=== PATIENT | female | born 1950 | race Caucasian/White ===

== ENCOUNTER 2017-10-24 08:53 | Day surgery (SDC) | payer MEDICARE, BC, SELFPAY ==
[2017-10-22 10:39] VITALS: BP 145/64; PULSE 100; RESP 16; TEMP 36.8; O2SAT 95; BMI 38.5
--- NOTE | 2017-10-22 10:47 | SDCEKG_ITS ---
Test Reason : Blood Pressure : / mmHG Vent. Rate : 091 BPM Atrial Rate : 091 BPM P-R Int : 144 ms QRS Dur : 070 ms QT Int : 376 ms P-R-T Axes : 055 -18 031 degrees QTc Int : 462 ms Normal sinus rhythm Low voltage QRS Borderline ECG Confirmed by DIANE LOUISE, JAYLYN ([id number]), videotape editor ROSSANA STODDARD ([id number]) on 10/28/2017 8:46:15 AM Referred By: Salvatore Chawla Confirmed By:JAYLYN CONTRERAS MD
[2017-10-22 11:18] LABS: Prothrombin Time (Protime)PT. 12.6 SECONDS (11.7-14.9)
[2017-10-22 11:34] LABS: AST(SGOT) 14 U/L (15-37); Alanine Aminotransfer ALT/SGPT 28 U/L (13-56); Alkaline Phosphatase 139 U/L (45-117); Anion Gap 8 (5-15); BUN 23 mg/dL (7-18); BUN/Creat Ratio 27.4 RATIO (10-20); Bilirubin, Direct 0.11 mg/dL (0.00-0.30); Calcium,Total 8.9 mg/dL (8.5-10.1); Chloride 103 mmol/L (98-107); Creatinine, Serum 0.84 mg/dL (0.55-1.02); EST Glomerular Filtration Rate 72 mL/min (>60); Est Glom Filt Rate - Afr Amer 87 mL/min (>60); Estimated Creatinine Clearance 46.68 ml/min; Globulin 3.9 g/dL (2.2-4.2); Glucose 88 mg/dL (70-110); Potassium 3.4 mmol/L (3.5-5.1); Protein, Total 7.9 g/dL (6.4-8.2); Sodium Level 140 mmol/L (136-145)
--- NOTE | 2017-10-24 | TUR_PTH ---
PATIENT: RONI LEWIS LOC: [facility] – [place] U#:[id number] AGE/SX: 67/F ROOM: RE10/24/[address]: Dr. Salvatore Chawla MD : 1950 BED: DIS: 10/24/2017 SPEC #: [id number] RECD: 10/24/17 13:09 STATUS: ALISON ANKIT #: [id number] ABBY: 10/24/17 00:[address]: Salvatore Chawla DEPT: SURGICAL PATHOLOGY RECD BY: Wander Garcia ENTERED: 10/24/17 14:37 SP TYPE: TURBINATES OTHR DR: Dr. Phong Quiroga MD Tissues: A - Nasal septum, NOS B - Nasal turbinate, NOS Procedures: Decalcification bone/plaque Surgery Specimen Level III Surgery Specimen Level IV HEADER OPERATION: Septoplasty, submucous resect/inferior turbinates PRE-OP DIAGNOSIS: Hypertrophy of nasal turbinates, deviated nasal septum TISSUE SUBMITTED: A ? Bilateral inferior turbinates ? submucous resection, B ? Nasal septal contents MICROSCOPIC DIAGNOSIS A. Bilateral inferior turbinates, submucosal resection: Fragments of respiratory mucosa with mild chronic inflammation. B. Nasal septal contents, septoplasty: Fragments of cartilage and bone, clinically deviated nasal septum. JERRELL:marilia 10/29/17 MICROSCOPIC DESCRIPTION Slides are reviewed. GROSS DESCRIPTION A - Received in fixative is one container labeled with the patient's name and designated bilateral turbinates and inferior submucosal resection. The specimen consists of multiple fragments of reynoso soft tissue that in aggregate measure 2.5 x 1 x 0.1 cm. The entire specimen is submitted in one cassette. B - Received in fixative is one container labeled with the patient's name and designated nasal septal contents. The specimen consists of multiple fragments of cartilage and bone that in aggregate measure 3 x 2.5 x 0.3 cm. The entire specimen is submitted in one cassette after decalcification. / JERRELL:marilia 10/24/17 TC:3 CPT: 18015, 49947, 49627
[2017-10-24 10:22] VITALS: BP 142/67; PULSE 92; RESP 12; TEMP 36.8; O2SAT 99; BMI 38.5
[2017-10-24] MEDS: Lidocaine 4% 50 ML Bottle (11:00)
[2017-10-24] MEDS: Bacitracin 500 UNITS/GM PACKET (11:30)
--- NOTE | 2017-10-24 11:44 | PCM.DC ---
You will use the following diet at home:: Regular Discharge Activity: Return to Normal Activity Call your doctor if your incision/area has: Sudden Increased Bleeding, Increased Pain/ Swelling Call your doctor if you observe: Fever of 101 or Higher, Uncontrolled pain Allergies/Adverse Reactions: Allergies chocolate flavor Allergy (Verified 10/22/17 10:17) Unknown corn Allergy (Verified 10/22/17 10:17) Unknown peanut Allergy (Verified 10/22/17 10:17) Unknown Penicillins Allergy (Verified 10/22/17 10:17) Unknown Tetracyclines Allergy (Verified 10/22/17 10:17) Unknown venom-honey bee [bee venom (honey bee)] Allergy (Verified 10/22/17 10:17) Unknown Medications to take at Discharge Montelukast [Singulair] 10 mg PO QHS 11/04/14 ascorbic acid (vitamin C) 500 mg tablet 500 mg PO QHS 10/10/17 furosemide 40 mg tablet 40 mg PO QDAY 10/10/17 levothyroxine 100 mcg tablet 100 mcg PO QDAY tab 10/10/17 meloxicam 15 mg tablet 15 mg PO QHS 10/10/17 devlcfcjbali-As-dcdg-minerals tablet 1 tab PO QDAY PRN ea 10/10/17 albuterol sulfate HFA 90 mcg/actuation aerosol inhaler 1 - 2 puff INHALATION Q4H PRN #18 g 10/20/17 amlodipine 5 mg tablet 5 mg PO QHS 10/20/17 cholecalciferol (vitamin D3) 50,000 unit capsule 50,000 unit PO QMONTH cap 10/20/17 ferrous sulfate 325 mg (65 mg iron) tablet 325 mg PO QHS tab 10/20/17 omeprazole 20 mg capsule,delayed release 20 mg PO QDAY 10/20/17 Potassium Chloride [Klor-Con M10] 10 meq PO BID 10/22/17 Wheat Dextrin [Benefiber] 1 each PO BID 10/22/17 Primary Care Physician: Phong Quiroga MD [Primary Care Provider] - Please Follow Up With: Salvatore Chawla MD When: 5 days
--- NOTE | 2017-10-24 11:48 | DCINST_ITS ---
You will use the following diet at home:: Regular Discharge Activity: Return to Normal Activity Call your doctor if your incision/area has: Sudden Increased Bleeding, Increased Pain/ Swelling Call your doctor if you observe: Fever of 101 or Higher, Uncontrolled pain Allergies/Adverse Reactions: Allergies chocolate flavor Allergy (Verified 10/22/17 10:17) Unknown corn Allergy (Verified 10/22/17 10:17) Unknown peanut Allergy (Verified 10/22/17 10:17) Unknown Penicillins Allergy (Verified 10/22/17 10:17) Unknown Tetracyclines Allergy (Verified 10/22/17 10:17) Unknown venom-honey bee [bee venom (honey bee)] Allergy (Verified 10/22/17 10:17) Unknown Medications to take at Discharge Montelukast [Singulair] 10 mg PO QHS 11/04/14 ascorbic acid (vitamin C) 500 mg tablet 500 mg PO QHS 10/10/17 furosemide 40 mg tablet 40 mg PO QDAY 10/10/17 levothyroxine 100 mcg tablet 100 mcg PO QDAY tab 10/10/17 meloxicam 15 mg tablet 15 mg PO QHS 10/10/17 cixxmcgdaigz-Km-qalm-minerals tablet 1 tab PO QDAY PRN ea 10/10/17 albuterol sulfate HFA 90 mcg/actuation aerosol inhaler 1 - 2 puff INHALATION Q4H PRN #18 g 10/20/17 amlodipine 5 mg tablet 5 mg PO QHS 10/20/17 cholecalciferol (vitamin D3) 50,000 unit capsule 50,000 unit PO QMONTH cap ferrous sulfate 325 mg (65 mg iron) tablet 325 mg PO QHS tab 10/20/17 omeprazole 20 mg capsule,delayed release 20 mg PO QDAY 10/20/17 Potassium Chloride [Klor-Con M10] 10 meq PO BID 10/22/17 Wheat Dextrin [Benefiber] 1 each PO BID 10/22/17 Primary Care Physician: Phong Quiroga MD [Primary Care Provider] - Please Follow Up With: Salvatore Chawla MD When: 5 days
--- NOTE | 2017-10-24 11:50 | PCM.OPRPT ---
Problem List (1) Deviated nasal septum Status: Chronic (2) Hypertrophy of both inferior nasal turbinates Status: Chronic Report of Operation Date of Procedure: 10/24/17 Pre-Operative Diagnosis: deviated nasal septum, hypertrophy of bilateral inferior turbinates Post-Operative Diagnosis: same Surgery/Procedure Performed:: septoplasty, submucous resection of bilateral inferior nasal turbinates Description of Surgical Findings:: Mary is a 67-year-old female who presents for evaluation of chronic nasal obstruction predominantly on the left side interfering with her successful use of CPAP. Examination showed significant nasal septal deviation to the left and bilateral hypertrophy of the inferior turbinates. The above procedure was offered in hopes of alleviation of her high CPAP pressure requirements and she was eager to proceed. The risks, alternatives, potential complications, and benefits were discussed at length and witnessed informed consent obtained the office. Procedure went as follows: The patient was identified in the preoperative holding and brought to the operating room where she is placed under general anesthesia and intubated. When appropriate anesthesia obtained pledgets soaked in a 50-50 mixture of oxymetazoline 4% topical lidocaine was then placed decongest the nasal mucosa. Upon removal nasal cavity is examined. There is noted to be significant posterior leftward deviation of nasal septum and a large inferior bony spur obstructing the left side. The septum was then injected with 1% lidocaine with 100,000 epinephrine for a total of 6 cc with an additional 1 cc and injected into the anterior aspect of the inferior turbinates bilaterally. Using a 15 blade scalpel a hemitransfixion incision was then made in the left side and using the caudal elevator a perichondrial subperiosteal flap elevated. Will septum was then transected at the bony cartilaginous junction and a similar flap raised on the contralateral side. Using a Jeff forceps the superior aspect of the deviated portion of the septum was then transected in the lower portion removed piecemeal with a Mary Kate forceps. The mucosa was then elevated off the bony spur inferiorly and this was sharply removed with a chisel allowing for midline placement of the nasal septum. The hemitransfixion incision was then closed with interrupted 4-0 chromic suture followed by 4 oh plain quilting stitch to reapproximate the mucosal flaps completing the septoplasty portion of the procedure. Attention was then turned to submucous resection. Beginning on the left side a stab incision was made with a 15 blade scalpel in the anterior aspect of the inferior turbinate. Using a caudal elevator a submucosal flap was then elevated and using the Luke microdebrider the intervening mucosa and anterior bony portions of the turbinate resected. This resulted in excellent reduction. Similar procedures and completed on the contralateral side. Hernandez splints coated in bacitracin ointment were then applied to each nostril and secured to the columella with a single 3-0 Prolene suture. An NG tube was placed to decompress the stomach and the patient returned to anesthesia where she was revived and extubated without complication having tolerated the procedure well. Type of Anesthesia:: General Anesthesiologist: Angelo Palacios Specimen's removed: septal and turbinate contents Estimated Blood Loss (mL): 50 mL Fluids Replaced: 1000 mL Grafts/Implants Used: Hernandez splints - Complications none - Admit VTE Documentation VTE Present on Admission: No VTE Mechan Device Prophylaxis: SCD's VTE Pharm Prophylaxis ordered?: No
[2017-10-24 11:52] VITALS: BP 142/67; BP 155/82; PULSE 96; RESP 12; TEMP 36.7; O2SAT 96
[2017-10-24 12:00] VITALS: BP 142/67; BP 166/80; PULSE 99; RESP 16; O2SAT 100
[2017-10-24 12:15] VITALS: BP 142/67; BP 170/72; PULSE 96; RESP 16; O2SAT 100
[2017-10-24 12:25] VITALS: BP 142/67; BP 164/78; PULSE 96; RESP 16; TEMP 36.9; O2SAT 100
[2017-10-24 13:54] VITALS: BP 142/67; BP 148/88; PULSE 92; RESP 18; TEMP 36.8; O2SAT 97
== END 2017-10-24 13:57 | disposition home or self-care (01) ==
LOC: SDC 08:53 → AC 08:54
PROVIDERS: Anesthesiology; Family Provider Family Medicine; PCP Family Medicine; Visit Provider Otolaryngology
PROC: (CPT 30520; principal; 2017-10-24 10:15)
DX: J34.2 Deviated nasal septum (principal); J34.3 Hypertrophy of nasal turbinates; I10 Essential (primary) hypertension; D64.9 Anemia, unspecified; G47.30 Sleep apnea, unspecified; K21.9 Gastro-esophageal reflux disease without esophagitis; I50.32 Chronic diastolic (congestive) heart failure; J45.909 Unspecified asthma, uncomplicated
CPT/HCPCS: 30140; 30520; 80048; 80076; 85610; 85730; 88304; 88305; 88311; 93005; J7120; J2405

== ENCOUNTER → 2017-12-24 10:57 | Outpatient (CLI) | payer MEDICARE, BC, SELFPAY ==
[2017-12-24 11:26] VITALS: PULSE 113; PULSE 117; PULSE 118; PULSE 123; PULSE 126; PULSE 96; PULSE 97; O2SAT 95; O2SAT 96; O2SAT 97
--- NOTE | 2017-12-24 13:45 | WT_ITS ---
PSN 6 Minute Walk Test - 6 Minute Walk Test 6 Minute Walk Test: 6 Minute Walk Test PSN:6-Minute Walk Test Start: 12/24/17 11: 26 Freq: Status: Active Protocol: RESP.6MINW Document 12/24/17 11:26 YINKA (Rec: 12/24/17 11:28 YINKA [id number]) 6 Minute Walk Test Date Performed 12/24/17 Time Performed 11:00 Height 5 ft Weight: 86.183 kg Weight in Pounds 190.[address]: Neo Mensah Assistive device used: None Pre-test Oxygen Delivery Method Room Air Pulse Ox (%) 96 Pulse Rate (60-100 beats/min) 97 Dyspnea Nancy Scale (0-10) 0.5 Exertion Nancy Scale (6-20) 6 1st minute Oxygen Delivery Method Room Air Pulse Ox (%) 95 Pulse Rate (60-100 beats/min) 113 H 2nd minute Oxygen Delivery Method Room Air Pulse Ox (%) 96 Pulse Rate (60-100 beats/min) 118 H 3rd minute Oxygen Delivery Method Room Air Pulse Ox (%) 95 Pulse Rate (60-100 beats/min) 117 H 4th minute Oxygen Delivery Method Room Air Pulse Ox (%) 95 Pulse Rate (60-100 beats/min) 123 H 5th minute Oxygen Delivery Method Room Air Pulse Ox (%) 97 Pulse Rate (60-100 beats/min) 123 H 6th minute Oxygen Delivery Method Room Air Pulse Ox (%) 96 Pulse Rate (60-100 beats/min) 126 H Dyspnea Nancy Scale (0-10) 1 Exertion Nancy Scale (6-20) 13 Post-test Oxygen Delivery Method Room Air Pulse Ox (%) 97 Pulse Rate (60-100 beats/min) 96 Full Laps Walked 20 Partial Lap, Number of Tiles Walked 20 Total Distance Walked (ft) 1200 - Interpretation Interpretation: The patient ambulated 1200 feet over the course of 6 minutes on room air with no assistive devices or breaks. No significant desaturation was noted, but patient did have a heart rate as high as 126 bpm. These findings are consistent with a radial vascular limitation to exercise tolerance. - Recommendations Recommendations: No supplemental oxygen is indicated at this time.
== END ==
PROVIDERS: Family Provider Family Medicine; PCP Family Medicine; Visit Provider Nurse Practitioner Acute Care
DX: R06.09 Other forms of dyspnea (principal)
CPT/HCPCS: 94618

== ENCOUNTER → 2017-12-25 13:25 | Outpatient (CLI) | payer MEDICARE, BC, SELFPAY ==
--- NOTE | 2017-12-26 05:58 | PFTCOMP ---
COMPLETE PULMONARY FUNCTION TEST INTERPRETATION Brief HPI: Patient is a 67 year old female, currently under the care of Katja Cruz, who presents to [facility] for complete pulmonary function tests secondary to diagnosis of dyspnea on exertion. Respiratory therapist reports good effort and reproducible results. Interpretation: Forced expiration spirometry shows no large airways obstructive ventilatory defect with an FEV1 of 100 % predicted. There is no significant bronchodilator response by ATS criteria. Spirograms are of good quality and plateau normally. The respiratory flow volume loop shows a normal pattern. Lung volumes by body plethysmography show a normal total lung capacity at 4.66 L, 115 % predicted. All other lung volumes are within normal limits. Diffusion capacity by carbon monoxide is at the lower limit of normal at 66 % predicted. The airway resistance is normal. Compared to previous pulmonary function tests from 01/02/2016, there has been a significant reduction in DLCO by 17%. Impression: Pulmonary function tests are grossly within normal limits, but DLCO is disproportionately reduced and may indicate an early pulmonary vascular disorder.
== END ==
PROVIDERS: Family Provider Family Medicine; PCP Family Medicine; Visit Provider Nurse Practitioner Acute Care
DX: R06.09 Other forms of dyspnea (principal)
CPT/HCPCS: 94060; 94726; 94729

== ENCOUNTER → 2018-01-07 09:57 | Outpatient (CLI) | payer MEDICARE, BC, SELFPAY ==
--- NOTE | 2018-01-07 10:37 | RAD_ITS ---
STUDY: X-RAY - CERVICAL SPINE REASON FOR EXAM: Female, 67 years old. Right arm numbness and tingling with weakness, persistently for one year TECHNIQUE: 5 view(s) of the cervical spine were obtained. COMPARISON: None FINDINGS: Normal anterior atlantoaxial articulation. Normal odontoid process. Normal cervical lordosis. Mild sclerosed endplates and decreased disc height C5-C6. Mild neural foramina narrowing right C5-C6. Facet arthropathy with sclerosis and joint space narrowing C4-5. The soft tissue structures are age-appropriate. RAD/Cerv Spine 4 or 5 Views IMPRESSION: Degenerative changes C5-C6 with mild right neural foraminal narrowing. Electronically Signed: Karen Enriquez MD at 7:28 EDT , Service support ,
--- NOTE | 2018-01-07 10:49 | RAD_ITS ---
STUDY: X-RAY - RIGHT SHOULDER REASON FOR EXAM: Female, 67 years old. Right arm numbness and tingling with weakness, persistently for one year TECHNIQUE: 4 view(s) of the shoulder. COMPARISON: None. FINDINGS: Normal glenohumeral articulation. There is degenerative arthrosis of the acromioclavicular joint without inferior osseous spur formation. Normal acromion. Normal humeral head and visualized proximal humerus. The soft tissue structures are unremarkable. Normal visualized pulmonary apex. RAD/Shoulder min 2 Views IMPRESSION: Mild degenerative changes of the acromioclavicular joint. Electronically Signed: Karen Enriquez MD at 7:27 EDT , Service support ,
[2018-01-07 12:12] LABS: Absolute Lymphocyte Count 1.39 X10^3/ul (0.83-4.51); Absolute Neutrophil Count 4.9 X10^3/uL (2.0-7.7); Basophil# 0.02 X10^3/uL; Basophil% 0.3 % (0-1); Eosinophil# 0.24 X10^3/uL; Eosinophils% 3.4 % (0-5); Hematocrit 43.1 % (37-47); Hemoglobin 13.9 g/dl (12.0-15.0); Lymphocyte # 1.39 X10^3/ul (4.0); Lymphocyte % 19.5 % (19-41); Mean Corp Hgb Conc 32.3 g/gl (32-36); Mean Corpuscular Hgb 28.7 pg (27.0-32.0); Mean Corpuscular Volume 88.9 fL (81-99); Mean Platelet Vol. 10.9 fl (6.2-12.0); Monocyte# 0.56 X10^3/uL; Monocyte% 7.9 % (0-10); Neutrophil # 4.91 X10^3/uL (2.7-7.7); Neutrophil % 68.8 % (47-70); Platelet Count 307 K/mm3 (150-450); RBC Distribution Width CV 13.3 % (11.6-14.6); RBC Distribution Width SD 42.9 fl (35.1-43.9); Red Blood Count 4.85 M/mm3 (4.2-5.4); White Blood Count 7.1 K/mm3 (4.4-11.0)
[2018-01-07 12:16] LABS: POSITIVE COUNT NO; POSITIVE DIFFERENTIAL NO; POSITIVE MORPHOLOGY NO
[2018-01-07 12:42] LABS: Vitamin D,25 Hydroxy 28.5 ng/mL (29.95-100.01)
[2018-01-07 12:52] LABS: Anion Gap 9 (5-15); BUN 21 mg/dL (7-18); BUN/Creat Ratio 24.7 RATIO (10-20); Calcium,Total 8.9 mg/dL (8.5-10.1); Chloride 105 mmol/L (98-107); Creatinine, Serum 0.85 mg/dL (0.55-1.02); EST Glomerular Filtration Rate 71 mL/min (>60); Est Glom Filt Rate - Afr Amer 86 mL/min (>60); Glucose 99 mg/dL (74-106); Potassium 4.1 mmol/L (3.5-5.1); Sodium Level 139 mmol/L (136-145); T4 Free Direct 1.15 ng/dL (0.76-1.46); Thyroid Stim Hormone (TSH) 0.72 uIU/mL (0.358-3.74); Uric Acid 7.4 mg/dL (2.6-6.0)
== END ==
LOC: BFHLAB 10:00 → RAD 10:33
PROVIDERS: Family Provider Family Medicine; PCP Family Medicine; Visit Provider Family Medicine
DX: I10 Essential (primary) hypertension (principal); M10.9 Gout, unspecified; E55.9 Vitamin D deficiency, unspecified; E03.9 Hypothyroidism, unspecified; R20.0 Anesthesia of skin; R20.2 Paresthesia of skin
CPT/HCPCS: 36415; 72040; 72050; 73030; 80048; 82306; 84439; 84443; 84550; 85025

== ENCOUNTER → 2018-02-17 10:34 | Outpatient (CLI) | payer MEDICARE, BC, SELFPAY | PROVIDERS: Family Provider Family Medicine; PCP Family Medicine; Referring Provider Family Medicine; Visit Provider Family Medicine | DX: N30.00 Acute cystitis without hematuria (principal) | CPT/HCPCS: 87077; 87086; 87088; 87186 ==

== ENCOUNTER → 2018-04-14 07:25 | Outpatient (CLI) | payer MEDICARE, BC, SELFPAY ==
--- NOTE | 2018-04-14 13:42 | NEURO_ITS ---
NCS and/or EMG Patient Report Ordering Doctor: Phong Quiroga DATE OF SERVICE: 04/14/18 This is a right upper extremity EMG and nerve conduction study performed on this 68-year-old female with a history of right lateral back pain intermittently worse at night, as well as right shoulder pain. She denies numbness or tingling in her hands. Symptoms of been present for 3 months. She is healthy otherwise. Right upper extremity sensory and motor nerve conduction studies performed. There is mild to moderate prolongation of the median motor and sensory distal latency with preservation of amplitudes and conduction velocities. The ulnar motor and sensory and radial sensory response is normal. The median and ulnar F -wave latencies are preserved. Right upper extremity needle electromyography is performed. Muscles evaluated included the first dorsal interosseous, abductor pollicis brevis, brachioradialis, biceps, triceps and deltoid muscles. All muscles demonstrated normal insertional activity with absence of pathologic spontaneous activity. Motor unit potential recruitment pattern and amplitude is normal in all muscles tested. Impression: Abnormal electrophysiologic study of the right upper extremity consistent with mild to moderate carpal tunnel syndrome. This does not appear to be clinically significant however, there is no other evidence of neuropathy or radiculopathy.
== END ==
PROVIDERS: Family Provider Family Medicine; PCP Family Medicine; Visit Provider Family Medicine
DX: M79.2 Neuralgia and neuritis, unspecified (principal); G56.21 Lesion of ulnar nerve, right upper limb
CPT/HCPCS: 95886; 95909

== ENCOUNTER → 2018-10-20 10:22 | Outpatient (CLI) | payer MEDICARE, BC, SELFPAY ==
[2018-10-12 14:19] VITALS: BMI 39.8
--- NOTE | 2018-10-20 10:25 | STEWCON_ITS ---
Reason For Study: CHEST PAIN Stress Results Protocol: Neo Protocol Maximum Predicted HR: 152 bpm Target HR: 129 bpm % Maximum Predicted HR: 101 % DurationHeart Rate Stage (mm:ss) (bpm) BP Comment BASELINE 91 142/781.5 CC DEFINITY STAGE 1 3:00 131 178/82 STAGE 2 1:00 153 / 1CC DEFINITY RECOVERY 108 150/82 Stress Duration: 4:00 mm:ss Maximum Stress HR: 153 bpm Baseline Echocardiogram Findings The estimated ejection fraction is 65 %. Stress Echo Wall motion Data Resting WM Intermediate WM Stress WM Resting Wall Motion Wall Motion Stress No regional wall motion Mid-anteroseptal : Mildly abnormalities noted. hypokinetic. EKG Data Normal intervals are noted. The patient exercised according to the regular Neo protocol for a total duration of 4:01. The maximum heart rate attained was 153 beats per minute. This was 100% of maximum predicted heart rate. The patient exercised into stage 2 of the Neo protocol. At peak exercise, upsloping ST changes only were noted, which did not meet the criteria for ischemia. No arrhythmias noted. Interpretation Summary The estimated ejection fraction is 65 %. Abnormal, adequate, treadmill echocardiogram. Positive for ischemia by EKG, echocardiogram as well as chest pressure during exercise. Patient appeared to developed mild mid anteroseptal hypokinesis and seen in 2 views at peak exercise. Patient had subtle inferolateral ST segment depression at peak exercise which quickly resolved into recovery. Patient had poor echo windows requiring Definity agent. Final LVEF of 55%. Chest pain resolved during recovery. Test terminated due to dyspnea and chest pressure. Patient referred for catheterization as an outpatient. No complications. Ordering Physician: Kristie Parker/Marcin Olmedo Referring Physician: Kristie Parker Performed By: Jasbir Mcqueen RCS
--- NOTE | 2018-10-20 11:55 | RAD_ITS ---
STUDY: X-RAY CHEST REASON FOR EXAM: Female, 68 years old. TECHNIQUE: COMPARISON: None. FINDINGS: The lungs are clear and expanded. There is no demonstrated pleural abnormality. Normal size heart. Normal mediastinum and manohar. Normal visualized pulmonary arteries. There is atherosclerotic calcification of the aortic arch with tortuosity. There are diffuse degenerative changes of the visualized thoracic spine. Normal visualized ribs, clavicles, and shoulders. There is no demonstrated abnormality of the visualized soft tissue structures of the upper abdomen. RAD/Chest PA and Lateral IMPRESSION: No acute pulmonary process Electronically Signed: Wes Reynoso MD at 20:44 EST , Service support ,
[2018-10-20 13:04] LABS: Hematocrit 44.2 % (37-47); Hemoglobin 14.4 g/dl (12.0-15.0); Mean Corp Hgb Conc 32.6 g/gl (32-36); Mean Corpuscular Hgb 29.8 pg (27.0-32.0); Mean Corpuscular Volume 91.3 fL (81-99); Mean Platelet Vol. 10.2 fl (6.2-12.0); Platelet Count 310 K/mm3 (150-450); RBC Distribution Width CV 12.9 % (11.6-14.6); RBC Distribution Width SD 42.9 fl (35.1-43.9); Red Blood Count 4.84 M/mm3 (4.2-5.4); White Blood Count 8.1 K/mm3 (4.4-11.0)
[2018-10-20 13:06] LABS: Scan Indicated on CBC? Y/N NO
[2018-10-20 13:13] LABS: Prothrombin Time (Protime)PT. 13.3 SECONDS (11.7-14.9)
[2018-10-20 13:14] LABS: Partial Thromboplast Time 25.2 Seconds (24.1-36.2)
[2018-10-20 13:27] LABS: Anion Gap 12 (5-15); BUN 15 mg/dL (7-18); BUN/Creat Ratio 17.9 RATIO (10-20); Calcium,Total 9.3 mg/dL (8.5-10.1); Chloride 107 mmol/L (98-107); Creatinine, Serum 0.84 mg/dL (0.55-1.02); EST Glomerular Filtration Rate 72 mL/min (>60); Est Glom Filt Rate - Afr Amer 87 mL/min (>60); Glucose 100 mg/dL (74-106); Potassium 4.1 mmol/L (3.5-5.1); Sodium Level 143 mmol/L (136-145)
== END ==
PROVIDERS: Family Provider Family Medicine; PCP Family Medicine; Referring Provider Physician Assistant Medical; Visit Provider Physician Assistant Medical
DX: I11.9 Hypertensive heart disease without heart failure (principal); R07.9 Chest pain, unspecified; R94.39 Abnormal result of other cardiovascular function study
CPT/HCPCS: 36415; 71046; 80048; 85027; 85610; 85730; 93017; 93350; Q9957; A4216; C8928

== ENCOUNTER 2018-10-28 06:54 | Day surgery (SDC) | payer MEDICARE, BC, SELFPAY ==
[2018-10-12 14:19] VITALS: BMI 39.8
[2018-10-20 16:20] VITALS: BMI 39.8
[2018-10-27 08:00] VITALS: BMI 39.8
--- NOTE | 2018-10-28 08:25 | CL.D_ITS ---
Patient Name: RONI LEWIS Study Date: 10/28/2018 Performing: Marcin Olmedo MD Ht: 59.84 inches 152 cm : 1950 Wt: 205.03 lbs 93 kg Age: 68 Gender: female BSA: 1.88 Amended PROCEDURE(S) PERFORMED TZ02-VNM/COR/LV CLINICAL PROFILE AND INDICATIONS Indications: Worsening Angina, Suspected CAD Heart Failure: None Stress/Imaging Stress Echocardiogram: Yes Result: Positive Low RiskStress Echocardiogram: Positiv e Low Risk Angina Classification Anginal Classification w/in 2 Weeks: CCS IV CAD Presentations: Unstable angina. Comorbidities/Risk Factors: Hypertension Dyslipidemia CONCLUSIONS Normal LV size, wall motion,and systolic function Non obstructive coronary arteries RECOMMENDATIONS Management as per referring Cloth Tester D/c plavix, increase omeprazole to 20mg po bid, start zocor 20mg po qhs and repeat FLP in [address] Tena Manual sheath removal. DESCRIPTION OF PROCEDURE The patient arrived to the procedure lab. The risks and benefits of the procedure as well as a full d escription of our services here and current unavailability of surgical backup were fully explained to the patient and/or their significant other prior to the catheterization. The Timeout was completed, verifying the correct patient and procedure. The patient's procedural site was prepped and draped in the usual fashion. Local anesthetic was given subcutaneously to right groin region with Lidocaine 2%. Using a modified Seldinger technique, arterial access was obtained via the right femoral artery, a 4 Fr sheath was inserted Left Coronary Artery selective angiography was performed in multiple views us ing a 4 Fr. JL5 catheter. Right Coronary Artery selective angiography was then performed in multiple views using a 4 Fr. 3DRC catheter. Left Ventriculography was performed in BARRAZA projection using a 4 Fr . Pigtail catheter. LV to AO pullback pressures were then recorded.The arterial sheath was pulled and manual compression applied until hemostasis is achieved. CORONARY ANGIOGRAPHY DOMINANCE: Right Dominant LEFT HEART ASSESSMENT Left Ventricular Ejection Fraction: by LV Gram 65 % Normal LV wall motion Normal Left Ventricular systolic function LVEDP: 8 mmHg Normal Left Ventricular End Diastolic Pressure LEFT MAIN: Angiographically normal LEFT ANTERIOR DECENDING ARTERY: Angiographically normal CIRCUMFLEX ARTERY: Angiographically normal OM 1: Proximal - Moderate luminal irregularities up to 50% RIGHT CORONARY ARTERY: Angiographically normal COMPLICATIONS No Complications PROCEDURE MEDICATIONS Oxygen: 2 L/min via nasal cannula Nitro 200 mcg IC 10/28/2018 08:07:20 SUMMARY OF HEMODYNAMIC DATA Time AIR REST ECG 07:06:59 AO 133/58 (92) SA 08:03:31 LV 0/-21, 0 08:12:32 LV 145/-19, 13 08:12:38 LVp 142/-21, 8 08:12:43 AOp 135/54 (85) 08:12:48 Signed By Marcin Olmedo MD On 10/28/2018 8:24:16 AM Marcin Olmedo MD
[2018-10-28 08:41] LABS: Bedside Glucose 121 mg/dL (70-110)
== END 2018-10-28 12:56 | disposition home or self-care (01) ==
LOC: CLSP 06:56
PROVIDERS: Family Provider Family Medicine; PCP Family Medicine; Referring Provider Internal Medicine Cardiovascular Disease; Visit Provider Internal Medicine Cardiovascular Disease
DX: R07.89 Other chest pain (principal); I10 Essential (primary) hypertension; I51.9 Heart disease, unspecified; R00.0 Tachycardia, unspecified; E78.5 Hyperlipidemia, unspecified
CPT/HCPCS: 82962; 93458; J7040; C1769; C1894; Q9967

== ENCOUNTER → 2019-04-05 10:35 | Outpatient (CLI) | payer MEDICARE, BC, SELFPAY ==
[2019-01-11 09:36] VITALS: BMI 35.9
[2019-04-05 12:47] LABS: Absolute Lymphocyte Count 1.27 X10^3/ul (0.83-4.51); Basophil# 0.04 X10^3/uL; Basophil% 0.5 % (0-1); Eosinophil# 0.15 X10^3/uL; Eosinophils% 1.9 % (0-5); Hematocrit 45.5 % (37-47); Hemoglobin 15.2 g/dl (12.0-15.0); Lymphocyte # 1.27 X10^3/ul (4.0); Lymphocyte % 15.8 % (19-41); Mean Corp Hgb Conc 33.4 g/gl (32-36); Mean Corpuscular Hgb 29.2 pg (27.0-32.0); Mean Corpuscular Volume 87.3 fL (81-99); Monocyte% 7.5 % (0-10); Neutrophil # 5.96 X10^3/uL (2.7-7.7); Neutrophil % 74.1 % (47-70); Platelet Count 335 K/mm3 (150-450); RBC Distribution Width CV 13.5 % (11.6-14.6); RBC Distribution Width SD 42.4 fl (35.1-43.9); Red Blood Count 5.21 M/mm3 (4.2-5.4)
[2019-04-05 12:49] LABS: POSITIVE COUNT NO; POSITIVE DIFFERENTIAL NO; POSITIVE MORPHOLOGY NO
[2019-04-05 12:55] LABS: Vitamin D,25 Hydroxy 62.6 ng/mL (29.95-100.01)
[2019-04-05 13:03] LABS: ALB/GLOB Ratio 1.2 RATIO (0.9-2.4); AST(SGOT) 21 U/L (15-37); Alanine Aminotransfer ALT/SGPT 38 U/L (13-56); Albumin, Serum 4.2 g/dL (3.2-5.0); Alkaline Phosphatase 108 U/L (45-117); Anion Gap 9 (5-15); BUN 16 mg/dL (7-18); BUN/Creat Ratio 16.4 RATIO (10-20); Calcium,Total 9.1 mg/dL (8.5-10.1); Chloride 106 mmol/L (98-107); Creatinine, Serum 0.98 mg/dL (0.55-1.02); EST Glomerular Filtration Rate 60 mL/min (>60); Est Glom Filt Rate - Afr Amer 73 mL/min (>60); Globulin 3.4 g/dL (2.2-4.2); Glucose 114 mg/dL (74-106); Potassium 3.7 mmol/L (3.5-5.1); Protein, Total 7.6 g/dL (6.4-8.2); Sodium Level 140 mmol/L (136-145); T4 Free Direct 1.48 ng/dL (0.76-1.46); Thyroid Stim Hormone (TSH) 1.21 uIU/mL (0.358-3.74); Uric Acid 6.4 mg/dL (2.6-6.0)
== END ==
PROVIDERS: PCP Family Medicine; Visit Provider Family Medicine
DX: I10 Essential (primary) hypertension (principal); E03.9 Hypothyroidism, unspecified; M10.9 Gout, unspecified; E55.9 Vitamin D deficiency, unspecified; R73.01 Impaired fasting glucose
CPT/HCPCS: 36415; 80053; 82306; 83036; 84439; 84443; 84550; 85025

== ENCOUNTER 2019-04-21 10:49 | Day surgery (SDC) | payer MEDICARE, BC, SELFPAY ==
--- NOTE | 2019-04-15 07:00 | RAD_ITS ---
STUDY: X-RAY CHEST REASON FOR EXAM: Female, 69 years old. Acute chest pain TECHNIQUE: PA and lateral views of the chest. COMPARISON: 10/20/2018 FINDINGS: The lungs are clear and expanded. There is no demonstrated pleural abnormality. Normal size heart. Normal mediastinum and manohar. Normal visualized pulmonary arteries. There is atherosclerotic calcification of the aortic arch with tortuosity. There are diffuse degenerative changes of the visualized thoracic spine. Normal visualized ribs, clavicles, and shoulders. There is no demonstrated abnormality of the visualized soft tissue structures of the upper abdomen. RAD/Chest PA and Lateral IMPRESSION: No acute pulmonary process Electronically Signed: Wes Reynoso MD at 11:06 EDT , Service support ,
[2019-04-15 09:11] VITALS: BMI 33.7
[2019-04-15 11:56] LABS: Hematocrit 43.3 % (37-47); Hemoglobin 14.3 g/dL (12.0-15.0); Mean Corpuscular Hgb 29.1 pg (27.0-32.0); Mean Corpuscular Volume 88.2 fL (81-99); Platelet Count 284 K/mm3 (150-450); RBC Distribution Width CV 13.2 % (11.6-14.6); RBC Distribution Width SD 42.8 fl (35.1-43.9); Red Blood Count 4.91 M/mm3 (4.2-5.4); White Blood Count 8.9 K/mm3 (4.4-11.0)
[2019-04-15 12:19] LABS: International Normalized Ratio 1.1; Prothrombin Time (Protime)PT. 13.6 SECONDS (11.7-14.9)
[2019-04-15 12:20] LABS: Partial Thromboplast Time 27.2 Seconds (24.1-36.2)
[2019-04-15 12:40] LABS: Anion Gap 6 (5-15); BUN 15 mg/dL (7-18); BUN/Creat Ratio 18.1 RATIO (10-20); Calcium,Total 9.2 mg/dL (8.5-10.1); Chloride 107 mmol/L (98-107); Creatinine, Serum 0.83 mg/dL (0.55-1.02); EST Glomerular Filtration Rate 72 mL/min (>60); Est Glom Filt Rate - Afr Amer 88 mL/min (>60); Glucose 90 mg/dL (74-106); Potassium 3.7 mmol/L (3.5-5.1); Sodium Level 137 mmol/L (136-145)
[2019-04-20 13:41] VITALS: BMI 34.7
[2019-04-21] VITALS (20 sets, daily range): BP systolic 113–158; BP diastolic 35–91; PULSE 74–89; RESP 13–29; TEMP 36.2–36.5; O2SAT 95–100; BMI 34.0; BMI 34.7
[2019-04-21 12:06] LABS: ACT Activated Clotting Time 213 sec (74-137)
--- NOTE | 2019-04-21 12:13 | EKG12_ITS ---
Test Reason : POST PCI Blood Pressure : / mmHG Vent. Rate : 075 BPM Atrial Rate : 075 BPM P-R Int : 164 ms QRS Dur : 070 ms QT Int : 414 ms P-R-T Axes : 057 -08 028 degrees QTc Int : 462 ms Normal sinus rhythm Normal ECG When compared with ECG of 22-OCT-2017 10:52, No significant change was found Confirmed by ANAM OLMEDO ([id number]), manuscript editor NOVA STEWART ([id number]) on 05/03/2019 2:07:06 PM Referred By: Anam Olmedo Confirmed By:ANAM OLMEDO
--- NOTE | 2019-04-21 12:14 | CL.I_ITS ---
Patient Name: RONI LEWIS Study Date: 04/21/2019 Performing: Marcin Olmedo MD Ht: 59.84 inches 152 cm : 1950 Wt: 171.96 lbs 78 kg Age: 69 Gender: female BSA: 1.75 PROCEDURE(S) PERFORMED [id number] W OR WO PTCA, SINGLE CORONARY ARTERY CLINICAL PROFILE AND CO-MORBIDITIES Indications: Worsening Angina, Stable Known CAD Heart Failure: None Stress/Imaging Date: 10/20/2018 Stress Echocardiogram: Positive Low Risk Angina Classification Anginal Classification w/in 2 Weeks: CCS III CAD Presentations: Unstable angina. 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 Pt had identical CP during stent deployment as she has been having at home. RECOMMENDATIONS Referred for immediate PCI Highly recommend quitting all tobacco products Follow up with primary digital press operator Risk factor modification ASA Indefinitley Plavix for at least 12 months Routine post interventional care Refer for Outpatient Cardiac Rehab Manual sheath removal per protocol Follow up with Dr. Olmedo Successful Mynx Control closure of RFA. DESCRIPTION OF PROCEDURE The patient arrived to the procedure lab. The risks and benefits of the procedure as well as a full d escription of our services here and lack of surgical backup were fully explained to the patient and/o r their significant other prior to the catheterization. The Timeout was completed, verifying the kodi ect patient and procedure. The patient's procedural site was prepped and draped in the usual fashion. Local anesthetic was given subcutaneously to right groin region with Lidocaine 2%. Using a modified Seldinger technique, arterial access was obtained via the right femoral artery, a 6Fr sheath was inse rted.. Right Coronary Artery selective angiography was then performed in multiple views using a 4 Fr . 3DRC catheterThe images were reviewed and options discussed. A decision was then made to proceed wi th an Intervention, IVUS or other adjunct procedure. Angiogram performed pre balloon dilatation. EBU 3.5 Guide catheter was inserted and engaged into the LCA. BMW Guide wire was advanced to the Ramus. 2.25x12 Synergy Drug Eluting stent was advanced ac ross the lesion in the ramus branch, proximal. Angiogram performed post stent deployment. The arter ial sheath was pulled and a Mynx closure device was deployed for hemostasis CORONARY ANGIOGRAPHY DOMINANCE: Right Dominant LEFT HEART ASSESSMENT Left Ventricular Ejection Fraction: Not assessed LEFT MAIN: Angiographically normal CIRCUMFLEX ARTERY: Angiographically normal RAMUS: 75 % Stenosis RIGHT CORONARY ARTERY: Angiographically normal INTERVENTION INFORMATION LESION SITE: Ramus (Proximal) Lesion Complexity: Non-High/Non-C, lesion at bifurcation: No, thrombus present: No, lesion length: 12 mm, culprit lesion: Yes Pre Stenosis: 75 % Pre intervention LESLIE flow: 3 PROCEDURE: Drug Eluting Stent Post Stenosis: 0 % Post intervention LESLIE flow: 3 Lesion Devices: Land .014 BMW [place] Straight 190cm Briteseedtronic 6 Fr EBU3.5 100cm Guide Catheter Anomo MR MATTY 2.25x12 COMPLICATIONS No Complications PROCEDURE MEDICATIONS Versed 1 mg IV Oxygen: 2 L/min via nasal cannula Heparin 6000 unit(s) IV 04/21/2019 11:39:24 Nitro 200 mcg IC 04/21/2019 11:43:31 Nitro 200 mcg IC 04/21/2019 11:43:31 IV Bolus: .9 NaCl 200 ml total 04/21/2019 12:00:25 SUMMARY OF HEMODYNAMIC DATA Time AIR REST ECG 11:28:56 AO 127/53 (83) SA 11:38:25 Signed By Marcin Olmedo MD On 04/21/2019 12:13:23 Marcin Olmedo MD
[2019-04-21] MEDS: 0.9% Normal Saline 1,000 ML 150 ML IV (13:51)
--- NOTE | 2019-04-21 14:56 | CRPHASE1 ---
Patient Communication PHII Cardiac Rehab Discussed with Patient:: Yes Guide to Cardiac Rehab Given to Patient:: Yes Cardiac Rehab Facility Choice List Given to Patient:: Yes - [facility] Choice Program [facility] CR PHII:: Communication Given to CR Sessions:: 36 sessions - 3 days/wk, 12 weeks Risk Factors/Lifestyle Smoking Status: Never smoker Second-Hand Smoke:: Yes Hx Hypertension: Yes Hx Diabetes Mellitus Type 2: No Hx Obesity: Yes Height: 1.5 m Weight:: 78.01 kg BMI: 34.7 Post-Menopausal: Yes Stress: Home/Family ETOH: No Caffeine: Yes Substance Abuse: No Family History: Family History (Last Reviewed 04/15/19 @ 09:20 by Katelyn Taylor) Brother CAD (coronary artery disease) Mother Heart disease Thyroid disorder Parkinson disease Hypertension Arthritis Father Heart disease Cancer Arthritis Hypertension High cholesterol Pulmonary fibrosis Family History: High Cholesterol, Heart Disease, Hypertension, Pulmonary Disease Phase I Education Given On:: [place], Nutrition, Antiplatelet medication, CHF Issues Affecting Care:: None Knowledge of Condition:: Yes Hospital Course Pain Description: Tightness, Pressure Pain Intensity: 8 Cardiac Cath Date:: 04/21/19 Medical/Surgical History NH:: No Angina:: Yes Cardiomyopathy:: Yes Pulmonary:: Yes COPD:: Yes Asthma:: Yes Hypertension:: Yes Dyslipidemia:: Yes Depression:: Yes - HAS DEMENTIA Anxiety:: Yes Discharge/Home/Social Eval Discharge Disposition: Home Marital Status: Patient Lives With:: Cardiac Rehabilitation Info Cardiac Rehabilitation Program Information: Cardiac Rehabilitation is important for patients like you who are recovering from a heart problem. Cardiac rehabilitation programs are recognized as integral to the continued care of the patient with coronary heart disease. The cardiac rehabilitation program is designed to optimize a patient's physical, psychological, and social functioning. Health career development coordinator work in cardiac rehabilitation programs and assist you with getting the treatments you need to get stronger and healthier - like exercise, healthy eating habits, and medications. Cardiac rehabilitation has been show to help people with heart problems live longer and have better life enjoyment than people who do not go to cardiac rehabilitation. Please contact the Cardiac Rehabilitation Program at [facility] at in two weeks if you have not heard from them.
--- NOTE | 2019-04-21 15:00 | CRPH1.INSTRU ---
General Education CAD and cardiac anatomy and function:: Patient communicates acknowledgment Explanation of diagnoses and procedures:: Patient communicates acknowledgment Sign/Symptoms of NE:: Patient communicates acknowledgment Antiplatelet therapy: Not instructed Proper use of NTG-SL: Not instructed Emergency procedures and activation of EMS: Patient communicates acknowledgment Compliance of all prescribed medications: Patient communicates acknowledgment Smoking Patient Nicotine/Smoking Risk Factors Are:: Second-hand smoke Dyslipidemia Recommendations Include:: Lipid profile not available Dyslipidemia Response Code:: Patient communicates acknowledgment Overweight/Obesity Patient Overweight/Obesity Risk Factors Are:: Overweight = 26-29 Recommendations Include:: Weight loss of 5-10% Overweight/Obesity:: Patient communicates acknowledgment Hypertension Recommendations Include:: Maintain BP <130/85, DASH dietary guidelines, Decrease/maintain normal body weight Hypertension:: Patient communicates acknowledgment Heart Disease Patient Heart Disease Risk Factors Are:: Family history of heart disease < 65 years old, Previous cardiac event Heart Disease Response Code:: Patient communicates acknowledgment Diabetes Patient Diabetes Risk Factors Are:: No documented hx of diabetes Recommendations Include:: Maintain fasting blood sugars 70-110 md/dL, Decrease/maintain body weight Diabetes:: Patient communicates acknowledgment Metabolic Syndrome Patient Metabolic Syndrome Risk Factors Are [3 of 5]:: High triglyceride >150, Hypertension, Low HDL <40 [male] or < 50 [female] Metabolic Syndrome Response Code:: Patient communicates acknowledgment Sedentary Recommendations Include:: Benefits of regular exercise, Discussed home walking program Sedentary Response Code:: Patient communicates acknowledgment Stress Recommendations Include:: Identification of stressors, and assessment of coping skills, Stress management techniques - HAS DEMENTIA Stress Response Code:: Patient communicates acknowledgment
--- NOTE | 2019-04-21 16:39 | DCINST_ITS ---
Discharge Diet: Low fat/ Low Cholesterol May shower in (days): 1 - No tub baths for 5 days Lifting Restrictions: Do not lift anything greater than 10 pounds for 3 days Call your doctor if your incision/area has: Continuous Slow Oozing, Sudden Increased Bleeding, Increased Pain/ Swelling, Increased Redness, Foul Smelling Discharge, Swelling at the incision site Call your doctor if you observe: Fever of 101 or Higher, Shortness of breath, Chest pain Remove Dressing in (days):: 1 Cleanse incision/area with: Soap & Water Additional Instructions: You will continue with Aspirin therapy. You will remain on Plavix therapy for at least one year. If anyone asks you to stop your Plavix please call the [facility] Office first at [phone]. You are scheduled for an office appointment with Dr. Olmedo on 05/07/2019 at 1 PM. If you have any questions or concerns at any point, please call the [facility] office at [phone]. Allergies/Adverse Reactions: Allergies chocolate flavor Allergy (Verified 04/15/19 09:20) Unknown corn Allergy (Verified 04/15/19 09:20) Unknown peanut Allergy (Verified 04/15/19 09:20) Unknown Penicillins Allergy (Verified 04/15/19 09:20) Unknown Tetracyclines Allergy (Verified 04/15/19 09:20) Unknown venom-honey bee [bee venom (honey bee)] Allergy (Verified 04/15/19 09:20) Unknown Medications to take at Discharge Montelukast [Singulair] 10 mg PO QHS 11/04/14 levothyroxine 100 mcg tablet 100 mcg PO QDAY tab 10/10/17 wheat dextrin 5 gram/7.4 gram oral powder 1 cap PO DAILY g 10/12/18 aspirin 81 mg tablet,delayed release 81 mg PO DAILY #90 tab 04/15/19 gzyrxwj-nhbsujoiz-utgz 333 mg-133 mg-5 mg tablet 2 tab PO DAILY tab 04/15/19 clopidogrel 75 mg tablet 75 mg PO DAILY #90 tab 04/15/19 diltiazem ER 360 mg capsule,24 hr,extended release 360 mg PO DAILY #90 cap 04/15/19 furosemide 40 mg tablet 40 mg PO QDAY #90 tab 04/15/19 nitroglycerin 0.4 mg sublingual tablet 0.4 mg SUBLINGUAL Q5-15M PRN #25 tab 04/15/19 omeprazole 20 mg capsule,delayed release 40 mg PO BID cap 04/15/19 potassium chloride ER 20 mEq tablet,extended release 20 meq PO BID #180 tab 04/15/19 sertraline 25 mg tablet 25 mg PO DAILY 04/15/19 simvastatin 20 mg tablet 20 mg PO QHS #90 tab 04/15/19 Orders to be completed after discharge: Phase II, Outpatient Cardiac Rehab Location: None Selected Primary Care Physician: Phong Quiroga MD [Primary Care Provider] - Test Results: Test results from this visit will be discussed in further detail at your follow- up appointment, if applicable. Please Follow Up With: Dr. Olmedo When: 05/07/2019 at 1:00 PM Proposed Discharge Date: 04/22/19 Cardiac Rehabilitation Info Cardiac Rehabilitation Program Information: Cardiac Rehabilitation is important for patients like you who are recovering from a heart problem. Cardiac rehabilitation programs are recognized as integral to the continued care of the patient with coronary heart disease. The cardiac rehabilitation program is designed to optimize a patient's physical, psychological, and social functioning. Health clinical care manager work in cardiac rehabilitation programs and assist you with getting the treatments you need to get stronger and healthier - like exercise, healthy eating habits, and medications. Cardiac rehabilitation has been show to help people with heart problems live longer and have better life enjoyment than people who do not go to cardiac rehabilitation. Please contact the Cardiac Rehabilitation Program at [facility] at in two weeks if you have not heard from them.
[2019-04-21] MEDS: Acetaminophen 325 MG Tablet 650 MG PO (19:28)
[2019-04-21] MEDS: Atorvastatin Calcium 10 MG Tablet PO (21:36)
[2019-04-21] MEDS: Montelukast 10 MG Tablet PO (21:36)
[2019-04-21] MEDS: Pantoprazole Sodium 40 MG Tablet PO (21:36)
[2019-04-22] VITALS (12 sets, daily range): BP systolic 117–147; BP diastolic 37–60; PULSE 26–90; RESP 18–77; TEMP 36.5–36.6; O2SAT 94–99
[2019-04-22 04:14] LABS: Hematocrit 37.7 % (37-47); Hemoglobin 12.5 g/dL (12.0-15.0); Mean Corp Hgb Conc 33.2 g/dL (32-36); Mean Corpuscular Hgb 29.7 pg (27.0-32.0); Mean Corpuscular Volume 89.5 fL (81-99); Mean Platelet Vol. 10.1 fl (6.2-12.0); Platelet Count 243 K/mm3 (150-450); RBC Distribution Width CV 13.3 % (11.6-14.6); RBC Distribution Width SD 43.8 fl (35.1-43.9); Red Blood Count 4.21 M/mm3 (4.2-5.4); White Blood Count 8.5 K/mm3 (4.4-11.0)
[2019-04-22 04:44] LABS: Anion Gap 8 (5-15); BUN 14 mg/dL (7-18); BUN/Creat Ratio 17.8 RATIO (10-20); Chloride 110 mmol/L (98-107); Cholesterol 99 mg/dL (200); Creatinine, Serum 0.79 mg/dL (0.55-1.02); EST Glomerular Filtration Rate 77 mL/min (>60); Est Glom Filt Rate - Afr Amer 93 mL/min (>60); Estimated Creatinine Clearance 65.39 ml/min; Glucose 107 mg/dL (74-106); High Density Lipoprotein 33 mg/dL; Potassium 3.8 mmol/L (3.5-5.1); Sodium Level 143 mmol/L (136-145); Triglycerides 166 mg/dL; Very Low Density Lipoprotein 33 mg/dL (5-40)
[2019-04-22] MEDS: Levothyroxine 100 MCG Tablet PO (05:29)
[2019-04-22] MEDS: 0.9% NaCl Peripheral Flush Adult/Peds IV (05:30)
--- NOTE | 2019-04-22 07:31 | PCM.PN.BLA ---
Progress Note Patient is not on a beta corby d/t pulmonary disease and current calcium channel corby with controlled heart rate.
--- NOTE | 2019-04-22 07:53 | PCM.PN.CARD ---
Subjectve: Patient feels much better after angioplasty and stenting. No 24-hour events. Telemetry negative. EKG shows normal sinus rhythm, normal axis, normal intervals. No acute changes. Hemoglobin and creatinine are within nominal limits. Right groin is clean/dry/intact without evidence of thrills, bruits or hematoma. Objective: Vital Signs Temp Pulse Resp BP Pulse Ox 97.7 F L 90 24 H 126/60 H 95 04/22/19 04:00 04/22/19 07:00 04/22/19 07:00 04/22/19 07:00 04/22/19 07:00 Oxygen Delivery Method Room Air Weight: 176 lb 2.389 oz Body Mass Index (BMI) 34.0 Intake and Output for Last 24 Hours 04/20/19 04/21/19 04/22/19 23:59 23:59 23:59 Intake Total 915 / 1348.4 783.4 / 783.4 Balance 915 / 1348.4 783.4 / 783.4 General: Awake, Alert, Oriented x 3 HEENT: PERRL, EOMI, Sclera Non Icteric Neck: Supple, Good ROM, No Lymph Node Enlargement Lungs: Clear to auscultation Cardiovascular: Regular Rhythm, Normal S1, Normal S2, No Murmurs, No Rubs, No Gallops Vascular: No Carotid Bruits, Normal Femoral Pulses, Normal Radial Pulses, Normal Dorsalis Pedal Pulse, Normal Posterior Tibial Pulses Abdomen: Bowel Sounds Present, Soft, Non Tender, No HSM, No Organomegaly Extremities: No Cyanosis, No Clubbing, No edema Neurological: No Focal Motor or Sensory Deficit 04/22/19 04:00: WBC 8.5, RBC 4.21, Hgb 12.5, Hct 37.7, MCV 89.5, MCH 29.7, MCHC 33.2, Plt Count 243, MPV 10.1 04/22/19 04:00: Sodium 143, Potassium 3.8, Chloride 110 H, Carbon Dioxide 25.0, Anion Gap 8, BUN 14, Creatinine 0.79, Est GFR (MDRD) Af Amer 93, Est GFR (MDRD) Non-Af 77, BUN/Creatinine Ratio 17.8, Glucose 107 H, Calcium 8.0 L, Triglycerides 166, Cholesterol 99, LDL Cholesterol 33, VLDL Cholesterol 33, HDL Cholesterol 33 L Rhythm: EKG: ECHO: Stress Test: Cardiac Cath: PCI: CT Surgery: Holter monitor: EPS: PPM: CXR: Chest CT Scan: Medical Necessity - Tobacco Use Smoking Status: Never smoker Assessment/Plan 1. Coronary artery disease: Patient is complained of exertional chest pain, and had an abnormal stress test in the past. Patient underwent successful angioplasty and drug-eluting stent of her proximal ramus intermedius with an excellent result. Patient had identical chest pain symptoms upon deployment of her stent, which have resolved. The patient actually claims that she feels much better. I recommended she continue baby aspirin, and Plavix. 2. Hypertension: Due to the patient's pulmonary issues, she is unable to tolerate beta-blockers or LIANA inhibitor/arms due to her chronic pulmonary issues. She has responded well to Cardizem however, and recommend continuing Cardizem therapy. 3. Hyperlipidemia: Her LDL and HDL cholesterol are each 33. Continue Lipitor. 4. Patient may be discharged home and follow-up with Dr. Olmedo going forward in 4 to 6 weeks time. This note was generated using a voice recognition system and there may be incorrect words, spelling or punctuation that were not noted when reviewing the office note prior to saving. Code Visit Inpatient E&M: 96988 Subs Hosp L2
[2019-04-22] MEDS: Sertraline 50 MG Tablet 25 MG PO (08:16)
[2019-04-22] MEDS: dilTIAZem CD 180 MG Capsule 360 MG PO (08:17)
[2019-04-22] MEDS: Pantoprazole Sodium 40 MG Tablet PO (08:17)
[2019-04-22] MEDS: Aspirin E.C. 81 MG Tablet PO (08:17)
[2019-04-22] MEDS: Furosemide 40 MG Tablet PO (08:17)
[2019-04-22] MEDS: Clopidogrel Bisulfate 75 MG Tablet PO (08:17)
== END 2019-04-22 09:35 | disposition home or self-care (01) ==
LOC: CLSP 10:50 → ICU 04-22 08:23
PROVIDERS: Family Provider Family Medicine; PCP Family Medicine; Referring Provider Internal Medicine Cardiovascular Disease; Visit Provider Internal Medicine Cardiovascular Disease
DX: I25.110 Atherosclerotic heart disease of native coronary artery with unstable angina pectoris (principal); I10 Essential (primary) hypertension; E78.5 Hyperlipidemia, unspecified; R94.39 Abnormal result of other cardiovascular function study; R07.9 Chest pain, unspecified; E66.01 Morbid (severe) obesity due to excess calories; Z68.33 Body mass index [BMI] 33.0-33.9, adult; K21.9 Gastro-esophageal reflux disease without esophagitis; K31.84 Gastroparesis; J45.40 Moderate persistent asthma, uncomplicated; I50.32 Chronic diastolic (congestive) heart failure; E03.9 Hypothyroidism, unspecified; M10.9 Gout, unspecified; G47.33 Obstructive sleep apnea (adult) (pediatric)
CPT/HCPCS: 36415; 71046; 80048; 80061; 85027; 85347; 85610; 85730; 92928; 93005; 99152; 99153; C1760; J7030; J7040; Q9967; A4216; C1769; C1874; C1887; C9600

== ENCOUNTER → 2019-04-30 09:23 | Outpatient (CLI) | payer MEDICARE, BC, SELFPAY ==
[2019-04-21 12:40] VITALS: BMI 34.0
[2019-04-21 14:59] VITALS: BMI 34.7
--- NOTE | 2019-04-30 09:33 | PCM.CR.ITP ---
General Information - General Information Admitting Diagnosis: PCI with stent - Education/Goals Barriers to Learning: None Cardiac Rehabilitation Goals: 1. Maintain the individual as the primary focus of care. 2. To improve the patient's quality of life. 3. Identification of cardiac risk factors and provide cardiac risk factor management. 4. Enhance the psychosocial status of the patient. 5. Reconditioning enough to allow the patient to resume customary activities. 6. Control symptoms of cardiac disease Scale for measuring improvement of personal goals: Enter appropriate number in Comments. 2 = Unchanged. 3 = Slightly Better. 4 = Moderate Improvement. 5 = Met my Goal Personal Goals: Initial Assessment: Improve management of stress and emotions, Improve energy level, Participate in home exercise program, Get back to work, or to resume activities faster, Improve knowledge of cardiac disease, Improve muscle strength and endurance, Improve diet and eating habits (eat healthier), Control risk factors (learn risk factor modification) Exercise - Initial Assessment - Visit Date of Eval: 04/30/19 - initial eval - Stages of Change Stages of Change:: Contemplate - Physician Prescribed Exercise Modalities: Treadmill, Biodyne, Rower, Airdyne, NuStep, SciFit Frequency (days/week): 3x/week for 12 weeks [36 sessions] Duration (Minutes):: 30-45 Intensity: 60-80% age predicted maximum heart rate reserve METs - Progression: 0.5-1.0 MET, RPE 11-14 WEEK: 2.5 Target Heart Rate:: 105-113 - Hypertension Do any of the following apply?: Yes Resting Blood Pressure:: 124/54 - Intervention Home Exercise/Activity Goal:: Sitting Time <3 hrs/day - Education Goals:: Warm-up, RPE PHILLIP Scale, S/S, Safe Exercise, Self-Monitoring - Exercise Program Goals Exercise Program Goals: Aerobic Activity >30 min Nutrition - Initial Assessment - Program Goals Nutrition Program Goals: LDL <70. Total Cholesterol <200. HDL >45. Triglycerides <150. HgbA1C <7%. BMI <25 - Visit Date of Assessment:: 04/30/19 - Stages of Change Stages of Change:: Contemplate - Diabetes Diabetes:: No - Weight Management Height: 1.52 m Weight:: 78.471 kg Total Score:: 3 - Intervention Referral to dietitian:: No Referral to Diabetic Clinic:: No Will attend diet classes:: Yes - Education Gave educational materials for:: Signs & symptoms of hypoglycemia, Signs & symptoms of hyperglycemia, Relate diabetes to coronary artery disease, Healthy eating Tobacco - Initial Assessment - Program Goals Tobacco Program Goals: Complete smoking cessation. Attend education classes. Improve Knowledge Test score - Stage of Change Stages of Change:: Contemplate - Learning Barriers Total Score:: 20 - Family Support Do you have family support?: Yes - Tobacco Use Tobacco Use: Non-smoker Do you use smokeless tobacco?: No - Intervention Smoking Cessation Referral:: No Individual Education/Counseling:: No Education Schedule Given:: Yes - Education Attended class for:: Treating Heart Disease, How The Heart Works, What it means to have Heart Disease, How Coronary Artery Disease is Diagnosed, Heart Procedures, What Heart Medications Do, Risk Factors & Modifications, Living an Active Life, Nutrition, Emotions & Heart Disease, Stress Management & Relaxation, Sleep Disorders & Heart Disease Psychosocial - Initial Assess - Target Goals Target Goals: Assess presence or absence of depression. Using a valid screening tool, maximizes coping skills. Positive support system - Stages of Change Stages of Change:: Contemplate - Psychosocial Test Tool Used:: HANDS Depression Questionnaire Total Mood Screening Score:: 3 Self-Efficacy Score:: 9 - Intervention PS - Interventions: Yes Attend Stress Management Classes, Yes Uses Stress Management Skills, No Referral to Mental Health, No Referral to [facility] Case Management, No Referral to Physician - Education Gave educational materials for:: Coping techniques, Signs & symptoms of depression, Stress management, Relaxation techniques - Assistive Devices Assistive Devices:: None Fall Risk Assessed:: Yes Patient Health Questionnaire Initial Assessment 1. Little interest or pleasure in doing things: Not at all 2. Feeling down, depressed, or hopeless: Not at all 3. Trouble falling or staying asleep, or sleeping too much: Several days 4. Feeling tired or having little energy: Several days 5. Poor appetite or overeating: Several days 6. Feeling bad about yourself -- or that you are a failure or have let yourself or your family down: Not at all 7. Trouble concentrating on things, such as reading the newspaper or watching television: Not at all 8. Moving or speaking so slowly that other people could have noticed. Or the opposite - being so fidgety or restless that you have been moving around a lot more than usual: Not at all 9. Thoughts that you would be better off , or of hurting yourself in some way: Not at all How difficult have these problems made it for you to do your work, take care of things at home, or get along with other people?: Not difficult at all Total Score: 3 SASHA-Q SV Test - Statements CAD is a disease of the arteries in the heart: False Examples of risk factors for heart disease: True Angina is chest pain or discomfort: True The benefits of resistance training include: True Eating more meat and dairy products: False Anti-platelet medications such as aspirin are important: True The only effective way to manage stress: False An exercise warm-up slowly increases heart rate: True Prepared, processed foods usually have high sodium: True Depression is common after a heart attack: True The statin medications lower cholesterol: True To control blood pressure, lower the amount of sodium: True If someone gets chest discomfort during walking: False Transfats are partially hydrogenated vegetable oils: True Sleep apnea that is not treated increases the risk: False To control cholesterol, one should become a vegetarian: False Someone knows if he/she is exercising at the right level: True Diabetes cannot be prevented with exercise & health eating: False Stress is a large risk for heart attack: True A diet that can help lower blood pressure is rich in: True - Total Score Total Correct Responses: 20 Self-Efficacy Initial Assessment We would like to know how confident you are in doing certain activities. Please select your confidence level for:: Select your confidence level for the following using the scale 1-10 where 1 is not at all confident and 10 is totally confident. Your score is the average of all 6 responses. Fatigue: How confident are you that you can keep the fatigue caused by your disease from interfering with the things you want to do? Select Number: 9 Physical Discomfort or Pain: How confident are you that you can keep the physical discomfort or pain of your disease from interfering with the things you want to do? Select Number: 9 Emotional Distress: How confident are you that you can keep the emotional distress caused by your disease from interfering with the things you want to do? Select Number: 9 Other Symptoms or Health Problems: How confident are you that you can keep other symptoms or health problems from interfering with the things you want to do? Select Number: 9 Different Tasks and Activities: How confident are you that you can do the different tasks and activities needed to manage your health condition so as to reduce your need to see a doctor? Select Number: 10 Medication: How confident are you that you can do things other than just taking medication to reduce how much your illness affects your everyday life? Select Number: 10 Total Score:: 9 Nutrition Survey - Nutrition Survey Instructions Scoring Instructions: Scoring is as follows: Yes = 1 points. No = 0 point. Patient score that is >/=12 is considered to be at potential nutritional risk and could benefit from a referral to a registered dietitian. - Nutrition Survey Initial Have you lost >10 lbs over the past 2 months without trying?: Yes Are you following a special diet at home for diabetes, low fat, or low salt?: No Are you interested in meeting with a dietitian for help understanding your diet?: Yes Do you eat less than 3 meals a day?: No Do you eat fatty meats (ren, sausage, ribs, etc), fried foods, desserts, large amounts of salad dressings, margarine, butter, or cheese most days?: No Do you have food allergies? [Enter types in comment field]: Yes Do you eat in restaurants more than 3 times a week?: No Do you season food with salt, seasoning salt, or garlic salt?: No Do you used canned, boxed, frozen meals, or soups, seasoning packets?: No Total Score:: 3
--- NOTE | 2019-04-30 09:34 | CR.HP_ITS ---
CR - History & Physical - General Arrival date:: 04/30/19 Arrival time:: 09:34 Date of Referral:: 04/21/19 Date of CR Evaluation:: 04/30/19 Referring Physician: Dr. Marcin lOmedo Primary Diagnosis: Z95.5 PCI W/ Stent - History of Present Cardiac Event Onset Date: Enter Onset Date of cardiac illnesses in Comment field below Current stable Angina Pectoris:: Yes Acute Myocardial Infarction within 12 months:: No Coronary Artery Bypass Graft:: No Heart valve replacement or repair:: No PTCA or coronary stenting:: Yes Type of Symptoms:: CP Interventions with present event:: PCI with stent 04/21/2019 - Medications Home Medications: Ambulatory Orders Medication Instructions Recorded Montelukast [Singulair] 10 mg PO QHS 11/04/14 levothyroxine 100 mcg tablet 100 mcg PO QDAY tab 10/10/17 wheat dextrin 5 gram/7.4 gram oral 1 cap PO DAILY g 10/12/18 powder aspirin 81 mg tablet,delayed 81 mg PO DAILY #90 tab 04/15/19 release vhurfmn-zfuvctiaq-goej 333 mg-133 2 tab PO DAILY tab 04/15/19 mg-5 mg tablet clopidogrel 75 mg tablet 75 mg PO DAILY #90 tab 04/15/19 diltiazem ER 360 mg capsule,24 360 mg PO DAILY #90 cap 04/15/19 hr,extended release furosemide 40 mg tablet 40 mg PO QDAY #90 tab 04/15/19 nitroglycerin 0.4 mg sublingual 0.4 mg SUBLINGUAL Q5-15M PRN #25 04/15/19 tablet tab omeprazole 20 mg capsule,delayed 40 mg PO BID cap 04/15/19 release potassium chloride ER 20 mEq 20 meq PO BID #180 tab 04/15/19 tablet,extended release sertraline 25 mg tablet 25 mg PO DAILY 04/15/19 simvastatin 20 mg tablet 20 mg PO QHS #90 tab 04/15/19 - Allergies Allergies/Adverse Reactions: Allergies chocolate flavor Allergy (Verified 04/15/19 09:20) Unknown corn Allergy (Verified 04/15/19 09:20) Unknown peanut Allergy (Verified 04/15/19 09:20) Unknown Penicillins Allergy (Verified 04/15/19 09:20) Unknown Tetracyclines Allergy (Verified 04/15/19 09:20) Unknown venom-honey bee [bee venom (honey bee)] Allergy (Verified 04/15/19 09:20) Unknown - Sleep Disorder Evaluation Hx of Sleep Apnea: Yes Do you snore loudly (louder than talking or can be heard through closed doors)?: No Do you often feel tired/ fatigued/ sleepy during daytime?: No Has anyone observed you stop breathing during sleep?: No History of Hypertension (for STOP score): Yes STOP Results: Negative Advanced Directives - Advanced Directives Power of Disability Liaison Officer: Yes Living Will: Yes Advance Directives Information Provided: Yes Advance Directives on File: No DNR Order?:: No Past Medical History - Past Medical Illness Medical History: Past Medical History (Last Updated 04/21/19 @ 12:25 by Katelyn Taylor) Chest pain (Acute) R07.9 Tachycardia (Chronic) R00.0 Atherosclerotic heart disease of [place] coronary artery without angina pectoris (Chronic) I25.10 Up to 50% luminal irregularities in proximal OM 1, all other arteries normal per [facility] 10/28/18. 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 Pt had identical CP during stent deployment as she has been having at home. 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 Diverticulosis K57.90 GERD (gastroesophageal reflux disease) K21.9 Gastroparesis K31.84 Gout M10.9 Hyperlipidemia E78.5 Hypothyroidism E03.9 IBS (irritable bowel syndrome) K58.9 Lung nodule R91.1 KATHARINA (obstructive sleep apnea) G47.33 Sciatica M54.30 Abnormal pulmonary function test R94.2 Abnormal stress test (Resolved) R94.39 Asthma exacerbation J45.901 Asthmatic bronchitis J45.909 Bronchospasm J98.01 Dyspnea R06.00 Dyspnea on exertion (Resolved) R06.09 Fatigue R53.83 Hypersomnia G47.10 peroneal nerve pinched - Past Surgical History Surgical History: Past Surgical History (Last Updated 04/21/19 @ 12:26 by Katelyn Taylor) Stented coronary artery (Chronic) Onset Date: 04/21/19 Z95.5 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 Pt had identical CP during stent deployment as she has been having at home. History of left heart catheterization (Chronic) Onset Date: 10/28/18 Z98.890 Up to 50% luminal irregularities in proximal OM 1, all other arteries normal per [facility] done @ [facility], Dr. Olmedo H/O colonoscopy Z98.890 H/O endoscopy Z98.890 H/O nasal septoplasty Z98.890 10/24/2017 History of appendectomy Z90.49 History of cholecystectomy Z90.49 History of tonsillectomy Z90.89 History of tubal ligation Z98.51 turbinate reduction 10/24/2017 - Family History Summary Family History: Family History (Last Reviewed 04/15/19 @ 09:20 by Katelyn Taylor) Brother CAD (coronary artery disease) Mother Heart disease Thyroid disorder Parkinson disease Hypertension Arthritis Father Heart disease Cancer Arthritis Hypertension High cholesterol Pulmonary fibrosis Social History - Smoking History Smoking Status: Never smoker Hx Tobacco Use: No Hx Smoking Exposure: No - Alcohol Use Alcohol Usage: Yes - socially - Substance Abuse Hx Substance Use: No - Occupation Occupation (List type of work in comments):: Retired - Hobbies, Recreation, Social Activities Hobbies: Sewing, Other - crafts, gardening Recreational Activities: I am able to engage in all my recreational activities Social Environment - Status Marital Status: - Current Living Arrangements Living Environment:: Spouse - Children How many children do you have?: 2 Do any of your children live nearby?: Yes - Safety Do you feel safe in your surroundings?: Yes - Assistance Do you need any assistance at home?: none Review of Systems - Review of Systems Hints: Right click = Denies ([place]). Left click = Reports ([place]) Review of Present Symptoms: Reports: Angina, Appetite - Normal, Appetite - Special Diet, Sleep - Normal. Denies: Shortness of Breath at Rest, Shortness of Breath with Exertion, PVD, Operative Discomfort, Wound Healing, Dizziness/Lightheadedness, Fatigue, Heart Arrhythmia/Irregularities, Sexual Changes - Pain Is Patient Pain Free?: Yes Risk Factor Assessment - Chief Complaint Chief Complaint: CP - Vital Signs Pulse Ox: 97 Blood Pressure: 124/54 - Pulse Pulse Rate: 77 Pulse Rhythm: Regular - Hypertension How long have you been treated?: 2014 - Stress Stress: Recent - Diabetes Nutrition Referral for Diabetes: No - Obesity Height: 1.52 m Weight:: 78.471 kg Weight in Pounds: 173.0 lbs Body Mass Index (BMI): 33.7 Nutritional Referral for Obesity: No - Physical Inactivity Physical Inactivity: Recreational activity - Risk Stratification Risk Guidelines: Lowest Risk: Risk Factor for Smoking, Moderate Risk: Risk Factor for Dyslipidemia, Risk Factor for Diabetes, Risk Factor for Sedentary Lifestyle, Risk Factor for Depression, Highest Risk: Risk Factor for Obesity, Risk Factor for Hypertension - For Smoking Smoking Risk Guidelines: Smoking Low Risk: None or quit greater than 6 months ago. Smoking Moderate Risk: Smoker or quit 6 months or less ago. Smoking High Risk: Smoker - For Dyslipidemia Dyslipidemia Risk Guidelines: Low Risk: Moderate Risk: High Risk: 15-25% fat 25.1-29% fat >/= 30% fat. <7% sat fat 7-9% sat fat >9% sat fat. <150 mg chol 150-299 mg chol >/= 300 mg chol. LDL <100 LDL 100-129 LDL >/= 130. Chol/HDL ratio <5.0 Chol/HDL ratio 5.0-6.0 Chol/HDL ratio >6.0. Triglycerides <100 Triglycerides 100-149 Triglycerides >/= 150 - For Diabetes Mellitus Diabetes Risk Guidelines: Diabetes Low Risk: HgA1c <6.5% and/or FBG <120. Diabetes Moderate Risk: HgA1c 6.6-7.9% and/or FBG 120-180. Diabetes High Risk: HgA1c >/= 8% and/or FBG >180 - For Obesity/Overweight Obesity/Overweight Risk Guidelines: Obesity Low Risk: BMI <25.0. Obesity Moderate Risk: BMI 25-29.9. Obesity High Risk: BMI >/= 30.0 - For Hypertension Hypertension Risk Guidelines: Hypertension Low Risk: Systolic <120 and Diastolic <80. Hypertension Moderate Risk: Systolic 120-139 and Diastolic 80-89. Hypertension High Risk: Systolic >/= 140 and Diastolic >/= 90 - For Sedentary Lifestyle Sedentary Lifestyle Risk Guidelines: Sedentary Lifestyle Low Risk: >/= 1,500 kcal/week. Sedentary Lifestyle Moderate Risk: 700-1,499 kcal/week. Sedentary Lifestyle High Risk: < 700 kcal/week - For Depression Depression Risk Guidelines: Depression Low Risk: Not clinically depressed. Depression Moderate Risk: Mildly depressed. Depression High Risk: Clinically depressed - Family History Family History: Family History (Last Reviewed 04/15/19 @ 09:20 by Katelyn Taylor) Brother CAD (coronary artery disease) Mother Heart disease Thyroid disorder Parkinson disease Hypertension Arthritis Father Heart disease Cancer Arthritis Hypertension High cholesterol Pulmonary fibrosis Motivation - Motivation to Participate On a scale of 1 to 10, how prepared are you to commit to attending program?: 10 What do you see as barriers to successfully being able to complete the program?: selling home What do you see as the benefits of succesfully completing the program? In other words, what do you hope to get out of participating in the program?: improved health Are there issues you are dealing with that will interfere with completing the program?: none Do you have a spouse or signficant other, family or friends who will help support you to complete the program?: yes
[2019-04-30 10:50] VITALS: BP 124/54; PULSE 77; O2SAT 97; BMI 33.7
== END ==
PROVIDERS: Family Provider Family Medicine; PCP Family Medicine; Visit Provider Internal Medicine Cardiovascular Disease
DX: Z95.5 Presence of coronary angioplasty implant and graft (principal)

== ENCOUNTER 2019-05-21 14:15 | Outpatient (RCR) | payer MEDICARE, BC, SELFPAY ==
[2019-04-21 14:59] VITALS: BMI 34.7
[2019-04-30 10:41] VITALS: BMI 33.7
[2019-05-07 13:14] VITALS: BMI 33.7
== END 2019-05-22 23:59 ==
LOC: CR 14:15
PROVIDERS: Family Provider Family Medicine; PCP Family Medicine; Visit Provider Internal Medicine Cardiovascular Disease
DX: I25.10 Atherosclerotic heart disease of native coronary artery without angina pectoris (principal); I50.32 Chronic diastolic (congestive) heart failure; Z95.5 Presence of coronary angioplasty implant and graft
CPT/HCPCS: 93798

== ENCOUNTER 2019-06-21 14:15 | Outpatient (RCR) | payer MEDICARE, BC, SELFPAY ==
[2019-04-21 14:59] VITALS: BMI 34.7
[2019-05-07 13:14] VITALS: BMI 33.7
== END 2019-06-21 23:59 ==
LOC: CR 14:15
PROVIDERS: Family Provider Family Medicine; PCP Family Medicine; Referring Provider Internal Medicine Cardiovascular Disease; Visit Provider Internal Medicine Cardiovascular Disease
DX: I25.10 Atherosclerotic heart disease of native coronary artery without angina pectoris (principal); I50.32 Chronic diastolic (congestive) heart failure; Z95.5 Presence of coronary angioplasty implant and graft
CPT/HCPCS: 93798

== ENCOUNTER → 2019-06-22 09:52 | Outpatient (CLI) | payer MEDICARE, BC, SELFPAY ==
[2019-01-11 09:36] VITALS: BMI 35.9
[2019-04-21 14:59] VITALS: BMI 34.7
[2019-05-07 13:14] VITALS: BMI 33.7
--- NOTE | 2019-06-22 14:40 | PFTCOMP_ITS ---
COMPLETE PULMONARY FUNCTION TEST INTERPRETATION Brief HPI: Patient is a 69 year old female, currently under the care of myself, who presents to [facility] for complete pulmonary function tests secondary to diagnosis of asthma. Respiratory therapist reports good effort and reproducible results. Interpretation: Forced expiration spirometry shows no large airways obstructive ventilatory defect with an FEV1 of 114% predicted. There is no significant bronchodilator response by strict ATS criteria. Spirograms are of good quality and plateau normally. The respiratory flow volume loop shows a normal pattern. Lung volumes by body plethysmography show a normal total lung capacity at 4.32 L, 108% predicted. All other lung volumes are within normal limits. Diffusion capacity by carbon monoxide is normal at 80% predicted. The airway resistance is normal. Compared to previous pulmonary function tests from 12/25/2017, a significant improvement in DLCO by 13%. Impression: These pulmonary function tests are within normal limits. There has been i mprovement in diffusion compared to previous study.
== END ==
PROVIDERS: Family Provider Family Medicine; PCP Family Medicine; Referring Provider Nurse Practitioner Acute Care; Visit Provider Nurse Practitioner Acute Care
DX: J45.40 Moderate persistent asthma, uncomplicated (principal)
CPT/HCPCS: 94060; 94726; 94729

== ENCOUNTER 2019-07-19 14:15 | Outpatient (RCR) | payer MEDICARE, BC, SELFPAY ==
[2019-04-21 14:59] VITALS: BMI 34.7
[2019-05-07 13:14] VITALS: BMI 33.7
--- NOTE | 2019-06-30 11:46 | CR.ITP_ITS ---
Exercise - 60-Day Assessment - Visit Date of Eval: 06/30/19 Session #:: 22 - Finesse is 100% comliant with attendance thus far. - Stages of Change Stages of Change:: Action - Physician Prescribed Exercise Modalities: Treadmill, Airdyne, NuStep Frequency (days/week): 3 Duration (Minutes):: 30-45 Intensity: 60-80% age predicted maximum heart rate reserve METs - Progression: 0.5-1.0 MET, RPE 11-14 WEEK: 3.5 unable to increase due to HR. Target Heart Rate:: 105-113 w/max hr of 114 - Hypertension Resting Blood Pressure:: 124/68 Peak Exercise Blood Pressure:: 146/72 Medication Changes:: No - Intervention Home Exercise/Activity Goal:: Moderate Exercise 30 min/day x 5 days/wk - Education Goals:: Warm-up, RPE PHILLIP Scale, S/S, Safe Exercise, Self-Monitoring - Exercise Program Goals Exercise Program Goals: Aerobic Activity >30 min Nutrition - 60-Day Assessment - Program Goals Nutrition Program Goals: LDL <70. Total Cholesterol <200. HDL >45. Triglycerides <150. HgbA1C <7%. BMI <25 - Visit Date of Eval: 06/30/19 - Stages of Change Stages of Change:: Action - Lipids Has the patient seen the dietitian?: No - Diabetes Diabetes:: No Insulin: No Non-Insulin Dependent?: No - Weight Management Weight:: 177 lb 8 oz - weight stable/unchanged - Intervention Referral to dietitian:: No Referral to Diabetic Clinic:: No Will attend diet classes:: Yes - Education Attended class for:: Healthy eating Tobacco - 60-Day Assessment - Program Goals Tobacco Program Goals: Complete smoking cessation. Attend education classes. Improve Knowledge Test score - Stage of Change Stages of Change:: Action - Learning Barriers Learning Barriers: Participates in education - Family Support Do you have family support?: Yes - Tobacco Use Tobacco Use: Non-smoker Do you use smokeless tobacco?: No - Intervention Smoking Cessation Referral:: No Education Schedule Given:: Yes - Education Attended class for:: Treating Heart Disease, How The Heart Works, What it means to have Heart Disease, How Coronary Artery Disease is Diagnosed, Heart Procedures, What Heart Medications Do, Risk Factors & Modifications, Living an Active Life Psychosocial - Initial Assess - Target Goals Target Goals: Assess presence or absence of depression. Using a valid screening tool, maximizes coping skills. Positive support system - Psychosocial Test Tool Used:: HANDS Depression Questionnaire - Assistive Devices Fall Risk Assessed:: Yes Psychosocial - 60-Day Assess - Target Goals Target Goals: Assess presence or absence of depression. Using a valid screening tool, maximizes coping skills. Positive support system - Stages of Change Stages of Change:: Action - Psychosocial Test Tool Used:: HANDS Depression Questionnaire - Intervention PS - Interventions: Yes Attend Stress Management Classes, No Referral to Mental Health, No Referral to [facility] Case Management, No Referral to Physician, No Uses Stress Management Skills - Education Attended classes for:: Coping techniques, Signs & symptoms of depression, Stress management, Relaxation techniques - Patient/Program Goal Preventative Medication(s):: Aspirin, LIANA inhibitor, Clopidogrel, Beta corby, Statin/lipid - Assistive Devices Assistive Devices:: None Fall Risk Assessed:: Yes Patient Health Questionnaire 60-Day Re-eval Assessment 1. Little interest or pleasure in doing things: Not at all 2. Feeling down, depressed, or hopeless: Not at all 3. Trouble falling or staying asleep, or sleeping too much: Not at all 4. Feeling tired or having little energy: Not at all 5. Poor appetite or overeating: Not at all 6. Feeling bad about yourself -- or that you are a failure or have let yourself or your family down: Not at all 7. Trouble concentrating on things, such as reading the newspaper or watching television: Not at all 8. Moving or speaking so slowly that other people could have noticed. Or the opposite - being so fidgety or restless that you have been moving around a lot more than usual: Not at all 9. Thoughts that you would be better off , or of hurting yourself in some way: Not at all How difficult have these problems made it for you to do your work, take care of things at home, or get along with other people?: Not difficult at all Total Score: 0 Self-Efficacy 60-Day Re-eval Assessment We would like to know how confident you are in doing certain activities. Please select your confidence level for:: Select your confidence level for the following using the scale 1-10 where 1 is not at all confident and 10 is totally confident. Your score is the average of all 6 responses. Fatigue: How confident are you that you can keep the fatigue caused by your disease from interfering with the things you want to do? Select Number: 9 Physical Discomfort or Pain: How confident are you that you can keep the physical discomfort or pain of your disease from interfering with the things you want to do? Select Number: 10 Emotional Distress: How confident are you that you can keep the emotional distress caused by your disease from interfering with the things you want to do? Select Number: 10 Other Symptoms or Health Problems: How confident are you that you can keep other symptoms or health problems from interfering with the things you want to do? Select Number: 10 Different Tasks and Activities: How confident are you that you can do the different tasks and activities needed to manage your health condition so as to reduce your need to see a doctor? Select Number: 10 Medication: How confident are you that you can do things other than just taking medication to reduce how much your illness affects your everyday life? Select Number: 10 Total Score:: 9
[2019-06-30 11:50] VITALS: BP 124/68; BP 146/72
== END 2019-07-22 23:59 ==
LOC: CR 14:15
PROVIDERS: Family Provider Family Medicine; PCP Family Medicine; Referring Provider Internal Medicine Cardiovascular Disease; Visit Provider Internal Medicine Cardiovascular Disease
DX: I25.10 Atherosclerotic heart disease of native coronary artery without angina pectoris (principal); I50.32 Chronic diastolic (congestive) heart failure; Z95.5 Presence of coronary angioplasty implant and graft
CPT/HCPCS: 93798

== ENCOUNTER 2019-07-21 10:08 | Emergency (ER) | payer MEDICARE, BC, SELFPAY ==
[2019-04-21 14:59] VITALS: BMI 34.7
[2019-05-07 13:14] VITALS: BMI 33.7
[2019-07-21] VITALS (7 sets, daily range): BP systolic 108–138; BP diastolic 49–98; PULSE 72–95; RESP 12–19; TEMP 36.9; O2SAT 96–97; BMI 34.2
--- NOTE | 2019-07-21 10:24 | EKG12_ITS ---
Test Reason : CP Blood Pressure : / mmHG Vent. Rate : 100 BPM Atrial Rate : 100 BPM P-R Int : 102 ms QRS Dur : 076 ms QT Int : 360 ms P-R-T Axes : 030 -13 047 degrees QTc Int : 464 ms Sinus rhythm Normal ECG Confirmed by ANAM OLMEDO ([id number]), web editor NOVA STEWART ([id number]) on 07/26/2019 8:41:03 AM Referred By: Anam Olmedo Confirmed By:ANAM OLMEDO
--- NOTE | 2019-07-21 10:24 | RAD_ITS ---
STUDY: X-RAY CHEST REASON FOR EXAM: Female, 69 years old. Chest pain. Palpitations. TECHNIQUE: Single AP portable view of the chest. COMPARISON: Comparison is made with prior study dated April 15, 2019. FINDINGS: EKG electrodes are seen. The lungs are clear and expanded. Scattered calcified granulomas. There is no demonstrated pleural abnormality. Normal size heart. Normal mediastinum and manohar. Normal visualized pulmonary arteries. There is atherosclerotic calcification of the aortic arch with tortuosity. There are diffuse degenerative changes of the visualized thoracic spine. Normal visualized ribs, clavicles, and shoulders. There is no demonstrated abnormality of the visualized soft tissue structures of the upper abdomen. RAD/Chest 1 View (Portable) IMPRESSION: No acute abnormality is seen. Electronically Signed: Juan Diamond, at 10:47 EDT , Service support ,
--- NOTE | 2019-07-21 10:31 | ED.DCSUM_ITS ---
- ER Visit Summary Date of Service: 07/21/19 Chief Complaint: Chest pain History of Present Illness: The patient is a 69 F who presents with chest pain that has been present for the past week but became worse last night. Patient states that she has a pressure in the substernal area and radiates into her ba ck. Patient states nothing seems to make it better or worse. Patient denies any diaphoresis. Patient admits to some nausea but denies any vomiting. Patient states she has some shortness of breath but states she is always short of breath to some degree. Ms. to some reflux symptoms. Patient admits to some palpitations. Cardiac risk factors include prior coronary artery disease, hypertension, hypercholesterolemia, and a family history of a sibling who had an IN at age 51. Physical Examination: Vital signs are stable. Patient is afebrile. Patient is in no acute distress. Oral mucosa is pink and moist. Neck is supple. Trachea is midline. There is no JVD noted. Heart was regular rate and rhythm. Lungs are clear and equal bilaterally. Abdomen is soft. Bowel sounds are normal. There is some mild epigastric tenderness. There is no rebound or guarding noted. Cranial nerves II through XII are intact. There are no focal motor or sensory deficits noted. Test Results: EKG showed a normal sinus rhythm with a rate of 100. There are no acute ST or T wave changes. CBC and basic metabolic profile were within normal limits. Troponin was normal. Portable chest x-ray was obtained. There is no acute cardiopulmonary process. Emergency Department Course and Treatment: Patient was given aspirin and nitroglycerin here. Review of prior records showed that patient had a normal stress echocardiogram in September. Patient's cardiac cath on 04/21/2019 was otherwise normal except for the area that was stented. Since the patient called Dr. Olmedo's office today prior to coming to the emergency department, the case was discussed with Dr. Olmedo. He recommended obtaining a delta troponin and if that is normal the patient may be discharged. The delta troponin was normal. Patient is feeling better on reevaluation. Patient was instructed to follow-up with her primary care physician in 3 to 5 days. Patient was also instructed to follow-up with Dr. Olmedo as scheduled. Patient understood and was agreeable with the plan. All questions were answered. Disposition: Discharge home Impression: 1. Chest pain This note was generated with Dragon dictation software. It may contain incorrect words, spelling, and punctuation that were not noted in review of the chart prior to signing ED Disposition - Plan for ED Patient: Disposition: Home or Assisted Living Diagnosis: Chest pain Instructions: CHEST PAIN, Uncertain Cause Referrals: Phong Quiroga MD [Primary Care Provider] - 3-5 Days
[2019-07-21] MEDS: Nitroglycerin SL (ED/IMG/CATH) 0.4 MG TABLET SUBLINGUAL (10:32)
[2019-07-21] MEDS: Aspirin 81 MG TAB.CHEW 324 MG PO (10:33)
[2019-07-21 10:40] LABS: Absolute Lymphocyte Count 1.26 X10^3/uL (0.83-4.51); Absolute Neutrophil Count 6.1 X10^3/uL (2.0-7.7); Basophil# 0.06 X10^3/uL; Basophil% 0.8 % (0-1); Eosinophil# 0.04 X10^3/uL; Eosinophils% 0.5 % (0-5); Hematocrit 46.6 % (37-47); Hemoglobin 15.4 g/dL (12.0-15.0); Lymphocyte # 1.26 X10^3/ul (4.0); Lymphocyte % 15.8 % (19-41); Mean Corpuscular Hgb 29.3 pg (27.0-32.0); Mean Corpuscular Volume 88.8 fL (81-99); Mean Platelet Vol. 10.4 fl (6.2-12.0); Monocyte# 0.51 X10^3/uL; Monocyte% 6.4 % (0-10); NRBC Flagged by Analyzer 0 % (0-5); Neutrophil # 6.09 X10^3/uL (2.7-7.7); Neutrophil % 76.1 % (47-70); Platelet Count 382 K/mm3 (150-450); RBC Distribution Width CV 12.6 % (11.6-14.6); RBC Distribution Width SD 41.1 fl (35.1-43.9); Red Blood Count 5.25 M/mm3 (4.2-5.4)
[2019-07-21 11:00] LABS: Anion Gap 8 (5-15); BUN 15 mg/dL (7-18); BUN/Creat Ratio 13.5 RATIO (10-20); Calcium,Total 9.3 mg/dL (8.5-10.1); Chloride 104 mmol/L (98-107); Creatinine, Serum 1.11 mg/dL (0.55-1.02); EST Glomerular Filtration Rate 52 mL/min (>60); Est Glom Filt Rate - Afr Amer 63 mL/min (>60); Estimated Creatinine Clearance 34.36 ml/min; Glucose 121 mg/dL (74-106); Potassium 4.2 mmol/L (3.5-5.1); Sodium Level 138 mmol/L (136-145)
== END 2019-07-21 14:21 | disposition home or self-care (01) ==
PROVIDERS: Emergency Provider Emergency Medicine; Family Provider Family Medicine; PCP Family Medicine
DX: R07.9 Chest pain, unspecified (principal); R06.02 Shortness of breath; R11.0 Nausea; I10 Essential (primary) hypertension; E78.00 Pure hypercholesterolemia, unspecified; K21.9 Gastro-esophageal reflux disease without esophagitis; Z82.49 Family history of ischemic heart disease and other diseases of the circulatory system
CPT/HCPCS: 36415; 71045; 80048; 84484; 85025; 93005; 99285; A4216

== ENCOUNTER 2019-08-06 14:15 | Outpatient (RCR) | payer MEDICARE, BC, SELFPAY ==
[2019-04-21 14:59] VITALS: BMI 34.7
[2019-07-21 10:10] VITALS: BMI 34.2
[2019-07-23 01:00] VITALS: BP 124/68; BP 146/72
--- NOTE | 2019-07-30 11:54 | CR.ITP_ITS ---
Exercise - 90-Day Assessment - Visit Date of Eval: 07/30/19 Session #:: 32 - Stages of Change Stages of Change:: Action - Physician Prescribed Exercise Modalities: Treadmill, Airdyne, NuStep Frequency (days/week): 3 Duration (Minutes):: 30-45 Intensity: 60-80% age predicted maximum heart rate reserve METs - Progression: 0.5-1.0 MET, RPE 11-14 WEEK: 4 Target Heart Rate:: 105-113 w/max hr 116 - Hypertension Resting Blood Pressure:: 126/46 Peak Exercise Blood Pressure:: 126/46 Medication Changes:: No - Intervention Home Exercise/Activity Goal:: Moderate Exercise 30 min/day x 5 days/wk - Education Goals:: Warm-up, RPE PHILLIP Scale, S/S, Safe Exercise, Self-Monitoring - Exercise Program Goals Exercise Program Goals: Aerobic Activity >30 min Nutrition - 90-Day Assessment - Program Goals Nutrition Program Goals: LDL <70. Total Cholesterol <200. HDL >45. Triglycerides <150. HgbA1C <7%. BMI <25 - Visit Date of Eval: 07/30/19 - Stages of Change Stages of Change:: Action - Lipids Has the patient seen the dietitian?: No - Diabetes Diabetes:: No Insulin: No Non-Insulin Dependent?: No - Weight Management Weight:: 174 lb 8 oz - down 3 pounds this 30-day - Intervention Referral to dietitian:: No Referral to Diabetic Clinic:: No Will attend diet classes:: Yes - Education Attended class for:: Healthy eating Tobacco - 90-Day Assessment - Program Goals Tobacco Program Goals: Complete smoking cessation. Attend education classes. Improve Knowledge Test score - Stage of Change Stages of Change:: Action - Learning Barriers Learning Barriers: Participates in education - Family Support Do you have family support?: Yes - Tobacco Use Tobacco Use: Non-smoker Do you use smokeless tobacco?: No - Intervention Smoking Cessation Referral:: No Individual Education/Counseling:: No Education Schedule Given:: Yes - Education Attended class for:: Treating Heart Disease, How The Heart Works, Heart Procedures, What Heart Medications Do, Risk Factors & Modifications, Living an Active Life, Nutrition, Emotions & Heart Disease, Stress Management & Relaxation, Sleep Disorders & Heart Disease Psychosocial - Initial Assess - Target Goals Target Goals: Assess presence or absence of depression. Using a valid screening tool, maximizes coping skills. Positive support system - Psychosocial Test Tool Used:: HANDS Depression Questionnaire - Assistive Devices Fall Risk Assessed:: Yes Psychosocial - 90-Day Assess - Target Goals Target Goals: Assess presence or absence of depression. Using a valid screening tool, maximizes coping skills. Positive support system - Stages of Change Stages of Change:: Action - Psychosocial Test Tool Used:: HANDS Depression Questionnaire - Intervention PS - Interventions: Yes Attend Stress Management Classes, Yes Uses Stress Management Skills, No Referral to Mental Health, No Referral to [facility] Case Management, No Referral to Physician - Education Attended classes for:: Coping techniques, Signs & symptoms of depression, Stress management, Relaxation techniques - Patient/Program Goal Preventative Medication(s):: Aspirin, LIANA inhibitor - patient is compliant with daily medications, Clopidogrel, Beta corby, Statin/lipid - Assistive Devices Assistive Devices:: None Fall Risk Assessed:: Yes Patient Health Questionnaire 90-Day Re-eval Assessment 1. Little interest or pleasure in doing things: Not at all 2. Feeling down, depressed, or hopeless: Not at all 3. Trouble falling or staying asleep, or sleeping too much: Not at all 4. Feeling tired or having little energy: Not at all 5. Poor appetite or overeating: Not at all 6. Feeling bad about yourself -- or that you are a failure or have let yourself or your family down: Not at all 7. Trouble concentrating on things, such as reading the newspaper or watching television: Not at all 8. Moving or speaking so slowly that other people could have noticed. Or the opposite - being so fidgety or restless that you have been moving around a lot more than usual: Not at all 9. Thoughts that you would be better off , or of hurting yourself in some way: Not at all Total Score: 0 Self-Efficacy 90-Day Re-eval Assessment We would like to know how confident you are in doing certain activities. Please select your confidence level for:: Select your confidence level for the followin g using the scale 1-10 where 1 is not at all confident and 10 is totally confident. Your score is the average of all 6 responses. Fatigue: How confident are you that you can keep the fatigue caused by your disease from interfering with the things you want to do? Select Number: 10 Physical Discomfort or Pain: How confident are you that you can keep the physical discomfort or pain of your disease from interfering with the things you want to do? Select Number: 10 Emotional Distress: How confident are you that you can keep the emotional distress caused by your disease from interfering with the things you want to do? Select Number: 10 Other Symptoms or Health Problems: How confident are you that you can keep other symptoms or health problems from interfering with the things you want to do? Select Number: 10 Different Tasks and Activities: How confident are you that you can do the different tasks and activities needed to manage your health condition so as to reduce your need to see a doctor? Select Number: 10 Medication: How confident are you that you can do things other than just taking medication to reduce how much your illness affects your everyday life? Select Number: 10 Total Score:: 10
[2019-07-30 11:57] VITALS: BP 126/46
== END 2019-08-21 23:59 ==
LOC: CR 14:15
PROVIDERS: Family Provider Family Medicine; PCP Family Medicine; Referring Provider Internal Medicine Cardiovascular Disease; Visit Provider Internal Medicine Cardiovascular Disease
DX: I25.10 Atherosclerotic heart disease of native coronary artery without angina pectoris (principal); I50.32 Chronic diastolic (congestive) heart failure; Z95.5 Presence of coronary angioplasty implant and graft
CPT/HCPCS: 93798

== ENCOUNTER → 2019-08-16 16:06 | Outpatient (CLI) | payer MEDICARE, BC, SELFPAY ==
[2019-04-21 14:59] VITALS: BMI 34.7
[2019-07-21 10:10] VITALS: BMI 34.2
== END ==
PROVIDERS: Family Provider Family Medicine; PCP Family Medicine; Visit Provider Family Medicine
DX: N39.0 Urinary tract infection, site not specified (principal)
CPT/HCPCS: 87086; 87088

== ENCOUNTER → 2019-08-24 15:08 | Outpatient (CLI) | payer MEDICARE, BC, SELFPAY ==
[2019-04-21 14:59] VITALS: BMI 34.7
[2019-07-21 10:10] VITALS: BMI 34.2
[2019-08-24 16:06] LABS: Color, Urine Yellow (Yellow); Glucose, Dipstick Normal (Normal); Ketone-Dipstick Negative (Negative); Leukocyte Esterase-Dipstick Negative /ul (Negative); Nitrite-Dipstick Negative (Negative); Occult Blood-Urine Negative /ul (Negative); Protein-Dipstick Negative (Negative); Urine Bilirubin Dipstick Negative (Negative); Urine Clarity Clear (Clear); Urine Urobilinogen Normal (Normal); Urine pH 6.5 (5.0 - 8.0)
== END ==
PROVIDERS: Visit Provider Advanced Practice Midwife
DX: N39.0 Urinary tract infection, site not specified (principal)
CPT/HCPCS: 81002; 87086; 87088

== ENCOUNTER → 2019-11-03 14:53 | Outpatient (CLI) | payer MEDICARE, BC, SELFPAY ==
[2019-04-21 14:59] VITALS: BMI 34.7
[2019-11-01 13:58] VITALS: BMI 35.2
--- NOTE | 2019-11-03 14:55 | ECHOCS_ITS ---
Reason For Study: PRE-OP Procedure This was a 2D Doppler, Color Flow transthoracic echocardiogram. The study was technically difficult. Contrast injection was performed. Exam performed in department. Left Ventricle Normal size and thickness. The estimated ejection fraction is 65 %. Stage 1 diastolic dysfunction. No regional wall motion abnormalities noted. Right Ventricle Normal size and thickness. Normal systolic function. Atria Normal left atrium. Normal right atrium. Normal atrial septum. Mitral Valve The mitral valve is structurally normal. No prolapse or stenosis seen. Trivial mitral valve insufficiency. Tricuspid Valve Normal tricuspid valve. Mild (1+) tricuspid valve insufficiency. Right ventricular systolic pressure estimated to be 27 mmHg. Aortic Valve Normal aortic valve. Trisinus/trileaflet aortic valve. Pulmonic Valve Normal pulmonic valve. Great Vessels Normal aortic root. Normal arch. Normal inferior vena cava. Inferior vena cava collapse with sniff. Pericardium/Pleural No pericardial effusion. Medication 22 gauge I.V. with prn adaptor inserted into left arm. Diluted definity 2.0ml given slow IV push to enhance endocardial definition. MMode/2D Measurements & Calculations LVIDd: 3.9 cm IVSd: 0.71 cm Ao root diam: 2.8 cm LVIDs: 2.7 cm LVPWd: 0.67 cm RVDd: 2.8 cm FS: 31.0 % LAV(MOD-bp): 41.1 ml EDV(MOD-sp4): 70.2 ml EDV(MOD-sp2): 62.4 ml LAV(MOD-bp) Indexed: 23.2 ml/m2 ESV(MOD-sp4): 22.5 ml EF(MOD-sp2): 63.1 % LAV(MOD-sp2): 42.3 ml EF(MOD-sp4): 68.0 % LAV(MOD-sp4): 38.9 ml SV(MOD-sp4): 47.7 ml SV(MOD-sp2): 39.4 ml LA A4 area: 15.8 cm2 LA dimension(2D): 3.9 cm RA A4 area: 11.5 cm2 Time Measurements MV dec time: 0.22 sec Doppler Measurements & Calculations MV E max kyle: 92.9 cm/sec Lat Peak E' Kyle: 8.2 cm/sec Med Peak E' Kyle: 6.3 cm/sec MV A max kyle: 86.1 cm/sec E/E' lat: 11.3 E/E' med: 14.8 MV E/A: 1.1 Ao V2 max: 117.3 cm/sec LV V1 max: 100.9 cm/sec TR max kyle: 232.4 cm/sec Ao max P.5 mmHg LV V1 max P.1 mmHg TR max P.6 mmHg Interpretation Summary The estimated ejection fraction is 65 %. Stage 1 diastolic dysfunction. Trivial mitral valve insufficiency. Mild (1+) tricuspid valve insufficiency. Right ventricular systolic pressure estimated to be 27 mmHg. Compared to echo report dated 08/12/2014, no appreciable changes noted. The study was technically difficult. Contrast injection was performed. Ordering Physician: Marcin Olmedo Referring Physician: JOSE CHARLES Performed By: Janessa Pimentel, LUCIANA, RVT
== END ==
PROVIDERS: PCP Family Medicine; Referring Provider Internal Medicine Cardiovascular Disease; Visit Provider Internal Medicine Cardiovascular Disease
DX: Z01.810 Encounter for preprocedural cardiovascular examination (principal); I25.10 Atherosclerotic heart disease of native coronary artery without angina pectoris; I50.32 Chronic diastolic (congestive) heart failure
CPT/HCPCS: 93306; Q9957; A4216; C8929

== ENCOUNTER → 2019-11-09 11:56 | Outpatient (CLI) | payer MEDICARE, BC, SELFPAY ==
[2019-04-21 14:59] VITALS: BMI 34.7
[2019-11-01 13:58] VITALS: BMI 35.2
--- NOTE | 2019-11-09 11:57 | STEWCON_ITS ---
Reason For Study: CAD,PRE OP Stress Results Protocol: Neo Protocol WITH DEFINITY Maximum Predicted HR: 151 bpm Target HR: 128 bpm % Maximum Predicted HR: 89 % DurationHeart Rate Stage (mm:ss) (bpm) BP Comment BASELINE 73 120/62 STAGE 1 3:00 107 160/50 STAGE 2 3:00 120 164/50 STAGE 3 1:00 134 / RECOVERY 88 120/626 CC DEFINITY USED FOR ENTIRE TEST Stress Duration: 7:00 mm:ss Maximum Stress HR: 134 bpm Baseline Echocardiogram Findings The estimated ejection fraction is 65 %. Stress Echo Wall motion Data Resting WM Intermediate WM Stress WM Resting Wall Motion Wall Motion Stress No regional wall motion No regional wall motion abnormalities noted. abnormalities noted. EKG Data The baseline ECG displays normal sinus rhythm. The patient exercised according to the regular Neo protocol for a total duration of 7:00. The maximum heart rate attained was 134 beats per minute. This was 88% of maximum predicted heart rate. The patient exercised into stage 3 of the Neo protocol. No arrhythmias noted. At peak exercise, upsloping ST changes only were noted, which did not meet the criteria for ischemia. Interpretation Summary The estimated ejection fraction is 65 %. Normal, adequate, treadmill echocardiogram. Negative for ischemia by EKG and echocardiographic criteria. No anginal symptoms noted. No arrhythmias noted. Patient tolerated procedure well. Test terminated due to dyspnea and attainment of target heart rate. Final LVEF is 75%. Decreased sensitivity due to poor echo windows requiring Definity agent. The study was technically difficult. Contrast injection was performed. Ordering Physician: Marcin Olmedo Referring Physician: Marcin Olmedo Performed By: Janessa Pimentel, RDCS, RVT
[2019-11-09 13:08] LABS: AST(SGOT) 13 U/L (15-37); Alanine Aminotransfer ALT/SGPT 23 U/L (13-56); Albumin, Serum 3.9 g/dL (3.2-5.0); Alkaline Phosphatase 85 U/L (45-117); Bilirubin, Direct 0.14 mg/dL (0.00-0.30); Cholesterol 153 mg/dL (200); Globulin 3.6 g/dL (2.2-4.2); High Density Lipoprotein 49 mg/dL; Protein, Total 7.5 g/dL (6.4-8.2); Triglycerides 125 mg/dL; Very Low Density Lipoprotein 25 mg/dL (5-40)
== END ==
PROVIDERS: PCP Family Medicine; Referring Provider Internal Medicine Cardiovascular Disease; Visit Provider Internal Medicine Cardiovascular Disease
DX: Z01.810 Encounter for preprocedural cardiovascular examination (principal); E78.5 Hyperlipidemia, unspecified; I25.10 Atherosclerotic heart disease of native coronary artery without angina pectoris; I50.32 Chronic diastolic (congestive) heart failure; Z95.5 Presence of coronary angioplasty implant and graft
CPT/HCPCS: 36415; 80061; 80076; 93017; 93350; Q9957; A4216; C8928

== ENCOUNTER 2019-11-15 05:42 | Day surgery (SDC) | payer MEDICARE, BC, SELFPAY ==
[2019-04-21 14:59] VITALS: BMI 34.7
[2019-07-21 10:10] VITALS: BMI 34.2
[2019-11-01 13:58] VITALS: BMI 35.2
[2019-11-11 13:32] VITALS: BP 132/73; PULSE 74; RESP 16; TEMP 36.5; O2SAT 97; BMI 35.5
--- NOTE | 2019-11-11 13:45 | RAD_ITS ---
STUDY: X-RAY CHEST REASON FOR EXAM: Female, 69 years old. PREOP. SURG X FRIDAY. TECHNIQUE: PA and lateral views of the chest. COMPARISON: 07/21/2019 FINDINGS: The lungs are clear and expanded. There is no demonstrated pleural abnormality. Normal size heart. Normal mediastinum and manohar. Normal visualized pulmonary arteries. Normal visualized aortic arch and descending thoracic aorta. Normal visualized thoracic spine. Normal visualized ribs, clavicles, and shoulders. There is no demonstrated abnormality of the visualized soft tissue structures of the upper abdomen. RAD/Chest PA and Lateral IMPRESSION: Normal x-ray examination of the chest. Electronically Signed: Dilan Heath MD at 10:26 EST Tel , Service support ,
[2019-11-11 14:43] LABS: Hematocrit 41.5 % (37-47); Hemoglobin 13.4 g/dL (12.0-15.0); Mean Corp Hgb Conc 32.3 g/dL (32-36); Mean Corpuscular Hgb 28.8 pg (27.0-32.0); Mean Corpuscular Volume 89.2 fL (81-99); Mean Platelet Vol. 10.3 fl (6.2-12.0); Platelet Count 300 K/mm3 (150-450); RBC Distribution Width CV 13.2 % (11.6-14.6); RBC Distribution Width SD 42.7 fl (35.1-43.9); Red Blood Count 4.65 M/mm3 (4.2-5.4)
[2019-11-11 14:50] LABS: International Normalized Ratio 1.1; Prothrombin Time (Protime)PT. 13.6 SECONDS (11.7-14.9)
[2019-11-11 15:13] LABS: ALB/GLOB Ratio 0.9 RATIO (0.9-2.4); AST(SGOT) 10 U/L (15-37); Alanine Aminotransfer ALT/SGPT 23 U/L (13-56); Albumin, Serum 3.6 g/dL (3.2-5.0); Alkaline Phosphatase 82 U/L (45-117); Anion Gap 7 (5-15); BUN 21 mg/dL (7-18); BUN/Creat Ratio 24.9 RATIO (10-20); Chloride 107 mmol/L (98-107); Creatinine, Serum 0.84 mg/dL (0.55-1.02); EST Glomerular Filtration Rate 71 mL/min (>60); Est Glom Filt Rate - Afr Amer 86 mL/min (>60); Globulin 3.8 g/dL (2.2-4.2); Glucose 80 mg/dL (74-106); Potassium 3.8 mmol/L (3.5-5.1); Protein, Total 7.4 g/dL (6.4-8.2); Sodium Level 140 mmol/L (136-145); Thyroid Stim Hormone (TSH) 2.21 uIU/mL (0.358-3.74)
--- NOTE | 2019-11-14 22:08 | PCM.HP.BLA ---
History and Physical Date of Admission: 11/15/19 Surgical History and Physical Mary Bañuelos, a 69 year old female 2 0 1 0 2, presents for Vaginal Hysterectomy and AP Repair on November 15, 2019 at 7:30. -- Cystocele, Incomplete UV Prolapse --Pt complains of vaginal pressure and lower back pain. She also states something is at opening of vagina. Pt states she began feeling back pain and discomfott riding exercise bike during her cardiac rehap post stent placement. Mary characterizes the quality pressure. Associated signs and symptoms are back pain and vaginal pressure. MEDICATIONS HISTORY: Patient is also takin. Cardizem CD 360 mg capsule,extended release, 1 daily 2. Lasix 40 mg tablet, 1 daily 3. levothyroxine 100 mcg tablet 4. albuterol sulfate 2.5 mg/3 mL (0.083 %) solution for nebulization, as needed 5. clopidogrel 75 mg tablet, daily 6. montelukast 10 mg tablet, daily 7. omeprazole 40 mg capsule,delayed release, BID 8. sertraline 25 mg tablet, daily 9. simvastatin 20 mg tablet, at hs 10. sucralfate 1 gram tablet, One pill by mouth four times a day prn 11. Klor-Con 8 mEq tablet,extended release, One pill by mouth twice a day ALLERGIES: Penicillin, Sneezing, rash, watery eyes, tetracycline, Nausea, peanuts, Short of breath, Chocolate, [place], Wheezing, Dust and mold- enviromental, Bee, Breathing difficulty, Penicillins, Rash, Tetracycline, Nausea, Peanut, Shortness of breath, House Dust, Intolerance-unknown, [place], Wheezing, Chocolate Flavor, Intolerance-unknown, insect venom and Anaphylaxis Infections - none Illnesses - asthma, fibromyalgia, gastro reflux, psoriasis, IBS, PARADOXICAL VOCAL CHORD DYSFUNCTION, Diastolic CH and CHF Accidents - None Hospitalizations - Childbirth and see surgery gastroparesis, GERD; Review of Systems: GENERAL - Denies fever, or chills SKIN - Denies skin changes EYES - Denies visual changes EARS - Denies difficulty hearing NOSE - Denies nasal congestion or bleeding MOUTH - Denies sore throat or difficulty swallowing NECK - Denies pain or swelling RESPIRATORY - Denies shortness of breath or wheezing CARDIOVASCULAR - Denies palpitations or chest pain GASTROINTESTINAL - Denies nausea, vomiting, diarrhea, constipation GENITOURINARY - Denies dysuria, frequency of urination, incontinence of urine MUSCULOSKELETAL - Denies joint or muscle pain NEUROLOGICAL - Denies localized numbness or weakness PSYCHIATRIC - Denies depression or anxiety ENDOCRINE - Denies heat or cold intolerance, weight loss or gain HEMATO-IMMUNOLOGIC - Denies excesive bleeding with cuts SOCIAL HISTORY: Alcohol Use - RARELY Smoking - denies smoking Diet - balanced Diet Lifestyle - Exercise - minimal Seat Belt Use - always Employer - Retired Illicit Drug Use - denies use of street drugs Sexual Activity - single sexual partner and Spouse-Sig Other Name - SAKINA Spouse-Sig Other Occupation - Retired Children Name(s) - 2 children Control - Prior Tubal and postmenopausal FAMILY HISTORY: Mother: Stroke, Dementia, vascular dementia, Cataracts, Hypertension and Parkinson's disease. Father: Prostrate CA- Den Mac dz, PULMONARY FIBROSIS, Heart Disease and Hypertension. MENSTRUAL HISTORY: LMP Known?- POSTMENOPAUSAL, LMP - 11/07/03, Age Onset Menarche - 14 PAST PREGNANCIES: Total Pregnancies - 3; Full Term Pregnancies - 2; Premature - 0; Abortions, Induced - 0; Abortions, Spontaneous - 0; Ectopics - 1; Multiple Births - 0; Living Children - 2 SURGICAL HISTORY: 1. polyps removed 2. cholecystectomy, appendectomy, tubal ligation 1983 3. ectopic 1979 4. tonsillectomy 1957 5. polyps removed in or 6. cryo surgery 7. 2 moles removed from face- Dr Lance 8. 04/21/2019 Heart stent Ramus Artery ; Dr. Olmedo PHYSICAL EXAM BP- 152/68 Sitting, Right arm, large cuff Weight- 181.52979 lbs Height- 60.75 inch BMI:34.55 CONSTITUTIONAL - NAD, well nourished, and well developed HEENT - Normocephalic, PERRLA, EOMI NECK - no nuchal rigidity NEUROLOGICAL - Cranial nerves II-XII grossly intact PSYCHIATRIC - A and O to time, place, person, mood and affect DETAILED PELVIC EXAM External Genitial Vagina - non-tender without lesions Urethra/Urethral Meatus - non-tender Bladder - cystocele Vagina - large cystocele prolapses to introitus. minimal rectocele. Loss of rugae noted. Cervix - without cervical motion tenderness and has normal size and features without evident lesions Uterus - 5-6 cm in size, mobile and nontender and Gr 1 prolapse noted Adnexa - clear without massess or tenderness Rectal - small rectocele noted ASSESSMENT/PLAN: 1. Cystocele, Midline, Rectocele, Uterovaginal Prolapse and Unspecified Discussed options for treatment including expectant management, pessary use or proceeding with Vaginal Hyst and AP Repair. Pt desires the surgery. Has cardio clearance. Discussed RBAs and all questions answered. Stopped Plavix 5 days before the surgery.
[2019-11-15] VITALS (13 sets, daily range): BP systolic 124–146; BP diastolic 52–76; PULSE 75–93; RESP 15–18; TEMP 36.2–36.8; O2SAT 94–100; BMI 35.5
[2019-11-15] MEDS: Lactated Ringers 1,000 ML 100 ML IV (06:11)
--- NOTE | 2019-11-15 07:30 | HYST_PTH ---
PATIENT: RONI LEWIS LOC: [facility] [place] U#:[id number] AGE/SX: 69/F ROOM: RE11/15/[address]: Dr. Jose M Palacios MD : 1950 BED: DIS: 11/16/2019 SPEC #: [id number] RECD: 11/15/19 10:30 STATUS: ALISON PHAM #: [id number] ABBY: 11/15/19 07:[address]: Jose M Palacios DEPT: SURGICAL PATHOLOGY RECD BY: Hamzah Salguero ENTERED: 11/15/19 10:50 SP TYPE: HYSTERECT OTHR DR: Dr. Phong Quiroga MD Tissues: Uterus, NOS Procedures: Surgery Specimen Level II Surgery Specimen Level V HEADER OPERATION: Vaginal hysterectomy, A & P repair PRE-OP DIAGNOSIS: Cystocele midline, rectocele uterovaginal TISSUE SUBMITTED: Uterus and cervix, vaginal mucosa MICROSCOPIC DIAGNOSIS Uterus, hysterectomy: Cervix - nabothian cysts, squamous metaplasia and mild chronic inflammation. Endometrium - weakly proliferative endometrium with focal cystic change. Focal superficial adenomyosis. Myometrium - benign vessel wall microcalcifications. Vaginal mucosa, anterior and posterior repair: Minimal chronic inflammation. No evidence of dysplasia. AM:marilia 11/16/19 MICROSCOPIC DESCRIPTION Slides are reviewed. GROSS DESCRIPTION Received in fixative is one container labeled with the patient's name and designated uterus and cervix and vaginal mucosa. The specimen consists of a hysterectomy specimen consisting of uterus with cervix and detached pieces of mucosal tissue. The uterus with cervix weighs 50 gm and measures 8.5 x 4 x 3 cm. The serosal surface is reynoso, glistening. The ectocervical mucosa is unremarkable. The external os is pinpoint in contour. The endocervical canal measures 3 cm in length and the endocervical mucosa is reynoso, glistening and unremarkable. The triangular endometrial cavity measures 4 cm in length and 2.5 cm in width. The endometrium is reynoso, glistening without any mass lesion and measures <0.1 cm in thickness. Sections of the uterine wall do not reveal any mass lesion and measures up to 1.5 cm in thickness. Also present in the container are five detached pieces of mucosal tissue measuring in aggregate 7 x 4.5 x 0.3 cm. No mucosal lesion is identified. A few instrumentation chakraborty are noted. Motor Equipment Sergeant sections are submitted in seven cassettes as follows: 1 - anterior cervix, 2 - posterior cervix, 3 & 4 - anterior uterine wall, 5 & 6 - posterior uterine wall, 7 - detached mucosal tissue. / SJ:marilia 11/15/19 TC:5 CPT: 41931, 13435
--- NOTE | 2019-11-15 07:44 | PCM.OPRPT ---
Report of Operation Date of Procedure: 11/15/19 Pre-Operative Diagnosis: Incomplete Uterovaginal Prolapse, Cystocele, Rectocele Post-Operative Diagnosis: Incomplete Uterovaginal Prolapse, Cystocele, Rectocele Surgery/Procedure Performed:: Vaginal Hysterectomy and Anterior Posterior Repair Description of Surgical Findings:: 6 cm uterus with cystocele that protrudes 2 cm outside the introitus and rectocele that protrudes to the introitus fiscal officer: Debbie Vera fiscal officer: Conchis Montano Type of Anesthesia:: General - Endotracheal Anesthesiologist: Nilda Dowling Specimen's removed: Uterus and vaginal mucosa Drains: Brannon to straight drain Estimated Blood Loss (mL): 100 cc Fluids Replaced: Crystalloid Description of Procedure: Surgeon: Jose M Palacios MD, FACOG Indications: This is a 69-year-old patient who is been having problems with pelvic pressure and uterovaginal prolapse. Conservative measures have not been helpful. Given this the patient desires that we proceed the above procedure. She has been counseled regarding the risk and indications of this procedure including the possibility of bleeding, infection, and injury to surrounding structures such as bowel bladder. All questions were answered. Procedure: Patient was taken to the operating room where after induction of general anesthesia she was placed in the dorsal lithotomy position and prepped and draped in the usual sterile fashion. Anterior cervix was grasped with a tenaculum and anterior cervix circumscribed with cautery on a setting of 35 W coagulation. Anterior vaginal mucosa was undermined and anterior peritoneum was easily entered. The posterior aspect of the cervix was circumscribed with a knife and posterior peritoneum easily entered. Progressive bites were taken on either side of the uterine cervix and each pedicle ligated with 0 Vicryl suture. Superior pedicles were ligated ?2 with 0 Vicryl suture and sidewall pedicles were examined and oversewn where necessary with [id number] 0 Vicryl suture to achieve hemostasis. Posterior vaginal cuff was oversewn with running locked 0 Vicryl suture. Hemostasis was noted and peritoneum was closed in a pursestring fashion incorporating superior pedicles into the stitch. Hemostasis was noted. Attention was turned toward the anterior repair portion of the procedure. Anterior vaginal mucosa was undermined and divided and then imbricated toward the midline with interrupted 0 Vicryl sutures. Vaginal mucosa was trimmed and then closed with interrupted 2-0 chromic suture. Vaginal cuff was then closed front to back with interrupted [id number] 0 Vicryl suture. Hemostasis was noted. Attention was turned toward the posterior repair portion of the procedure. Remnants of the hymenal ring were grasped with Allises and a V-shaped incision was made in the perineum. Rectovaginal mucosa was then undermined divided and then imbricated toward the midline with interrupted 0 Vicryl suture. Vaginal mucosa was trimmed and then closed with running locked 2-0 chromic suture. Remnants of the bulbocavernosus muscles were identified and brought toward the midline with a single [id number] 0 Vicryl suture and perineum was closed in the usual fashion with running and subcuticular, and [id number] 2-0 chromic suture. Hemostasis was noted. Brannon catheter was again opened and clear yellow urine was noted. Vagina was packed with iodoform tape. Patient tolerated the procedure well was taken to recovery room in satisfactory condition; sponge instrument and needle counts were all reportedly correct. Estimated blood loss for the case was 100 cc. Cefotan 2 g IV was given prior to beginning the operative procedure. There were no apparent complications of the surgery. Specimen to pathology was uterus and vaginal mucosa. Grafts/Implants Used: None - Complications None - Admit VTE Documentation VTE Present on Admission: Yes VTE Mechan Device Prophylaxis: SCD's VTE Pharm Prophylaxis ordered?: Yes
--- NOTE | 2019-11-15 07:47 | PCM.DC.VHY ---
Discharge Diet: No Restrictions Discharge Activity: Return to Normal Activity, May Not Drive - while taking narcotic pain medications., May Shower May resume sexual activity in: 6-8 weeks Call your doctor if your incision/area has: Continuous Slow Oozing, Sudden Increased Bleeding, Increased Pain/ Swelling, Increased Redness, Foul Smelling Discharge Call your doctor if you observe: Fever of 101 or Higher, Inability to urinate, Inability to have a bowel movement, Using more than one pad per hour Allergies/Adverse Reactions: Allergies chocolate flavor Allergy (Verified 11/15/19 05:54) Unknown corn Allergy (Verified 11/15/19 05:54) Unknown peanut Allergy (Verified 11/15/19 05:54) Unknown Penicillins Allergy (Verified 11/15/19 05:54) Unknown Tetracyclines Allergy (Verified 11/15/19 05:54) Unknown venom-honey bee [bee venom (honey bee)] Allergy (Verified 11/15/19 05:54) Unknown Medications to take at Discharge Montelukast [Singulair] 10 mg PO QHS 11/04/14 levothyroxine 100 mcg tablet 100 mcg PO DAILY tab 10/10/17 clopidogrel 75 mg tablet 75 mg PO DAILY #90 tab 04/15/19 nitroglycerin 0.4 mg sublingual tablet 0.4 mg SUBLINGUAL Q5-15M PRN #25 tab 04/15/19 potassium chloride 20 mEq tablet,extended release 20 meq PO BID #180 tab 04/15/19 sertraline 25 mg tablet 25 mg PO DAILY 04/15/19 simvastatin 20 mg tablet 20 mg PO QHS #90 tab 04/15/19 Furosemide 40 mg PO DAILY 07/21/19 Omeprazole 40 mg PO BID 07/21/19 Wheat Dextrin [Benefiber] 1 pkt PO DAILY 07/21/19 estradiol 1 g VAGINAL 2XW 11/01/19 Ascorbic Acid [Vitamin C] 500 mg PO DAILY 11/11/19 Aspirin [Low Dose Aspirin EC] 81 mg PO QHS 11/11/19 Diltiazem HCl [Diltiazem 24Hr ER] 360 mg PO QHS 11/11/19 Docusate Sodium [Colace] 100 mg PO BID PRN PRN #60 cap 11/15/19 Oxycodone [Oxyir] 5 mg PO Q6H PRN PRN 7 Days #14 tablet 11/15/19 The following prescriptions were given: Docusate Sodium [Colace] 100 mg PO BID PRN PRN #60 cap PRN Reason: Constipation Transmission Status: Pending to [facility]/pharmacy #[id number] Oxycodone [Oxyir] 5 mg PO Q6H PRN PRN 7 Days #14 tablet PRN Reason: Pain Score 6-10/10 Transmission Status: Received by [facility]acy #[id number] Primary Care Physician: Phong Quiroga MD [Primary Care Provider] - Test Results: Test results from this visit will be discussed in further detail at your follow-up appointment, if applicable. Please Follow Up With: Jose M Palacios MD When: 2 to 3 weeks
[2019-11-15] MEDS: Lubricating Jelly 60 GM Tube 30 GM TOPICAL (07:56)
[2019-11-15] MEDS: Dextrose 5%-Lactated Ringers 1,000 ML 125 ML IV ×2 (11:38→20:11)
[2019-11-15] MEDS: HYDROmorphone 1 MG/ML Syringe 0.5 MG IV (11:39)
--- NOTE | 2019-11-15 12:26 | PN_ITS ---
Reason for Visit: Status post vagina hysterectomy ?Consult for medical management of medical comorbidities Subjective: Patient is a 69-year-old lady who underwent vaginal hysterectomy with anterior posterior repair on account of Incomplete Uterovaginal Prolapse, Cystocele, Rectocele on 11/15/[address] Palacios. Hospitalist service was consulted to assist with management of patient medical comorbidities Objective: GENERAL: Lethargic but easily arousable HEENT: Atraumatic; EYES; Anicteric, Normal Conjunctiva NECK; supple, normal thyroid, RESPIRATORY: Diminished to auscultation CARDIOVASCULAR: Regular S1 S2, GI: soft, normoactive bowel sounds, : No Renal angle tenderness; EXTREMITIES: No edema, no clubbing, MUSCULOSKELETAL: no muscle waisting NEURO: Awake; no lateralizing signs. SKIN: No Rash PSYCH; Flat affect Vitals/I&O's: Vital Signs Temp Pulse Resp BP Pulse Ox 97.4 F L 88 18 142/54 H 100 11/15/19 11:24 11/15/19 11:24 11/15/19 11:24 11/15/19 11:24 11/15/19 11:24 Oxygen Flow Rate (L/min) 2 Oxygen Delivery Method Nasal Cannula Weight: 82.5 kg Body Mass Index (BMI) 35.5 Intake and Output for Last 24 Hours 11/13/19 11/14/19 11/15/19 23:59 23:59 23:59 Intake Total 651.67 / 651.67 Output Total 280 / 280 Balance 371.67 / 371.67 Current Medications Acetaminophen (Tylenol) 1,000 mg PO Q8H PRN PRN PRN Reason: Pain Score 1-3/10 or Fever Aspirin (Ecotrin) 81 mg PO QHS [facility] Atorvastatin Calcium (Lipitor) 10 mg PO QHS [facility] Clopidogrel Bisulfate (Plavix) 75 mg PO DAILY [facility] Diltiazem HCl (Cardizem Cd) 360 mg PO QHS [facility] Docusate Sodium (Colace) 100 mg PO BID PRN PRN PRN Reason: Constipation Furosemide (Lasix) 40 mg PO DAILY [facility] Heparin Sodium (Porcine) (Heparin Na) 5,000 unit SC Q12 [facility] Hydromorphone HCl (Dilaudid Inj) 0.5 mg IV Q3H PRN PRN PRN Reason: Pain Score 4-10/10 Last Admin: 11/15/19 11:39 Dose: 0.5 mg Documented by: Dextrose/Lactated Ringer's () 1,000 mls @ 125 mls/hr IV .Q8H [facility] Last Admin: 11/15/19 11:38 Dose: 125 mls/hr Documented by: Cefotetan Disodium 1 gm/ (Sodium Chloride) 50 mls @ 100 mls/hr IV Q12H [facility] Stop: 11/15/19 19:29 Sodium Chloride () 250 mls @ 15 mls/hr IV .[id number] PRN PRN Reason: Saline Flush Sodium Chloride () 250 mls @ 15 mls/hr IV .[id number] PRN PRN Reason: Additional IVPB Infusion Levothyroxine Sodium (Synthroid) 100 mcg PO DAILY@0600 [facility] Montelukast Sodium (Singulair) 10 mg PO QHS [facility] Nitroglycerin (Nitrostat) 0.4 mg SUBLINGUAL Q5M PRN PRN Reason: CARDIAC/CHEST PAIN Ondansetron HCl (Zofran) 4 mg IV Q4H PRN PRN PRN Reason: NAUSEA Oxycodone HCl (Oxyir) 5 mg PO Q4H PRN PRN PRN Reason: Pain Score 4-10/10 Pantoprazole Sodium (Protonix) 40 mg PO BID [facility] Potassium Chloride (K-Dur) 20 meq PO BID [facility] Sertraline HCl (Zoloft) 25 mg PO DAILY [facility] Simethicone (Mylicon) 80 mg PO PCHS [facility] Last Admin: 11/15/19 11:38 Dose: Not Given Documented by: Sodium Chloride () 10 - 40 ml IV UD PRN PRN Reason: SALINE FLUSH STROKE Vital Signs/Narrative: Vital Signs Temp Pulse Resp BP Pulse Ox 11/15/19 11:24 97.4 F L 88 18 142/54 H 100 11/15/19 10:58 97.5 F L 84 18 138/55 H 95 11/15/19 10:45 77 18 134/60 H 97 11/15/19 10:30 79 18 146/60 H 94 11/15/19 10:15 88 18 143/76 H 96 11/15/19 10:00 91 18 141/64 H 100 11/15/19 09:45 81 16 124/52 H 97 11/15/19 09:35 97.4 F L 90 16 130/55 H 97 Medical Necessity - Tobacco Use Smoking Status: Never smoker Tobacco Use: Non-smoker Assessment/Plan All Active Problems (Last Updated 11/01/19 @ 14:08 by Katelyn Taylor) Pre-operative cardiovascular examination (Acute) Chest pain (Acute) Abnormal stress test (Resolved) Dyspnea on exertion (Resolved) Patient is a 69-year-old lady who underwent vaginal hysterectomy with anterior posterior repair on account of Incomplete Uterovaginal Prolapse, Cystocele, Rectocele on 11/15/[address] Palacios. Hospitalist service was consulted to assist with management of patient medical comorbidities 1. Status post vaginal hysterectomy with anterior posterior repair - on account of Incomplete Uterovaginal Prolapse, Cystocele, Rectocele on 11/15/[address] Palacios 2. Dyslipidemia ~patient is on statin therapy, continued at home dose 3. Hypothyroidism ~patient is on levothyroxine home dose continued 4. GERD ?Patient is on PPI 5. Hypertension ~ blood pressure controlled, home medications continued with dose adjustment as needed 6. Coronary artery disease - with previous PCI/MATTY of a proximal ramus intermedius lesion patient is Plavix continued 7. DVT prophylaxis ?We will recommend low molecular weight heparin when okay with [facility] Code Visit Inpatient E&M: 33616 Subs Hosp L2
[2019-11-15] MEDS: Clopidogrel Bisulfate 75 MG Tablet PO (13:37)
[2019-11-15] MEDS: Furosemide 40 MG Tablet PO (13:37)
[2019-11-15] MEDS: Heparin Injection (Vial) 5,000 UNIT/ML VIAL 5000 UNIT SC ×2 (13:37→22:08)
[2019-11-15] MEDS: Acetaminophen 500 MG Tablet 1000 MG PO ×2 (13:42→22:17)
[2019-11-15] MEDS: 0.9% Saline Lock 10 ML Syringe IV (13:47)
[2019-11-15] MEDS: dilTIAZem CD 180 MG Capsule 360 MG PO (22:08)
[2019-11-15] MEDS: Atorvastatin Calcium 10 MG Tablet PO (22:08)
[2019-11-15] MEDS: Montelukast 10 MG Tablet PO (22:08)
[2019-11-15] MEDS: Pantoprazole Sodium 40 MG Tablet PO (22:08)
[2019-11-15] MEDS: Aspirin E.C. 81 MG Tablet PO (22:08)
[2019-11-16 03:00] VITALS: BP 120/58; PULSE 71; RESP 18; TEMP 36.8; O2SAT 94
[2019-11-16] MEDS: Acetaminophen 500 MG Tablet 1000 MG PO (06:15)
[2019-11-16] MEDS: Levothyroxine 100 MCG Tablet PO (06:16)
[2019-11-16 06:38] LABS: Hematocrit 36.7 % (37-47); Hemoglobin 12.1 g/dL (12.0-15.0); Mean Corpuscular Hgb 29.4 pg (27.0-32.0); Mean Corpuscular Volume 89.1 fL (81-99); Mean Platelet Vol. 10.5 fl (6.2-12.0); Platelet Count 270 K/mm3 (150-450); RBC Distribution Width CV 12.8 % (11.6-14.6); RBC Distribution Width SD 41.9 fl (35.1-43.9); Red Blood Count 4.12 M/mm3 (4.2-5.4); White Blood Count 16.1 K/mm3 (4.4-11.0)
[2019-11-16 07:10] LABS: Creatinine, Serum 0.96 mg/dL (0.55-1.02); EST Glomerular Filtration Rate 61 mL/min (>60); Est Glom Filt Rate - Afr Amer 74 mL/min (>60); Estimated Creatinine Clearance 39.73 ml/min
[2019-11-16] MEDS: Sertraline 50 MG Tablet 25 MG PO (07:21)
[2019-11-16] MEDS: Pantoprazole Sodium 40 MG Tablet PO (07:22)
[2019-11-16] MEDS: Furosemide 40 MG Tablet PO (07:22)
--- NOTE | 2019-11-16 08:40 | PN_ITS ---
Reason for Visit: Follow-up postoperative medical management Subjective: Patient is a 69-year-old lady who underwent vaginal hysterectomy with anterior posterior repair on account of Incomplete Uterovaginal Prolapse, Cystocele, Rectocele on 11/15/[address] Palacios. Hospitalist service was consulted to assist with management of patient medical comorbidities Post operative day 1; patient had a relatively uneventful night. Objective: GENERAL: Cooperative HEENT: Atraumatic; EYES; Anicteric, Normal Conjunctiva NECK; supple, normal thyroid, RESPIRATORY: Diminished to auscultation CARDIOVASCULAR: Regular S1 S2, GI: soft, normoactive bowel sounds, : No Renal angle tenderness; EXTREMITIES: No edema, no clubbing, MUSCULOSKELETAL: no muscle waisting NEURO: Awake; no lateralizing signs. SKIN: No Rash PSYCH; Flat affect Vitals/I&O's: Vital Signs Temp Pulse Resp BP Pulse Ox 98.3 F 71 18 120/58 L 94 11/16/19 03:00 11/16/19 03:00 11/16/19 03:00 11/16/19 03:00 11/16/19 03:00 Oxygen Flow Rate (L/min) 2 Oxygen Delivery Method Room Air Weight: 82.5 kg Body Mass Index (BMI) 35.5 Intake and Output for Last 24 Hours 11/14/19 11/15/19 11/16/19 23:59 23:59 23:59 Intake Total 2901.67 / 2901.67 1870.83 / 1870.83 Output Total 1680 / 1680 1950 / 1950 Balance 1221.67 / 1221.67 -79.17 / -79.17 Laboratory Results 11/16/19 05:58: WBC 16.1 H, RBC 4.12 L, Hgb 12.1, Hct 36.7 L, MCV 89.1, MCH 29.4, MCHC 33.0, RDW Std Deviation 41.9, RDW Coeff of Chey 12.8, Plt Count 270, MPV 10.5 11/16/19 05:58: Creatinine 0.96, Estim Creat Clear Calc 39.73, Est GFR (MDRD) Af Amer 74, Est GFR (MDRD) Non-Af 61 Current Medications Acetaminophen (Tylenol) 1,000 mg PO Q8H PRN PRN PRN Reason: Pain Score 1-3/10 or Fever Last Admin: 11/16/19 06:15 Dose: 1,000 mg Documented by: Albuterol Sulfate (Ventolin Aerosols) 2.5 mg INHALATION Q2H PRN PRN PRN Reason: SOB &/OR WHEEZING Aspirin (Ecotrin) 81 mg PO QHS [facility] Last Admin: 11/15/19 22:08 Dose: 81 mg Documented by: Atorvastatin Calcium (Lipitor) 10 mg PO QHS [facility] Last Admin: 11/15/19 22:08 Dose: 10 mg Documented by: Clopidogrel Bisulfate (Plavix) 75 mg PO DAILY [facility] Last Admin: 11/15/19 13:37 Dose: 75 mg Documented by: Diltiazem HCl (Cardizem Cd) 360 mg PO QHS [facility] Last Admin: 11/15/19 22:08 Dose: 360 mg Documented by: Docusate Sodium (Colace) 100 mg PO BID PRN PRN PRN Reason: Constipation Furosemide (Lasix) 40 mg PO DAILY [facility] Last Admin: 11/16/19 07:22 Dose: 40 mg Documented by: Heparin Sodium (Porcine) (Heparin Na) 5,000 unit SC Q12 [facility] Last Admin: 11/15/19 22:08 Dose: 5,000 unit Documented by: Hydromorphone HCl (Dilaudid Inj) 0.5 mg IV Q3H PRN PRN PRN Reason: Pain Score 4-10/10 Last Admin: 11/15/19 11:39 Dose: 0.5 mg Documented by: Sodium Chloride () 250 mls @ 15 mls/hr IV .[id number] PRN PRN Reason: Saline Flush Sodium Chloride () 250 mls @ 15 mls/hr IV .[id number] PRN PRN Reason: Additional IVPB Infusion Levothyroxine Sodium (Synthroid) 100 mcg PO DAILY@0600 [facility] Last Admin: 11/16/19 06:16 Dose: 100 mcg Documented by: Montelukast Sodium (Singulair) 10 mg PO QHS [facility] Last Admin: 11/15/19 22:08 Dose: 10 mg Documented by: Nitroglycerin (Nitrostat) 0.4 mg SUBLINGUAL Q5M PRN PRN Reason: CARDIAC/CHEST PAIN Ondansetron HCl (Zofran) 4 mg IV Q4H PRN PRN PRN Reason: NAUSEA Oxycodone HCl (Oxyir) 5 mg PO Q4H PRN PRN PRN Reason: Pain Score 4-10/10 Pantoprazole Sodium (Protonix) 40 mg PO BID [facility] Last Admin: 11/16/19 07:22 Dose: 40 mg Documented by: Potassium Chloride (K-Dur) 20 meq PO BID [facility] Last Admin: 11/15/19 22:08 Dose: 20 meq Documented by: Sertraline HCl (Zoloft) 25 mg PO DAILY [facility] Last Admin: 11/16/19 07:21 Dose: 25 mg Documented by: Simethicone (Mylicon) 80 mg PO [facility] Last Admin: 11/15/19 22:08 Dose: 80 mg Documented by: Sodium Chloride () 10 - 40 ml IV UD PRN PRN Reason: SALINE FLUSH Last Admin: 11/15/19 13:47 Dose: 10 ml Documented by: Medical Necessity - Tobacco Use Smoking Status: Never smoker Tobacco Use: Non-smoker Assessment/Plan All Active Problems (Last Updated 11/01/19 @ 14:08 by Katelyn Taylor) Pre-operative cardiovascular examination (Acute) Chest pain (Acute) Abnormal stress test (Resolved) Dyspnea on exertion (Resolved) Patient is a 69-year-old lady who underwent vaginal hysterectomy with anterior posterior repair on account of Incomplete Uterovaginal Prolapse, Cystocele, Rectocele on 11/15/[address] Palacios. Hospitalist service was consulted to assist with management of patient medical comorbidities 1. Status post vaginal hysterectomy with anterior posterior repair - on account of Incomplete Uterovaginal Prolapse, Cystocele, Rectocele on 11/15/[address] Palacios -11/16/2019; had a relatively uneventful night. Patient medically stable for discharge if okay with Dr. Palacios 2. Dyslipidemia ~patient is on statin therapy, continued at home dose 3. Hypothyroidism ~patient is on levothyroxine home dose continued 4. GERD ?Patient is on PPI 5. Hypertension ~ blood pressure controlled, home medications continued with dose adjustment as needed 6. Coronary artery disease - with previous PCI/MATTY of a proximal ramus intermedius lesion patient is Plavix continued 7. DVT prophylaxis ?We will recommend low molecular weight heparin when okay with [employer] Code Visit Inpatient E&M: 64600 Subs Hosp L2
[2019-11-16 08:55] VITALS: BP 122/49; PULSE 76; RESP 18; TEMP 36.8; O2SAT 99
[2019-11-16 08:58] VITALS: PULSE 80
--- NOTE | 2019-11-16 09:04 | PN.OBGYN_ITS ---
Subjective: Patient without complaints. Tolerating diet. Pain well controlled. Brannon out and vaginal pack removed with minimal bleeding noted. Objective: Minimal vaginal bleeding. Good urine output. Hemoglobin and creatinine okay. - Physical Exam Vitals/I&O's: Vital Signs Temp Pulse Resp BP Pulse Ox 98.3 F 76 18 122/49 H 99 11/16/19 08:55 11/16/19 08:55 11/16/19 08:55 11/16/19 08:55 11/16/19 08:55 Oxygen Flow Rate (L/min) 2 Oxygen Delivery Method Room Air Weight: 181 lb 14.102 oz Body Mass Index (BMI) 35.5 Intake and Output for Last 24 Hours 11/14/19 11/15/19 11/16/19 23:59 23:59 23:59 Intake Total 2901.67 / 2901.67 1870.83 / 1870.83 Output Total 1680 / 1680 1950 / 1950 Balance 1221.67 / 1221.67 -79.17 / -79.17 Laboratory Results 11/16/19 05:58: WBC 16.1 H, RBC 4.12 L, Hgb 12.1, Hct 36.7 L, MCV 89.1, MCH 29.4, MCHC 33.0, RDW Std Deviation 41.9, RDW Coeff of Chey 12.8, Plt Count 270, MPV 10.5 11/16/19 05:58: Creatinine 0.96, Estim Creat Clear Calc 39.73, Est GFR (MDRD) Af Amer 74, Est GFR (MDRD) Non-Af 61 Current Medications Acetaminophen (Tylenol) 1,000 mg PO Q8H PRN PRN PRN Reason: Pain Score 1-3/10 or Fever Last Admin: 11/16/19 06:15 Dose: 1,000 mg Documented by: Albuterol Sulfate (Ventolin Aerosols) 2.5 mg INHALATION Q2H PRN PRN PRN Reason: SOB &/OR WHEEZING Aspirin (Ecotrin) 81 mg PO QHS [facility] Last Admin: 11/15/19 22:08 Dose: 81 mg Documented by: Atorvastatin Calcium (Lipitor) 10 mg PO QHS [facility] Last Admin: 11/15/19 22:08 Dose: 10 mg Documented by: Clopidogrel Bisulfate (Plavix) 75 mg PO DAILY [facility] Last Admin: 11/15/19 13:37 Dose: 75 mg Documented by: Diltiazem HCl (Cardizem Cd) 360 mg PO QHS [facility] Last Admin: 11/15/19 22:08 Dose: 360 mg Documented by: Docusate Sodium (Colace) 100 mg PO BID PRN PRN PRN Reason: Constipation Furosemide (Lasix) 40 mg PO DAILY [facility] Last Admin: 11/16/19 07:22 Dose: 40 mg Documented by: Heparin Sodium (Porcine) (Heparin Na) 5,000 unit SC Q12 [facility] Last Admin: 11/15/19 22:08 Dose: 5,000 unit Documented by: Hydromorphone HCl (Dilaudid Inj) 0.5 mg IV Q3H PRN PRN PRN Reason: Pain Score 4-10/10 Last Admin: 11/15/19 11:39 Dose: 0.5 mg Documented by: Sodium Chloride () 250 mls @ 15 mls/hr IV .[id number] PRN PRN Reason: Saline Flush Sodium Chloride () 250 mls @ 15 mls/hr IV .[id number] PRN PRN Reason: Additional IVPB Infusion Levothyroxine Sodium (Synthroid) 100 mcg PO DAILY@0600 [facility] Last Admin: 11/16/19 06:16 Dose: 100 mcg Documented by: Montelukast Sodium (Singulair) 10 mg PO QHS [facility] Last Admin: 11/15/19 22:08 Dose: 10 mg Documented by: Nitroglycerin (Nitrostat) 0.4 mg SUBLINGUAL Q5M PRN PRN Reason: CARDIAC/CHEST PAIN Ondansetron HCl (Zofran) 4 mg IV Q4H PRN PRN PRN Reason: NAUSEA Oxycodone HCl (Oxyir) 5 mg PO Q4H PRN PRN PRN Reason: Pain Score 4-10/10 Pantoprazole Sodium (Protonix) 40 mg PO BID [facility] Last Admin: 11/16/19 07:22 Dose: 40 mg Documented by: Potassium Chloride (K-Dur) 20 meq PO BID [facility] Last Admin: 11/15/19 22:08 Dose: 20 meq Documented by: Sertraline HCl (Zoloft) 25 mg PO DAILY [facility] Last Admin: 11/16/19 07:21 Dose: 25 mg Documented by: Simethicone (Mylicon) 80 mg PO [facility] Last Admin: 11/15/19 22:08 Dose: 80 mg Documented by: Sodium Chloride () 10 - 40 ml IV UD PRN PRN Reason: SALINE FLUSH Last Admin: 11/15/19 13:47 Dose: 10 ml Documented by: Medical Necessity - Tobacco Use Smoking Status: Never smoker Tobacco Use: Non-smoker Assessment/Plan All Active Problems (Last Updated 11/01/19 @ 14:08 by Katelyn Taylor) Pre-operative cardiovascular examination (Acute) Chest pain (Acute) Abnormal stress test (Resolved) Dyspnea on exertion (Resolved) Doing well status post vaginal hysterectomy anterior posterior repair. Appreciate hospitalist input for medical care. Anticipate release to home later today when able to void on own and tolerating diet well. Home-going instructions given.
[2019-11-16] MEDS: Heparin Injection (Vial) 5,000 UNIT/ML VIAL 5000 UNIT SC (09:10)
== END 2019-11-16 13:13 | disposition home or self-care (01) ==
LOC: SDC 05:42 → AC 11-16 10:06 → MS3 11-16 10:06
PROVIDERS: PCP Family Medicine; Referring Provider Obstetrics & Gynecology; Visit Provider Obstetrics & Gynecology
PROC: (CPT 58260; principal; 2019-11-15 07:10)
DX: N81.2 Incomplete uterovaginal prolapse (principal); N88.8 Other specified noninflammatory disorders of cervix uteri; N80.0 Endometriosis of uterus; E03.9 Hypothyroidism, unspecified; E78.5 Hyperlipidemia, unspecified; I10 Essential (primary) hypertension; I25.10 Atherosclerotic heart disease of native coronary artery without angina pectoris; K21.9 Gastro-esophageal reflux disease without esophagitis; J45.909 Unspecified asthma, uncomplicated; M79.7 Fibromyalgia; K58.9 Irritable bowel syndrome, unspecified; K31.84 Gastroparesis; Z79.02 Long term (current) use of antithrombotics/antiplatelets; Z79.82 Long term (current) use of aspirin; Z79.899 Other long term (current) drug therapy; Z82.49 Family history of ischemic heart disease and other diseases of the circulatory system; Z88.0 Allergy status to penicillin; Z88.1 Allergy status to other antibiotic agents; Z90.49 Acquired absence of other specified parts of digestive tract; Z95.5 Presence of coronary angioplasty implant and graft
CPT/HCPCS: 00942; 57250; 58260; 36415; 71046; 80053; 82565; 84443; 85027; 85610; 85730; 86850; 86900; 86901; 88302; 88307; 99251; J7120; A4216; G0463; J2405

== ENCOUNTER → 2019-12-01 | Outpatient (CLI) | payer MEDICARE, BC, SELFPAY ==
[2019-04-21 14:59] VITALS: BMI 34.7
[2019-11-15 11:24] VITALS: BMI 35.5
== END | disposition home or self-care (01) ==
LOC: LABSPEC 16:49
PROVIDERS: PCP Family Medicine; Visit Provider Obstetrics & Gynecology
DX: R30.0 Dysuria (principal)
CPT/HCPCS: 87086; 87088

== ENCOUNTER → 2020-06-05 08:08 | Outpatient (CLI) | payer MEDICARE, BC, SELFPAY ==
[2019-04-21 14:59] VITALS: BMI 34.7
[2020-05-12 13:34] VITALS: BMI 39.8
[2020-06-05 10:47] LABS: AST(SGOT) 16 U/L (15-37); Alanine Aminotransfer ALT/SGPT 31 U/L (13-56); Albumin, Serum 3.7 g/dL (3.2-5.0); Alkaline Phosphatase 87 U/L (45-117); Bilirubin, Direct 0.13 mg/dL (0.00-0.30); Cholesterol 153 mg/dL (200); Globulin 3.6 g/dL (2.2-4.2); High Density Lipoprotein 42 mg/dL; Protein, Total 7.3 g/dL (6.4-8.2); Triglycerides 214 mg/dL; Very Low Density Lipoprotein 43 mg/dL (5-40)
== END ==
PROVIDERS: PCP Family Medicine; Referring Provider Internal Medicine Cardiovascular Disease; Visit Provider Internal Medicine Cardiovascular Disease
DX: E78.5 Hyperlipidemia, unspecified (principal)
CPT/HCPCS: 36415; 80061; 80076

== ENCOUNTER → 2020-06-07 14:05 | Outpatient (CLI) | payer MEDICARE, BC, SELFPAY ==
[2019-04-21 14:59] VITALS: BMI 34.7
[2020-05-12 13:34] VITALS: BMI 39.8
--- NOTE | 2020-06-07 14:08 | MRI_ITS ---
STUDY: MRI RIGHT ANKLE WITHOUT CONTRAST REASON FOR EXAM: Female, 70 years old. rt ankle/mid foot, st mass, ganglion cyst,osteoarthritis TECHNIQUE: Standardized fat and water weighted pulse sequences were obtained in all 3 orthogonal planes. COMPARISON: None. FINDINGS: Normal subcutis adipose space. Normal posterior tibialis tendon. Normal flexor digitorum longus tendon. Normal flexor hallucis longus tendon. Normal peroneus longus and brevis tendons. Normal tibialis anterior tendon. Normal extensor hallucis longus tendon. Normal extensor digitorum longus tendons. Normal Achilles tendon and teno-osseous insertion. A small joint effusion is present. No bone marrow edema or osteochondral defect. No osteonecrosis. No visualized soft tissue mass or fluid collection. A tiny 3.6 mm ganglion cyst is present on the dorsal surface of the first cuneiform. Diffuse reactive signal is of cortical cystic changes are present in the middle cuneiform. Subcortical cystic changes are present at the base of the fifth metatarsal bone. Normal plantar fascia. Normal plantar calcaneal tubercles. Normal intrinsic muscles of the rearfoot. Normal distal tibiofibular syndesmotic ligamentous complex. Normal lateral ligamentous complex. Normal subtalar ligaments and sinus tarsi. Normal deltoid ligamentous complexes. Normal plantar calcaneonavicular (spring) ligament. Normal tibiotalar articulation. Normal talar dome. Normal subtalar articulations. Normal talonavicular articulation. Normal calcaneocuboid articulation. Normal navicular-cuneiform articulations. MRI/Lower Ext Joint Only (Routine) IMPRESSION: * 3.6 mm ganglion cyst is present on the dorsal surface of the first cuneiform. * Diffuse reactive signal is of cortical cystic changes are present in the middle cuneiform. * Small ankle joint effusion. Electronically Signed: Serjio Meredith MD at 20:50 EDT , Service support ,
== END ==
PROVIDERS: PCP Family Medicine; Referring Provider Podiatrist; Visit Provider Podiatrist
DX: M67.479 Ganglion, unspecified ankle and foot (principal); M19.021 Primary osteoarthritis, right elbow
CPT/HCPCS: 73721

== ENCOUNTER → 2020-10-11 13:48 | Outpatient (CLI) | payer MEDICARE, BC, SELFPAY ==
[2019-04-21 14:59] VITALS: BMI 34.7
[2020-10-05 07:19] VITALS: BMI 43.0
[2020-10-11 15:26] LABS: Absolute Lymphocyte Count 1.42 X10^3/uL (0.83-4.51); Absolute Neutrophil Count 5.9 X10^3/uL (2.0-7.7); Basophil# 0.06 X10^3/uL; Basophil% 0.7 % (0-1); Eosinophil# 0.41 X10^3/uL; Eosinophils% 4.7 % (0-5); Hematocrit 42.6 % (37-47); Hemoglobin 14.4 g/dL (12.0-15.0); Lymphocyte # 1.42 X10^3/ul (4.0); Lymphocyte % 16.4 % (19-41); Mean Corp Hgb Conc 33.8 g/dL (32-36); Mean Corpuscular Hgb 28.9 pg (27.0-32.0); Mean Corpuscular Volume 85.5 fL (81-99); Mean Platelet Vol. 10.1 fl (6.2-12.0); Monocyte# 0.85 X10^3/uL; Monocyte% 9.8 % (0-10); NRBC Flagged by Analyzer 0 % (0-5); Neutrophil # 5.88 X10^3/uL (2.7-7.7); Neutrophil % 67.9 % (47-70); Platelet Count 373 K/mm3 (150-450); RBC Distribution Width CV 12.8 % (11.6-14.6); RBC Distribution Width SD 39.6 fl (35.1-43.9); Red Blood Count 4.98 M/mm3 (4.2-5.4); White Blood Count 8.7 K/mm3 (4.4-11.0)
[2020-10-11 16:00] LABS: Vitamin D,25 Hydroxy 65.4 ng/mL
[2020-10-11 16:07] LABS: AST(SGOT) 19 U/L (15-37); Alanine Aminotransfer ALT/SGPT 35 U/L (13-56); Albumin, Serum 3.8 g/dL (3.2-5.0); Alkaline Phosphatase 107 U/L (45-117); Anion Gap 6 (5-15); BUN 17 mg/dL (7-18); BUN/Creat Ratio 17.6 RATIO (10-20); Calcium,Total 8.7 mg/dL (8.5-10.1); Chloride 105 mmol/L (98-107); Creatinine, Serum 0.96 mg/dL (0.55-1.02); EST Glomerular Filtration Rate 61 mL/min (>60); Est Glom Filt Rate - Afr Amer 73 mL/min (>60); Globulin 3.8 g/dL (2.2-4.2); Glucose 84 mg/dL (74-106); Potassium 3.8 mmol/L (3.5-5.1); Protein, Total 7.6 g/dL (6.4-8.2); Sodium Level 137 mmol/L (136-145); Thyroid Stim Hormone (TSH) 1.99 uIU/mL (0.358-3.74)
== END ==
PROVIDERS: PCP Family Medicine; Visit Provider Family Medicine
DX: I10 Essential (primary) hypertension (principal); E03.9 Hypothyroidism, unspecified; E55.9 Vitamin D deficiency, unspecified; N39.0 Urinary tract infection, site not specified
CPT/HCPCS: 36415; 80053; 82306; 84439; 84443; 85025; 87086; 87088; 87186

== ENCOUNTER 2020-11-08 08:26 | Outpatient (RCR) | payer MEDICARE, BC, SELFPAY ==
[2019-04-21 14:59] VITALS: BMI 34.7
[2020-11-06 15:34] VITALS: BMI 40.2
== END 2020-11-08 23:59 ==
LOC: IMMUN 08:26
PROVIDERS: PCP Family Medicine; Visit Provider Family Medicine
DX: Z23 Encounter for immunization (principal)
CPT/HCPCS: 0011A; 0012A; 91301

== ENCOUNTER → 2020-12-04 09:50 | Outpatient (CLI) | payer MEDICARE, BC, SELFPAY ==
[2019-04-21 14:59] VITALS: BMI 34.7
[2020-11-06 15:34] VITALS: BMI 40.2
[2020-12-04 11:02] LABS: AST(SGOT) 20 U/L (15-37); Alanine Aminotransfer ALT/SGPT 32 U/L (13-56); Albumin, Serum 3.9 g/dL (3.2-5.0); Alkaline Phosphatase 96 U/L (45-117); Bilirubin, Direct 0.09 mg/dL (0.00-0.30); Cholesterol 145 mg/dL (200); Globulin 3.6 g/dL (2.2-4.2); High Density Lipoprotein 42 mg/dL; Protein, Total 7.5 g/dL (6.4-8.2); Triglycerides 198 mg/dL; Very Low Density Lipoprotein 40 mg/dL (5-40)
== END ==
PROVIDERS: PCP Family Medicine; Referring Provider Nurse Practitioner Family; Visit Provider Nurse Practitioner Family
DX: E78.00 Pure hypercholesterolemia, unspecified (principal); E78.5 Hyperlipidemia, unspecified
CPT/HCPCS: 36415; 80061; 80076

== ENCOUNTER → 2021-03-20 08:07 | Outpatient (CLI) | payer MEDICARE, BC, SELFPAY ==
[2019-04-21 14:59] VITALS: BMI 34.7
[2021-02-12 14:00] VITALS: BMI 43.0
[2021-03-20 10:05] LABS: Anion Gap 9 (5-15); BUN 17 mg/dL (7-18); Calcium,Total 8.7 mg/dL (8.5-10.1); Chloride 107 mmol/L (98-107); Creatinine, Serum 0.95 mg/dL (0.55-1.02); EST Glomerular Filtration Rate 62 mL/min (>60); Est Glom Filt Rate - Afr Amer 75 mL/min (>60); Glucose 108 mg/dL (74-106); Potassium 3.9 mmol/L (3.5-5.1); Sodium Level 140 mmol/L (136-145)
== END ==
PROVIDERS: PCP Family Medicine; Referring Provider Nurse Practitioner Family; Visit Provider Nurse Practitioner Family
DX: E78.5 Hyperlipidemia, unspecified (principal); I25.10 Atherosclerotic heart disease of native coronary artery without angina pectoris; I50.32 Chronic diastolic (congestive) heart failure; I11.0 Hypertensive heart disease with heart failure; Z95.5 Presence of coronary angioplasty implant and graft
CPT/HCPCS: 36415; 80048

== ENCOUNTER → 2021-06-06 08:56 | Outpatient (CLI) | payer MEDICARE, BC, SELFPAY ==
[2019-04-21 14:59] VITALS: BMI 34.7
[2021-06-06 11:11] LABS: AST(SGOT) 16 U/L (15-37); Alanine Aminotransfer ALT/SGPT 27 U/L (13-56); Albumin, Serum 3.6 g/dL (3.2-5.0); Alkaline Phosphatase 99 U/L (45-117); Bilirubin, Direct 0.11 mg/dL (0.00-0.30); Cholesterol 161 mg/dL (200); Globulin 4.1 g/dL (2.2-4.2); High Density Lipoprotein 48 mg/dL; Protein, Total 7.7 g/dL (6.4-8.2); Triglycerides 158 mg/dL; Very Low Density Lipoprotein 32 mg/dL (5-40)
== END ==
PROVIDERS: PCP Family Medicine; Referring Provider Nurse Practitioner Family; Visit Provider Nurse Practitioner Family
DX: E78.00 Pure hypercholesterolemia, unspecified (principal); E78.5 Hyperlipidemia, unspecified
CPT/HCPCS: 36415; 80061; 80076

== ENCOUNTER 2021-10-19 12:21 | Outpatient (CLI) | payer MEDICARE, BC, SELFPAY ==
[2019-04-21 14:59] VITALS: BMI 34.7
[2021-10-19 13:57] LABS: CRP 4.57 mg/L (0.0-3.0); Free T3 2.5 pg/mL (2.18-3.98); LDH 166 U/L (84-246); Thyroid Stim Hormone (TSH) 3.04 uIU/mL (0.358-3.74)
[2021-10-19 13:59] LABS: Erythrocyte Sedimentation Rate 24 mm/hr (0-30)
[2021-10-19 14:07] LABS: Absolute Neutrophil Count 6.2 X10^3/uL (2.0-7.7); Basophil# 0.05 X10^3/uL; Basophil% 0.6 % (0-1); Eosinophil# 0.14 X10^3/uL; Eosinophils% 1.6 % (0-5); Hematocrit 43.3 % (37-47); Lymphocyte % 18.1 % (19-41); Mean Corp Hgb Conc 32.3 g/dL (32-36); Mean Corpuscular Hgb 28.3 pg (27.0-32.0); Mean Corpuscular Volume 87.7 fL (81-99); Mean Platelet Vol. 10.1 fl (6.2-12.0); Monocyte# 0.78 X10^3/uL; Monocyte% 8.8 % (0-10); NRBC Flagged by Analyzer 0 % (0-5); Neutrophil # 6.23 X10^3/uL (2.7-7.7); Neutrophil % 70.2 % (47-70); Platelet Count 385 K/mm3 (150-450); RBC Distribution Width CV 13.4 % (11.6-14.6); RBC Distribution Width SD 43.2 fl (35.1-43.9); Red Blood Count 4.94 M/mm3 (4.2-5.4); White Blood Count 8.9 K/mm3 (4.4-11.0)
[2021-10-22 18:08] LABS: Anti-Centromere B Ab <0.2 AI (0.0-0.9); Anti-Chromatin <0.2 AI (0.0-0.9); Anti-Jo <0.2 AI (0.0-0.9); Anti-Scleroderma-70 AB <0.2 AI (0.0-0.9); RNP Ab 0.2 AI (0.0-0.9); SJOGREN'S Anti-SS-A test < 0.2 AI (0.0-0.9); SJOGREN'S Anti-SS-B test < 0.2 AI (0.0-0.9); Smith Ab <0.2 AI (0.0-0.9)
[2021-10-23 09:54] LABS: Anti-dsDNA Ab <1 IU/mL (0-9)
[2021-10-26 00:06] LABS: Angiotensin Convert Enzyme 58 U/L (14-82); Cytoplasmic Ab (C-ANCA) <1:20 titer (Neg:<1:20); Endomysial Antibody IgA Negative (Negative); Immunoglobulin A 292 mg/dL (64-422); Immunoglobulin E 10 IU/mL (6-495); Immunoglobulin G 982 mg/dL (586-1602)
[2021-10-26 14:10] LABS: Anti-Parietal Cell AB, QN 2.8 Units (0.0-20.0); Immunoglobulin M 35 mg/dL (26-217); Perinuclear Ab (P-ANCA) <1:20 titer (Neg:<1:20); t-Transglutaminase IgA <2 U/mL (0-3)
== END 2021-10-19 23:59 | disposition short-term general hospital (02) ==
LOC: LAB 12:24
PROVIDERS: PCP Family Medicine; Referring Provider Internal Medicine Gastroenterology; Visit Provider Internal Medicine Gastroenterology
DX: K57.90 Diverticulosis of intestine, part unspecified, without perforation or abscess without bleeding (principal); E03.9 Hypothyroidism, unspecified
CPT/HCPCS: 82164; 82746; 82784; 82785; 83516; 83615; 84443; 84481; 85025; 85652; 86140; 86225; 86235; 86255; 86256

== ENCOUNTER 2021-10-29 06:49 | Outpatient (CLI) | payer MEDICARE, BC, SELFPAY ==
[2019-04-21 14:59] VITALS: BMI 34.7
--- NOTE | 2021-10-29 06:55 | ECHOCS_ITS ---
Reason For Study: CAD/ASHD Procedure This was a 2D Doppler, Color Flow transthoracic echocardiogram. Technically difficult study due to patients body habitus. Contrast injection performed. The study was technically difficult. Contrast injection was performed. Exam performed in department. Left Ventricle Normal LV size. Left ventricular systolic function is normal. The estimated ejection fraction is 65 %. No evidence for diastolic dysfunction. No regional wall motion abnormalities noted. Right Ventricle Normal RV size. Normal systolic function. Atria Normal left atrium. Normal right atrium. No doppler evidence for ASD. Mitral Valve There is no mitral annular calcification. Normal mitral valve. Mild (1+) mitral valve insufficiency. Tricuspid Valve Normal tricuspid valve. Trivial tricuspid valve insufficiency. Right ventricular systolic pressure estimated to be 28 mmHg. Aortic Valve The aortic valve is not well visualized. Pulmonic Valve The pulmonic valve is not well visualized. Great Vessels Normal sized aortic root. Pericardium/Pleural No pericardial effusion. Medication 22 gauge I.V. with prn adaptor inserted into right arm. Diluted definity 2ml given slow IV push to enhance endocardial definition. MMode/2D Measurements & Calculations LVIDd: 4.6 cm IVSd: 0.74 cm Ao root diam: 2.8 cm LVIDs: 2.8 cm LVPWd: 0.82 cm LA dimension: 3.8 cm RVDd: 3.0 cm FS: 38.9 % LAV(MOD-bp): 40.8 ml LA A4 area: 15.7 cm2 RA A4 area: 10.4 cm2 LAV(MOD-bp) Indexed: 21.3 ml/m2 LAV(MOD-sp2): 39.6 ml LAV(MOD-sp4): 39.0 ml Time Measurements MV dec time: 0.22 sec Doppler Measurements & Calculations MV E max kyle: 96.0 cm/sec Lat Peak E' Kyle: 8.8 cm/sec Med Peak E' Kyle: 7.6 cm/sec MV A max kyel: 100.8 cm/sec E/E' lat: 10.9 E/E' med: 12.6 MV E/A: 0.95 MV V2 max: 110.7 cm/sec MV P1/2t max kyle: 111.7 cm/sec Ao V2 max: 132.9 cm/sec MV max P.9 mmHg MV P1/2t: 90.0 msec Ao max P.1 mmHg MV V2 mean: 63.3 cm/sec MV dec slope: 363.4 cm/sec2 MV mean P.9 mmHg MV V2 VTI: 37.2 cm MVA(P1/2t): 2.4 cm2 LV V1 max: 119.0 cm/sec MR max kyle: 504.7 cm/sec PA V2 max: 107.9 cm/sec LV V1 max P.7 mmHg MR max P.9 mmHg TR max kyle: 247.8 cm/sec TR max P.6 mmHg ECHO/Echo Complete W/ Contrast Interpretation Summary The study was technically difficult. Contrast injection was performed. Left ventricular systolic function is normal. The estimated ejection fraction is 65 %. Mild (1+) mitral valve insufficiency. Trivial tricuspid valve insufficiency. Right ventricular systolic pressure estimated to be 28 mmHg. No evidence for diastolic dysfunction. Ordering Physician: Jesus Alberto Hanson Referring Physician: Phong Quiroga Performed By: Jasbir Mcqueen RCS
--- NOTE | 2021-10-29 16:36 | STRESSREP_ITS ---
Stress Test Report Date: 10-29-2021 Procedure: Pharmacologic stress nuclear imaging study Indications: Chest pain; shortness of breath/dyspnea on exertion Consent: Per the patient Procedure: The patient underwent pharmacologic (Regadenoson 0.4mg ) evaluation with a peak heart rate of 96 beats per minute (64%predicted maximal heart rate) and a peak blood pressure of 152/70 mmHg. The baseline ECG demonstrated sinus rhythm. The peak pharmacologic ECG demonstrated no obvious ECG changes. There were no cardiac dysrhythmias pretest, during pharmacologic infusion, or recovery. There was no complaint of chest discomfort during pharmacologic infusion or recovery. The examination was discontinued secondary to completion of protocol. Impression: 1. Pharmacologic (Regadenoson) evaluation 2. Peak pharmacologic ECG with no obvious ECG changes. 3. There were no cardiac dysrhythmias pretest, during pharmacologic infusion, or recovery. 4. Nuclear images pending Myocardial perfusion imaging study: Technique: The patient was injected with 14.1 millicuries of technetium 99m Cardiolite and subsequently rest SPECT Cardiolite nuclear imaging was obtained in the horizontal long, vertical long, and short axis views. The patient underwent pharmacologic (Regadenoson) evaluation with a peak heart rate of 96 beats per minute (64% percent predicted maximal heart rate) and a peak blood pressure of 152/70 mmHg. The patient was injected with millicuries of technetium 99m Cardiolite and subsequently stress SPECT Cardiolite nuclear imaging was obtained in the horizontal long, vertical long, and short axis views. A gated Cardiolite study at peak stress was obtained. Interpretation: Rest and stress SPECT Cardiolite nuclear imaging status post realignment, normalization, and attenuation correction demonstrate a small area of subtle diminished tracer uptake near the mid anterior segments which appears to be somewhat more prominent at rest as opposed to stress otherwise without significant change between rest and stress. There is end systolic thickening and brightening. The gated Cardiolite study demonstrates myocardial thickening and inward wall motion. The reported LVEF is 88%. Impression: 1. Rest and stress SPECT her nuclear imaging demonstrate a small area of subtle diminished tracer uptake near the mid anterior segments which appears to be somewhat more prominent at rest as opposed to stress otherwise without significant change between rest and stress appearing compatible with shifting soft tissue attenuation/artifact, however, an area of previous myocardial injury/infarction cannot necessarily be excluded, with no myocardial perfusion changes considered diagnostic for stress-induced myocardial ischemia. 2. The gated Cardiolite study reports an LVEF of 88%. This note was generated with [employer] software. It may contain incorrect words, spelling, and punctuation that were not noted in checking the note before signing.
== END 2021-10-29 23:59 | disposition home or self-care (01) ==
PROVIDERS: PCP Family Medicine; Referring Provider Internal Medicine Cardiovascular Disease; Visit Provider Internal Medicine Cardiovascular Disease
DX: I25.10 Atherosclerotic heart disease of native coronary artery without angina pectoris (principal)
CPT/HCPCS: 78452; 93017; 93306; A9500; Q9957; A4216; C8929; J2785

== ENCOUNTER 2021-11-02 13:43 | Outpatient (CLI) | payer MEDICARE, BC, SELFPAY ==
[2019-04-21 14:59] VITALS: BMI 34.7
--- NOTE | 2021-11-02 13:48 | CT_ITS ---
STUDY: CT ABDOMEN AND PELVIS WITH CONTRAST REASON FOR EXAM: Female, 71 years old. Abdominal pain. History of diverticulitis. RADIATION DOSAGE (If Supplied By Facility): CTDIvol = ( 18.22 ) mGy, DLP = ( 1017.08 ) mGycm TECHNIQUE: Transaxial images were obtained from the dome of the diaphragm to the symphysis pubis without oral contrast. IV 100mL Isovue-300 was administered. Sagittal and coronal images were reconstructed. Individualized dose optimization techniques were used for this CT. COMPARISON: Comparison is made with prior study 12/14/2014. FINDINGS: 3.2 mm noncalcified nodule in the peripheral lateral aspect of the left lower lobe as seen on axial image #10. This was not imaged on prior study. The visualized portions of the heart are within normal limits. There is decreased attenuation of the liver consistent with steatosis. There are surgical clips in the gallbladder fossa consistent with a prior cholecystectomy. Normal spleen. Normal pancreas. Normal bilateral adrenal glands. Normal right kidney. Normal left kidney. There is a small hiatal hernia. Normal small intestine. There are multiple colonic diverticula consistent with diverticulosis. The patient is status post appendectomy. There is scattered atherosclerotic calcification of the abdominal aorta, without a demonstrated aneurysm. Normal inferior vena cava. Normal retroperitoneum. Normal urinary bladder. Normal abdominal wall. Normal osseous structures. CT/Abdomen/Pelvis W IV Cont ONLY IMPRESSION: Fatty infiltration of the liver. Sigmoid diverticulosis. 3.2 mm noncalcified nodule in the peripheral lateral aspect of the left lower lobe as described. A follow-up examination in 12 months is recommended. Electronically Signed: Juan Diamond MD at 15:40 EST ,
[2021-11-02 14:01] LABS: CREATININE FINGERSTICK 0.9 mg/dL (0.55-1.02); EGFR FINGERSTICK > 60.0000 mL/min (>60)
== END 2021-11-02 23:59 | disposition home or self-care (01) ==
LOC: CT 13:45
PROVIDERS: PCP Family Medicine; Referring Provider Internal Medicine Gastroenterology; Visit Provider Internal Medicine Gastroenterology
DX: K57.90 Diverticulosis of intestine, part unspecified, without perforation or abscess without bleeding (principal)
CPT/HCPCS: 74177; Q9967; A4216

== ENCOUNTER → 2022-01-29 | Outpatient (CLI) | payer MEDICARE, BC, SELFPAY ==
[2019-04-21 14:59] VITALS: BMI 34.7
[2022-01-29 11:30] LABS: AST(SGOT) 9 U/L (15-37); Alanine Aminotransfer ALT/SGPT 22 U/L (13-56); Albumin, Serum 3.8 g/dL (3.2-5.0); Alkaline Phosphatase 93 U/L (45-117); Bilirubin, Direct 0.12 mg/dL (0.00-0.30); Cholesterol 128 mg/dL (200); Globulin 3.6 g/dL (2.2-4.2); High Density Lipoprotein 51 mg/dL; Protein, Total 7.4 g/dL (6.4-8.2); Triglycerides 120 mg/dL; Very Low Density Lipoprotein 24 mg/dL (5-40)
[2022-01-29 11:47] LABS: T4 Free Direct 1.29 ng/dL (0.76-1.46); Thyroid Stim Hormone (TSH) 0.62 uIU/mL (0.358-3.74)
== END | disposition home or self-care (01) ==
LOC: LAB 09:39
PROVIDERS: Nurse Practitioner Family; PCP Family Medicine; Referring Provider Family Medicine; Visit Provider Family Medicine
DX: E03.9 Hypothyroidism, unspecified (principal)
CPT/HCPCS: 36415; 80061; 80076; 84439; 84443

== ENCOUNTER → 2022-02-11 | Outpatient (CLI) | payer MEDICARE, BC, SELFPAY ==
[2019-04-21 14:59] VITALS: BMI 34.7
== END | disposition home or self-care (01) ==
LOC: LABSPEC 11:38
PROVIDERS: PCP Family Medicine; Referring Provider Nurse Practitioner Acute Care; Visit Provider Nurse Practitioner Acute Care
DX: J45.909 Unspecified asthma, uncomplicated (principal)
CPT/HCPCS: 87070; 87205

== ENCOUNTER 2022-02-21 05:59 | Day surgery (SDC) | payer MEDICARE, BC, SELFPAY ==
[2019-04-21 14:59] VITALS: BMI 34.7
[2022-02-21] VITALS (7 sets, daily range): BP systolic 105–144; BP diastolic 49–58; PULSE 64–85; RESP 16; TEMP 36.3–36.6; O2SAT 95–100; BMI 38.7
[2022-02-21] MEDS: Lactated Ringers 1,000 ML 15 ML IV (06:32)
--- NOTE | 2022-02-21 06:37 | PCM.HP.BLA ---
History and Physical Date of Admission: 02/21/22 RONI LEWIS, is a 71 F who presents to the office today for She would like to establish care with this office for care of ongoing issues. Referred by PCP for evaluation of heartburn with regurgitation and chest pain; onset 2009 with progression of severity and frequency. Denies dysphagia. Takes PPI use omeprazole 40mg BID, denies burning sensation reports ?asthma type thing and it affects my voice?. Aggravating factors include fatty foods. Additionally, having issues with abdominal pain/cramping, bloating, constipation diarrhea and nausea without emesis; onset 2009. Occurs about four times a month without exacerbating factors noted. OTC antidiarrheals. Last EGD 2018. Last colonoscopy 2014. Gastrointestinal history includes GERD, hiatal hernia, delayed gastric emptying, gastroparesis, diverticulitis, stomach pain, IBS, tubular adenoma polyp of colon. Additional medical history includes vocal cord dysfunction, hypothyroidism, CHF (stress test upcoming), HTN, asthma, hysterectomy 11.15.19. ROS Const Constitutional: No anorexia, fatigue, fever(s), weight change or sleep problems Eyes Eyes: No change in vision ENT ENT: No abnormal hearing, difficulty swallowing, mouth lesions, tongue swelling or throat swelling Resp Respiratory: No cough or shortness of breath Cardio Cardiology: No chest pain at rest, chest pain with exertion, shortness of breath or dyspnea on exertion Gastro GI: No difficulty swallowing Genitourinary-Female: No difficulty urinating or burning urination Musc Musculoskeletal: No joint pain, joint swelling, muscle weakness or decreased muscle mass Skin Skin: No hair loss in leg, yellowing of the eye, itchy eyes, rash, skin ulcer or skin swelling Neuro Neurology: No abnormal hearing, abnormal movements, confusion, unsteady gait/balance or memory loss Psych Psychiatric: No anxiety, No confusion and No memory loss Endo Endocrine: No fatigue or weight change Aller/Imm Allergy/Immunologic: No itchy eyes, throat swelling or tongue swelling Michael/Lymp Hematologic/Lymphatic: No easy bleeding, easy bruising or enlarged lymph nodes Exam Const General: cooperative and comfortable Nutritional Appearance: average body habitus and well nourished HENMT Head: normal to inspection Ears: hearing grossly normal bilaterally Nose: external nose normal Face and sinus: normal facial exam Mouth: oral mucosae normal Throat: posterior oropharynx normal Eyes General: appearance normal, both eyes and all related structures Neck Neck: normal visual inspection Chest Chest palpation & inspection: normal inspection of the chest and normal palpation of entire chest wall Resp Effort & Inspection: normal respiratory effort Auscultation: Bilateral: Clear to Auscultation Cardio Palpation: normal PMI Rate: regular rate Rhythm: regular rhythm GI Inspection: normal to inspection Auscultation: normal bowel sounds Percussion: normal to percussion Palpation: no hepatosplenomegaly Skin General: no rashes or lesions noted Neuro General: patient alert Extrem General: normal to inspection Psych Affect: normal affect Quality Reporting Tobacco Screening ([facility] 138) Smoking Status: Never smoker Assessment and Plan Assessment and Plan (1) Diverticulosis: Status: Resolved Orders: Orders: CRP Today Folates, (Folic Acid) Today Free T3 Today LDH Today Thyroid Stim Hormone (TSH) Today CBC W/Diff, Automated Today Erythrocyte Sed Rate Today Angiotensin Convert Enzyme Today ANCA Today Anti-Parietal Cell AB, QN Today Celiac Disease Profile Today Immunoglobulin E Today Immunoglobulin G Today Immunoglobulin M Today Abdomen/Pelvis W IV Cont ONLY Today Plan - Dr. Moore Friend, DO: We will perform a biochemical work-up to see if there is any autoimmune disease or symptoms she was okay with that plan. (2) GERD (gastroesophageal reflux disease): Status: Chronic Plan - Dr. Moore Friend, DO: I will try to get her reports from an outside physician who performed upper and lower endoscopy on her. We will continue PPI therapy for now. (3) Abdominal pain: Status: Acute Plan - Dr. Moore Friend, DO: I suspect that she either has elements of small bacterial overgrowth, IBS or another functional disease that are leading to her symptoms being that all the studies have been positive at this time. I have re-examined the patient. There are no clinical changes since date of exam.
--- NOTE | 2022-02-21 07:15 | IMM_PTH ---
PATIENT: RONI LEWIS LOC: [facility] U#:[id number] AGE/SX: 71/F ROOM: RE02/21/[address]: Dr. Oscar Kimble DO : 1950 BED: DIS: 02/21/2022 SPEC #: [id number] RECD: 02/21/22 14:21 STATUS: ALISON ANKIT #: [id number] ABBY: 02/21/22 07:[address]: Oscar Kimble DEPT: IMMUNOHISTOCHEMISTRY RECD BY: Tram Solis ENTERED: 02/21/22 14:21 SP TYPE: IMMUNO OTHR DR: MD Phong Hathaway Tissues: A - Stomach, NOS Procedures: H Pylori (initial) KI-67 (add) P53 (add) PHYSICIAN & INSTITUTION [place] [id number] SPECIMEN INFORMATION: Tissue Source: A ? Gastric antrum biopsy Clinical Info: Diverticulosis, GERD, abdominal pain Specimen Number: [id number] CPT code: 55607, 30026 x2 METHODOLOGY: Deparaffinized sections of prefer/formalin-fixed tissue or PAP/DQ stained slides are incubated with monoclonal/polyclonal antibodies/oligonucleotide probes. Localization is made via biotin free immunoperoxidase method. Appropriate controls are performed and reacted as expected. Results on target cell population are indicated in the following table: RESULTS: ANTIBODY / CLONE RESULT Block A H Pylori (polyclonal) negative P53 (DO-7) negative Ki-67 (30-9) negative These tests were developed and their performance characteristics determined by [facility]. They may not have been cleared or approved by the U.S. Food and Drug Administration. The FDA has determined that such clearance or approval is not necessary. The above immunohistochemical/dualISH markers are ordered and reviewed by the Pathologist. INTERPRETATION: A. Gastric antrum, biopsy: Negative for Helicobacter pylori organisms. No evidence of dysplasia. AM:marilia 02/25/2022
--- NOTE | 2022-02-21 07:15 | IMM_PTH ---
PATIENT: RONI LEWIS LOC: [facility] U#:[id number] AGE/SX: 71/F ROOM: RE02/21/[address]: Dr. Oscar Kimble DO : 1950 BED: DIS: 02/21/2022 SPEC #: [id number] RECD: 02/21/22 14:21 STATUS: ALISON ANKIT #: [id number] ABBY: 02/21/22 07:[address]: Oscar Kimble DEPT: IMMUNOHISTOCHEMISTRY RECD BY: Tram Solis ENTERED: 02/21/22 14:21 SP TYPE: IMMUNO OTHR DR: MD Phong Hathaway Tissues: A - Stomach, NOS Procedures: H Pylori (initial) PHYSICIAN & INSTITUTION [place] [id number] SPECIMEN INFORMATION: Tissue Source: A ? Gastric antrum biopsy Clinical Info: Diverticulosis, GERD, abdominal pain Specimen Number: [id number] CPT code: 26321 METHODOLOGY: Deparaffinized sections of prefer/formalin-fixed tissue or PAP/DQ stained slides are incubated with monoclonal/polyclonal antibodies/oligonucleotide probes. Localization is made via biotin free immunoperoxidase method. Appropriate controls are performed and reacted as expected. Results on target cell population are indicated in the following table: RESULTS: ANTIBODY / CLONE RESULT Block A H Pylori (polyclonal) negative These tests were developed and their performance characteristics determined by [facility]. They may not have been cleared or approved by the U.S. Food and Drug Administration. The FDA has determined that such clearance or approval is not necessary. The above immunohistochemical/dualISH markers are ordered and reviewed by the Pathologist. INTERPRETATION: A. Gastric antrum, biopsy: Negative for Helicobacter pylori organisms. AM:marilia 02/22/2022
--- NOTE | 2022-02-21 07:15 | EGD_PTH ---
PATIENT: RONI LEWIS LOC: [facility] U#:[id number] AGE/SX: 71/F ROOM: RE02/21/[address]: Dr. Oscar Kimble DO : 1950 BED: DIS: 02/21/2022 SPEC #: [id number] RECD: 02/21/22 11:26 STATUS: ALISON ANKIT #: [id number] ABBY: 02/21/22 07:[address]: Oscar Kimble DEPT: SURGICAL PATHOLOGY RECD BY: Laurita Fine ENTERED: 02/21/22 13:02 SP TYPE: EGD BIOPSY OT DR: MD Phong Hathaway Tissues: A - Gastric mucous membrane B - Esophagus, NOS C - COLON BIOPSY D - Ileum, NOS E - COLON BIOPSY F - Sigmoid colon biopsy Procedures: Special Stain Group II Surgery Specimen Level IV Alcian Blue/PAS (control) HEADER OPERATION: Colonoscopy, [place] [place] with biopsies PRE-OP DIAGNOSIS: Diverticulosis, GERD, abdominal pain TISSUE SUBMITTED: A - Gastric antrum for H. pylori and path, B - Distal esophagus biopsy, C - Hepatic flexure polyp biopsy, D - Terminal ileum biopsy, E - Random colon biopsies, F - Sigmoid polyp MICROSCOPIC DIAGNOSIS A. Gastric antrum, biopsy: Chronic gastritis. Focal intestinal metaplasia. No evidence of dysplasia. See comment. B. Distal esophagus, biopsy: Fragments of gastric mucosa with mild chronic inflammation. No evidence of goblet cell metaplasia. See comment. C. Colonic polyp at hepatic flexure, biopsy: Fragments of tubular adenoma. D. Terminal ileum, biopsy: No pathologic change. E. Colon, random biopsy: Mild melanosis coli. F. Sigmoid colon polyp, polypectomy: Tubular adenoma, inflamed. AM:marilia 02/22/2022 COMMENT A. The results of immunohistochemistry for Helicobacter pylori will be reported separately ([id number]). Alcian blue/PAS stain with matched control supports the above diagnosis. Immunohistochemistry ([id number]) for P53 and Ki-67 will be performed and results will be reported separately. B. Alcian blue/PAS stain with matched control supports the above diagnosis. MICROSCOPIC DESCRIPTION Slides are reviewed. GROSS DESCRIPTION A - Received in fixative is one container labeled with the patient's name and designated gastric antrum biopsy. The specimen consists of multiple irregular fragments of light reynoso soft tissue that in aggregate measure 1 x 0.5 x 0.1 cm. The specimen is totally submitted in one cassette. B - Received in fixative is one container labeled with the patient's name and designated distal esophagus biopsy. The specimen consists of two irregular fragments of light reynoso soft tissue that in aggregate measure 0.5 x 0.3 x 0.1 cm. The specimen is totally submitted in one cassette. C - Received in fixative is one container labeled with the patient's name and designated hepatic flexure polyp biopsy. The specimen consists of one irregular fragment of light reynoso soft tissue that measures 0.7 x 0.3 x 0.1 cm. The specimen is totally submitted in one cassette. D - Received in fixative is one container labeled with the patient's name and designated terminal ileum biopsy. The specimen consists of multiple irregular fragments of light reynoso soft tissue that in aggregate measure 0.8 x 0.5 x 0.1 cm. The specimen is totally submitted in one cassette. E - Received in fixative is one container labeled with the patient's name and designated random colon biopsy. The specimen consists of multiple irregular fragments of light reynoso soft tissue that in aggregate measure 2 x 1 x 0.1 cm. The specimen is totally submitted in one cassette. F - Received in fixative is one container labeled with the patient's name and designated sigmoid polyp. The specimen consists of a polypoid fragment of reynoso tissue measuring 1 x 1 x 0.7 cm. The specimen is trisected and totally submitted in one cassette. / AM:marilia 02/21/2022 TC:5 CPT: 06951 x6, 70566 x2
--- NOTE | 2022-02-21 08:14 | OP.EGD_ITS ---
Patient Name: Mary Bañuelos Procedure Date: 02/21/2022 7:17 AM Date of : 1950 Age: 71 Procedure: Upper GI endoscopy Indications: Epigastric abdominal pain, Heartburn, Suspected esophageal reflux Providers: Oscar Kimble DO Referring MD: Phong Quiroga Medicines: Monitored Anesthesia Care Patient Profile: This is a 71 year old female. Refer to note in patient chart for documentation of history and physical. Patient has symptoms of acute heartburn, chronic nausea and acute throat burning. Complications: No immediate complications. Procedure: Pre-Anesthesia Assessment: - Prior to the procedure, a History and Physical was performed, and patient medications and allergies were reviewed. The patient is competent. The risks and benefits of the procedure and the sedation options and risks were discussed with the patient. All questions were answered and informed consent was obtained. Patient identification and proposed procedure were verified by the physician in the pre-procedure area. Mental Status Examination: alert and oriented. Airway Examination: normal oropharyngeal airway and neck mobility. Respiratory Examination: clear to auscultation. CV Examination: normal. Prophylactic Antibiotics: The patient does not require prophylactic antibiotics. Prior Anticoagulants: The patient has taken no previous anticoagulant or antiplatelet agents. After reviewing the risks and benefits, the patient was deemed in satisfactory condition to undergo the procedure. The anesthesia plan was to use moderate sedation / analgesia (conscious sedation). Immediately prior to administration of medications, the patient was re-assessed for adequacy to receive sedatives. The heart rate, respiratory rate, oxygen saturations, blood pressure, adequacy of pulmonary ventilation, and response to care were monitored throughout the procedure. The physical status of the patient was re-assessed after the procedure. After obtaining informed consent, the endoscope was passed under direct vision. Throughout the procedure, the patient's blood pressure, pulse, and oxygen saturations were monitored continuously. The Colonoscope was introduced through the mouth, and advanced to the second part of duodenum. The upper GI endoscopy was accomplished without difficulty. The patient tolerated the procedure well. Scope In: 7:26:13 AM Scope Out: 7:34:10 AM Total Procedure Duration Time 0 hours 7 minutes 57 seconds Findings: LA Grade A (one or more mucosal breaks less than 5 mm, not extending between tops of 2 mucosal folds) esophagitis with no bleeding was found 36 to 38 cm from the incisors. Mucosa was biopsied with a cold forceps for histology in a targeted manner at intervals of 1 cm in the lower third of the esophagus. One specimen bottle was sent to pathology. Verification of patient identification for the specimen was done. Estimated blood loss was minimal. Diffuse severe inflammation characterized by congestion (edema), erosions and erythema was found in the gastric fundus, in the gastric body, on the anterior wall of the stomach, on the greater curvature of the stomach, on the posterior wall of the stomach and in the entire examined stomach. Biopsies were taken with a cold forceps for histology. Verification of patient identification for the specimen was done. There was also the presence of a small hiatal hernia that was seen. The first portion of the duodenum was normal. Biopsies were taken with a cold forceps for histology. Verification of patient identification for the specimen was done. Estimated blood loss was minimal. Impression: - LA Grade A reflux esophagitis. Biopsied. - Chronic gastritis. Biopsied. - Normal first portion of the duodenum. Biopsied. Recommendation: - Discharge patient to home. - Resume previous diet. - Use metoclopramide 5 mg PO QID; 30 min AC and HS. - Continue present medications. Procedure Code(s): --- Professional --- 52007, Esophagogastroduodenoscopy, flexible, transoral; with biopsy, single or multiple CPT copyright 2017 [employer]. All rights reserved. The codes documented in this report are preliminary and upon web press roll tender review may be revised to meet current compliance requirements. Oscar Kimble DO 02/21/2022 8:13:26 AM This report has been signed electronically. Number of Addenda: 1 Note Initiated On: 02/21/2022 7:17 AM Addendum Number: 1 Addendum Date: 06/25/2022 6:31:33 AM MAC was used as sedation for this procedure. Oscar Kimble DO 06/25/2022 6:31:39 AM This report has been signed electronically.
--- NOTE | 2022-02-21 08:14 | OP.CCLET_ITS ---
06/25/2022 Phong Quiroga Re : Upper GI endoscopy procedure for Mary Bañuelos Dear Kimber This procedure was performed on February. My impressions and recommendations are as follows: Impressions : - LA Grade A reflux esophagitis. Biopsied. - Chronic gastritis. Biopsied. - Normal first portion of the duodenum. Biopsied. Recommendations : - Discharge patient to home. - Resume previous diet. - Use metoclopramide 5 mg PO QID; 30 min AC and HS. - Continue present medications. My findings are described in the full procedure note, which is enclosed. If I can be of further assistance, please feel free to contact me at . Sincerely, Oscar Kimble, 02/21/2022 8:13:26 AM This report has been signed electronically.
--- NOTE | 2022-02-21 08:17 | OP.COLON_ITS ---
Patient Name: Mary Bañuelos Procedure Date: 02/21/2022 7:34 AM Date of : 1950 Age: 71 Procedure: Colonoscopy Indications: Screening for colorectal malignant neoplasm, Screening in patient at increased risk: Family history of 1st-degree relative with colorectal cancer Providers: Oscar Kimble DO Referring MD: Phong Quiroga Medicines: Monitored Anesthesia Care Patient Profile: This is a 71 year old female. Refer to note in patient chart for documentation of history and physical. Patient has symptoms of acute heartburn, chronic nausea and acute throat burning. Last Colonoscopy: date unknown. Unable to locate last colonoscopy report. Complications: No immediate complications. Procedure: Pre-Anesthesia Assessment: - Prior to the procedure, a History and Physical was performed, and patient medications and allergies were reviewed. The patient is competent. The risks and benefits of the procedure and the sedation options and risks were discussed with the patient. All questions were answered and informed consent was obtained. Patient identification and proposed procedure were verified by the physician in the pre-procedure area. Mental Status Examination: alert and oriented. Airway Examination: normal oropharyngeal airway and neck mobility. Respiratory Examination: clear to auscultation. CV Examination: normal. Prophylactic Antibiotics: The patient does not require prophylactic antibiotics. Prior Anticoagulants: The patient has taken no previous anticoagulant or antiplatelet agents. After reviewing the risks and benefits, the patient was deemed in satisfactory condition to undergo the procedure. The anesthesia plan was to use moderate sedation / analgesia (conscious sedation). Immediately prior to administration of medications, the patient was re-assessed for adequacy to receive sedatives. The heart rate, respiratory rate, oxygen saturations, blood pressure, adequacy of pulmonary ventilation, and response to care were monitored throughout the procedure. The physical status of the patient was re-assessed after the procedure. After I obtained informed consent, the scope was passed under direct vision. Throughout the procedure, the patient's blood pressure, pulse, and oxygen saturations were monitored continuously. The Colonoscope was introduced through the anus and advanced to the terminal ileum. The colonoscopy was performed without difficulty. The patient tolerated the procedure well. The quality of the bowel preparation was good. Moderate Sedation: Moderate (conscious) sedation was personally administered by an anesthesia professional. The following parameters were monitored: oxygen saturation, heart rate, blood pressure, respiratory rate, EKG, adequacy of pulmonary ventilation, and response to care. Total physician intraservice time was 15 minutes. Scope In: 7:36:34 AM Scope Withdrawal Time 0 hours 16 minutes 3 seconds Scope Out: 7:59:53 AM Total Procedure Duration Time 0 hours 23 minutes 19 seconds Findings: The perianal and digital rectal examinations were normal. A 5 mm polyp was found in the sigmoid colon hepatic flexure. The polyp was sessile. The polyp was removed with a hot snare. Resection and retrieval were complete. Verification of patient identification for the specimen was done. Estimated blood loss was minimal. A few small-mouthed diverticula were found in the recto-sigmoid colon and sigmoid colon. A patchy area of the terminal ileum was congested. Biopsies were taken with a cold forceps for histology. Verification of patient identification for the specimen was done. Estimated blood loss was minimal. An area of mildly congested mucosa was found in the recto-sigmoid colon, in the sigmoid colon, at the splenic flexure and in the ascending colon. Biopsies were taken with a cold forceps for histology. Verification of patient identification for the specimen was done. Estimated blood loss was minimal. Impression: - One 5 mm polyp in the sigmoid colon at the hepatic flexure, removed with a hot snare. Resected and retrieved. - Diverticulosis in the recto-sigmoid colon and in the sigmoid colon. - Congested mucosa in the terminal ileum. Biopsied. - Congested mucosa in the recto-sigmoid colon, in the sigmoid colon, at the splenic flexure and in the ascending colon. Biopsied. Recommendation: - Discharge patient to home. - Resume previous diet. - Continue present medications. - Await pathology results. - Repeat colonoscopy in 3 years for surveillance. - Return to GI office. Procedure Code(s): --- Professional --- 85737, Colonoscopy, flexible; with removal of tumor(s), polyp(s), or other lesion(s) by snare technique 66277, 59, Colonoscopy, flexible; with biopsy, single or multiple CPT copyright 2017 [employer]. All rights reserved. The codes documented in this report are preliminary and upon [employer] review may be revised to meet current compliance requirements. Oscar Kimble DO 02/21/2022 8:17:12 AM This report has been signed electronically. Number of Addenda: 1 Note Initiated On: 02/21/2022 7:34 AM Addendum Number: 1 Addendum Date: 06/25/2022 6:31:49 AM MAC was used as sedation for this procedure. Oscar Kimble DO 06/25/2022 6:31:53 AM This report has been signed electronically.
--- NOTE | 2022-02-21 08:17 | OP.CCLET_ITS ---
06/25/2022 Phong Quiroga Re : Colonoscopy procedure for Mary Bañuelos Dear Kimber This procedure was performed on February. My impressions and recommendations are as follows: Impressions : - One 5 mm polyp in the sigmoid colon at the hepatic flexure, removed with a hot snare. Resected and retrieved. - Diverticulosis in the recto-sigmoid colon and in the sigmoid colon. - Congested mucosa in the terminal ileum. Biopsied. - Congested mucosa in the recto-sigmoid colon, in the sigmoid colon, at the splenic flexure and in the ascending colon. Biopsied. Recommendations : - Discharge patient to home. - Resume previous diet. - Continue present medications. - Await pathology results. - Repeat colonoscopy in 3 years for surveillance. - Return to GI office. My findings are described in the full procedure note, which is enclosed. If I can be of further assistance, please feel free to contact me at . Sincerely, Oscar Kimble DO 02/21/2022 8:17:12 AM This report has been signed electronically.
== END 2022-02-21 09:17 | disposition home or self-care (01) ==
LOC: EN 05:59 → AC 06:00
PROVIDERS: PCP Family Medicine; Referring Provider Family Medicine; Visit Provider Internal Medicine Gastroenterology
PROC: 0DJD8ZZ Inspection of Lower Intestinal Tract, Via Natural or Artificial Opening Endoscopic (ICD-10-PCS; CPT 45378; principal; 2022-02-21 07:10)
DX: Z12.11 Encounter for screening for malignant neoplasm of colon (principal); I50.32 Chronic diastolic (congestive) heart failure; I11.0 Hypertensive heart disease with heart failure; D12.3 Benign neoplasm of transverse colon; D12.5 Benign neoplasm of sigmoid colon; K31.A11 Gastric intestinal metaplasia without dysplasia, involving the antrum; K57.30 Diverticulosis of large intestine without perforation or abscess without bleeding; K29.50 Unspecified chronic gastritis without bleeding; K21.00 Gastro-esophageal reflux disease with esophagitis, without bleeding; K63.89 Other specified diseases of intestine; K44.9 Diaphragmatic hernia without obstruction or gangrene; I25.10 Atherosclerotic heart disease of native coronary artery without angina pectoris; J45.40 Moderate persistent asthma, uncomplicated; M19.90 Unspecified osteoarthritis, unspecified site; G47.33 Obstructive sleep apnea (adult) (pediatric); Z79.02 Long term (current) use of antithrombotics/antiplatelets; Z79.82 Long term (current) use of aspirin; Z79.899 Other long term (current) drug therapy; Z80.0 Family history of malignant neoplasm of digestive organs; E78.5 Hyperlipidemia, unspecified; E03.9 Hypothyroidism, unspecified; Z95.5 Presence of coronary angioplasty implant and graft
CPT/HCPCS: 45385; 45380; 43239; 88305; 88313; 88341; 88342; J7120; J2405

== ENCOUNTER → 2022-07-04 | Outpatient (CLI) | payer MEDICARE, BC, SELFPAY ==
[2019-04-21 14:59] VITALS: BMI 34.7
[2022-07-04 10:46] LABS: Prothrombin Time (Protime)PT. 13.3 SECONDS (11.7-14.9)
[2022-07-04 10:57] LABS: Erythrocyte Sedimentation Rate 30 mm/hr (0-30)
[2022-07-04 10:59] LABS: Absolute Lymphocyte Count 1.55 X10^3/uL (0.83-4.51); Absolute Neutrophil Count 6.5 X10^3/uL (2.0-7.7); Basophil# 0.06 X10^3/uL; Basophil% 0.7 % (0-1); Eosinophil# 0.08 X10^3/uL; Eosinophils% 0.9 % (0-5); Hematocrit 41.6 % (37-47); Hemoglobin 13.8 g/dL (12.0-15.0); Lymphocyte # 1.55 X10^3/ul (0.83-4.51); Lymphocyte % 17.5 % (19-41); Mean Corp Hgb Conc 33.2 g/dL (32-36); Mean Corpuscular Hgb 29.1 pg (27.0-32.0); Mean Corpuscular Volume 87.6 fL (81-99); Mean Platelet Vol. 9.5 fl (6.2-12.0); Monocyte# 0.68 X10^3/uL; Monocyte% 7.7 % (0-10); NRBC Flagged by Analyzer 0 % (0-5); Neutrophil # 6.47 X10^3/uL (2.7-7.7); Neutrophil % 72.9 % (47-70); Platelet Count 410 K/mm3 (150-450); RBC Distribution Width CV 13.2 % (11.6-14.6); RBC Distribution Width SD 42.7 fl (35.1-43.9); Red Blood Count 4.75 M/mm3 (4.2-5.4); White Blood Count 8.9 K/mm3 (4.4-11.0)
[2022-07-04 11:09] LABS: Vitamin D,25 Hydroxy 81.8 ng/mL
[2022-07-04 11:46] LABS: ALB/GLOB Ratio 0.9 RATIO (0.9-2.4); AST(SGOT) 11 U/L (15-37); Alanine Aminotransfer ALT/SGPT 22 U/L (13-56); Albumin, Serum 3.8 g/dL (3.2-5.0); Alkaline Phosphatase 98 U/L (45-117); Anion Gap 9 (5-15); BUN 12 mg/dL (7-18); BUN/Creat Ratio 12.4 RATIO (10-20); CRP 4.45 mg/L (0.0-3.0); Chloride 102 mmol/L (98-107); Creatinine, Serum 0.96 mg/dL (0.55-1.02); EST Glomerular Filtration Rate 60 mL/min (>60); Est Glom Filt Rate - Afr Amer 73 mL/min (>60); Globulin 4.1 g/dL (2.2-4.2); Glucose 100 mg/dL (74-106); LDH 132 U/L (84-246); Potassium 3.8 mmol/L (3.5-5.1); Protein, Total 7.9 g/dL (6.4-8.2); Sodium Level 138 mmol/L (136-145); Thyroid Stim Hormone (TSH) 1.32 uIU/mL (0.358-3.74)
[2022-07-05 16:09] LABS: Endomysial Antibody IgA Negative (Negative)
[2022-07-06 11:31] LABS: Immunoglobulin A 347 mg/dL (64-422); t-Transglutaminase IgA <2 U/mL (0-3)
[2022-07-07 08:33] LABS: Vitamin D 1,25-Dihydroxy 81.2 pg/mL (24.8-81.5)
[2022-07-12 20:07] LABS: Cytoplasmic Ab (C-ANCA) <1:20 titer (Neg:<1:20); Immunoglobulin A 340 mg/dL (64-422); Immunoglobulin E 8 IU/mL (6-495); Immunoglobulin G 963 mg/dL (586-1602)
[2022-07-14 09:29] LABS: Immunoglobulin M 43 mg/dL (26-217); Perinuclear Ab (P-ANCA) <1:20 titer (Neg:<1:20)
== END | disposition home or self-care (01) ==
LOC: LAB 10:23
PROVIDERS: PCP Family Medicine; Referring Provider Internal Medicine Gastroenterology; Visit Provider Internal Medicine Gastroenterology
DX: K59.00 Constipation, unspecified (principal); K76.0 Fatty (change of) liver, not elsewhere classified; K57.90 Diverticulosis of intestine, part unspecified, without perforation or abscess without bleeding; Z68.39 Body mass index [BMI] 39.0-39.9, adult
CPT/HCPCS: 36415; 80053; 82306; 82652; 82784; 82785; 83516; 83615; 84443; 85025; 85610; 85652; 86140; 86255; 86256

== ENCOUNTER → 2022-07-09 | Outpatient (CLI) | payer MEDICARE, BC, SELFPAY ==
[2019-04-21 14:59] VITALS: BMI 34.7
== END | disposition home or self-care (01) ==
LOC: LABSPEC 15:32
PROVIDERS: PCP Family Medicine; Visit Provider Family Medicine
DX: R35.0 Frequency of micturition (principal); N39.0 Urinary tract infection, site not specified
CPT/HCPCS: 87086; 87088

== ENCOUNTER → 2022-07-12 | Outpatient (CLI) | payer MEDICARE, BC, SELFPAY ==
[2019-04-21 14:59] VITALS: BMI 34.7
--- NOTE | 2022-07-12 09:22 | US_ITS ---
STUDY: ABDOMINAL ULTRASOUND - RIGHT UPPER QUADRANT REASON FOR VISIT: Female, 72 years old . Fatty infiltration of the liver. TECHNIQUE: Ultrasound evaluation of the right upper quadrant was performed with real-time and static mcdonald-scale imaging. TECHNICAL QUALITY: Adequate. COMPARISON: None. FINDINGS: Liver: The liver is enlarged and measures 19.1 cm. There is increased echogenicity consistent with fatty infiltration. The bile ducts are within normal limits. There is hepatic color flow. The direction of portal flow is hepatopetal. There is no demonstrated mass lesion. Gallbladder: The patient is status post cholecystectomy. Common Bile Duct (C.B.D.): The common bile duct measures 3.7 mm. Pancreas: Normal size of the head, body and tail of the pancreas. There is normal echogenicity of the pancreas. There is no demonstrated pancreatic mass or cyst. Right Kidney: Normal size of the right kidney. The right kidney measures 10 cm x 5.1 cm x 3.9 cm. Normal renal cortex. The right cortex measures 1.0 cm. There is no demonstrated renal mass or cyst. There is no right hydronephrosis. US/Abdomen Limited IMPRESSION: Hepatomegaly and fatty infiltration of the liver. Status post cholecystectomy. Electronically Signed: Juan Diamond MD at 11:01 EDT ,
--- NOTE | 2022-07-12 09:22 | US_ITS ---
STUDY: ABDOMINAL ULTRASOUND - ELASTOGRAPHY REASON FOR VISIT: Female, 72 years old. Fatty infiltration of the liver. TECHNIQUE: Liver stiffness measurements were obtained on a [employer] RS 85 ultrasound machine using a CA 1-7 probe following the SRU guidelines. 3 measurements were obtained using a 2-D-SWE method. The IQR/M was 22% suggesting a quality data set. TECHNICAL QUALITY: Adequate. COMPARISON: Comparison is made with prior study done earlier in the day. FINDINGS: Liver: Hepatomegaly and fatty infiltration of the liver. Median liver stiffness measured 7.2 kPa. US/Elastography Parenchyma/Organ IMPRESSION: Liver stiffness measures 7.2 kPa compatible with F2-F3 (Mild to moderate liver fibrosis) Metavir score. Electronically Signed: Juan Diamond MD at 11:11 EDT ,
== END | disposition home or self-care (01) ==
LOC: US 09:21
PROVIDERS: PCP Family Medicine; Referring Provider Internal Medicine Gastroenterology; Visit Provider Internal Medicine Gastroenterology
DX: K76.0 Fatty (change of) liver, not elsewhere classified (principal); K59.00 Constipation, unspecified
CPT/HCPCS: 76705; 76981

== ENCOUNTER → 2022-10-09 | Outpatient (CLI) | payer MEDICARE, BC, SELFPAY ==
[2019-04-21 14:59] VITALS: BMI 34.7
[2022-10-09 09:36] LABS: AST(SGOT) 13 U/L (15-37); Alanine Aminotransfer ALT/SGPT 27 U/L (13-56); Alkaline Phosphatase 88 U/L (45-117); Bilirubin, Direct 0.15 mg/dL (0.00-0.30); Cholesterol 137 mg/dL (200); Globulin 3.8 g/dL (2.2-4.2); High Density Lipoprotein 58 mg/dL; Protein, Total 7.8 g/dL (6.4-8.2); Triglycerides 105 mg/dL; Very Low Density Lipoprotein 21 mg/dL (5-40)
== END | disposition home or self-care (01) ==
LOC: LAB 08:18
PROVIDERS: PCP Family Medicine; Visit Provider Nurse Practitioner Family
DX: E78.5 Hyperlipidemia, unspecified (principal); I25.10 Atherosclerotic heart disease of native coronary artery without angina pectoris
CPT/HCPCS: 36415; 80061; 80076

== ENCOUNTER → 2022-10-21 | Outpatient (CLI) | payer MEDICARE, BC, SELFPAY ==
[2019-04-21 14:59] VITALS: BMI 34.7
[2022-10-21 15:38] LABS: Absolute Lymphocyte Count 1.44 X10^3/uL (0.83-4.51); Basophil# 0.06 X10^3/uL; Basophil% 0.5 % (0-1); Eosinophil# 0.09 X10^3/uL; Eosinophils% 0.8 % (0-5); Hematocrit 42.2 % (37-47); Hemoglobin 13.7 g/dL (12.0-15.0); Lymphocyte # 1.44 X10^3/ul (0.83-4.51); Lymphocyte % 12.4 % (19-41); Mean Corp Hgb Conc 32.5 g/dL (32-36); Mean Corpuscular Hgb 28.7 pg (27.0-32.0); Mean Corpuscular Volume 88.3 fL (81-99); Mean Platelet Vol. 9.7 fl (6.2-12.0); Monocyte# 0.92 X10^3/uL; Monocyte% 7.9 % (0-10); NRBC Flagged by Analyzer 0 % (0-5); Neutrophil # 9.02 X10^3/uL (2.7-7.7); Neutrophil % 77.9 % (47-70); Platelet Count 386 K/mm3 (150-450); RBC Distribution Width CV 13.2 % (11.6-14.6); RBC Distribution Width SD 42.9 fl (35.1-43.9); Red Blood Count 4.78 M/mm3 (4.2-5.4); White Blood Count 11.6 K/mm3 (4.4-11.0)
[2022-10-21 15:56] LABS: BNP,B-Type NATRIURETIC PEPTIDE 23.7 pg/mL (0-100)
[2022-10-21 16:17] LABS: Vitamin B12 492 pg/mL (211-911)
[2022-10-21 16:21] LABS: Anion Gap 12 (5-15); BUN 17 mg/dL (7-18); BUN/Creat Ratio 15.9 RATIO (10-20); Calcium,Total 9.7 mg/dL (8.5-10.1); Chloride 101 mmol/L (98-107); Creatinine, Serum 1.07 mg/dL (0.55-1.02); EST Glomerular Filtration Rate 54 mL/min (>60); Est Glom Filt Rate - Afr Amer 65 mL/min (>60); Free T3 2.4 pg/mL (2.18-3.98); Glucose 102 mg/dL (74-106); Potassium 3.9 mmol/L (3.5-5.1); Sodium Level 137 mmol/L (136-145); T4 Free Direct 1.36 ng/dL (0.76-1.46); Thyroid Stim Hormone (TSH) 0.88 uIU/mL (0.358-3.74)
== END | disposition home or self-care (01) ==
LOC: LAB 14:06
PROVIDERS: PCP Family Medicine; Referring Provider Nurse Practitioner Family; Visit Provider Nurse Practitioner Family
DX: I11.0 Hypertensive heart disease with heart failure (principal); I50.32 Chronic diastolic (congestive) heart failure; R53.83 Other fatigue
CPT/HCPCS: 36415; 80048; 82607; 83880; 84439; 84443; 84481; 85025

== ENCOUNTER → 2022-10-23 | Outpatient (CLI) | payer MEDICARE, BC, SELFPAY ==
[2019-04-21 14:59] VITALS: BMI 34.7
--- NOTE | 2022-10-23 13:45 | ART_ITS ---
Reason For Study: CLAUDICATION Procedure A bilateral lower extremity continuous wave Doppler with analog waveform analysis,segmental pressures,and ankle brachial indexes without exercise. Left Segmental Pressures Left brachial= 140mmHg. Left posterior tibial artery = 148mmHg. Left dorsalis pedis artery = 140mmHg. The left posterior tibial artery waveforms are triphasic. The left dorsalis pedis waveforms are biphasic. Right Segmental Pressures Right brachial= 147mmHg. Right posterior tibial artery = 151mmHg. Right dorsalis pedis artery = 165mmHg. The right posterior tibial artery waveforms are triphasic. The right dorsalis pedis waveforms are triphasic. Indices The right resting ankle brachial index is 1.12. The right ankle brachial index by the posterior tibial artery is 1.03. The right ankle brachial index by the dorsalis pedis is 1.12. The left resting ankle brachial index is 1.01. The left ankle brachial index by the posterior tibial artery is 1.01. The left ankle brachial index by the dorsalis pedis is 0.95. VL/Lower Ext Art Exam w/o Exercis Interpretation Summary Right SOLITARIO 1.12, normal. Doppler/PVR waveforms of the right leg normal at rest. Left SOLITARIO 1.01, normal. Doppler/PVR waveforms of the left leg normal at rest. Ordering Physician: Jose M Milligan Referring Physician: Rosario Cha Performed By: Gisel Hernandez, RDCS, RVT
== END | disposition home or self-care (01) ==
PROVIDERS: PCP Internal Medicine; Referring Provider Nurse Practitioner Family; Visit Provider Nurse Practitioner Family
DX: I73.9 Peripheral vascular disease, unspecified (principal)
CPT/HCPCS: 93923

== ENCOUNTER → 2022-11-21 | Outpatient (CLI) | payer MEDICARE, BC, SELFPAY ==
[2019-04-21 14:59] VITALS: BMI 34.7
--- NOTE | 2022-11-21 11:55 | BI_ITS ---
MAMMOGRAPHY - BILATERAL SCREENING REASON FOR EXAM: Female, 72 years old. Routine annual screening examination. PERTINENT HISTORY: Non-contributory. TECHNIQUE: Digital bilateral breast chelsea (3D mammographic acquisition) in the CC and MLO projections. 2-D mediolateral oblique (MLO) and craniocaudad (CC) views of both breasts were obtained. CAD: Full Field Digital Mammography with Computer Added Detection was performed. COMPARISON: Comparison is made with prior study dated April 01, 2017 and March 27, 2016. FINDINGS: Breast Composition: There are scattered areas of fibroglandular density. There are no dominant masses or suspicious calcifications. Stable small benign appearing bilateral axillary nodes. No other significant abnormalities are identified. There has been no significant change since the prior study. BI/SCRN MAMM (CAD)W/CHELSEA BILAT IMPRESSION: Stable bilateral screening mammogram. Yearly follow-up mammogram recommended. (A) ASSESSMENT CATEGORY: BIRADS Category 2: Benign. A letter regarding these results will be sent to the patient by the facility within 30 days. Approximately 10% of breast cancers are not detected by mammography. A normal mammogram should not delay biopsy of a clinically suspicious abnormality. [id number] Electronically Signed: Juan Diamond MD at 12:51 EST ,
== END | disposition home or self-care (01) ==
PROVIDERS: PCP Internal Medicine; Visit Provider Internal Medicine
DX: Z12.31 Encounter for screening mammogram for malignant neoplasm of breast (principal)
CPT/HCPCS: 77063; 77067

== ENCOUNTER → 2023-01-21 | Outpatient (CLI) | payer MEDICARE, BC, SELFPAY ==
[2019-04-21 14:59] VITALS: BMI 34.7
--- NOTE | 2023-01-21 13:03 | STRESSREP ---
Stress Test Report Date: 01/21/2023 Procedure: Pharmacologic stress nuclear imaging study Indications: Chest pain Consent: Per the patient Procedure: The patient underwent pharmacologic (Regadenoson 0.4mg ) evaluation with a peak heart rate of 101 beats per minute (68%predicted maximal heart rate) and a peak blood pressure of 144/72 mmHg. The baseline ECG demonstrated normal sinus rhythm. The peak pharmacologic ECG demonstrated no ischemic changes. There were no cardiac dysrhythmias pretest, during pharmacologic infusion, or recovery. There was no complaint of chest discomfort during pharmacologic infusion or recovery. The patient was injected with 11.5 millicuries of technetium 99m Cardiolite and subsequently rest SPECT Cardiolite nuclear imaging was obtained in the horizontal long, vertical long, and short axis views. The patient underwent pharmacologic (Regadenoson) evaluation. The patient was injected with 31.9 millicuries of technetium 99m Cardiolite and subsequently stress SPECT Cardiolite nuclear imaging was obtained in the horizontal long, vertical long, and short axis views. A gated Cardiolite study at peak stress was obtained. The examination was stopped secondary to completion of protocol. Rest and stress SPECT Cardiolite nuclear imaging status post realignment, normalization, and attenuation correction demonstrate uniform tracer distribution. There is end systolic thickening and brightening. The gated Cardiolite study demonstrates myocardial thickening and inward wall motion. The reported LVEF is 81%. Impression: 1. Pharmacologic (Regadenoson) evaluation 2. Peak pharmacologic ECG with no ischemic changes. 3. There were no cardiac dysrhythmias pretest, during pharmacologic infusion, or recovery. 5. No fixed or reversible perfusion defects. 6. The gated Cardiolite study reports an LVEF of 81%. This note was generated with [employer] software. It may contain incorrect words, spelling, and punctuation that were not noted in checking the note before signing.
== END | disposition home or self-care (01) ==
LOC: CVS 06:58
PROVIDERS: PCP Internal Medicine; Referring Provider Nurse Practitioner Family; Visit Provider Nurse Practitioner Family
DX: R07.9 Chest pain, unspecified (principal); I25.10 Atherosclerotic heart disease of native coronary artery without angina pectoris; Z95.5 Presence of coronary angioplasty implant and graft; E78.5 Hyperlipidemia, unspecified; I10 Essential (primary) hypertension
CPT/HCPCS: 78452; 93017; A9500; A4216; J2785

== ENCOUNTER → 2023-03-31 | Outpatient (CLI) | payer MEDICARE, BC, SELFPAY ==
[2019-04-21 14:59] VITALS: BMI 34.7
--- NOTE | 2023-03-31 07:43 | US_ITS ---
STUDY: ABDOMINAL ULTRASOUND - RIGHT UPPER QUADRANT; ELASTOGRAPHY REASON FOR VISIT: Female, 73 years old. Fatty infiltration of the liver. TECHNIQUE: Ultrasound evaluation of the right upper quadrant was performed with real-time and static mcdonald-scale imaging. Point quantification shear wave elastography was performed ([employer]). TECHNICAL QUALITY: Adequate. COMPARISON: Comparison is made with prior study July 12, 2022. FINDINGS: Liver: The liver measures 16.8 cm. There is increased echogenicity consistent with fatty infiltration. The bile ducts are within normal limits. There is hepatic color flow. The direction of portal flow is hepatopetal. There is no demonstrated mass lesion. Median liver stiffness measured 9.6 kPa. Gallbladder: The patient is status post cholecystectomy. Common Bile Duct (C.B.D.): The common bile duct measures 2.8 mm. Pancreas: There is increased echogenicity of the pancreas. There is no demonstrated pancreatic mass or cyst. Right Kidney: Normal size of the right kidney. The right kidney measures 10.4 cm x 5.6 cm x 5.2 cm. Normal renal cortex. The right cortex measures 1.1 cm. There is no demonstrated renal mass or cyst. There is no right hydronephrosis. US/ABD Limited w/ Elastography IMPRESSION: 1. Liver stiffness measures 9.6 kPa compatible with F2-F3 (Mild to moderate liver fibrosis) Metavir score. Electronically Signed: Juan Diamond MD at 15:48 EDT ,
[2023-03-31 08:25] LABS: Absolute Lymphocyte Count 1.92 X10^3/uL (0.83-4.51); Absolute Neutrophil Count 7.4 X10^3/uL (2.0-7.7); Basophil# 0.08 X10^3/uL; Basophil% 0.8 % (0-1); Eosinophil# 0.17 X10^3/uL; Eosinophils% 1.7 % (0-5); Hematocrit 41.3 % (37-47); Hemoglobin 13.3 g/dL (12.0-15.0); Lymphocyte # 1.92 X10^3/ul (0.83-4.51); Lymphocyte % 18.8 % (19-41); Mean Corp Hgb Conc 32.2 g/dL (32-36); Mean Corpuscular Hgb 28.5 pg (27.0-32.0); Mean Corpuscular Volume 88.6 fL (81-99); Mean Platelet Vol. 9.8 fl (6.2-12.0); Monocyte# 0.58 X10^3/uL; Monocyte% 5.7 % (0-10); NRBC Flagged by Analyzer 0 % (0-5); Neutrophil # 7.43 X10^3/uL (2.7-7.7); Neutrophil % 72.6 % (47-70); Platelet Count 426 K/mm3 (150-450); RBC Distribution Width CV 13.5 % (11.6-14.6); RBC Distribution Width SD 43.8 fl (35.1-43.9); Red Blood Count 4.66 M/mm3 (4.2-5.4); White Blood Count 10.2 K/mm3 (4.4-11.0)
[2023-03-31 08:53] LABS: ALB/GLOB Ratio 0.9 RATIO (0.9-2.4); AST(SGOT) 14 U/L (15-37); Alanine Aminotransfer ALT/SGPT 23 U/L (13-56); Albumin, Serum 3.4 g/dL (3.2-5.0); Alkaline Phosphatase 85 U/L (45-117); Anion Gap 6 (5-15); BUN 13 mg/dL (7-18); BUN/Creat Ratio 13.1 RATIO (10-20); CRP 5.45 mg/L (0.0-3.0); Calcium,Total 8.8 mg/dL (8.5-10.1); Chloride 105 mmol/L (98-107); Creatinine, Serum 0.99 mg/dL (0.55-1.02); EST Glomerular Filtration Rate 58 mL/min (>60); Est Glom Filt Rate - Afr Amer 71 mL/min (>60); Globulin 3.9 g/dL (2.2-4.2); Glucose 117 mg/dL (74-106); Potassium 3.9 mmol/L (3.5-5.1); Protein, Total 7.3 g/dL (6.4-8.2); Sodium Level 137 mmol/L (136-145)
[2023-03-31 08:57] LABS: AST(SGOT) 14 U/L (15-37); Alanine Aminotransfer ALT/SGPT 23 U/L (13-56); Albumin, Serum 3.5 g/dL (3.2-5.0); Alkaline Phosphatase 87 U/L (45-117); Bilirubin, Direct 0.11 mg/dL (0.00-0.30); Cholesterol 120 mg/dL (200); High Density Lipoprotein 51 mg/dL; Protein, Total 7.5 g/dL (6.4-8.2); Triglycerides 94 mg/dL; Very Low Density Lipoprotein 19 mg/dL (5-40)
[2023-04-01 14:09] LABS: Anti-Mitochondrial AB <20.0 Units (0.0-20.0); Anti-Smooth Muscle ABS 6 Units (0-19)
== END | disposition home or self-care (01) ==
LOC: US 07:30
PROVIDERS: Nurse Practitioner Family; PCP Internal Medicine; Referring Provider Internal Medicine Gastroenterology; Visit Provider Internal Medicine Gastroenterology
DX: K76.0 Fatty (change of) liver, not elsewhere classified (principal); E78.00 Pure hypercholesterolemia, unspecified
CPT/HCPCS: 36415; 76705; 76981; 80053; 80061; 80076; 83516; 85025; 86140

== ENCOUNTER → 2023-08-29 | Outpatient (CLI) | payer MEDICARE, BC, SELFPAY ==
[2019-04-21 14:59] VITALS: BMI 34.7
--- NOTE | 2023-08-29 07:41 | US_ITS ---
STUDY: ABDOMINAL ULTRASOUND - RIGHT UPPER QUADRANT; ELASTOGRAPHY REASON FOR VISIT: Female, 73 years old. Fatty infiltration of the liver. TECHNIQUE: Ultrasound evaluation of the right upper quadrant was performed with real-time and static mcdonald-scale imaging. Point quantification shear wave elastography was performed ([employer]). TECHNICAL QUALITY: Adequate. COMPARISON: Comparison is made with prior study dated March 31, 2023. FINDINGS: Liver: The liver measures 16.9 cm. There is increased echogenicity consistent with fatty infiltration. The bile ducts are within normal limits. There is hepatic color flow. The direction of portal flow is hepatopetal. There is no demonstrated mass lesion. Median liver stiffness measured 7.6 kPa. Gallbladder: The patient is status post cholecystectomy. Common Bile Duct (C.B.D.): The common bile duct measures 2.8 mm. Pancreas: There is increased echogenicity of the pancreas. There is no demonstrated pancreatic mass or cyst. Right Kidney: Normal size of the right kidney. The right kidney measures 10.6 x 5.7 x 4 cm. Normal renal cortex. The right cortex measures 1.4 cm. There is no demonstrated renal mass or cyst. There is no right hydronephrosis. US/ABD Limited w/ Elastography IMPRESSION: 1. Liver stiffness measures 7.6 kPa compatible with F0-F1 (Normal to mild liver fibrosis) Metavir score. Electronically Signed: Juan Diamond MD at 15:33 EST ,
== END | disposition home or self-care (01) ==
LOC: US 07:40
PROVIDERS: PCP Internal Medicine; Referring Provider Internal Medicine Gastroenterology; Visit Provider Internal Medicine Gastroenterology
DX: K76.0 Fatty (change of) liver, not elsewhere classified (principal)
CPT/HCPCS: 76705; 76981

== ENCOUNTER → 2023-10-13 | Outpatient (CLI) | payer MEDICARE, BC, SELFPAY ==
[2019-04-21 14:59] VITALS: BMI 34.7
[2023-10-13 09:10] LABS: Prothrombin Time (Protime)PT. 13.5 SECONDS (11.7-14.9)
[2023-10-13 09:21] LABS: Erythrocyte Sedimentation Rate 30 mm/hr (0-30)
[2023-10-13 09:23] LABS: Absolute Lymphocyte Count 1.75 X10^3/uL (0.83-4.51); Absolute Neutrophil Count 6.9 X10^3/uL (2.0-7.7); Basophil# 0.07 X10^3/uL; Basophil% 0.7 % (0-1); Eosinophil# 0.18 X10^3/uL; Eosinophils% 1.9 % (0-5); Hematocrit 39.7 % (37-47); Hemoglobin 12.9 g/dL (12.0-15.0); Lymphocyte # 1.75 X10^3/ul (0.83-4.51); Lymphocyte % 18.4 % (19-41); Mean Corp Hgb Conc 32.5 g/dL (32-36); Mean Corpuscular Hgb 28.2 pg (27.0-32.0); Mean Corpuscular Volume 86.9 fL (81-99); Mean Platelet Vol. 9.8 fl (6.2-12.0); Monocyte# 0.55 X10^3/uL; Monocyte% 5.8 % (0-10); NRBC Flagged by Analyzer 0 % (0-5); Neutrophil % 72.8 % (47-70); Platelet Count 423 K/mm3 (150-450); RBC Distribution Width CV 13.8 % (11.6-14.6); RBC Distribution Width SD 43.3 fl (35.1-43.9); Red Blood Count 4.57 M/mm3 (4.2-5.4); White Blood Count 9.5 K/mm3 (4.4-11.0)
[2023-10-13 09:56] LABS: AST(SGOT) 13 U/L (15-37); Alanine Aminotransfer ALT/SGPT 22 U/L (13-56); Albumin, Serum 3.7 g/dL (3.2-5.0); Alkaline Phosphatase 85 U/L (45-117); Bilirubin, Direct 0.13 mg/dL (0.00-0.30); Cholesterol 132 mg/dL (200); Globulin 3.5 g/dL (2.2-4.2); High Density Lipoprotein 59 mg/dL; Protein, Total 7.2 g/dL (6.4-8.2); Triglycerides 108 mg/dL; Very Low Density Lipoprotein 22 mg/dL (5-40)
[2023-10-13 10:16] LABS: AST(SGOT) 14 U/L (15-37); Alanine Aminotransfer ALT/SGPT 24 U/L (13-56); Albumin, Serum 3.7 g/dL (3.2-5.0); Alkaline Phosphatase 85 U/L (45-117); Anion Gap 7 (5-15); BUN 15 mg/dL (7-18); BUN/Creat Ratio 14.4 RATIO (10-20); CRP < 2.90 mg/L (0.0-3.0); Calcium,Total 9.5 mg/dL (8.5-10.1); Chloride 107 mmol/L (98-107); Creatinine, Serum 1.04 mg/dL (0.55-1.02); EST Glomerular Filtration Rate 55 mL/min (>60); Est Glom Filt Rate - Afr Amer 67 mL/min (>60); Globulin 3.8 g/dL (2.2-4.2); Glucose 120 mg/dL (74-106); LDH 113 U/L (84-246); Potassium 3.9 mmol/L (3.5-5.1); Protein, Total 7.5 g/dL (6.4-8.2); Sodium Level 138 mmol/L (136-145)
== END | disposition home or self-care (01) ==
LOC: LAB 08:26
PROVIDERS: Nurse Practitioner Family; PCP Internal Medicine; Referring Provider Internal Medicine Gastroenterology; Visit Provider Internal Medicine Gastroenterology
DX: K76.0 Fatty (change of) liver, not elsewhere classified (principal); E78.00 Pure hypercholesterolemia, unspecified
CPT/HCPCS: 36415; 80053; 80061; 80076; 82140; 83615; 85025; 85610; 85652; 86140

== ENCOUNTER → 2023-11-17 | Outpatient (CLI) | payer MEDICARE, BC, SELFPAY ==
[2019-04-21 14:59] VITALS: BMI 34.7
[2023-11-17 17:49] LABS: Free T3 2.2 pg/mL (2.18-3.98); T4 Free Direct 1.21 ng/dL (0.76-1.46); Thyroid Stim Hormone (TSH) 1.19 uIU/mL (0.358-3.74)
[2023-11-17 17:56] LABS: Vitamin D,25 Hydroxy 100.4 ng/mL
== END | disposition home or self-care (01) ==
LOC: LAB 16:29
PROVIDERS: PCP Internal Medicine; Referring Provider Internal Medicine; Visit Provider Internal Medicine
DX: R00.0 Tachycardia, unspecified (principal); E03.9 Hypothyroidism, unspecified; E55.9 Vitamin D deficiency, unspecified
CPT/HCPCS: 36415; 82306; 84439; 84443; 84481

== ENCOUNTER → 2024-03-04 | Outpatient (CLI) | payer MEDICARE, BC, SELFPAY ==
[2019-04-21 14:59] VITALS: BMI 34.7
[2024-01-07 10:40] VITALS: BMI 34.7
--- NOTE | 2024-03-04 07:44 | US_ITS ---
STUDY: ABDOMINAL ULTRASOUND - RIGHT UPPER QUADRANT; ELASTOGRAPHY REASON FOR VISIT: Female, 73 years old. Fatty infiltration of the liver. TECHNIQUE: Ultrasound evaluation of the right upper quadrant was performed with real-time and static mcdonald-scale imaging. Point quantification shear wave elastography was performed ([employer]). TECHNICAL QUALITY: Adequate. COMPARISON: Comparison is made with prior study dated August 29, 2023. FINDINGS: Liver: The liver measures 16.6 cm. There is increased echogenicity consistent with fatty infiltration. The bile ducts are within normal limits. There is hepatic color flow. The direction of portal flow is hepatopetal. There is no demonstrated mass lesion. Median liver stiffness measured 10.2 kPa. Gallbladder: The patient is status post cholecystectomy. Common Bile Duct (C.B.D.): The common bile duct measures 3.3 mm. Pancreas: There is increased echogenicity of the pancreas. There is no demonstrated pancreatic mass or cyst. Right Kidney: Normal size of the right kidney. The right kidney measures 10 cm x 4.9 cm x 4 cm. Normal renal cortex. The right cortex measures 1.2 cm. There is no demonstrated renal mass or cyst. There is no right hydronephrosis. US/ABD Limited w/ Elastography IMPRESSION: 1. Liver stiffness measures 10.2 kPa compatible with F2-F3 (Mild to moderate liver fibrosis) Metavir score. Electronically Signed: Juan Diamond MD at 8:59 EDT ,
== END | disposition home or self-care (01) ==
LOC: US 07:39
PROVIDERS: PCP Internal Medicine; Referring Provider Internal Medicine Gastroenterology; Visit Provider Internal Medicine Gastroenterology
DX: K76.0 Fatty (change of) liver, not elsewhere classified (principal)
CPT/HCPCS: 76705; 76981

== ENCOUNTER → 2024-03-19 | Outpatient (CLI) | payer MEDICARE, BC, SELFPAY ==
[2024-01-07 10:40] VITALS: BMI 34.7
[2024-03-19] VITALS (13 sets, daily range): BP systolic 98–156; BP diastolic 31–67; PULSE 68–72; RESP 15–24; TEMP 36.4; O2SAT 93–98; BMI 36.1
[2024-03-19 07:56] LABS: Platelet Count 366 K/mm3 (150-450)
[2024-03-19 08:32] LABS: AST(SGOT) 12 U/L (15-37); Alanine Aminotransfer ALT/SGPT 24 U/L (13-56); Albumin, Serum 3.7 g/dL (3.2-5.0); Alkaline Phosphatase 89 U/L (45-117); Bilirubin, Direct 0.15 mg/dL (0.00-0.30); Cholesterol 127 mg/dL (200); Globulin 3.7 g/dL (2.2-4.2); High Density Lipoprotein 57 mg/dL; Protein, Total 7.4 g/dL (6.4-8.2); Triglycerides 76 mg/dL; Very Low Density Lipoprotein 15 mg/dL (5-40)
[2024-03-19 08:33] LABS: International Normalized Ratio 1.1
[2024-03-19] MEDS: 0.9% Normal Saline (250mL Bag) 250 ML 15 ML IV (08:33)
[2024-03-19] MEDS: 0.9% Saline Lock 10 ML Syringe IV (08:34)
[2024-03-19] MEDS: Midazolam 2 MG/2 ML Syringe IV (09:06)
[2024-03-19] MEDS: fentaNYL 100 MCG/2 ML Ampul IV (09:07)
[2024-03-19] MEDS: Lidocaine 2% (20 ml mdv) 20 ML Vial INFILT (09:20)
--- NOTE | 2024-03-19 09:20 | LIVB_PTH ---
PATIENT: RONI LEWIS LOC: CT U#:[id number] AGE/SX: 74/F ROOM: RE03/19/[address]: Dr. Oscar Kimble DO : 1950 BED: DIS: 03/19/2024 SPEC #: [id number] RECD: 03/19/24 09:38 STATUS: ALISON REJesus #: [id number] ABBY: 03/19/24 09:[address]: Oscar Kimble DEPT: SURGICAL PATHOLOGY RECD BY: Laurita Fine ENTERED: 03/19/24 11:53 SP TYPE: LIVER BX PRICILA DR: MD Perla Drake, RELIABILITY ENGINEER-C Tissues: Liver, NOS Procedures: PAS with Diastase (control) PSA (add) Trichrome (control) Special Stain Group I Surgery Specimen Level V Retic (control) Iron Stain (control) HEADER OPERATION: CT guided liver biopsy PRE-OP DIAGNOSIS: Liver biopsy TISSUE SUBMITTED: 18 gauge core x3- left lobe liver MICROSCOPIC DIAGNOSIS Liver, core biopsy: Liver parenchymal tissue with macrocvesicular steatosis and focal mild portal chronic inflammation. See microscopic description and comment. / 03/22/2024 COMMENT Correlation with clinical, radiologic, laboratory findings and appropriate follow up are necessary. MICROSCOPIC DESCRIPTION Slides are reviewed. This specimen shows liver parenchyma tissue with preserved lobular architecture. The hepatocytes show macrovesicular steatosis. Lobular inflammation is not seen. Portal area shows focal mild chronic inflammation. Interface inflammation is not seen. Iron stains shows absent iron. Reticulin stain highlights the normal lobular architecture. Trichrome stain does not show any increase portal or periportal fibrosis. PAS stains with and without diastase do not show any abnormal accumulation of protein. All the stains are performed with appropriate matched controls. GROSS DESCRIPTION Received is one container labeled with the patient's name and not further designated. The specimen consists of multiple elongated fragments of reynoso soft tissue that in aggregate measure 2.0 x 0.3 x 0.1 cm. The specimen is totally submitted in one cassette. /mr 03/19/2024 TC:5 CPT:87686,22865a9
--- NOTE | 2024-03-19 09:49 | PRO.PCM_ITS ---
Procedure Report Date of Procedure: 03/19/24 Assessment & Plan Assessment/Plan (1) Fatty liver: PLAN: PROCEDURE: CT DIRECTED CORE LIVER BIOPSY ORDERING PROVIDER: Dr. Kimble INDICATION: Female, 74 years old. Fatty liver. PROVIDER: VIRGIL Haddad CONSENT: Written informed consent was obtained having explained the risks, benefits and alternatives in detail with the patient who accepted the risks and agreed to proceed. Laboratory review and clinical assessment was performed. PRE-PROCEDURE SEDATION ASSESSMENT: Current history and physical dictated by referring provider and reviewed. No clinical changes since date of exam. Patient has an ASA Class of 2. PROCEDURAL SEDATION PROTOCOL: The Drugs used were: 2 mg Versed, IV, and 50 mcg Fentanyl, IV. The sedation time was: 20 minutes, starting at 9:05 AM and terminated at 9:25 AM. The procedural sedation protocol was independently monitored by the department nurse. RADIATION DOSAGE (If Supplied By Facility): CTDIvol = 27.25 mGy, DLP = 1136.72 mGycm Individualized dose optimization techniques were used for this CT. TECHNIQUE: The patient was placed in a supine position. Using CT image guidance with image documentation, a suitable location in the left lobe of the liver was identified. The skin surface was prepped with betadine and draped in a sterile fashion. 2% lidocaine was used for local anesthesia. Using an anterior approach, puncture of the liver was uneventful with an 18-gauge core needle system. 3, 18-gauge core samples were obtained, and submitted in formalin to the pathologist for further assessment. The needle was removed. An occlusive sterile dressing was applied. Patient tolerated the procedure well, and returned to the [facility] for nursing monitoring. IMPRESSION: 1. CT directed core needle biopsy of the liver, using CT image guidance with image documentation as described. 2. Procedural Sedation protocol utilized with independent monitoring. Procedures Radiology Radiology CT Procedures: 17425 Biopsy Liver Multi Select Codes Radiology Radiology CT Procedures: [id number] CT guidance parenchymal tissue
== END | disposition home or self-care (01) ==
PROVIDERS: Nurse Practitioner Acute Care; Nurse Practitioner Family; PCP Internal Medicine; Referring Provider Internal Medicine Gastroenterology; Visit Provider Internal Medicine Gastroenterology
DX: Z01.818 Encounter for other preprocedural examination (principal); K76.0 Fatty (change of) liver, not elsewhere classified
CPT/HCPCS: 47000; 36415; 77012; 80061; 80076; 85049; 85610; 85730; 88307; 88312; 88341; 99156; J7050; A4216

== ENCOUNTER → 2024-05-06 | Outpatient (CLI) | payer MEDICARE, BC, SELFPAY ==
[2024-01-07 10:40] VITALS: BMI 34.7
[2024-05-06 09:49] LABS: Absolute Lymphocyte Count 1.37 X10^3/uL (0.83-4.51); Absolute Neutrophil Count 5.4 X10^3/uL (2.0-7.7); Basophil# 0.05 X10^3/uL; Basophil% 0.7 % (0-1); Eosinophil# 0.13 X10^3/uL; Eosinophils% 1.7 % (0-5); Hematocrit 38.2 % (37-47); Hemoglobin 12.4 g/dL (12.0-15.0); Lymphocyte # 1.37 X10^3/ul (0.83-4.51); Lymphocyte % 18.4 % (19-41); Mean Corp Hgb Conc 32.5 g/dL (32-36); Mean Corpuscular Hgb 27.9 pg (27.0-32.0); Mean Corpuscular Volume 85.8 fL (81-99); Mean Platelet Vol. 9.9 fl (6.2-12.0); Monocyte# 0.53 X10^3/uL; Monocyte% 7.1 % (0-10); NRBC Flagged by Analyzer 0 % (0-5); Neutrophil # 5.35 X10^3/uL (2.7-7.7); Neutrophil % 71.7 % (47-70); Platelet Count 346 K/mm3 (150-450); RBC Distribution Width CV 13.8 % (11.6-14.6); RBC Distribution Width SD 42.7 fl (35.1-43.9); Red Blood Count 4.45 M/mm3 (4.2-5.4); White Blood Count 7.5 K/mm3 (4.4-11.0)
[2024-05-06 10:22] LABS: Hemoglobin A1c 5.5 % (3.8-5.6)
[2024-05-06 10:27] LABS: ALB/GLOB Ratio 1.1 RATIO (0.9-2.4); AST(SGOT) 18 U/L (15-37); Alanine Aminotransfer ALT/SGPT 22 U/L (13-56); Albumin, Serum 3.6 g/dL (3.2-5.0); Alkaline Phosphatase 85 U/L (45-117); Anion Gap 10 (5-15); BUN 15 mg/dL (7-18); BUN/Creat Ratio 16.5 RATIO (10-20); Calcium,Total 8.9 mg/dL (8.5-10.1); Chloride 104 mmol/L (98-107); Cholesterol 116 mg/dL (200); Creatinine, Serum 0.91 mg/dL (0.55-1.02); EST Glomerular Filtration Rate 64 mL/min (>60); Est Glom Filt Rate - Afr Amer 78 mL/min (>60); Free T3 2.4 pg/mL (2.18-3.98); Globulin 3.4 g/dL (2.2-4.2); Glucose 109 mg/dL (74-106); High Density Lipoprotein 55 mg/dL; Magnesium 2.2 mg/dL (1.6-2.6); Potassium 3.8 mmol/L (3.5-5.1); Sodium Level 138 mmol/L (136-145); T4 Free Direct 1.21 ng/dL (0.76-1.46); Triglycerides 71 mg/dL; Very Low Density Lipoprotein 14 mg/dL (5-40)
[2024-05-06 13:49] LABS: Vitamin B12 530 pg/mL (211-911)
== END | disposition home or self-care (01) ==
LOC: LAB 08:57
PROVIDERS: PCP Internal Medicine; Referring Provider Internal Medicine; Visit Provider Internal Medicine
DX: Z13.220 Encounter for screening for lipoid disorders (principal); B37.0 Candidal stomatitis; E66.09 Other obesity due to excess calories; Z68.34 Body mass index [BMI] 34.0-34.9, adult; I10 Essential (primary) hypertension; J45.40 Moderate persistent asthma, uncomplicated; I25.10 Atherosclerotic heart disease of native coronary artery without angina pectoris; E03.9 Hypothyroidism, unspecified; E78.5 Hyperlipidemia, unspecified; G47.33 Obstructive sleep apnea (adult) (pediatric); K76.0 Fatty (change of) liver, not elsewhere classified; Z68.39 Body mass index [BMI] 39.0-39.9, adult; R73.9 Hyperglycemia, unspecified
CPT/HCPCS: 36415; 80053; 80061; 82306; 82607; 83036; 83735; 84439; 84443; 84481; 85025

== ENCOUNTER → 2024-06-01 | Outpatient (CLI) | payer MEDICARE, BC, SELFPAY ==
[2024-01-07 10:40] VITALS: BMI 34.7
--- NOTE | 2024-06-01 09:45 | BI_ITS ---
MAMMOGRAPHY - BILATERAL SCREENING REASON FOR EXAM: Female, 74 years old. Routine annual screening examination. PERTINENT HISTORY: Non-contributory. TECHNIQUE: Digital bilateral breast chelsea (3D mammographic acquisition) in the CC and MLO projections. 2-D mediolateral oblique (MLO) and craniocaudad (CC) views of both breasts were obtained. CAD: Full Field Digital Mammography with Computer Added Detection was performed. COMPARISON: Comparison is made with prior study dated November 21, 2022 and April 01, 2017. FINDINGS: Breast Composition: There are scattered areas of fibroglandular density. There are no dominant masses or suspicious calcifications. No other significant abnormalities are identified. There has been no significant change since the prior study. BI/SCRN MAMM (CAD)W/CHELSEA BILAT IMPRESSION: Stable bilateral screening mammogram. Yearly follow-up mammogram recommended. (A) ASSESSMENT CATEGORY: BIRADS Category 1: Negative. A letter regarding these results will be sent to the patient by the facility within 30 days. Approximately 10% of breast cancers are not detected by mammography. A normal mammogram should not delay biopsy of a clinically suspicious abnormality. [id number] Electronically Signed: Juan Diamond MD at 11:19 EDT ,
== END | disposition home or self-care (01) ==
LOC: OPBI 09:44
PROVIDERS: PCP Internal Medicine; Referring Provider Internal Medicine; Visit Provider Internal Medicine
DX: Z12.31 Encounter for screening mammogram for malignant neoplasm of breast (principal)
CPT/HCPCS: 77063; 77067

== ENCOUNTER → 2024-09-06 | Outpatient (CLI) | payer MEDICARE, BC, SELFPAY ==
[2024-01-07 10:40] VITALS: BMI 34.7
[2024-09-06 17:14] LABS: AST(SGOT) 13 U/L (15-37); Alanine Aminotransfer ALT/SGPT 23 U/L (13-56); Albumin, Serum 3.8 g/dL (3.2-5.0); Alkaline Phosphatase 93 U/L (45-117); Anion Gap 4 (5-15); BUN 20 mg/dL (7-18); BUN/Creat Ratio 22.9 RATIO (10-20); Calcium,Total 9.3 mg/dL (8.5-10.1); Chloride 103 mmol/L (98-107); Creatinine, Serum 0.88 mg/dL (0.55-1.02); EST Glomerular Filtration Rate 67 mL/min (>60); Est Glom Filt Rate - Afr Amer 81 mL/min (>60); Globulin 3.9 g/dL (2.2-4.2); Glucose 109 mg/dL (74-106); Potassium 4.1 mmol/L (3.5-5.1); Protein, Total 7.7 g/dL (6.4-8.2); Sodium Level 137 mmol/L (136-145)
[2024-09-06 18:53] LABS: Hemoglobin A1c 5.6 % (3.8-5.6)
[2024-09-06 19:13] LABS: Vitamin D,25 Hydroxy 107.8 ng/mL
[2024-09-08 04:07] LABS: Insulin Level 23.6 uIU/mL (2.6-24.9)
== END | disposition home or self-care (01) ==
LOC: LAB 16:09
PROVIDERS: PCP Internal Medicine; Referring Provider Internal Medicine; Visit Provider Internal Medicine
DX: K76.0 Fatty (change of) liver, not elsewhere classified (principal); E66.09 Other obesity due to excess calories; Z68.34 Body mass index [BMI] 34.0-34.9, adult; E03.9 Hypothyroidism, unspecified; I10 Essential (primary) hypertension; J45.40 Moderate persistent asthma, uncomplicated; R73.9 Hyperglycemia, unspecified; E55.9 Vitamin D deficiency, unspecified
CPT/HCPCS: 36415; 80053; 82306; 83036; 83525

== ENCOUNTER → 2024-09-20 | Outpatient (CLI) | payer MEDICARE, BC, SELFPAY ==
[2024-01-07 10:40] VITALS: BMI 34.7
[2024-09-20 09:58] LABS: AST(SGOT) 17 U/L (15-37); Alanine Aminotransfer ALT/SGPT 26 U/L (13-56); Albumin, Serum 3.7 g/dL (3.2-5.0); Alkaline Phosphatase 91 U/L (45-117); Bilirubin, Direct 0.08 mg/dL (0.00-0.30); Cholesterol 158 mg/dL (200); High Density Lipoprotein 52 mg/dL; Protein, Total 7.7 g/dL (6.4-8.2); Triglycerides 201 mg/dL; Very Low Density Lipoprotein 40 mg/dL (5-40)
== END | disposition home or self-care (01) ==
LOC: LAB 08:21
PROVIDERS: PCP Internal Medicine; Referring Provider Nurse Practitioner Family; Visit Provider Nurse Practitioner Family
DX: E78.00 Pure hypercholesterolemia, unspecified (principal)
CPT/HCPCS: 36415; 80061; 80076

== ENCOUNTER → 2025-01-13 | Outpatient (CLI) | payer MEDICARE, BC, SELFPAY ==
[2024-01-07 10:40] VITALS: BMI 34.7
--- NOTE | 2025-01-13 07:05 | US_ITS ---
PROCEDURE: ABD LIMITED W/ ELASTOGRAPHY REASON FOR EXAM: HERNANDEZ COMPARISON: Comparison is made with prior study dated March 04, 2024. TECHNIQUE: Right upper quadrant abdominal ultrasound. Slava ElastQ Imaging shear wave elastography for non-invasive assessment of liver tissue stiffness. Slava EPIQ Elite. FINDINGS: LIVER: Size: Unremarkable Length: 16 cm cm Echotexture: Diffusely echogenic suggesting fatty infiltration Contour: Normal Lesions: None identified Elastography: EQI Med: 8.3 kPa EQI Med Kyle: 1.64 m/s IQR/Med: 27 %* GALLBLADDER: Surgically absent. COMMON BILE DUCT: Normal . PANCREAS: Normal Visualized portions of the right kidney are unremarkable. No right upper quadrant ascites. US/ABD Limited w/ Elastography IMPRESSION: MODERATE HEPATIC FIBROSIS Fatty infiltration of the liver. Status post cholecystectomy. Reference Values: SRU <1.37 m/s (5.7kPa): No to mild fibrosis 1.37 m/s - 2.2 m/s: Moderate to severe fibrosis >2.2 m/s (15kPa): Significant fibrosis / cirrhosis METAVIR Score F2 or higher: 1.34 m/s (5.7kPa) F3 or higher: 1.55 m/s (7.3kPa) F4: 1.80 m/s (10kPa) * If the IQR/Med is >30%, the variance in the measurements is a large and the a ccuracy of the measurement may be in question. Reading Location: [place] [id number]
== END | disposition home or self-care (01) ==
LOC: US 07:05
PROVIDERS: PCP Internal Medicine; Referring Provider Internal Medicine Gastroenterology; Visit Provider Internal Medicine Gastroenterology
DX: K75.81 Nonalcoholic steatohepatitis (NASH) (principal)
CPT/HCPCS: 76705; 76981

== ENCOUNTER → 2025-02-22 | Outpatient (CLI) | payer MEDICARE, BC, SELFPAY ==
[2024-01-07 10:40] VITALS: BMI 34.7
== END | disposition home or self-care (01) ==
LOC: PSN 08:00
PROVIDERS: PCP Internal Medicine; Referring Provider Nurse Practitioner Family; Visit Provider Nurse Practitioner Family
DX: J45.20 Mild intermittent asthma, uncomplicated (principal)
CPT/HCPCS: 94060; 94726; 94729

== ENCOUNTER → 2025-03-07 | Outpatient (CLI) | payer MEDICARE, BC, SELFPAY ==
[2024-01-07 10:40] VITALS: BMI 34.7
[2025-03-07 16:49] LABS: Absolute Lymphocyte Count 1.79 X10^3/uL (0.83-4.51); Absolute Neutrophil Count 5.7 X10^3/uL (2.0-7.7); Basophil# 0.06 X10^3/uL; Basophil% 0.7 % (0-1); Eosinophil# 0.14 X10^3/uL; Eosinophils% 1.7 % (0-5); Hematocrit 39.9 % (37-47); Hemoglobin 13.3 g/dL (12.0-15.0); Lymphocyte # 1.79 X10^3/ul (0.83-4.51); Lymphocyte % 21.5 % (19-41); Mean Corp Hgb Conc 33.3 g/dL (32-36); Mean Corpuscular Hgb 28.5 pg (27.0-32.0); Mean Corpuscular Volume 85.4 fL (81-99); Mean Platelet Vol. 9.8 fl (6.2-12.0); Monocyte# 0.66 X10^3/uL; Monocyte% 7.9 % (0-10); NRBC Flagged by Analyzer 0 % (0-5); Neutrophil # 5.66 X10^3/uL (2.7-7.7); Neutrophil % 67.8 % (47-70); Platelet Count 351 K/mm3 (150-450); RBC Distribution Width SD 40.4 fl (35.1-43.9); Red Blood Count 4.67 M/mm3 (4.2-5.4); White Blood Count 8.3 K/mm3 (4.4-11.0)
[2025-03-07 17:17] LABS: Hemoglobin A1c 6.1 % (<=5.6)
[2025-03-08 15:11] LABS: Cholesterol 108 mg/dL (<=200); High Density Lipoprotein 43 mg/dL; Low Density Lipoprotein Calc. 40 mg/dL; Triglycerides 126 mg/dL; Very Low Density Lipoprotein 25 mg/dL (5-40); cholesterol:hdl ratio screen 2.51
[2025-03-08 16:48] LABS: ALB/GLOB Ratio 1.3 RATIO (0.9-2.4); AST(SGOT) 57 U/L (<=31); Alanine Aminotransfer ALT/SGPT 34 U/L (<=34); Albumin, Serum 4.4 g/dL (3.4-4.8); Alkaline Phosphatase 103 U/L (35-104); Anion Gap 16 (5-15); BUN 18 mg/dL (4-19); BUN/Creat Ratio 18.4 RATIO (10-20); Calcium,Total 9.6 mg/dL (7.6-11.0); Carbon Dioxide 21.1 mmol/L (21.0-32.0); Chloride 100 mmol/L (98-108); Creatinine, Serum 0.95 mg/dL (0.70-1.20); EST Glomerular Filtration Rate 63 (>60); Free T3 3.1 pg/mL (2.18-3.98); Globulin 3.3 g/dL (2.2-4.2); Glucose 88 mg/dL (70-99); Potassium 4.4 mmol/L (3.3-5.1); Protein, Total 7.7 g/dL (5.9-8.4); Sodium Level 138 mmol/L (133-145); Thyroid Stim Hormone (TSH) 0.347 uIU/mL (0.300-4.200); Total Bilirubin 0.34 mg/dL (0.00-1.30); Vitamin D,25 Hydroxy 74.4 ng/mL (30-100)
== END | disposition home or self-care (01) ==
LOC: LAB 16:27
PROVIDERS: PCP Internal Medicine; Referring Provider Internal Medicine; Visit Provider Internal Medicine
DX: Z13.220 Encounter for screening for lipoid disorders (principal); I10 Essential (primary) hypertension; I25.10 Atherosclerotic heart disease of native coronary artery without angina pectoris; E55.9 Vitamin D deficiency, unspecified; K75.81 Nonalcoholic steatohepatitis (NASH); E66.09 Other obesity due to excess calories; Z68.34 Body mass index [BMI] 34.0-34.9, adult; E03.9 Hypothyroidism, unspecified; K21.9 Gastro-esophageal reflux disease without esophagitis; E78.5 Hyperlipidemia, unspecified; G47.33 Obstructive sleep apnea (adult) (pediatric); R73.9 Hyperglycemia, unspecified
CPT/HCPCS: 36415; 80053; 80061; 82306; 83036; 83735; 84439; 84443; 84481; 85025

== ENCOUNTER 2025-06-02 13:00 | Outpatient (RCR) | payer MEDICARE, BC, SELFPAY ==
[2024-01-07 10:40] VITALS: BMI 34.7
--- NOTE | 2025-03-14 15:51 | HP.PTEVAL_ITS ---
Patient's Visit Information Visit Information Visit Information: RONI LEWIS is a 74 year old F referred to Physical Therapy by Dr. Rosario Cha MD with a diagnosis of Left Shoulder Pain and Cervicalgia. Date of Evaluation: 03/14/25 Physical Therapist: Talia Lara DPT Visit Plan Frequency: 2x /Week Duration: 4 Weeks Plan: Postural and scapular strength/stabilization, manual STM to cervical musculature and decreasing peripheral s/s HEP Given IE: Postural Education, chin tucks, scapular retractions, upper trap stretch, levator stretch Subjective Subjective: Patient reports that her left arm has been going numb at night- she lays on her right side at night- she saw her MD and he sent her to PT. She has had a pinched nerve on the right and had an EMG on the right and had therapy and it went away. This one feels like a kink in the neck. She feels that she has some disc space narrowing. If she puts pressure in the forearm it makes the pinky goes numb. It will wake her up at night 2-3x. She wears a CPAP. She has tightness in her upper traps but only at night the whole hand goes numb. Some numbness in the pink right now. But normally she does not notice it because she is using it. Right hand dominate. No pain associated with it just numbness- at night she can move around and the numbness goes away. She has not had recent images. She has not had medications or injections. No ANDERSON, blurred vision or dizziness. Does notice decreased child development consultant strength in that left hand. She likes to play on a tablet- on a pillow in a recliner. If she notices anything its in the pinky finger. PMH/Meds: see list in chart. She does have a TENS unit at home- she is not currently using it but she may get it back out. Objective Objective: Posture: forward head, rounded shoulders- can correct with tactile cues but does not maintain Gait: no deviation noted- good arm swing and trunk rotation ROM: WNL in all planes but reports cracking and discomfort with rotation and SB to the left Strength: Scap: fair minus- moderate winging bilateral, Cervical Spine: 4-/5 isometric, Shoulder: flexion: 4-/5, Abd: 3+/5, IR/ER: 4-/5, Extn: 4/5, Elbow/Wrist: 5/5 Design Drafter Chief: equal, Sensation; WNL to gross touch bilatera Palpation: tender along cervical parapspinals, upper trap, levaor insertion, sub occipitals, bicipital groove, medial border of the scapula, infraspinatus. Special Tests C/S Radiculapathy - Left Spurlings: Positive C/S Radiculapathy - Right Spurlings: Positive C/S Radiculapathy - Left Cervical distraction: Positive C/S Radiculapathy - Right Cervical distraction: Positive Balance/Special Test Scores Oswestry Neck Score: 17 Goals Goal 1:: Patient will be I with HEP and progression. Goal Time Frame: 4-6 Weeks Goal 2:: Patient will report no dural s/s for 1 week Goal Time Frame: 4-6 Weeks Goal 3:: Patient will maintain proper posture t/o tx session to demo increased scap s/s Goal Time Frame: 4-6 Weeks Goal 4:: Patient will report 80% improvement Goal Time Frame: 4-6 Weeks Rehabilitation Potential Physical Therapy Diagnosis: Patient presents with decreased pain free ROM, scapular strength/stabilization and muscular endurance leading to poor posture and increased numbness. Rehabilitation Potential: Good Anticipated Interventions Therapeutic Exercise to Include: Strength training, Endurance training, Coordination, Agility training, Body mechanics, Postural training, Flexibilty training, Gait and locomotor training, Neuromotor development, Dynamic Lumbar Stabilization and Scapular Strength/Stabilization For the Purpose of:: To improve muscle performance and motor function TENS: Yes Cryotherapy (ice pack, ice massage): Yes Thermo therapy (hot pack): Yes Text: Thank you for the opportunity to evaluate your patient. For Medicare and Medicare HMO plans, please review the plan of care and approve it. It will need to be FAXED BACK to us at [phone] for Medicare purposes. For Medicare only, by signing this I certify the plan of care. Please let me know if there are questions or concerns regarding this plan of care. Physician Signature: Date:
--- NOTE | 2025-04-14 14:48 | HP.PTREVAL ---
Re-Evaluation Intro: Dr. Rosario Cha MD, It has been my pleasure to treat RONI LEWIS over the last 9 visits for Left Shoulder Pain and Cervicalgia. Please see the progress note below for an update on the physical therapy plan of care! Subjective Subjective: The patient reports that the neck is getting better but the deltoid is not better. She saw the pulmonoligist who reports that she has a stiff right scapula. She only feels that she is 20% better because she feels it daily. She is sleeping better. Exercise and heat makes it feel better. Being static makes it worse. She feels confident with the exercises that she knows. Objective Objective/Function: Posture: forward head, rounded shoulders- can correct with tactile cues but does not maintain Gait: no deviation noted- good arm swing and trunk rotation ROM: WNL in all planes but reports cracking Strength: Scap: fair minus- moderate winging bilateral, Cervical Spine: 4/5 isometric, Shoulder: flexion: 4/5, Abd: 4/5, IR/ER: 4/5, Extn: 4/5, Elbow/Wrist: 5/5 Model Maker Firearms: equal, Sensation; WNL to gross touch bilateral Palpation: tender along cervical parapspinals, upper trap, levaor insertion, suboccipitals, bicipital groove, medial border of the scapula, infraspinatus. Plan Plan Plan: 04/14/25: Focus on exercises and progression to a HEP IE: Postural and scapular strength/stabilization, manual STM to cervical musculature and decreasing peripheral s/s HEP Given IE: Postural Education, chin tucks, scapular retractions, upper trap stretch, levator stretch Balance/Gait/Functional tests Balance/Special Test Scores Oswestry Neck Score: 17 Goals Goals Goal 1:: Patient will be I with HEP and progression. Goal Time Frame: 4-6 Weeks Goal Progress: Progressing Goal 2:: Patient will report no dural s/s for 1 week Goal Time Frame: 4-6 Weeks Goal Progress: Progressing Goal 3:: Patient will maintain proper posture t/o tx session to demo increased scap s/s Goal Time Frame: 4-6 Weeks Goal Progress: Progressing Goal 4:: Patient will report 80% improvement Goal Time Frame: 4-6 Weeks Goal Progress: Progressing Anticipated Interventions Anticipated Interventions Therapeutic Exercise to Include: Strength training, Endurance training, Coordination, Agility training, Body mechanics, Postural training, Flexibilty training, Gait and locomotor training, Neuromotor development, Dynamic Lumbar Stabilization and Scapular Strength/Stabilization For the Purpose of:: To improve muscle performance and motor function TENS: Yes Cryotherapy (ice pack, ice massage): Yes Thermo therapy (hot pack): Yes Re-Evaluation Ending Re-evaluation ending: Please do not hesitate to contact me at [phone] by phone or if you have questions or concerns regarding this new plan of care! Sincerely, ALYCIA SniderT
--- NOTE | 2025-06-02 15:15 | HP.PTDCSUM ---
Discharge Summary D/C summary: It has been my pleasure to treat RONI LEWIS referred by Dr. Rosario Cha MD, with the diagnosis of Left Shoulder Pain and Cervicalgia for a total of 23 visit(s). Discharge Date: Please see the following information for a summary of their discharge status. Subjective Subjective: My left shoulder still pops Pain L SH: Pain Intensity (Out of 10): 1 R SH: Pain Intensity (Out of 10): 0 Overall Improvement % Improvement: 90 Objective Objective/Function: L shoulder pain 10/01 Pt still has intermittent finger tingling at this time Pt is I with HEP Pt has full AROM in B shoulders B shoulders are strong and equal when compared bilaterally Goals Goal 1:: Patient will be I with HEP and progression. Goal Progress: Goal Met Goal 2:: Patient will report no dural s/s for 1 week Goal Progress: Progressing Goal 3:: Patient will maintain proper posture t/o tx session to demo increased scap s/s Goal Progress: Goal Met Goal 4:: Patient will report 80% improvement Goal Progress: Goal Met Plan Plan: Discharge to HEP D/C Information d/c sentence: If there are questions or concerns regarding this patient's physical therapy, please feel free to call me at [phone]. Thank you for the referral of this patient. Sincerely, Gregorio Resendiz, PT, ATC Balance/Gait/Functional tests Balance/Special Test Scores Oswestry Low Back Score: 5 Oswestry Neck Score: 8 Improvement % Improvement: 90
== END 2025-06-02 19:00 | disposition home or self-care (01) ==
LOC: PT 13:00
PROVIDERS: PCP Internal Medicine; Referring Provider Internal Medicine; Visit Provider Internal Medicine
DX: M25.512 Pain in left shoulder (principal); M54.2 Cervicalgia
CPT/HCPCS: 97110; 97140; 97162; 97164; 97530

== ENCOUNTER 2025-07-22 07:44 | Day surgery (SDC) | payer MEDICARE, BC, SELFPAY ==
[2024-01-07 10:40] VITALS: BMI 34.7
--- NOTE | 2025-07-20 14:11 | PAT.ANESEVAL ---
Pre-Assessment Diagnosis/Proposed Procedure Planned Operative Procedure(s): EGD Anesthesia History Anesthesia History - automatic driller and reamer: Anesthesia History - automatic driller and reamer Hx Hospitalization No 07/20/25 11:21 Any Problems With Anesthesia No 07/20/25 11:21 Cholinesterase deficiency No 07/20/25 11:21 You/Your Family Experience No 07/20/25 11:21 fever (hyperthermia) with Relationship Recent Exposure to Contagious No 01/07/24 10:40 Disease Does patient have nerve No 07/20/25 11:21 stimulator Patient instructed to have device shut off --Does patient have Pacemaker or ICD? When Was Last Pacemaker Check QUESTION #4 FULL TEXT: You/Your Family Experience fever (hyperthermia) with Anesthesia Last Oral Intake Last Oral intake: Last Oral Intake NPO since Meds taken in AM with sips of water? Meds patient instructed to take am of surgery PONV PONV - automatic driller and reamer: PONV - automatic driller and reamer Female Yes 07/20/25 11:21 HX of Motion Sickness No 07/20/25 11:21 HX of N/V After Surgery No 07/20/25 11:21 Non-Smoker Yes 07/20/25 11:21 Duration of Surgery greater No 07/20/25 11:21 than 60 minutes Number of Risk Factors 2 07/20/25 11:21 PONV Score Moderate Risk 07/20/25 11:21 Height & Weight Height & Weight: Anesthesia: Height & Weight Height 5 ft 04/13/25 08:06 Respiratory Assessment Respiratory Assessment - automatic driller and reamer: Respiratory Tract Infection Hx - automatic driller and reamer Hx Respiratory Tract Infection No 07/20/25 11:21 STOP Sleep Apnea STOP Sleep Apnea - automatic driller and reamer: STOP Sleep Apnea - automatic driller and reamer Hx Hypertension Yes 07/20/25 11:21 Hx Sleep Apnea Yes 07/20/25 11:21 CPAP No 07/20/25 11:21 BIPAP Yes 07/20/25 11:21 Do you snore loudly (louder than talking or can be heard Do you often feel tired/ fatigued/ sleepy during daytime? Has anyone observed you stop breathing during sleep? STOP Results Positive 07/20/25 11:21 QUESTION #5 FULL TEXT : Do you snore loudly (louder than talking or can be heard through closed doors)? 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 Specify any problems Hx of Preganancy in last 3 No 07/20/25 11:21 Months Nurse Filling Out Transfusion VLEHMAN 07/20/25 11:21 & Questions: Date: 07/20/25 07/20/25 11:21 Time: 11:24 07/20/25 11:21 Patient unable to answer at this time (ie. confused, unrespo /Reproduction History /Reproductive History - automatic driller and reamer: /Reproductive Hx- automatic driller and reamer Hx Now Gestational Age (in weeks): EDC: Hx Hx Para Hx Section SAB No 07/20/25 11:21 PFSH Medical History (Updated 07/20/25 @ 11:27 by Karon Chauhan) Neck pain on left side Left shoulder pain Wears glasses Thyroid disease Restless legs Injury of head and neck History of hiatal hernia History of IBS History of diverticulitis Vocal cord dysfunction Gastric reflux CPAP (continuous positive airway pressure) dependence Shortness of breath on exertion History of echocardiogram History of stress test Hypertension History of CHF (congestive heart failure) Cardiology follow-up encounter Hx of colonic polyps Abdominal pain Pre-operative cardiovascular examination Hyperlipidemia Chest pain Chronic diastolic CHF (congestive heart failure) Atherosclerotic heart disease of [place] coronary artery without angina pectoris Abnormal stress test Dyspnea on exertion Hypertension Diastolic dysfunction Tachycardia Asthma, moderate persistent Diverticulosis IBS (irritable bowel syndrome) Gastroparesis cataracts Bronchospasm Asthmatic bronchitis Gout peroneal nerve pinched Sciatica Arthritis Anxiety Lung nodule Disorder of vocal cord Allergic rhinitis Abnormal pulmonary function test Fatigue GERD (gastroesophageal reflux disease) Asthma Hypothyroidism Asthma exacerbation Hypersomnia KATHARINA (obstructive sleep apnea) Home Medications Medication Instructions Recorded Last Taken Type docusate sodium 100 mg capsule 100 mg PO BID PRN PRN Constipation 11/15/19 Unknown Rx #60 caps nitroglycerin 0.4 mg sublingual 0.4 mg sublingual Q5-15M PRN chest 10/12/21 Unknown Rx tablet pain #25 tabs albuterol sulfate 2.5 mg/3 mL 2.5 mg (3 mL) inhalation Q4H PRN 02/11/22 Unknown Rx (0.083 %) solution for nebulization Sob &/Or Wheezing #180 mL guaifenesin 1,200 mg tablet, 1,200 mg PO PRN PRN ALLERGIES 02/15/22 Unknown History extended release 12 hr aspirin 81 mg tablet,delayed 81 mg PO QHS #90 tabs 04/09/22 07/15/25 Rx release wheat dextrin 3 gram/4 gram oral 1 packet PO DAILY supplement 04/09/22 Unknown History powder albuterol sulfate 90 mcg/actuation 2 puff inhalation Q4H PRN 08/12/24 Unknown Rx aerosol inhaler (Ventolin HFA) shortness of breath or wheezing #18 grams montelukast 10 mg tablet 10 mg PO QHS #90 tabs 08/12/24 Unknown Rx ergocalciferol (vitamin D2) 1,250 50,000 unit PO QWEEK #12 caps 12/29/24 Unknown Rx mcg (50,000 unit) capsule levothyroxine 112 mcg tablet 112 mcg PO DAILY #90 tabs 12/29/24 Unknown Rx sertraline 25 mg tablet 25 mg PO DAILY #90 tabs 12/29/24 Unknown Rx resmetirom 80 mg tablet (Rezdiffra) 80 mg PO QDAY 01/11/25 Unknown History simvastatin 20 mg tablet 20 mg PO QHS #90 tabs 02/22/25 Unknown Rx diltiazem HCl 360 mg capsule,24 360 mg PO QHS #90 caps 02/28/25 Unknown Rx hr,extended release (Tiadylt ER) furosemide 40 mg tablet 40 mg PO DAILY #90 TABLETS 02/28/25 Unknown Rx losartan 25 mg tablet 25 mg PO QHS #90 TABLETS 03/10/25 Unknown Rx ascorbic acid (vitamin C) 500 mg 500 mg PO DAILY 03/14/25 Unknown History capsule vitamin E (dl, acetate) 180 mg 180 mg PO BID 03/14/25 Unknown History (400 unit) capsule omeprazole 40 mg capsule,delayed 40 mg PO BID #180 caps 03/21/25 Unknown Rx release potassium chloride 20 mEq 20 meq PO BID #180 tabs 06/20/25 Unknown Rx tablet,extended release metoclopramide HCl 5 mg tablet 5 mg PO Q8 #90 TABLETS 07/04/25 Unknown Rx Allergy/AdvReac Type Severity Reaction Status Date / Time Environmental Allergies: Allergy Unknown unknown Verified 07/20/25 11:18 Uncoded (dust) mold Allergy Unknown unknown Verified 07/20/25 11:18 chocolate flavor Allergy Unknown Verified 07/20/25 11:18 corn Allergy Unknown Verified 07/20/25 11:18 peanut Allergy Unknown Verified 07/20/25 11:18 Penicillins Allergy Unknown Verified 07/20/25 11:18 Tetracyclines Allergy Unknown Verified 07/20/25 11:18 venom-honey bee (bee venom Allergy Unknown Verified 07/20/25 11:18 (honey bee)) Family History Brother CAD (coronary artery disease) Mother Heart disease Thyroid disorder Parkinson disease Hypertension Arthritis Father Heart disease Cancer Arthritis Hypertension High cholesterol Pulmonary fibrosis Surgical History History of cataract surgery History of hysterectomy Stented coronary artery (04/21/19) History of left heart catheterization (10/28/18) History of tubal ligation History of cholecystectomy History of appendectomy History of tonsillectomy turbinate reduction H/O nasal septoplasty H/O colonoscopy (02/21/22) H/O endoscopy Social History Smoking Status: Never smoker alcohol intake: current alcohol intake frequency: holidays/special occasions only substance use type: does not use caffeine: Yes Type: coffee Number of servings: 1 and tea Number of servings: 1 Audit: Pertinent Findings Pertinent Findings EKG Perinent findings: 10/12/2021. Sinus rhythm. 88 bpm. Consult pertinent findings: Cardiology 03/14/2025. Coronary disease without angina. 50% luminal irregularity proximal OM. All other arteries normal per catheterization 10/28/2018. Stent to coronary artery. 04/21/2019. No further workup. Hypertension chronic. Well-controlled. Recommendation Anesthesia Recommendation Anesthesia recommendation: OPTIMIZED for anesthesia
[2025-07-22] VITALS (9 sets, daily range): BP systolic 128–140; BP diastolic 51–69; PULSE 66–73; RESP 16; TEMP 36.8–37.1; O2SAT 95–98; BMI 40.4
--- OUTSIDE RECORDS SUMMARY | 2025-07-22 08:09 | XMS RPT_ITS | CCD ---
Author Organization [facility] Care Team Providers Care Personal Care Aid Name Role Phone Dr. Phong Quiroga Primary Care Provider Dr. Phong Quiroga Referring Provider Dr. Jesus Alberto Hanson Attending Provider Dr. Neo Mensah Attending Provider Dr. Neo Mensah Referring Provider Dr. Oscar Kimble Attending Provider [phone] Christine HOLDER, PAYMENT ANALYST-C Carolyne Georges Attending Provider Dr. Phong Quiroga Primary Care Provider Dr. Phong Quiroga Referring Provider Dr. Jesus Alberto Hanson Attending Provider Anthony HOLDER, MAGGIE Hightower Attending Provider [phone] Dr. Phong Quiroga Primary Care Provider Dr. Pohng Quiroga Referring Provider Dr. Oscar Kimble Attending Provider [phone] Dr. Oscar Kimble Other Provider Phong Quiroga Referring Provider Unavailable Dr. Phong Quiroga Primary Care Provider Dr. Phong Quiroga Referring Provider Chel HOLDER NP-Jigna Guerrero Attending Provider Dr. Oscar Kimble Attending Provider Dr. Phong Quiroga Primary Care Provider Dr. Phong Quiroga Referring Provider Dr. Neo Mensah Attending Provider Christine PAYMENT ANALYST, PAYMENT ANALYST-C Carolyne Georges Attending Provider Roof PAYMENT ANALYST, PAYMENT ANALYST-C Jose M Guerrero Attending Provider Dr. Rosario Cha Primary Care Provider Dr. Salvatore Dunlap Attending Provider Roof PAYMENT ANALYST, PAYMENT ANALYST-C Jose M H Referring Provider George Webber Attending Provider Unavailable Dr. Rosario Cha Attending Provider Dr. Phong Quiroga Primary Care Provider Dr. Phong Quiroga Referring Provider Roof PAYMENT ANALYST, PAYMENT ANALYST-C Jose M Guerrero Attending Provider Dr. Rosario Cha Primary Care Provider Dr. Salvatore Dunlap Attending Provider Roof PAYMENT ANALYST, PAYMENT ANALYST-C Jose M Guerrero Referring Provider George Webber Attending Provider Unavailable Dr. Rosario Cha Attending Provider Roof PAYMENT ANALYST, PAYMENT ANALYST-C Jose M Guerrero Other Provider Dr. Wilma Almodovar Attending Provider Dr. Phong Quiroga Referring Provider Roof PAYMENT ANALYST, PAYMENT ANALYST-C Jose M Guerrero Attending Provider Dr. Rosario Cha Primary Care Provider Roof PAYMENT ANALYST, PAYMENT ANALYST-C Jose M Guerrero Referring Provider Cruz PAYMENT ANALYST, PAYMENT ANALYST-C Katja Attending Provider Dr. Rosario Cha Primary Care Provider Dr. Rosario Cha Attending Provider Dr. Rosario Cha Referring Provider Dr. Neo Mensah Attending Provider Dr. Rosario Cha Primary Care Provider Dr. Rosario Cha Attending Provider [phone] Rosario Cha Primary Care Provider Dr. Oscar Kimble Attending Provider Dr. Rosario Cha Attending Provider Shyanne NATH, Dr. Moore Attending Provider Shyanne NATH, Dr. Moore Referring Provider Starla LOUISE, Dr. Ponce Primary Care Provider Starla LOUISE, Dr. Ponce Referring Provider Jacquelyn PAYMENT ANALYST-C, Caridad Georges Attending Provider Jacquelyn HOLDER-C, Caridad Georges Referring Provider Starla LOUISE, Dr. Ponce Attending Provider Ceasar NATH, Dr. Boucher Attending Provider [facility] PAYMENT ANALYST-CJose M Attending Provider [phone] Starla LOUISE, Dr. Ponce Primary Care Provider Jacquelyn PAYMENT ANALYST-C, Caridad Georges Attending Physician Starla LOUISE, Dr. Ponce Primary Care Physician [phone] Starla LOUISE, Dr. Ponce Referring Provider Starla LOUISE, Dr. Ponce Attending Physician [phone] Shyanne NATH, Dr. Moore Attending Physician Rosario Cha Referring Unavailable Caridad Valladares Attending Unavailable Oscar Kimble Attending Unavailable Oscar Kimble Attending Unavailable Rosario Cha Primary Care Unavailable Rosario Cha Attending Unavailable Rosario Cha Primary Care Unavailable Rosario Cha Referring Unavailable Katja Cruz NP Attending Unavailable Rosario Cha Primary Care Unavailable Caridad Valladares Referring Unavailable Sander Mcdonough Attending Unavailable Rosario Cha Primary Care Unavailable Rosario Cha Referring Unavailable Oscar Kimble Attending Unavailable Rosario Cha Primary Care Unavailable Caridad Valladares Referring Unavailable Caridad Valladares Attending Unavailable Starla, Rosario Primary Care Unavailable Starla, Rosario Referring Unavailable Friend, Oscar Attending Unavailable Starla, Rosario Primary Care Unavailable Starla, Rosario Referring Unavailable Starla, Rosario Attending Unavailable Starla, Rosario Primary Care Unavailable Starla, Rosario Referring Unavailable Starla, Rosario Attending Unavailable Starla, Rosario Primary Care Unavailable Roof PAYMENT ANALYST, Jose M H Referring Unavailable Roof PAYMENT ANALYST, Jose M Guerrero Attending Unavailable Starla, Rosario Primary Care Unavailable Starla, Rosario Referring Unavailable Starla, Rosario Attending Unavailable Starla, Rosario Primary Care Unavailable Friend, Oscar Attending Unavailable Friend, Oscar Referring Unavailable Starla, Rosario Referring Unavailable Caridad Valladares Attending Unavailable Starla, Rosario Primary Care Unavailable Starla, Rosario Primary Care Unavailable Starla, Rosario Referring Unavailable Roof PAYMENT ANALYST, Jose M H Attending Unavailable Starla, Rosario Primary Care Unavailable Starla, Rosario Attending Unavailable Allergies Allergy Classification Reported Allergen(s) Allergy Type Date of Onset Reaction(s) Facility (20 sources) Chocolate; Translations: [chocolate flavor] Allergy to substance 2 Unknown [facility] (20 sources) corn allergenic extract Drug Allergy 2 Unknown [facility] (20 sources) peanut allergenic extract Drug Allergy 2 Unknown [facility] (20 sources) Penicillins; Translations: [Penicillins] Allergy to substance 2 Unknown [facility] (20 sources) Tetracyclines; Translations: [Tetracyclines] Allergy to substance 2 Unknown [facility] (20 sources) venom-honey bee Allergy to substance 2 Unknown [facility] (4 sources) Environmental allergy Allergy to substance 2 Unknown [facility] (4 sources) Mold Extract Drug Allergy 5 [facility] (5 sources) Environmental Allergies: Uncoded; Translations: [Environmental Allergies: Uncoded] Allergy to substance 5 unknown [facility] (1 source) corn extract Drug Allergy 5 [facility] (1 source) Mold Extract Drug Allergy 5 [facility] (1 source) peanut allergenic extract Drug Allergy 5 [facility] (1 source) venom-honey bee Drug allergy (disorder) 5 [facility] Medications Current Medications Medication Drug Class(es) Dates Sig (Normalized) Sig (Original) ascorbic acid 500 mg oral capsule (20 sources) Vitamin C Start: 03-14-2025 take 1 capsule by mouth once daily Start: 10-21-2022 End: 03-14-2025 take 1 capsule by mouth twice daily Ascorbic Acid (Vitamin C) 500 mg capsule Discontinued 500 mg PO TWICE A DAY October 21, 2022 2:23pm March 14, 2025 1:15pm Start: 11-11-2019 End: 10-21-2022 take 1 capsule by mouth once daily Ascorbic Acid (Vitamin C) 500 MG capsule Discontinued 500 mg PO DAILY November 11, 2019 1:00am October 21, 2022 2:25pm Start: 10-10-2017 End: 03-09-2018 take 1 tablet by mouth at bedtime Ascorbic Acid (Vitamin C) (Vitamin C) 500 mg tablet Discontinued 500 mg PO AT BEDTIME October 10, 2017 1:00am March 09, 2018 1:34pm azithromycin 250 mg oral tablet (2 sources) Macrolide Antimicrobial Start: 12-19-2021 Azithromycin Active 0 PO .COMPLEX 6 December 19, 2021 2:51pm take 500 mg today (day 1), then 250 mg for 4 days (days 2-5) PO benzonatate 200 mg oral capsule (1 source) Non-narcotic Antitussive Start: 02-11-2022 take 200 mg by mouth three times daily Benzonatate Active 200 MG PO THREE TIMES A DAY February 11, 2022 11:19am docusate sodium 100 mg oral capsule (20 sources) Start: 11-15-2019 take 1 capsule by mouth twice daily as needed for constipation 12 hr guaiFENesin 1200 mg extended release oral tablet (20 sources) Start: 02-11-2022 End: 02-15-2022 take 1 tablet by mouth every twelve hours as needed metoclopramide 5 mg oral tablet (20 sources) Dopamine-2 Receptor Antagonist Start: 07-04-2025 take 1 tablet by mouth every eight hours Start: 04-07-2024 End: 07-04-2025 take 1 tablet by mouth every eight hours Metoclopramide Hcl 5 mg tablet Discontinued 5 mg PO EVERY 8 HOURS 90 2 January 07, 2025 11:24am April 11, 2025 7:42am Start: 10-24-2023 End: 2024 take 1 tablet by mouth twice daily Metoclopramide Hcl 5 mg tablet Discontinued 5 mg PO TWICE A DAY 180 90 0 December 16, 2023 12:53pm March 14, 2024 12:00am 2024 12:06am Start: 02-21-2022 End: 04-09-2022 take 1 tablet by mouth at bedtime Metoclopramide Hcl 5 mg tablet Discontinued 5 mg PO before meals and at bedtime 60 0 February 21, 2022 12:00am April 09, 2022 11:36am Start: 02-21-2022 End: 10-24-2023 take 1 tablet by mouth three times daily 30 minutes before mealtime Metoclopramide Hcl 5 mg tablet Discontinued 0 .ROUTE .COMPLEX 270 1 July 22, 2023 9:45am October 24, 2023 11:17am 5 MG ORALLY THREE TIMES A DAY FOR 3 MONTHS ADMINISTER 30 MINUTES BEFORE MEALS nitroglycerin 0.4 mg subling ual tablet (20 sources) Nitrate Vasodilator Start: 04-15-2019 End: 10-12-2021 Start: 04-15-2019 End: 10-12-2021 Nitroglycerin Active 0.4 MG SL every 5 to 15 minutes October 12, 2021 11:40am until response; do not exceed 3 doses per episode omeprazole 40 mg delayed release oral capsule (20 sources) Proton Pump Inhibitor Start: 04-01-2024 End: 03-21-2025 take 1 capsule by mouth twice daily Start: 01-02-2024 End: 04-01-2024 take 2 tablets by mouth twice daily Omeprazole 20 mg tablet,delayed release (DR/EC) Discontinued 40 mg PO TWICE A DAY 180 90 0 March 29, 2024 2:53pm June 26, 2024 12:00am April 01, 2024 3:11pm Start: 11-24-2023 End: 01-02-2024 take 1 tablet by mouth twice daily Omeprazole 20 mg tablet,delayed release (DR/EC) Discontinued 20 mg PO TWICE A DAY 180 90 0 November 24, 2023 2:11pm February 21, 2024 12:00am January 02, 2024 2:48pm Start: 10-24-2023 End: 11-23-2023 take 1 tablet by mouth twice daily Omeprazole 20 mg tablet,delayed release (DR/EC) Discontinued 20 mg PO TWICE A DAY 60 30 0 October 24, 2023 3:02pm November 22, 2023 1:00am November 23, 2023 1:04am Start: 07-21-2019 End: 10-24-2023 take 1 capsule by mouth twice daily Omeprazole 40 mg capsule,delayed release(DR/EC) Discontinued 40 mg PO TWICE A DAY 180 3 November 18, 2022 4:43pm October 24, 2023 11:16am Start: 10-28-2018 End: 04-15-2019 take 1 capsule by mouth twice daily Omeprazole 20 mg capsule,delayed release(DR/EC) Discontinued 20 mg PO TWICE A DAY 60 11 October 28, 2018 10:10am April 15, 2019 9:23am Start: 10-20-2017 End: 10-28-2018 take 1 capsule by mouth once daily Omeprazole 20 mg capsule,delayed release(DR/EC) Discontinued 20 mg PO daily October 20, 2017 1:00am October 28, 2018 10:10am potassium chloride 20 meq extended release oral tablet (20 sources) Start: 03-09-2018 End: 06-20-2025 take 1 tablet by mouth twice daily Start: 10-22-2017 End: 03-09-2018 take 1 tablet by mouth twice daily Potassium Chloride 10 MEQ tablet,ER particles/crystals Discontinued 10 meq PO TWICE A DAY October 22, 2017 1:00am March 09, 2018 1:35pm Resmetirom (1 source) Start: 01-11-2025 take 1 tablet by mouth once daily Resmetirom (Rezdiffra) 80 mg tablet (7 sources) Start: 01-11-2025 take 1 tablet by mouth once daily Resmetirom (Rezdiffra) 80 mg tablet Active 80 mg PO daily January 11, 2025 12:00am vitamin e 180 mg oral capsule (12 sources) Start: 03-14-2025 take 1 capsule by mouth twice daily Start: 04-01-2024 End: 03-14-2025 take 1 capsule by mouth once daily Vitamin E (Dl, Acetate) 180 mg (400 unit) capsule Discontinued 180 mg PO DAILY 90 1 April 01, 2024 12:00am March 14, 2025 1:15pm wheat dextrin 3000 mg powder for oral solution (20 sources) Start: 07-21-2019 End: 04-09-2022 Start: 10-22-2017 End: 03-09-2018 Wheat Dextrin 1 EACH powder in packet Discontinued 1 NMA PO TWICE A DAY October 22, 2017 1:00am March 09, 2018 1:35pm Start: 10-22-2017 End: 03-09-2018 Wheat Dextrin Discontinued 1 EACH PO TWICE A DAY October 22, 2017 12:00am March 09, 2018 12:35pm Completed/Discontinued Medications Medication Drug Class(es) Dates Sig (Normalized) Sig (Original) acetaminophen 325 mg / HYDROcodone bitartrate 5 mg oral tablet (20 sources) Opioid Agonist Start: 10-24-2017 End: 03-09-2018 Hydrocodone-Acetami nophen 1 TABLET tablet Discontinued 1 {tbl} PO EVERY 6 HOURS NEEDED as needed for Moderate-Severe Pain (4-10/10) 30 5 0 October 24, 2017 1:00am March 09, 2018 1:35pm Deviated nasal septum Hypertrophy of both inferior nasal turbinates Deviated nasal septum Hypertrophy of nasal turbinates Start: 10-24-2017 End: 03-09-2018 take 1 tablet by mouth every six hours as needed Hydrocodone-Acetaminophen Discontinued 1 TABLET PO EVERY 6 HOURS NEEDED 30 5 October 24, 2017 12:00am March 09, 2018 12:35pm Start: 11-04-2014 End: 10-10-2017 Hydrocodone-Acetaminophen 1 EACH tablet Discontinued 1 - 2 {tbl} PO EVERY 6 HOURS NEEDED as needed for Pain November 04, 2014 1:00am October 10, 2017 11:20am Start: 11-04-2014 End: 10-10-2017 take 1 tablet by mouth every six hours as needed Hydrocodone-Acetaminophen Discontinued 1 - 2 TABLET PO EVERY 6 HOURS NEEDED November 04, 2014 12:00am October 10, 2017 10:20am [id number] 200 actuat albuterol 0.09 mg/actuat metered dose inhaler (20 sources) beta2-Adrenergic Agonist Start: 03-21-2021 End: 02-11-2022 take 2.5 mg by inhalation every four hours as needed for wheezing Start: 03-21-2021 End: 08-12-2024 Albuterol Sulfate (Ventolin Hfa) 90 mcg/actuation HFA aerosol inhaler Discontinued 2 NMA INHALATION Q4H as needed for shortness of breath or wheezing 18 August 07, 2023 11:15am August 12, 2024 3:15pm Start: 03-21-2021 End: 08-07-2023 take 1 puff(s) by inhalation every four hours Albuterol Sulfate (Ventolin Hfa) 90 mcg/actuation HFA aerosol inhaler Discontinued 2 PUFF INHALATION Q4H February 04, 2023 9:23am August 07, 2023 10:22am Start: 01-13-2018 End: 03-09-2018 Albuterol Sulfate (Ventolin Hfa) 90 mcg/actuation HFA aerosol inhaler Discontinued 2 NMA INHALATION EVERY 6 HOURS as needed for shortness of breath or wheezing 18 January 13, 2018 12:00am March 09, 2018 1:34pm administer with spacer Start: 01-13-2018 End: 03-09-2018 take 1 puff(s) by inhalation every six hours Albuterol Sulfate (Ventolin Hfa) 90 mcg/actuation HFA aerosol inhaler Discontinued 2 PUFF INHALATION EVERY 6 HOURS January 12, 2018 11:00pm March 09, 2018 12:34pm administer with spacer Start: 10-20-2017 End: 01-13-2018 Albuterol Sulfate 1 PUFF inh aler Discontinued 1 - 2 NMA INHALATION Q4H as needed for Wheezing 18 October 20, 2017 2:41pm January 13, 2018 9:11am Start: 10-20-2017 End: 01-13-2018 take 1 puff(s) by inhalation every four hours Albuterol Sulfate Discontinued 1 - 2 PUFF INHALATION Q4H October 20, 2017 1:41pm January 13, 2018 8:11am Start: 10-10-2017 End: 10-20-2017 Albuterol Sulfate 1 PUFF inh aler Discontinued 1 - 2 NMA INHALATION Q4H as needed for Wheezing October 10, 2017 11:15am October 20, 2017 2:43pm Start: 10-10-2017 End: 10-20-2017 take 1 puff(s) by inhalation every four hours Albuterol Sulfate Discontinued 1 - 2 PUFF INHALATION Q4H October 10, 2017 10:15am October 20, 2017 1:43pm Start: 11-04-2014 End: 10-10-2017 Albuterol Sulfate Discontinu ed 18 GM IH NEEDED November 04, 2014 12:21pm October 10, 2017 11:12am Start: 11-04-2014 End: 10-10-2017 take 1 puff(s) by inhalation every six hours as needed Albuterol Sulfate (Proair Hfa (Sp)Vent Pts) 1 PUFF inhaler Discontinued 1 - 2 PUFF INHALATION EVERY 6 HOURS NEEDED November 04, 2014 12:21pm October 10, 2017 11:30am Start: 11-04-2014 End: 10-10-2017 take 1 puff(s) by inhalation every six hours as needed Albuterol Sulfate (Proair Hfa (Sp)Vent Pts) 1 PUFF inhaler Discontinued 1 - 2 NMA INHALATION EVERY 6 HOURS NEEDED as needed for Wheezing November 04, 2014 1:00am October 10, 2017 11:30am Start: 11-04-2014 End: 10-10-2017 Albuterol Sulfate 18 GM HFA aerosol inhaler Discontinued 18 g IH NEEDED as needed for Wheezing November 04, 2014 1:00am October 10, 2017 11:12am Start: 11-04-2014 End: 10-10-2017 take 1 puff(s) by inhalation every six hours as needed Albuterol Sulfate (Proair Hfa (Sp)Vent Pts) 1 PUFF inhaler Discontinued 1 - 2 PUFF INHALATION EVERY 6 HOURS NEEDED November 04, 2014 12:00am October 10, 2017 10:30am Start: 11-04-2014 End: 10-10-2017 Albuterol Sulfate Discontinu ed 18 GM IH NEEDED November 04, 2014 12:00am October 10, 2017 10:12am amLODIPine 5 mg oral tablet (20 sources) Dihydropyridine Calcium Channel Hiram Start: 10-20-2017 End: 03-09-2018 take 1 tablet by mouth at bedtime Amlodipine 5 mg tablet Discontinued 5 mg PO AT BEDTIME October 20, 2017 1:00am March 09, 2018 1:54pm aspirin 81 mg delayed release oral tablet (20 sources) Platelet Aggregation Inhibitor, Nonsteroidal Anti-inflammatory Drug Start: 10-20-2018 End: 04-09-2022 take 1 tablet by mouth at bedtime Aspirin 81 mg tablet,delayed release (DR/EC) Discontinued 81 mg PO AT BEDTIME 90 3 April 13, 2021 10:37am April 09, 2022 12:09pm Beclomethasone Dipropionate (20 sources) Corticosteroid Start: 11-04-2014 End: 10-10-2017 take 1 puff(s) by inhalation once daily Beclomethasone Dipropionate Discontinued 2 PUFF INHALATION DAILY November 04, 2014 12:21pm October 10, 2017 11:30am Start: 11-04-2014 End: 10-10-2017 Beclomethasone Dipropionate 1 PUFF inhaler Discontinued 2 NMA INHALATION DAILY November 04, 2014 1:00am October 10, 2017 11:30am Start: 11-04-2014 End: 10-10-2017 take 1 puff(s) by inhalation once daily Beclomethasone Dipropionate Discontinued 2 PUFF INHALATION DAILY November 04, 2014 12:00am October 10, 2017 10:30am Start: 11-04-2014 End: 10-10-2017 take 1 puff(s) by inhalation once daily Beclomethasone Dipropionate Discontinued 2 PUFF INHALATION DAILY November 04, 2014 1:00am October 10, 2017 11:30am 120 actuat budesonide 0.16 mg/actuat / formoterol fumarate 0.0045 mg/actuat metered dose inhaler (20 sources) Corticosteroid, beta2-Adrenergic Agonist Start: 03-22-2021 End: 08-07-2023 Budesonide-Formoterol (Symbicort) 160-4.5 mcg/actuation HFA aerosol inhaler Discontinued 2 NMA INHALATION TWICE A DAY 10.2 3 August 06, 2021 11:07am August 06, 2022 12:06pm administer with spacer, rinse mouth after each use Start: 03-22-2021 End: 08-07-2023 take 1 puff(s) by mouth twice daily Budesonide-Formoterol (Symbicort) 160-4.5 mcg/actuation HFA aerosol inhaler Discontinued 2 PUFF INHALATION TWICE A DAY 10.2 August 06, 2021 10:07am August 06, 2022 11:06am administer with spacer, rinse mouth after each use Start: 03-21-2021 End: 03-22-2021 take 1 puff(s) by mouth twice daily Budesonide-Formoterol (Symbicort) 160-4.5 mcg/actuation HFA aerosol inhaler Discontinued 2 PUFF INHALATION TWICE A DAY 1 March 21, 2021 8:03am March 22, 2021 6:31am administer with spacer, rinse mouth after each use Start: 03-21-2021 End: 03-22-2021 Budesonide-Formoterol (Symbi natalio) 160-4.5 mcg/actuation HFA aerosol inhaler Discontinued 2 NMA INHALATION TWICE A DAY 1 March 21, 2021 12:00am March 22, 2021 6:31am administer with spacer, rinse mouth after each use Start: 03-21-2021 End: 03-22-2021 Budesonide-Formoterol (Symbi natalio) 160-4.5 mcg/actuation HFA aerosol inhaler Discontinued 2 NMA INHALATION TWICE A DAY 1 March 21, 2021 12:00am March 22, 2021 6:31am administer with spacer, rinse mouth after each use Start: 03-21-2021 End: 03-22-2021 take 1 puff(s) by mouth twice daily Budesonide-Formoterol (Symbicort) 160-4.5 mcg/actuation HFA aerosol inhaler Discontinued 2 PUFF INHALATION TWICE A DAY 1 March 20, 2021 11:00pm March 22, 2021 5:31am administer with spacer, rinse mouth after each use Start: 03-21-2021 End: 03-22-2021 take 1 puff(s) by mouth twice daily Budesonide-Formoterol (Symbicort) 160-4.5 mcg/actuation HFA aerosol inhaler Discontinued 2 PUFF INHALATION TWICE A DAY 1 March 21, 2021 12:00am March 22, 2021 6:31am administer with spacer, rinse mouth after each use Jtijjlk-Jsjwhqyei-Eitv (20 sources) Start: 03-09-2018 End: 04-15-2019 take 2 tablets by mouth once daily Spnglze-Bnfeffymw-Rldy Discontinued 2 TABLET PO DAILY March 09, 2018 1:36pm April 15, 2019 9:23am Start: 03-09-2018 End: 04-15-2019 Varihpt-Yatzavyqp-Fdll 333-1 33-5 mg tablet Discontinued 2 {tbl} PO DAILY 0 March 09, 2018 12:00am April 15, 2019 9:23am Start: 03-09-2018 End: 04-15-2019 Flhicyr-Rihkdgrmt-Oari 333-1 33-5 mg tablet Discontinued 2 {tbl} PO DAILY March 09, 2018 12:00am April 15, 2019 9:23am Start: 03-09-2018 End: 04-15-2019 take 2 tablets by mouth once daily Oimibvg-Gxovygmki-Wnrr Discontinued 2 TABLET PO DAILY March 08, 2018 11:00pm April 15, 2019 8:23am Start: 03-09-2018 End: 04-15-2019 take 2 tablets by mouth once daily Vclqjvj-Uescjovce-Loab Discontinued 2 TABLET PO DAILY March 09, 2018 12:00am April 15, 2019 9:23am cholecalciferol 1.25 mg oral capsule (20 sources) Vitamin D Start: 10-20-2017 End: 04-15-2019 take 1 capsule by mouth every other week Cholecalciferol (Vitamin D3) 50,000 unit capsule Discontinued 69430 U PO EVERY WEEK January 13, 2018 8:48am April 15, 2019 9:21am 50,000 unit PO every other week Start: 10-10-2017 End: 10-20-2017 Cholecalciferol (Vitamin D3) 50,000 unit capsule Discontinued 43650 U PO .qmonthly October 10, 2017 1:00am October 20, 2017 2:31pm citalopram 20 mg oral tablet (20 sources) Serotonin Reuptake Inhibitor Start: 11-04-2014 End: 10-10-2017 take 1 tablet by mouth once daily Citalopram 20 MG tablet Discontinued 20 mg PO DAILY November 04, 2014 1:00am October 10, 2017 11:30am clopidogrel 75 mg oral tablet (20 sources) [id number] Platelet Inhibitor Start: 04-15-2019 End: 02-23-2024 take 1 tablet by mouth once daily Clopidogrel (Plavix) 75 mg tablet Discontinued 75 mg PO DAILY 3 May 09, 2023 8:27am February 23, 2024 1:26pm Start: 10-20-2018 End: 10-28-2018 take 1 tablet by mouth once daily Clopidogrel (Plavix) 75 mg tablet Discontinued 75 mg PO DAILY 30 3 October 20, 2018 1:00am October 28, 2018 10:09am dexlansoprazole 30 mg delayed release oral capsule (20 sources) Proton Pump Inhibitor Start: 11-04-2014 End: 10-10-2017 Dexlansoprazole 30 MG capsule,biphase delayed releas Discontinued 40 mg PO DAILY November 04, 2014 1:00am October 10, 2017 11:20am Start: 11-04-2014 End: 10-20-2017 take 1 capsule by mouth once daily Dexlansoprazole 60 MG capsule,biphase delayed releas Discontinued 60 mg PO DAILY November 04, 2014 1:00am October 20, 2017 2:30pm Start: 11-04-2014 End: 10-10-2017 take 40 mg by mouth once daily Dexlansoprazole Discont inued 40 MG PO DAILY November 04, 2014 12:00am October 10, 2017 10:20am 24 hr dilTIAZem hydrochloride 360 mg extended release oral capsule (20 sources) Calcium Channel Hiram Start: 11-11-2019 End: 02-28-2025 take 1 capsule by mouth at bedtime, then take 1 capsule by mouth every twenty-four hours Diltiazem Hcl (Tiadylt Er) 360 mg capsule,extended release 24 hr Discontinued 360 mg PO AT BEDTIME 90 3 March 08, 2024 8:06am February 28, 2025 8:24am Start: 10-12-2018 End: 03-26-2023 take 1 capsule by mouth once daily Diltiazem Hcl 360 mg capsule,extended release 24 hr Discontinued 360 mg PO DAILY 90 3 April 15, 2019 9:23am November 11, 2019 2:20pm Start: 10-12-2018 End: 10-12-2018 take 1 tablet by mouth once daily Diltiazem Hcl (Cardizem La) 360 mg tablet extended release 24 hr Discontinued 360 mg PO DAILY 90 3 October 12, 2018 1:00am October 12, 2018 5:46pm Start: 03-24-2018 End: 10-12-2018 take 1 capsule by mouth once daily Diltiazem Hcl 240 mg capsule,extended release 24hr Discontinued 240 mg PO daily 90 3 April 23, 2018 3:43pm October 12, 2018 5:43pm Start: 03-09-2018 End: 03-24-2018 take 1 capsule by mouth once daily, then take 1 capsule by mouth every twenty-four hours Diltiazem Hcl (Cardizem Cd) 120 mg capsule,extended release 24hr Discontinued 120 mg PO daily March 09, 2018 12:00am March 09, 2018 1:58pm Start: 10-10-2017 End: 10-20-2017 take 1 capsule by mouth once daily, then take 1 capsule by mouth every twenty-four hours Diltiazem Hcl (Cardizem Cd) 360 mg capsule,extended release 24hr Discontinued 360 mg PO daily October 10, 2017 1:00am October 20, 2017 2:29pm ergocalciferol 1.25 mg oral capsule (20 sources) Provitamin D2 Compound Start: 02-11-2022 End: 12-29-2024 Ergocalciferol (Vitamin D2) 1,250 mcg (50,000 unit) capsule Discontinued [id number] U PO EVERY WEEK 12 January 29, 2024 12:43pm December 29, 2024 2:05pm Start: 02-11-2022 End: 11-18-2022 take 09905 [IU] by mouth every week Ergocalciferol (Vitamin D2) Active 15949 UNIT PO EVERY WEEK November 18, 2022 3:42pm estradiol 0.1 mg/ml vaginal cream (20 sources) Estrogen Start: 11-01-2019 End: 04-09-2022 Estradiol (Estrace) 0.01 % (0.1 mg/gram) cream Discontinued 1 g VAGINAL TWICE A WEEK November 01, 2019 1:00am April 09, 2022 11:34am ferrous sulfate 325 mg oral tablet (20 sources) Start: 10-20-2017 End: 01-11-2019 take 1 tablet by mouth at bedtime Ferrous Sulfate 325 mg (65 mg iron) tablet Discontinued 325 mg PO AT BEDTIME 0 October 20, 2017 1:00am January 11, 2019 9:43am fluconazole 100 mg oral tablet (20 sources) Azole Antifungal Start: 04-14-2024 End: 08-12-2024 take 2 tablets by mouth once daily, then take 1 tablet by mouth once daily Fluconazole 100 mg tablet Discontinued 100 mg PO DAILY 7 0 April 14, 2024 7:56am August 12, 2024 2:52pm Take 2 tabs today then one daily until finished. Start: 02-12-2024 End: 02-23-2024 take 1 tablet by mouth once daily Fluconazole 100 mg tablet Discontinued 100 mg PO daily 7 February 12, 2024 12:00am February 23, 2024 1:06pm Start: 01-07-2024 End: 02-12-2024 take 2 tablets by mouth once daily, then take 1 tablet by mouth once daily Fluconazole 100 mg tablet Discontinued 100 mg PO DAILY 7 January 07, 2024 12:00am February 12, 2024 1:07pm Take 2 tabs today then one daily until finished. fluticasone propionate 0.05 mg/actuat metered dose nasal spray (20 sources) Corticosteroid Start: 01-13-2018 End: 03-09-2018 take 50 ug nasal route once daily Fluticasone Propionate (Flonase Allergy Relief) 50 mcg/actuation spray,suspension Discontinued 2 NMA INTRANASAL daily 16 January 13, 2018 12:00am March 09, 2018 1:35pm administer into each nostril Start: 01-13-2018 End: 03-09-2018 take 1 spray(s) nasal route once daily Fluticasone Propionate (Flonase Allergy Relief) 50 mcg/actuation spray,suspension Discontinued 2 SPRAY INTRANASAL daily January 12, 2018 11:00pm March 09, 2018 12:35pm administer into each nostril Start: 11-04-2014 End: 10-10-2017 Fluticasone Propionate 1 SPR AY spray,suspension Discontinued 2 NMA NASAL DAILY November 04, 2014 1:00am October 10, 2017 11:20am Start: 11-04-2014 End: 10-10-2017 Fluticasone Propionate Disco ntinued 2 SPRAY NASAL DAILY November 04, 2014 12:00am October 10, 2017 10:20am 30 actuat fluticasone furoate 0.2 mg/actuat / vilanterol 0.025 mg/actuat dry powder inhaler (20 sources) Corticosteroid, beta2-Adrenergic Agonist Start: 09-05-2023 End: 08-12-2024 Fluticasone Furoate-Vilanterol (Breo Ellipta) 200-25 mcg/dose blister with device Discontinued 1 NMA INHALATION daily 3 October 02, 2023 1:56pm August 12, 2024 2:51pm after inhalation, rinse mouth with water and spit out; do not swallow Start: 09-05-2023 End: 10-02-2023 Fluticasone Furoate-Vilanter ol (Breo Ellipta) 200-25 mcg/dose blister with device Active 1 INH INHALATION daily 3 October 02, 2023 12:56pm after inhalation, rinse mouth with water and spit out; do not swallow 120 actuat formoterol fumarate 0.005 mg/actuat / mometasone furoate 0.2 mg/actuat metered dose inhaler (20 sources) Corticosteroid, beta2-Adrenergic Agonist Start: 11-04-2014 End: 10-10-2017 Mometasone-Formoterol 8.8 GM HFA aerosol inhaler Discontinued 2 NMA IH TWICE A DAY November 04, 2014 1:00am October 10, 2017 11:20am Start: 11-04-2014 End: 10-10-2017 take 1 puff(s) by inhalation twice daily Mometasone-Formoterol Discontinued 2 PUFF IH TWICE A DAY November 04, 2014 12:00am October 10, 2017 10:20am furosemide 40 mg oral tablet (20 sources) Loop Diuretic Start: 10-10-2017 End: 02-28-2025 take 1 tablet by mouth once daily Furosemide 40 mg tablet Discontinued 40 mg PO DAILY 90 3 March 08, 2024 8:06am February 28, 2025 8:24am hydroCHLOROthiazide 25 mg oral tablet (20 sources) Thiazide Diuretic Start: 11-04-2014 End: 10-10-2017 take 1 tablet by mouth once daily Hydrochlorothiazide 25 MG tablet Discontinued 25 mg PO DAILY November 04, 2014 1:00am October 10, 2017 11:20am imiquimod 50 mg/ml topical cream (20 sources) Start: 11-04-2014 End: 10-10-2017 Imiquimod 1 EACH cream in packet Discontinued 1 NMA TP DAILY November 04, 2014 1:00am October 10, 2017 11:20am levoFLOXacin 500 mg oral tablet (20 sources) Quinolone Antimicrobial Start: 02-12-2016 End: 10-10-2017 take 1 tablet by mouth once daily Levofloxacin 500 MG tablet Discontinued 500 mg PO DAILY February 12, 2016 12:00am October 10, 2017 11:12am levothyroxine sodium 0.112 mg oral tablet (20 sources) l-Thyroxine Start: 04-09-2022 End: 12-29-2024 take 1 tablet by mouth once daily Levothyroxine 112 mcg tablet Discontinued 112 ug PO DAILY 90 3 January 29, 2024 12:43pm December 29, 2024 2:05pm Start: 10-10-2017 take 1 tablet by chuy th once daily Levothyroxine (Synthroid) 100 mcg tablet Active 100 MCG PO DAILY October 10, 2017 11:13am Start: 10-10-2017 End: 04-09-2022 Levothyroxine (Synthroid) 10 0 mcg tablet Discontinued 112 ug PO DAILY 0 October 10, 2017 1:00am April 09, 2022 11:35am lisinopril 5 mg oral tablet (20 sources) Angiotensin Converting Enzyme Inhibitor Start: 02-12-2021 End: 04-02-2021 take 1 tablet by mouth once daily Lisinopril 5 mg tablet Discontinued 5 mg PO daily 30 February 12, 2021 12:00am April 02, 2021 1:02pm losartan potassium 25 mg oral tablet (20 sources) Angiotensin 2 Receptor Hiram Start: 04-02-2021 End: 03-10-2025 take 1 tablet by mouth at bedtime Losartan 25 mg tablet Discontinued 25 mg PO AT BEDTIME 90 3 April 02, 2024 8:33am March 10, 2025 7:57am meloxicam 15 mg oral tablet (20 sources) Nonsteroidal Anti-inflammatory Drug Start: 10-10-2017 End: 04-15-2019 take 1 tablet by mouth at bedtime Meloxicam 15 mg tablet Discontinued 15 mg PO AT BEDTIME October 10, 2017 1:00am April 15, 2019 9:22am montelukast 10 mg oral tablet (20 sources) Leukotriene Receptor Antagonist Start: 11-04-2014 End: 08-12-2024 take 1 tablet by mouth at bedtime Montelukast 10 mg tablet Discontinued 10 mg PO AT BEDTIME 90 3 November 18, 2022 4:43pm February 04, 2023 10:22am Quepgqqwplqe-Th-Vi on-Minerals (Multiple Vitamin, Womens) tablet (20 sources) Start: 10-10-2017 End: 03-09-2018 take 1 tablet by mouth once daily Tamihqpjqhaq-Sr-Oo on-Minerals (Multiple Vitamin, Womens) tablet Discontinued 1 TABLET PO daily October 10, 2017 11:16am March 09, 2018 1:35pm Start: 10-10-2017 End: 03-09-2018 Mlpymhfcmqsp-Mk-Rgxp-Mineral s (Multiple Vitamin, Womens) tablet Discontinued 1 {tbl} PO daily as needed for Supplement Polisher Eyeglass Frames 0 October 10, 2017 1:00am March 09, 2018 1:35pm Start: 10-10-2017 End: 03-09-2018 Phjbmbfuhaqw-Nt-Nxoz-Mineral s (Multiple Vitamin, Womens) tablet Discontinued 1 {tbl} PO daily as needed for Supplement Polisher Eyeglass Frames October 10, 2017 1:00am March 09, 2018 1:35pm Start: 10-10-2017 End: 03-09-2018 take 1 tablet by mouth once daily Twajvzegsslp-Ew-Iqpi-Minerals (Multiple Vitamin, Womens) tablet Discontinued 1 TABLET PO daily October 10, 2017 12:00am March 09, 2018 12:35pm Start: 10-10-2017 End: 03-09-2018 take 1 tablet by mouth once daily Jbqxgxbgcxwj-Yu-Effe-Minerals (Multiple Vitamin, Womens) tablet Discontinued 1 TABLET PO daily October 10, 2017 1:00am March 09, 2018 1:35pm nystatin [id number] unt/ml oral suspension (8 sources) Polyene Antifungal Start: 04-13-2024 End: 04-14-2024 take 1 mL by mouth four times daily Nystatin 100,000 unit/mL suspension Discontinued 5 mL PO .qid 250 10 1 April 13, 2024 12:00am April 14, 2024 7:56am swish and swallow oxyCODONE hydrochloride 5 mg oral tablet (20 sources) Opioid Agonist Start: 11-15-2019 End: 11-22-2019 take 1 tablet by mouth every six hours as needed for pain Oxycodone 5 MG tablet Discontinued 5 mg PO EVERY 6 HOURS NEEDED as needed for Pain Score 6-10/10 14 7 0 November 15, 2019 November 21, 2019 1:00am November 22, 2019 1:09am Other acute postprocedural pain pantoprazole 40 mg delayed release oral tablet (8 sources) Proton Pump Inhibitor Start: 04-01-2024 End: 04-01-2024 take 1 tablet by mouth twice daily Pantoprazole 40 mg tablet,delayed release (DR/EC) Discontinued 40 mg PO TWICE A DAY 180 April 01, 2024 12:00am April 01, 2024 3:16pm potassium citrate 10 meq extended release oral tablet (20 sources) Start: 10-10-2017 End: 10-20-2017 take 2 tablets by mouth once daily Potassium Citrate 10 MEQ tablet extended release Discontinued 20 meq PO DAILY October 10, 2017 11:13am October 20, 2017 2:31pm Start: 10-10-2017 End: 10-20-2017 take 20 mEq by mouth once daily Potassium Citrate Disc ontinued 20 MEQ PO DAILY October 10, 2017 10:13am October 20, 2017 1:31pm Start: 11-04-2014 End: 10-10-2017 take 1 tablet by mouth once daily Potassium Citrate 10 MEQ tablet extended release Discontinued 10 meq PO DAILY November 04, 2014 1:00am October 10, 2017 11:30am predniSONE 20 mg oral tablet (10 sources) Start: 12-30-2023 End: 01-07-2024 take 3 tablets by mouth once daily at mealtime Prednisone 20 mg tablet Discontinued 60 mg PO daily 15 0 December 30, 2023 12:00am January 07, 2024 1:27pm administer with food or milk Start: 12-19-2021 Prednisone Act anabelle 10 MG PO daily December 19, 2021 2:51pm take 4 tabs for three days, then 3 tabs for three days, then 2 tabs for three days, then 1 tab for 3 days sertraline 25 mg oral tablet (20 sources) Serotonin Reuptake Inhibitor Start: 04-15-2019 End: 12-29-2024 take 1 tablet by mouth once daily Sertraline 25 mg tablet Discontinued 25 mg PO DAILY 90 January 29, 2024 12:43pm December 29, 2024 2:05pm simvastatin 20 mg oral tablet (20 sources) HMG-CoA Reductase Inhibitor Start: 10-28-2018 End: 02-22-2025 take 1 tablet by mouth at bedtime Simvastatin 20 mg tablet Discontinued 20 mg PO AT BEDTIME 90 3 March 22, 2024 8:07am February 22, 2025 8:07am sucralfate 1000 mg oral tablet (8 sources) Aluminum Complex Start: 01-02-2024 End: 02-23-2024 take 1 tablet by mouth before mealtime Sucralfate 1 gram tablet Discontinued 1 g PO before meals 90 0 January 02, 2024 12:00am February 23, 2024 1:06pm tiotropium 0.018 mg inhalation powder (20 sources) Anticholinergic Start: 11-04-2014 End: 10-10-2017 Tiotropium [place] 1 PUFF inhaler Discontinued 1 NMA INHALATION DAILY November 04, 2014 1:00am October 10, 2017 11:20am Start: 11-04-2014 End: 10-10-2017 take 1 puff(s) by inhalation once daily Tiotropium [place] Discontinued 1 PUFF INHALATION DAILY November 04, 2014 12:00am October 10, 2017 10:20am tretinoin 0.51837 mg/mg topical gel (20 sources) Retinoid Start: 11-04-2014 End: 10-10-2017 Tretinoin 45 GM gel Discontinued 20 g TP DAILY November 04, 2014 1:00am October 10, 2017 11:20am Start: 11-04-2014 End: 10-10-2017 Tretinoin Discontinued 20 GM TP DAILY November 04, 2014 12:00am October 10, 2017 10:20am triamcinolone acetonide 1 mg/ml topical cream (20 sources) Corticosteroid Start: 11-04-2014 End: 10-10-2017 Triamcinolone Acetonide 1 APPLIC cream Discontinued 1 NMA TOPICAL TWICE A DAY November 04, 2014 1:00am October 10, 2017 11:20am Start: 11-04-2014 End: 10-10-2017 Triamcinolone Acetonide Disc ontinued 1 APPLIC TOPICAL TWICE A DAY November 04, 2014 12:00am October 10, 2017 10:20am ursodiol 300 mg oral capsule (16 sources) Bile Acid Start: 04-01-2024 End: 03-07-2025 take 1 capsule by mouth twice daily Ursodiol 300 mg capsule Discontinued 300 mg PO TWICE A DAY 180 3 April 01, 2024 3:12pm March 07, 2025 2:52pm Problems Active Problems Problem Classification Problem Date Documented Date Episodic/Chronic Abdominal pain (20 sources) Abdominal pain; Translations: [Unspecified abdominal pain] Episodic Administrative/social admission (2 sources) Persons encountering health services in other specified circumstances; Translations: [Other reasons for seeking consultation] 11-18-2022 Episodic Asthma (20 sources) Moderate persistent asthma; Translations: [Moderate persistent asthma, uncomplicated] Onset: 03-07-20 Chronic Cardiac dysrhythmias (20 sources) Tachycardia; Translations: [Tachycardia, unspecified] 10-20-2018 Episodic Cataract (17 sources) Bilateral cataracts 04-10-2022 Chronic Congestive heart failure; nonhypertensive (20 sources) Chronic diastolic heart failure; Translations: [Chronic diastolic (congestive) heart failure] Chronic Coronary atherosclerosis and other heart disease (20 sources) Coronary atherosclerosis; Translations: [Atherosclerotic heart disease of [place] coronary artery without angina pectoris] Onset: 03-07-20 Chronic Comment on above: Up to 50% luminal ir regularities in proximal OM 1, all other arteries normal per [facility] 10/28/18.Single vessel CAD of the Ramus IntermediusSuccessful PTCA/MATTY of proximal Ramus Intermedius with a 2.25 x 12 Promus Synergy, 75%-->0%, no dissection. Pt had identical CP during stent deployment as she has been having at home. 04/21/2019 Disorders of lipid metabolism (20 sources) Hyperlipidemia; Translations: [Hyperlipidemia, unspecified] Onset: 10-15-19 Chronic Diverticulosis and diverticulitis (20 sources) Diverticula of intestine; Translations: [Diverticulosis of intestine, part unspecified, without perforation or abscess without bleeding] Chronic Esophageal disorders (20 sources) Gastroesophageal reflux disease; Translations: [Gastro-esophageal reflux disease without esophagitis] Onset: 03-07-20 Chronic Essential hypertension (20 sources) Hypertensive disorder; Translations: [Essential (primary) hypertension] Onset: 03-07-20 Chronic Hepatitis (20 sources) Nonalcoholic steatohepatitis; Translations: [Nonalcoholic steatohepatitis (HERNANDEZ)] Onset: 03-07-2001-11-2025 Chronic Malaise and fatigue (20 sources) Fatigue; Translations: [Other fatigue] 10-21-2022 Episodic Mycoses (8 sources) Candidiasis of mouth; Translations: [Candidal stomatitis] 02-12-2024 Episodic Nonspecific chest pain (20 sources) Chest pain; Translations: [Chest pain, unspecified] 07-21-2019 Episodic Nutritional deficiencies (1 source) Vitamin D deficiency, unspecified; Translations: [Vitamin D deficiency, unspecified] Onset: 03-07-20 Chronic Other and ill-defined heart disease (20 sources) Diastolic dysfunction; Translations: [Other ill-defined heart diseases] 10-12-2018 Chronic Other and unspecified benign neoplasm (20 sources) History of polyp of colon; Translations: [Personal history of colonic polyps] 12-05-2021 Episodic Other and unspecified benign neoplasm (3 sources) Personal history of colonic polyps; Translations: [Personal history of colonic polyps] Episodic Other gastrointestinal disorders (20 sources) Irritable bowel syndrome; Translations: [Irritable bowel syndrome without diarrhea] 12-05-2021 Chronic Other gastrointestinal disorders (3 sources) Irritable bowel syndrome without diarrhea; Translations: [Irritable bowel syndrome] Chronic Other gastrointestinal disorders (20 sources) Constipation; Translations: [Constipation, unspecified] 07-04-2022 Episodic Other gastrointestinal disorders (4 sources) Constipation, unspecified; Translations: [Constipation, unspecified] Episodic Other liver diseases (20 sources) Steatosis of liver; Translations: [Fatty (change of) liver, not elsewhere classified] 07-04-2022 Chronic Other liver diseases (10 sources) Fatty (change of) liver, not elsewhere classified; Translations: [Other chronic nonalcoholic liver disease] Onset: 03-07-20 Chronic Other lower respiratory disease (20 sources) Dyspnea on exertion; Translations: [Dyspnea, unspecified] 04-08-2019 Episodic Other non-traumatic joint disorders (10 sources) Pain in left shoulder; Translations: [Left shoulder pain] Onset: 06-03-20 25 03-07-2025 Episodic Other nutritional; endocrine; and metabolic disorders (20 sources) Body mass index 30+ - obesity; Translations: [Body mass index (BMI) 39.0-39.9, adult] 07-09-2018 Chronic Other nutritional; endocrine; and metabolic disorders (12 sources) Body mass index (BMI) 39.0-39.9, adult; Translations: [Body Mass Index 39.0-39.9, adult] Chronic Other nutritional; endocrine; and metabolic disorders (18 sources) Obesity; Translations: [Obesity, unspecified] 02-12-2024 Chronic Other nutritional; endocrine; and metabolic disorders (1 source) Other obesity due to excess calories; Translations: [Other obesity due to excess calories] Onset: 03-07-20 Chronic Other nutritional; endocrine; and metabolic disorders (1 source) Body mass index (BMI) 34.0-34.9, adult; Translations: [Body mass index [BMI] 34.0-34.9, adult] Onset: 03-07-20 Chronic Other upper respiratory disease (20 sources) Hypertrophy of nasal turbinates; Translations: [Hypertrophy of nasal turbinates] 11-14-2019 Episodic Other upper respiratory disease (20 sources) Vocal cord dysfunction; Translations: [Other diseases of vocal cords] 10-24-2017 Episodic Other upper respiratory disease (20 sources) Deviated nasal septum; Translations: [Deviated nasal septum] 11-14-2019 Episodic Other upper respiratory disease (2 sources) Other diseases of vocal cords; Translations: [Other diseases of vocal cords] 11-18-2022 Episodic Peripheral and visceral atherosclerosis (18 sources) Intermittent claudication; Translations: [Peripheral vascular disease, unspecified] 10-21-2022 Chronic Residual codes; unclassified (20 sources) Obstructive sleep apnea syndrome; Translations: [Obstructive sleep apnea (adult) (pediatric)] 08-06-2022 Chronic Comment on above: Well-controlled on A utoPap Residual codes; unclassified (11 sources) Obstructive sleep apnea (adult) (pediatric); Translations: [Obstructive sleep apnea (adult)(pediatric)] Onset: 03-07-20 Chronic Spondylosis; intervertebral disc disorders; other back problems (10 sources) Neck pain; Translations: [Cervicalgia] Onset: 06-03-2003-07-2025 Episodic Thyroid disorders (20 sources) Hypothyroidism; Translations: [Hypothyroidism, unspecified] Onset: 03-07-20 25 11-01-2019 Chronic Unclassified (10 sources) Left shoulder pain; Translations: [M25.512 - Pain in left shoulder,M54.2 - Cervicalgia] Unclassified (4 sources) Neck pain on left side Past or Other Problems Problem Classification Problem Date Documented Date Episodic/Chronic Coronary atherosclerosis and other heart disease (20 sources) Stented coronary artery; Translations: [Presence of coronary angioplasty implant and graft] Onset: 04-21-20 Episodic Comment on above: Single vessel CAD of the Ramus IntermediusSuccessful PTCA/MATTY of proximal Ramus Intermedius with a 2.25 x 12 Promus Synergy, 75%-->0%, no dissection. Pt had identical CP during stent deployment as she has been having at home. Diabetes mellitus without complication (1 source) Hyperglycemia, unspecified; Translations: [Hyperglycemia, unspecified] Onset: 03-07-20 Episodic Immunizations and screening for infectious disease (1 source) Encounter for immunization; Translations: [Encounter for immunization] Onset: 08-12-20 Episodic Other screening for suspected conditions (not mental disorders or infectious disease) (20 sources) Cardiovascular stress test abnormal; Translations: [Abnormal result of other cardiovascular function study] Onset: 03-10-2004-08-2019 Episodic Residual codes; unclassified (20 sources) History of cardiac catheterization; Translations: [Other specified postprocedural states] Onset: 10-28-1910-28-2018 Episodic Comment on above: Up to 50% luminal ir regularities in proximal OM 1, all other arteries normal per [facility] done @ [facility], Dr. Olmedo Unclassified (17 sources) peroneal nerve pinched 04-10-2022 Unclassified (17 sources) turbinate reduction 04-10-2022 Comment on above: 10/24/2017 Results Test Name Value Interpretation Reference Range Facility MR/PATFrancisSandy 07-20-2025 MR/PAT.YAA [facility] Medical Records Department [address] [place] [address] PAT - Anesthesia 07/20/25 1411 MR#: [id number] Acct: [id number] Name: RONI LEWIS Rep #: [id number] : 1950 75 From: Angelo Palacios MD PCP: Dr. 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 When Was Last Pacemaker Check QUESTION #4 FULL TEXT: You/Your Family Experience fever (hyperthermia) with Anesthesia Last Oral Intake Last Oral intake: Last Oral Intake NPO since Meds taken in AM with sips of water? Meds patient instructed to take am of surgery PONV PONV - plastic worker: PONV - plastic worker Female Yes 07/20/25 11:21 HX of Motion Sickness No 07/20/25 11:21 HX of N/V After Surgery No 07/20/25 11:21 Non-Smoker Yes 07/20/25 11:21 Duration of Surgery greater No 07/20/25 11:21 than 60 minutes Number of Risk Factors 2 07/20/25 11:21 PONV Score Moderate Risk 07/20/25 11:21 Height Weight Height Weight: Anesthesia: Height Weight Height 5 ft 04/13/25 08:06 Respiratory Assessment Respiratory Assessment - plastic worker: Respiratory Tract Infection Hx - plastic worker Hx Respiratory Tract Infection No 07/20/25 11:21 STOP Sleep Apnea STOP Sleep Apnea - plastic worker: STOP Sleep Apnea - plastic worker Hx Hypertension Yes 07/20/25 11:21 Hx Sleep Apnea Yes 07/20/25 11:21 CPAP No 07/20/25 11:21 BIPAP Yes 07/20/25 11:21 Do you snore loudly (louder than talking or can be heard Do you often feel tired/ fatigued/ sleepy during daytime? Has anyone observed you stop breathing during sleep? STOP Results Positive 07/20/25 11:21 QUESTION #5 FULL TEXT : Do you snore loudly (louder than talking or can be heard through closed doors)? 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 Specify any problems Hx of Preganancy in last 3 No 07/20/25 11:21 Months Nurse Filling Out Transfusion [facility] 07/20/25 11:21 Questions: Date: 07/20/25 07/20/25 11:21 Time: 11:24 07/20/25 11:21 Patient unable to answer at this time (ie. confused, unrespo /Reproduction History /Reproductive History - plastic worker: /Reproductive Hx- plastic worker Hx Now Gestational Age (in weeks): EDC: Hx Hx Para Hx Section SAB No 07/20/25 11:21 [facility] Medical History (Updated 07/20/25 @ 11:27 by Karon Chauhan) Neck pain on left side Left shoulder pain Wears glasses Thyroid disease Restless legs Injury of head and neck History of hiatal hernia History of IBS History of diverticulitis Vocal cord dysfunction Gastric reflux CPAP (continuous positive airway pressure) dependence Shortness of breath on exertion History of echocardiogram History of stress test Hypertension History of CHF (congestive heart failure) Cardiology follow-up encounter Hx of colonic polyps Abdominal pain Pre-operative cardiovascular examination Hyperlipidemia Chest pain Chronic diastolic CHF (congestive heart failure) Atherosclerotic heart disease of [place] coronary artery without angina pectoris Abnormal stress test Dyspnea on exertion Hypertension Diastolic dysfunction Tachycardia Asthma, moderate persistent Diverticulosis IBS (irritable bowel syndrome) Gastroparesis cataracts Bronchospasm Asthmatic bronchitis Gout peroneal nerve pinched Sciatica Ar (more content not included)... Normal [facility] Gastroenterology Visit Repor ton 07-01-2025 Gastroenterology Visit Report [facility] Gastroenterology [address] [place] [address] OFFICE VISIT Date of Service: 07/01/25 MR#: [id number] Acct: [id number] Name: RONI LEWIS Rep #: [id number] : 1950 Provider: Oscar Kimble DO Age/Sex: 75/F Location: [facility] Status: Signed Intake Vital Signs 09/06/24 15:02 04/13/25 08:06 Height 5 ft 5 ft Intake Visit Reasons: 4 M FU Allergies Environmental Allergies: Uncoded (dust) Allergy (Unknown, Verified 04/13/25 13:44) unknown mold Allergy (Unknown, Verified 04/13/25 13:44) unknown chocolate flavor Allergy (Verified 04/13/25 13:44) Unknown corn Allergy (Verified 04/13/25 13:44) Unknown peanut Allergy (Verified 04/13/25 13:44) Unknown Penicillins Allergy (Verified 04/13/25 13:44) Unknown Tetracyclines Allergy (Verified 04/13/25 13:44) Unknown venom-honey bee (bee venom (honey bee)) Allergy (Verified 04/13/25 13:44) Unknown Medications ???Medication ???Instructions ???Recorded ???Confirmed ???Type docusate sodium 100 mg capsule 100 mg PO BID PRN PRN Constipation 11/15/19 07/01/25 Rx #60 caps nitroglycerin 0.4 mg sublingual 0.4 mg sublingual Q5-15M PRN chest 10/12/21 07/01/25 Rx tablet pain #25 tabs albuterol sulfate 2.5 mg/3 mL 2.5 mg (3 mL) inhalation Q4H PRN 0 02/11/22 07/01/25 Rx (0.083 %) solution for nebulization Sob /Or Wheezing #180 mL guaifenesin 1,200 mg tablet, 1,200 mg PO PRN PRN ALLERGIES 05/2 04/1207/01/25 History extended release 12 hr aspirin 81 mg tablet,delayed 81 mg PO QHS #90 tabs 04/09/2207/16 Rx release wheat dextrin 3 gram/4 gram oral 1 packet PO DAILY supplement 04/0907/01/25 History powder albuterol sulfate 90 mcg/actuation 2 puff inhalation Q4H PRN 07/01/25 Rx aerosol inhaler (Ventolin HFA) shortness of breath or wheezing #18 grams montelukast 10 mg tablet 10 mg PO QHS #90 tabs 08/12/2407/16 Rx ergocalciferol (vitamin D2) 1,250 50,000 unit PO QWEEK #12 caps 06/1607/01/25 Rx mcg (50,000 unit) capsule levothyroxine 112 mcg tablet 112 mcg PO DAILY #90 tabs 12/29/24 07/01/25 Rx sertraline 25 mg tablet 25 mg PO DAILY #90 tabs 12/29/24 1 Rx resmetirom 80 mg tablet (Rezdiffra) 80 mg PO QDAY 01/11/25 07/01/25 History simvastatin 20 mg tablet 20 mg PO QHS #90 tabs 02/22/2507/16 Rx diltiazem HCl 360 mg capsule,24 360 mg PO QHS #90 caps 02/28/25 Rx hr,extended release (Tiadylt ER) furosemide 40 mg tablet 40 mg PO DAILY #90 TABLETS 5 07/01/25 Rx losartan 25 mg tablet 25 mg PO QHS #90 TABLETS 03/10/25 07/01/25 Rx ascorbic acid (vitamin C) 500 mg 500 mg PO DAILY 03/14/25 07/01/25 History capsule vitamin E (dl, acetate) 180 mg 180 mg PO BID 03/14/25 07/01/25 Hi story (400 unit) capsule omeprazole 40 mg capsule,delayed 40 mg PO BID #180 caps 03/21/25 Rx release metoclopramide HCl 5 mg tablet 5 mg PO Q8 #90 TABLETS 04/11/25 Rx potassium chloride 20 mEq 20 meq PO BID #180 tabs 06/20/25 1 Rx tablet,extended release Have you fallen in the past year?: No Nurse's Note: Pt was scheduled for EGD on 07.22.25 at the end of their appt today. Reviewed prep instructions and which medications to hold prior to procedure with pt in office. A paper copy of EGD prep instructions were given to pt. Pt denies any questions or concerns at this time. Cardiac clearance faxed to [facility] Medical History Neck pain on left side Left shoulder pain Wears glasses History of steroid therapy Thyroid disease Restless legs Injury of head and neck History of hiatal hernia History of IBS History of diverticulitis Vocal cord dysfunction Gastric reflux CPAP (continuous positive airway pressure) dependence Shortness of breath on exertion History of echocardiogram History of stress test Hypertension History of CHF (congestive heart failure) Cardiology follow-up encounter Hx of colonic polyps Abdominal pain Pre-operative cardiovascular examination Hyperlipidemia Chest pain Chronic diastolic CHF (congestive heart failure) Atherosclerotic heart disease of [place] coronary artery without angina pectoris Abnormal stress test Dyspnea on exertion Hypertension Diastolic dysfunction Tachycardia Asthma, moderate persistent Diverticulosis IBS (irritable bowel syndrome) Gastroparesis cataracts Bronchospasm Asthmatic bronchitis Gout peroneal nerve pinched Sciatica Arthritis Anxiety Lung nodule Disorder of vocal cord Allergic rhinitis Abnormal pulmonary function test Fatigue GERD (gastroesophageal reflux disease) Asthma Hypothyroidism Asthma exacerbation Hypersomnia KATHARINA (obstructive sleep apnea) Surgical History (Reviewed (more content not included)... Normal [facility] PT D/C Summary (1)on 025 PT D/C Summary (1) [facility] Physical Therapy [facility] [address] [place] [address] / REHABILITATION SERVICES DISCHARGE SUMMARY MR#: [id number] Acct: [id number] Name: RONI LEWIS Rep #: [id number] : 1950 75 From: Gregorio Resendiz PT, ATC Referring Dr.: Dr. Rosario Cha MD Status: R EG RCR Insurance: MEDICARE PART A B ANTH Discharge Summary D/C summary: It has been my pleasure to treat RONI LEWIS referred by Dr. Rosario Cha MD, with the diagnosis of Left Shoulder Pain and Cervicalgia for a total of 23 visit(s). Discharge Date: Please see the following information for a summary of their discharge status. Subjective Subjective: My left shoulder still pops Pain L SH: Pain Intensity (Out of 10): 1 R SH: Pain Intensity (Out of 10): 0 Overall Improvement % Improvement: 90 Objective Objective/Function: L shoulder pain 1/10 Pt still has intermittent finger tingling at this time Pt is I with HEP Pt has full AROM in B shoulders B shoulders are strong and equal when compared bilaterally Goals Goal 1:: Patient will be I with HEP and progression. Goal Progress: Goal Met Goal 2:: Patient will report no dural s/s for 1 week Goal Progress: Progressing Goal 3:: Patient will maintain proper posture t/o tx session to demo increased scap s/s Goal Progress: Goal Met Goal 4:: Patient will report 80% improvement Goal Progress: Goal Met Plan Plan: Discharge to HEP D/C Information d/c sentence: If there are questions or concerns regarding this patient's physical therapy, please feel free to call me at [phone]. Thank you for the referral of this patient. Sincerely, Gregorio Resendiz, PT, ATC Balance/Gait/Functiona l tests Balance/Special Test Scores Oswestry Low Back Score: 5 Oswestry Neck Score: 8 Improvement % Improvement: 90 06/02/25 1515 CC: Dr. Rosario Cha MD [facility] Signed Normal [facility] Re-Evaluation - PT (1)on Re-Evaluation - PT (1) [facility] Physical Therapy [facility] [address] [place] [address] / REEVALUATION / MEDICARE RECERTIFICATION PHYSICAL THERAPY MR#: [id number] Acct: [id number] Name: RONI LEWIS Rep #: [id number] : 1950 75 From: Talia Lara DPT Referring Dr.: Dr. Rosario Cha MD Status:REG RCR Insurance: MEDICARE PART A B ANTHEM Re-Evaluation Intro: Dr. Rosario Cha MD, It has been my pleasure to treat RONI LEWIS over the last 9 visits for Left Shoulder Pain and Cervicalgia. Please see the progress note below for an update on the physical therapy plan of care! Subjective Subjective: The patient reports that the neck is getting better but the deltoid is not better. She saw the pulmonoligist who reports that she has a stiff right scapula. She only feels that she is 20% better because she feels it daily. She is sleeping better. Exercise and heat makes it feel better. Being static makes it worse. She feels confident with the exercises that she knows. Objective Objective/Function: Posture: forward head, rounded shoulders- can correct with tactile cues but does not maintain Gait: no deviation noted- good arm swing and trunk rotation ROM: WNL in all planes but reports cracking Strength: Scap: fair minus- moderate winging bilateral, Cervical Spine: 4/5 isometric, Shoulder: flexion: 4/5, Abd: 4/5, IR/ER: 4/5, Extn: 4/5, Elbow/Wrist: 5/5 Mica Sizer: equal, Sensation; WNL to gross touch bilateral Palpation: tender along cervical parapspinals, upper trap, levaor insertion, suboccipitals, bicipital groove, medial border of the scapula, infraspinatus. Plan Plan Plan: 04/14/25: Focus on exercises and progression to a HEP IE: Postural and scapular strength/stabilization , manual STM to cervical musculature and decreasing peripheral s/s HEP Given IE: Postural Education, chin tucks, scapular retractions, upper trap stretch, levator stretch Balance/Gait/Functiona l tests Balance/Special Test Scores Oswestry Neck Score: 17 Goals Goals Goal 1:: Patient will be I with HEP and progression. Goal Time Frame: 4-6 Weeks Goal Progress: Progressing Goal 2:: Patient will report no dural s/s for 1 week Goal Time Frame: 4-6 Weeks Goal Progress: Progressing Goal 3:: Patient will maintain proper posture t/o tx session to demo increased scap s/s Goal Time Frame: 4-6 Weeks Goal Progress: Progressing Goal 4:: Patient will report 80% improvement Goal Time Frame: 4-6 Weeks Goal Progress: Progressing Anticipated Interventions Anticipated Interventions Therapeutic Exercise to Include: Strength training, Endurance training, Coordination, Agility training, Body mechanics, Postural training, Flexibilty training, Gait and locomotor training, Neuromotor development, Dynamic Lumbar Stabilization and Scapular Strength/Stabilization For the Purpose of:: To improve muscle performance and motor function TENS: Yes Cryotherapy (ice pack, ice massage): Yes Thermo therapy (hot pack): Yes Re-Evaluation Ending Re-evaluation ending: Please do not hesitate to contact me at [phone] by phone or if you have questions or concerns regarding this new plan of care! Sincerely, Talia Lara, DPT 04/14/25 1448 CC: Dr. Rosario Cha MD ELR Signed For Medicare only, by signing this I certify the plan of care. Physicians Signature Date Normal [facility] Pulmonary Visit Reporton Pulmonary Visit Report [facility] [place] [address] [place] [address] OFFICE VISIT Date of Service: 04/13/25 MR#: [id number] Acct: [id number] Name: RONI LEWIS Rep #: [id number] : 1950 Provider: Caridad Valladares NP Age/Sex: 75/F Location: [facility] Status: Signed Assessment and Plan Assessment and Plan (1) Asthma: Status: Chronic Qualifiers: Asthma complication type: uncomplicated Asthma persistence: intermittent Asthma severity: mild Qualified Code(s): J45.20 - Mild intermittent asthma, uncomplicated Plan: No signs of exacerbation of asthma today. She has been able to increase her exercise regimen. She has not required a daily maintenance inhaler. Her PFT has remained stable. In the past her DLCO was mildly reduced, this is not a new finding. Continue with use of [place] pot and as needed use of Zyrtec. I have also encouraged her to utilize albuterol on an as-needed basis to determine if there has been benefit. Contact the office with any signs of new or worsening symptoms. Follow-up in 6 months. (2) KATHARINA (obstructive sleep apnea): Status: Chronic Plan: Apnea is well-controlled on AutoPap at current settings. No indication for titration at this time. Continue to obtain supplies as needed to maintain adequate control. Repeat compliance download on follow-up. (3) Obesity: Status: Chronic Qualifiers: Body mass index: BMI 34.0-34.9 Obesity classification: adult class 1 (BMI 30 - 34.9) Obesity type: due to excess calories Serious obesity comorbidity presence: with serious comorbidity Qualified Code(s): E66.09 - Other obesity due to excess calories; Z68.34 - Body mass index [BMI] 34.0-34.9, adult Plan: She is encouraged to continue to increase her level of activity. I have asked for her to use albuterol prior to her exercise regimen. Plan Details Follow Up: 6 Months (LMR) HPI HPI Comments Details: This patient presents to the office today for follow-up of her asthma and obstructive sleep apnea. She is ambulatory and currently on room air. She has not recently been seen in the ED or urgent care for any respiratory illness. She has not recently been treated with antibiotics or steroids for breathing problems. She has continued without a daily maintenance inhaler. She denies shortness of breath and wheezing. Initially and then reports that she does have some shortness of breath on occasion. She will use albuterol 2-3 times per year. She denies chest pain. She denies fever, chills, body aches. She does report that she avoids exercise. She is also compliant with Singulair daily. She is using albuterol 1-2 times per month. She is using Lasix 40 mg daily. She tries to maintain a low-sodium diet. She did add Zyrtec on occasion in the spring and couple weeks this summer. She does watch her heart rate as she "can get tachy" with use of Zyrtec. She is using [place] pot daily. She does have "C4, 5, 6 nerve pain" she also reports right scapular musculoskeletal pain that is elicited with palpation. She is utilizing rezdiffra and has noticed weight gain. She believes that this is a side effect. 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 She wakes up feeling rested and refreshed with use of her Pap device. She denies known snoring. She awakens feeling refreshed. Nocturia does occur x 2-3. She will have occasional oral dryness. she is not having excessive nocturia. She denies mask leak. She is not requiring naps and is not nodding off to sleep unintentionally. If you recall, she is a lifelong never smoker. Documentation reviewed with patient today includes: PFT from February 22, 2025 shows isolated mild reduction in diffusion capacity. A previous PFT with trending report indicated that there was a history of a reduced DLCO from 2014, 2016, 2017 and 2018. The 2019 DLCO was within normal limits. Compliance download from April 12, 2025 shows 87% compliant with therapy, using the device 8 hours and 42 minutes nightly average. AutoPap is set at 5 to 14 cm. Average pressure is 9.9 cm, there is some air leak identified. AHI 0.5. Intake Vital Signs 02/09/25 09:22 04/13/25 08:06 Height 5 ft 5 ft Weight: 201 lb BMI 39.2 BP 134/88 H Blood Pressure Location Rt brachial Position Sitting Respiration 16 Pulse 77 Pulse Source Monitor Temp 97.3 F L Temperature Source Temporal Artery Pulse Oximetry (%) 96 Oxygen Delivery Method room air Intake Visit Reasons: 2 M FU Chief Complaint: 6 M FU Air Brush Artist Required: No DME Vendor: Faisal Accompanied by: Self Is patient in pain?: No Allergies Environmental Allergies: Uncoded (dust) Allergy (Unknown, Verified 04/13/25 13:44) unknown mold Allergy (Unknown, Verified 04/13/25 13:44) unknown chocolate flavor Allergy (Verified 04/13/25 13:44) Unknown (more content not included)... Normal [facility] Cardiology Visit Reporton Cardiology Visit Report [facility] [place] [address] OFFICE VISIT Date of Service: 03/14/25 MR#: [id number] Acct: [id number] Name: RONI LEWIS Rep #: [id number] : 1950 Provider: MAGGIE sanchez Age/Sex: 74/F Location: [facility] Status: Signed HPI HPI History of Present Illness Details: The is a 74-year-old white female with a past cardiovascular history of CAD, PCI, chronic diastolic mediated CHF, hyperlipidemia, and hypertension who presents for outpatient cardiovascular follow-up. - Cardiovascular: Denies chest pain, palpitations, orthopnea, and syncope. - Neurological: Reports left hand numbness at night; denies dizziness and balance issues. - General: Denies fatigue and weakness. - Musculoskeletal: Reports shoulder discomfort primarily affecting the left arm. She notes this when sleeping - Respiratory: Reports exertional shortness of breath. She acknowledges it when walking long distance. Intake Vital Signs 09/06/24 15:02 03/07/25 14:55 03/14/25 13:00 Height 5 ft 5 ft 5 ft Weight: 201 lb 8 oz 201 lb BMI 39.3 39.2 BP 139/77 H 124/83 H Blood Pressure Location Rt brachial Rt brachial Position Sitting Sitting Respiration 16 18 Pulse 80 73 Pulse Source Monitor NIBP Temp 98.6 F Pulse Oximetry (%) 94 Oxygen Delivery Method room air Intake Visit Reasons: 1 Y FU/PT WANTING SPORTS MEDIA AFTER THIS Air Brush Artist Required: No Is patient in pain?: No Allergies Environmental Allergies: Uncoded (dust) Allergy (Unknown, Verified 03/14/25 13:11) unknown mold Allergy (Unknown, Verified 03/14/25 13:11) unknown chocolate flavor Allergy (Verified 03/14/25 13:11) Unknown corn Allergy (Verified 03/14/25 13:11) Unknown peanut Allergy (Verified 03/14/25 13:11) Unknown Penicillins Allergy (Verified 03/14/25 13:11) Unknown Tetracyclines Allergy (Verified 03/14/25 13:11) Unknown venom-honey bee (bee venom (honey bee)) Allergy (Verified 03/14/25 13:11) Unknown Medications ???Medication ???Instructions ???Recorded ???Confirmed ???Type docusate sodium 100 mg capsule 100 mg PO BID PRN PRN Constipation 11/15/19 03/14/25 Rx #60 caps nitroglycerin 0.4 mg sublingual 0.4 mg sublingual Q5-15M PRN chest 10/12/21 03/14/25 Rx tablet pain #25 tabs albuterol sulfate 2.5 mg/3 mL 2.5 mg (3 mL) inhalation Q4H PRN 0 02/11/22 03/14/25 Rx (0.083 %) solution for nebulization Sob /Or Wheezing #180 mL guaifenesin 1,200 mg tablet, 1,200 mg PO PRN PRN ALLERGIES 05/04/1203/14/25 History extended release 12 hr aspirin 81 mg tablet,delayed 81 mg PO QHS #90 tabs 04/09/22 Rx release wheat dextrin 3 gram/4 gram oral 1 packet PO DAILY supplement 04/0903/14/25 History powder omeprazole 40 mg capsule,delayed 40 mg PO BID #180 caps 04/01/24 Rx release potassium chloride 20 mEq 20 meq PO BID #180 tabs 07/16/24 0 03/14/25 Rx tablet,extended release albuterol sulfate 90 mcg/actuation 2 puff inhalation Q4H PRN 03/14/25 Rx aerosol inhaler (Ventolin HFA) shortness of breath or wheezing #18 grams montelukast 10 mg tablet 10 mg PO QHS #90 tabs 08/12/24 Rx ergocalciferol (vitamin D2) 1,250 50,000 unit PO QWEEK #12 caps 06/1603/14/25 Rx mcg (50,000 unit) capsule levothyroxine 112 mcg tablet 112 mcg PO DAILY #90 tabs 12/29/24 03/14/25 Rx sertraline 25 mg tablet 25 mg PO DAILY #90 tabs 12/29/24 0 03/14/25 Rx metoclopramide HCl 5 mg tablet 5 mg PO Q8 #90 TABLETS 01/07/25 Rx resmetirom 80 mg tablet (Rezdiffra) 80 mg PO QDAY 01/11/25 03/14/25 History simvastatin 20 mg tablet 20 mg PO QHS #90 tabs 02/22/25 Rx diltiazem HCl 360 mg capsule,24 360 mg PO QHS #90 caps 02/28/25 Rx hr,extended release (Tiadylt ER) furosemide 40 mg tablet 40 mg PO DAILY #90 TABLETS 5 03/14/25 Rx losartan 25 mg tablet 25 mg PO QHS #90 TABLETS 03/10/25 03/14/25 Rx ascorbic acid (vitamin C) 500 mg 500 mg PO DAILY 03/14/25 03/14/25 History capsule vitamin E (dl, acetate) 180 mg 180 mg PO BID 03/14/25 History (400 unit) capsule Ejection fraction %: 81 Have you fallen in the past year?: No PFSH Medical History Neck pain on left side Left shoulder pain Wears glasses History of steroid therapy Thyroid disease Restless legs Injury of head and neck History of hiatal hernia History of IBS History of diverticulitis Vocal cord dysfunction Gastric reflux CPAP (continuous positive airway pressure) dependence Shortness of breath on exertion History of echocardiogram History of stress test Hypertension History of CHF (congestive heart failure) Cardiology follow-up encounter Hx of colonic polyps Abdominal (more content not included)... Normal [facility] Inital Evaluation (1) - PTon 03-14-2025 Inital Evaluation (1) - PT [facility] Physical Therapy [facility] [address] [place] [address] / REHABILITATION SERVICES INITIAL EVALUATION MR#: [id number] Acct: [id number] Name: RONI LEWIS Rep #: [id number] : 1950 74 From: Talia Lara DPAnnia Referring Dr.: Dr. Rosario Cha MD Status: R EG RCR Insurance: MEDICARE PART A B ANTHEM Patient's Visit Information Visit Information Visit Information: RONI LEWIS is a 74 year old F referred to Physical Therapy by Dr. Rosario Cha MD with a diagnosis of Left Shoulder Pain and Cervicalgia. Date of Evaluation: 03/14/25 Physical Therapist: Talia Lara DPT Visit Plan Frequency: 2x /Week Duration: 4 Weeks Plan: Postural and scapular strength/stabilization , manual STM to cervical musculature and decreasing peripheral s/s HEP Given IE: Postural Education, chin tucks, scapular retractions, upper trap stretch, levator stretch Subjective Subjective: Patient reports that her left arm has been going numb at night- she lays on her right side at night- she saw her MD and he sent her to PT. She has had a pinched nerve on the right and had an EMG on the right and had therapy and it went away. This one feels like a kink in the neck. She feels that she has some disc space narrowing. If she puts pressure in the forearm it makes the pinky goes numb. It will wake her up at night 2-3x. She wears a CPAP. She has tightness in her upper traps but only at night the whole hand goes numb. Some numbness in the pink right now. But normally she does not notice it because she is using it. Right hand dominate. No pain associated with it just numbness- at night she can move around and the numbness goes away. She has not had recent images. She has not had medications or injections. No ROBERSON, blurred vision or dizziness. Does notice decreased mold mechanic strength in that left hand. She likes to play on a tablet- on a pillow in a recliner. If she notices anything its in the pinky finger. PMH/Meds: see list in chart. She does have a TENS unit at home- she is not currently using it but she may get it back out. Objective Objective: Posture: forward head, rounded shoulders- can correct with tactile cues but does not maintain Gait: no deviation noted- good arm swing and trunk rotation ROM: WNL in all planes but reports cracking and discomfort with rotation and SB to the left Strength: Scap: fair minus- moderate winging bilateral, Cervical Spine: 4-/5 isometric, Shoulder: flexion: 4-/5, Abd: 3+/5, IR/ER: 4-/5, Extn: 4/5, Elbow/Wrist: 5/5 Mica Sizer: equal, Sensation; WNL to gross touch bilatera Palpation: tender along cervical parapspinals, upper trap, levaor insertion, suboccipitals, bicipital groove, medial border of the scapula, infraspinatus. Special Tests C/S Radiculapathy - Left Spurlings: Positive C/S Radiculapathy - Right Spurlings: Positive C/S Radiculapathy - Left Cervical distraction: Positive C/S Radiculapathy - Right Cervical distraction: Positive Balance/Special Test Scores Oswestry Neck Score: 17 Goals Goal 1:: Patient will be I with HEP and progression. Goal Time Frame: 4-6 Weeks Goal 2:: Patient will report no dural s/s for 1 week Goal Time Frame: 4-6 Weeks Goal 3:: Patient will maintain proper posture t/o tx session to demo increased scap s/s Goal Time Frame: 4-6 Weeks Goal 4:: Patient will report 80% improvement Goal Time Frame: 4-6 Weeks Rehabilitation Potential Physical Therapy Diagnosis: Patient presents with decreased pain free ROM, scapular strength/stabilization and muscular endurance leading to poor posture and increased numbness. Rehabilitation Potential: Good Anticipated Interventions Therapeutic Exercise to Include: Strength training, Endurance training, Coordination, Agility training, Body mechanics, Postural training, Flexibilty training, Gait and locomotor training, Neuromotor development, Dynamic Lumbar Stabilization and Scapular Strength/Stabilization For the Purpose of:: To improve muscle performance and motor function TENS: Yes Cryotherapy (ice pack, ice massage): Yes Thermo therapy (hot pack): Yes Text: Thank you for the opportunity to evaluate your patient. For Medicare and Medicare HMO plans, please review the plan of care and approve it. It will need to be FAXED BACK to us at [phone] for Medicare purposes. For Medicare only, by signing this I certify the plan of care. Please let me know if there are questions or concerns regarding this plan of care. Physician Signature: Date:__ 03/14/25 1551 CC: Dr. Rosario Cha MD ELR Signed Normal [facility] Comprehensive Metabolic Prof ilon 03-08-2025 Albumin [Mass/Vol] 4.4 g/dL Normal 3.4-4.8 [facility] Comment on above: Performed By: #### L 506.0400, L506.1001, L100.0100, L500.4100, L501.24181, L501.5200, L501.9520, L500.4050, L501.9985 ####[facility] [address] [place], [place], [id number] Albumin/Globulin [Mass ratio] 1.3 {ratio} Normal 0.9-2.4 [facility] Comment on above: Performed By: #### L 506.0400, L506.1001, L100.0100, L500.4100, L501.06895, L501.5200, L501.9520, L500.4050, L501.9985 ####[facility] [address] [place], [address] ALK PHOS 103 U/L Normal 35-104 [facility] Comment on above: Performed By: #### L 506.0400, L506.1001, L100.0100, L500.4100, L501.91012, L501.5200, L501.9520, L500.4050, L501.9985 ####[facility] [address] [place], [address] ALT [Catalytic activity/Vol] 34 U/L Normal <=34 [facility] Comment on above: Result Comment: Hemo lysis present, Results??could be affected. ?? Performed By: #### L 506.0400, L506.1001, L100.0100, L500.4100, L501.28578, L501.5200, L501.9520, L500.4050, L501.9985 ####[facility] [address] [place], [address] AST [Catalytic activity/Vol] 57 U/L High <=31 [facility] Comment on above: Result Comment: Hemo lysis present, Results??could be affected. ?? Performed By: #### L 506.0400, L506.1001, L100.0100, L500.4100, L501.98710, L501.5200, L501.9520, L500.4050, L501.9985 ####[facility] [address] [place], [place], [id number] Bilirubin [Mass/Vol] 0.34 mg/dL Normal 0.00-1.30 [facility] Comment on above: Performed By: #### L 506.0400, L506.1001, L100.0100, L500.4100, L501.87044, L501.5200, L501.9520, L500.4050, L501.9985 ####[facility] [address] [place], [address] BUN/CRE 18.4 RATIO Normal 10-20 [facility] Comment on above: Performed By: #### L 506.0400, L506.1001, L100.0100, L500.4100, L501.13391, L501.5200, L501.9520, L500.4050, L501.9985 ####[facility] [address] [place], [address] Calcium [Mass/Vol] 9.6 mg/dL Normal 7.6-11.0 [facility] Comment on above: Performed By: #### L 506.0400, L506.1001, L100.0100, L500.4100, L501.66635, L501.5200, L501.9520, L500.4050, L501.9985 ####[facility] [address] [place], [address] Chloride [Moles/Vol] 100 mmol/L Normal 98-108 [facility] Comment on above: Performed By: #### L 506.0400, L506.1001, L100.0100, L500.4100, L501.16971, L501.5200, L501.9520, L500.4050, L501.9985 ####[facility] [address] [place], [address] CO2 [Moles/Vol] 21.1 mmol/L Normal 21.0-32.0 [facility] Comment on above: Performed By: #### L 506.0400, L506.1001, L100.0100, L500.4100, L501.72999, L501.5200, L501.9520, L500.4050, L501.9985 ####[facility] [address] [place], [address] Creatinine [Mass/Vol] 0.95 mg/dL Normal 0.70-1.20 [facility] Comment on above: Performed By: #### L 506.0400, L506.1001, L100.0100, L500.4100, L501.13515, L501.5200, L501.9520, L500.4050, L501.9985 ####[facility] [address] [place], [address] GAP 16 High 5-15 [facility] Comment on above: Performed By: #### L 506.0400, L506.1001, L100.0100, L500.4100, L501.12081, L501.5200, L501.9520, L500.4050, L501.9985 ####[facility] [address] [place], [address] GFR/1.73 sq M.predicted among non-blacks MDRD (S/P/Bld) [Vol rate/Area] 63 mL/min/{1.73_m2} Normal >60 [facility] Comment on above: Result Comment: mL/m in/1.73m2 CKD-EPI Creatinine Equation (2020) Performed By: #### L 506.0400, L506.1001, L100.0100, L500.4100, L501.66798, L501.5200, L501.9520, L500.4050, L501.9985 ####[facility] [address] [place], [address] Globulin (S) [Mass/Vol] 3.3 g/dL Normal 2.2-4.2 [facility] Comment on above: Performed By: #### L 506.0400, L506.1001, L100.0100, L500.4100, L501.84340, L501.5200, L501.9520, L500.4050, L501.9985 ####[facility] [address] [place], [address] Glucose [Mass/Vol] 88 mg/dL Normal 70-99 [facility] Comment on above: Performed By: #### L 506.0400, L506.1001, L100.0100, L500.4100, L501.13595, L501.5200, L501.9520, L500.4050, L501.9985 ####[facility] [address] [place], [place], [id number] Potassium [Moles/Vol] 4.4 mmol/L Normal 3.3-5.1 [facility] Comment on above: Result Comment: Hemo lysis present, Results??could be affected. ?? Performed By: #### L 506.0400, L506.1001, L100.0100, L500.4100, L501.15082, L501.5200, L501.9520, L500.4050, L501.9985 ####[facility] [address] [place], [place], [id number] Sodium [Moles/Vol] 138 mmol/L Normal 133-145 [facility] Comment on above: Performed By: #### L 506.0400, L506.1001, L100.0100, L500.4100, L501.08656, L501.5200, L501.9520, L500.4050, L501.9985 ####[facility] [address] [place], [place], [id number] T PROT 7.7 g/dL Normal 5.9-8.4 [facility] Comment on above: Performed By: #### L 506.0400, L506.1001, L100.0100, L500.4100, L501.21794, L501.5200, L501.9520, L500.4050, L501.9985 ####[facility] [address] [place], [place], [id number] Urea nitrogen [Mass/Vol] 18 mg/dL Normal 4-19 [facility] Comment on above: Performed By: #### L 506.0400, L506.1001, L100.0100, L500.4100, L501.30764, L501.5200, L501.9520, L500.4050, L501.9985 ####[facility] [address] [place], [place], [id number] Free T3on 03-08-2025 Free T3 [Mass/Vol] 3.1 pg/mL Normal 2.18-3.98 [facility] Comment on above: Performed By: #### L 506.0400, L506.1001, L100.0100, L500.4100, L501.82905, L501.5200, L501.9520, L500.4050, L501.9985 ####[facility] [address] [place], [address] Lipid Profileon 03-08-2025 CHOL:HDL 2.51 Normal [facility] Comment on above: Performed By: #### L 500.3400, L500.4100 #### [facility] [address] [place], [address] Cholesterol [Mass/Vol] 108 mg/dL Normal <=200 [facility] Comment on above: Result Comment: Chol esterol level, Desirable <200 mg/dL Borderline high cholesterol 200-239 mg/dL High cholesterol >=240 mg/dL Recommendations of the NCEP Adult Treatment Panel for the following risk-cutoff thresholds for the [place] population. Performed By: #### L 500.3400, L500.4100 #### [facility] [address] [place], [address] Cholesterol in HDL [Mass/Vol] 43 mg/dL Normal [facility] Comment on above: Result Comment: Jennifer onal Cholesterol Education Program (NCEP) guidelines: <40 mg/dL: Low HDL-cholesterol (major risk factor for CHD) >= 60 mg/dL: High HDL-cholesterol (negative risk factor for CHD) HDL-cholesterol is affected by a number of factors, e.g. smoking, exercise, hormones, sex and age. Performed By: #### L 500.3400, L500.4100 #### [facility] [address] [place], [address] Cholesterol in LDL [Mass/Vol] 40 mg/dL Normal [facility] Comment on above: Result Comment: Bord xqiclp=951-170 mg/dL Higher Naqz=969 mg/dL or greater Performed By: #### L 500.3400, L500.4100 #### [facility] [address] [place], [place], [phone] Cholesterol in VLDL [Mass/Vol] 25 mg/dL Normal 5-40 [facility] Comment on above: Performed By: #### L 500.3400, L500.4100 #### [facility] [address] [place], [address] Triglyceride [Mass/Vol] 126 mg/dL Normal [facility] Comment on above: Result Comment: The drugs N-Acetylcysteine and Metamizole may falsely depress this assay. Normal range: <150 mg/dL Borderline High: 150-199 mg/dL High: 200-499 mg/dL Very High: >500 mg/dL Performed By: #### L 500.3400, L500.4100 #### [facility] [address] [place], [place], [phone] T4 Free Directon 03-08-2025 T4 FREE DIRECT 1.30 ng/dL Normal 0.76-1.46 [facility] Comment on above: Performed By: #### L 506.0400, L506.1001, L100.0100, L500.4100, L501.80734, L501.5200, L501.9520, L500.4050, L501.9985 ####[facility] [address] [place], [place], [id number] Thyroid Stim Hormone (TSH)on 03-08-2025 TSH 0.347 uIU/mL Normal 0.300-4.200 [facility] Comment on above: Performed By: #### L 506.0400, L506.1001, L100.0100, L500.4100, L501.17368, L501.5200, L501.9520, L500.4050, L501.9985 ####[facility] [address] [place], [place], [address] Vitamin D,25 Hydroxyon 03-08 Vitamin D 25-OH 74.4 ng/mL Normal 30-100 [facility] Comment on above: Result Comment: Kya min D Status Deficiency: <20 ng/mL (50nmol/L) Insufficiency: 20-30 ng/mL (50-75 nmol/L) Sufficiency: 30-100 ng/mL (75-250 nmol/L) Toxicity: >100 ng/mL (>250 nmol/L) Performed By: #### L 506.0400, L506.1001, L100.0100, L500.4100, L501.65026, L501.5200, L501.9520, L500.4050, L501.9985 ####[facility] [address] [place], [place], [phone] Absolute lymphocyte countOrd ered By: Rosario Cha on 03-07-2025 Lymphocytes Auto (Unsp spec) [#/Vol] 1.79 10*3/uL 0.83-4.51 [facility] Absolute neutrophil countOrd ered By: Rosario Cha on 03-07-2025 Neutrophils (Bld) [#/Vol] 5.7 10*3/uL 2.0-7.7 [facility] Anion gap in Serum or Plasma Ordered By: Rosario Cha on 03-07-2025 Anion gap [Moles/Vol] 16 mmol/L High 5-15 [facility] Automated lymphocyte count a s percentage of total leukocytesOrdered By: Rosario Cha on 03-07-2025 Lymphocytes/100 WBC Auto (Unsp spec) 21.5 % 19-41 [facility] BUN/creatinine ratioOrdered By: Rosario Cha on 03-07-2025 Urea nitrogen/Creatinine [Mass ratio] 18.4 mg/mg 10-20 [facility] Basophil percentageOrdered B y: Rosario Cha on 03-07-2025 Basophils/100 WBC (Bld) 0.7 % 0-1 [facility] Bilirubin, totalOrdered By: Rosario Cha on 06-16-2025 Bilirubin [Mass/Vol] 0.34 mg/dL 0.00-1.30 [facility] CBC W/Diff, Automatedon -09 27-2024 Absolute Lymph 1.79 X10 3/uL Normal 0.83-4.51 [facility] Comment on above: Performed By: #### L 500.3400, L500.4100 #### [facility] [address] [place], [address] Absolute Neut 5.7 X10 3/uL Normal 2.0-7.7 [facility] Comment on above: Performed By: #### L 500.3400, L500.4100 #### [facility] [address] [place], [address] Basophils/100 WBC (Bld) 0.7 % Normal 0-1 [facility] Comment on above: Performed By: #### L 500.3400, L500.4100 #### [facility] [address] [place], [address] Eosinophils/100 WBC (Bld) 1.7 % Normal 0-5 [facility] Comment on above: Performed By: #### L 500.3400, L500.4100 #### [facility] [address] [place], [address] Erythrocyte distribution width (RBC) [Ratio] 13.0 % Normal 11.6-14.6 [facility] Comment on above: Performed By: #### L 500.3400, L500.4100 #### [facility] [address] [place], [address] Hematocrit (Bld) [Volume fraction] 39.9 % Normal 37-47 [facility] Comment on above: Performed By: #### L 500.3400, L500.4100 #### [facility] [address] [place], [address] Hemoglobin (Bld) [Mass/Vol] 13.3 g/dL Normal 12.0-15.0 [facility] Comment on above: Performed By: #### L 500.3400, L500.4100 #### [facility] [address] [place], [address] IG% 0.400 Normal 0.0-0.9 [facility] Comment on above: Result Comment: IG% - Immature Granulocytes (promyelocytes, myelocytes and metamyelocytes) > 1% indicates that a LEFT SHIFT is Present. Performed By: #### L 500.3400, L500.4100 #### [facility] [address] [place], [address] Lymphocytes/100 WBC (Bld) 21.5 % Normal 19-41 [facility] Comment on above: Performed By: #### L 500.3400, L500.4100 #### [facility] [address] [place], [address] MCH (RBC) [Entitic mass] 28.5 pg Normal 27.0-32.0 [facility] Comment on above: Performed By: #### L 500.3400, L500.4100 #### [facility] [address] [place], [address] MCHC (RBC) [Mass/Vol] 33.3 g/dL Normal 32-36 [facility] Comment on above: Performed By: #### L 500.3400, L500.4100 #### [facility] [address] [place], [address] MCV (RBC) [Entitic vol] 85.4 fL Normal 81-99 [facility] Comment on above: Performed By: #### L 500.3400, L500.4100 #### [facility] [address] [place], [address] Monocytes/100 WBC (Bld) 7.9 % Normal 0-10 [facility] Comment on above: Performed By: #### L 500.3400, L500.4100 #### [facility] [address] [place], [address] Neutrophils/100 WBC (Bld) 67.8 % Normal 47-70 [facility] Comment on above: Performed By: #### L 500.3400, L500.4100 #### [facility] [address] [place], [address] Nucleated RBC (Bld) [#/Vol] 0 10*3/uL Normal 0-5 [facility] Comment on above: Performed By: #### L 500.3400, L500.4100 #### [facility] [address] [place], [address] Platelet mean volume (Bld) [Entitic vol] 9.8 fL Normal 6.2-12.0 [facility] Comment on above: Performed By: #### L 500.3400, L500.4100 #### [facility] [address] [place], [address] Platelets (Bld) [#/Vol] 351 10*3/uL Normal 150-450 [facility] Comment on above: Performed By: #### L 500.3400, L500.4100 #### [facility] [address] [place], [address] RBC (Bld) [#/Vol] 4.67 10*6/uL Normal 4.2-5.[address] [facility] Comment on above: Performed By: #### L 500.3400, L500.4100 #### [facility] [address] [place], [address] RDW SD 40.4 fl Normal 35.1-43.9 [facility] Comment on above: Performed By: #### L 500.3400, L500.4100 #### [facility] [address] [place], [address] WBC (Bld) [#/Vol] 8.3 10*3/uL Normal 4.4-11.0 [facility] Comment on above: Performed By: #### L 500.3400, L500.4100 #### [facility] [address] [place], [place], [id number] Calculated very low density lipoprotein (VLDL) cholesterol measurementOrdered By: Rosario Cha on 03-07-2025 Calculated very low density lipoprotein (VLDL) cholesterol measurement 25 mg/dL 5-40 [facility] Carbon dioxide, total [Moles /volume] in Central venous bloodOrdered By: Rosario Cha on 03-07-2025 CO2 [Moles/Vol] 21.1 mmol/L 21.0-32.0 [facility] Chloride assayOrdered By: Diamante Cha on 03-07-2025 Chloride [Moles/Vol] 100 mmol/L 98-108 [facility] Eosinophil percentageOrdered By: Rosario Cha on 03-07-2025 Eosinophils/100 WBC (Bld) 1.7 % 0-5 [facility] Erythrocyte distribution wid th ratioOrdered By: Rosario Cha on 03-07-2025 Erythrocyte distribution width (RBC) [Ratio] 13.0 % 11.6-14.6 [facility] Erythrocyte distribution wid th standard deviationOrdered By: Rosario Cha on 03-07-2025 Erythrocyte distribution width (RBC) [Ratio] 40.4 fl 35.1-43.9 [facility] Free W4Narxqvk By: Rosario hamm on 03-07-2025 Free T3 [Mass/Vol] 3.1 pg/mL 2.18-3.98 [facility] Glomerular filtration rate ( GFR) estimation/1.73 sq m using serum, plasma, or whole bOrdered By: Rosario Cha on 03-07-2025 GFR/1.73 sq M.predicted among non-blacks MDRD (S/P/Bld) [Vol rate/Area] 63 mL/min/{1.73_m2} >60 [facility] Comment on above: mL/min/1.73m2 CKD-EP I Creatinine Equation (2020) Hematocrit Auto (Bld) [Volum e fraction]Ordered By: Rosario Cha on 03-07-2025 Hematocrit (Bld) [Volume fraction] 39.9 % 37-47 [facility] Hemoglobin A1con 03-07-2025 HbA1c (Bld) [Mass fraction] 6.1 % High <=5.6 [facility] Comment on above: Result Comment: Norm al < 5.7 % Prediabetic 5.7 - 6.4 % Diabetic >or= 6.5 % Please note range changes. Performed By: #### L 500.3400, L500.4100 #### [facility] [place], [place], [id number] Hemoglobin A1c percentageOrd ered By: Rosario Cha on 03-07-2025 HbA1c (Bld) [Mass fraction] 6.1 % High <5.7 [facility] Comment on above: Normal < 5.7 % Predi abetic 5.7 - 6.4 % Diabetic >or= 6.5 % Please note range changes. Hemoglobin measurementOrdere d By: Rosario Cha on 03-07-2025 Hemoglobin (Bld) [Mass/Vol] 13.3 g/dL 12.0-15.0 [facility] Immature granulocytes/100 WB C Auto (Bld)Ordered By: Rosario Cha on 03-07-2025 Immature granulocytes/100 WBC (Bld) 0.400 % 0.0-0.9 [facility] Comment on above: IG% - Immature Granu locytes (promyelocytes, myelocytes and metamyelocytes) > 1% indicates that a LEFT SHIFT is Present. LDL calc ser/plasOrdered By: Rosario Cha on 03-07-2025 Cholesterol in LDL [Mass/Vol] 40 mg/dL [facility] Comment on above: Jifjcpehwa=182-422 m g/dL & Higher Uyin=145 mg/dL or greater Laboratory - Chemistry and C hemistry - challengeOrdered By: Rosario Cha on 03-07-2025 AST [Catalytic activity/Vol] 57 U/L High <32 [facility] Comment on above: Hemolysis present, R esults could be affected. MCV (mean corpuscular volume ) determinationOrdered By: Rosario Cha on 03-07-2025 MCV (RBC) [Entitic vol] 85.4 fL 81-99 [facility] MR/BMS.IMBon 03-07-2025 MR/BMS.IMB [facility] [address] [place] [address] OFFICE VISIT Date of Service: 03/07/25 MR#: [id number] Acct: [id number] Name: RONI [place] Rep #: [id number] : 1950 Provider: Dr. 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: No Accompanied by: Self Is patient in pain?: Yes (Left Knee Left Shoulder) Pain scale (1-10): 3 Allergies chocolate flavor Allergy (Verified 03/07/25 14:48) Unknown corn Allergy (Verified 03/07/25 14:48) Unknown peanut Allergy (Verified 03/07/25 14:48) Unknown Penicillins Allergy (Verified 03/07/25 14:48) Unknown Tetracyclines Allergy (Verified 03/07/25 14:48) Unknown venom-honey bee (bee venom (honey bee)) Allergy (Verified 03/07/25 14:48) Unknown Medications ???Medication ???Instructions ???Recorded ???Confirmed ???Type docusate sodium 100 mg capsule 100 mg PO BID PRN PRN Constipation 11/15/19 03/07/25 Rx #60 caps nitroglycerin 0.4 mg sublingual 0.4 mg sublingual Q5-15M PRN chest 10/12/21 03/07/25 Rx tablet pain #25 tabs albuterol sulfate 2.5 mg/3 mL 2.5 mg (3 mL) inhalation Q4H PRN 0 02/11/22 03/07/25 Rx (0.083 %) solution for nebulization Sob /Or Wheezing #180 mL guaifenesin 1,200 mg tablet, 1,200 mg PO PRN PRN ALLERGIES 05/04/1203/07/25 History extended release 12 hr aspirin 81 mg tablet,delayed 81 mg PO QHS #90 tabs 04/09/22 Rx release wheat dextrin 3 gram/4 gram oral 1 packet PO DAILY supplement 04/0903/07/25 History powder ascorbic acid (vitamin C) 500 mg 500 mg PO BID 10/21/22 03/07/25 Hi story capsule omeprazole 40 mg capsule,delayed 40 mg PO BID #180 caps 04/01/24 Rx release vitamin E (dl, acetate) 180 mg 180 mg PO DAILY #90 caps 04/01/24 03/07/25 Rx (400 unit) capsule losartan 25 mg tablet 25 mg PO QHS #90 tabs 04/02/24 Rx potassium chloride 20 mEq 20 meq PO BID #180 tabs 07/16/24 0 03/07/25 Rx tablet,extended release albuterol sulfate 90 mcg/actuation 2 puff inhalation Q4H PRN 03/07/25 Rx aerosol inhaler (Ventolin HFA) shortness of breath or wheezing #18 grams montelukast 10 mg tablet 10 mg PO QHS #90 tabs 08/12/24 Rx ergocalciferol (vitamin D2) 1,250 50,000 unit PO QWEEK #12 caps 06/1603/07/25 Rx mcg (50,000 unit) capsule levothyroxine 112 mcg tablet 112 mcg PO DAILY #90 tabs 12/29/24 03/07/25 Rx sertraline 25 mg tablet 25 mg PO DAILY #90 tabs 12/29/24 0 03/07/25 Rx metoclopramide HCl 5 mg tablet 5 mg PO Q8 #90 TABLETS 01/07/25 Rx resmetirom 80 mg tablet (Rezdiffra) 80 mg PO QDAY 01/11/25 03/07/25 History simvastatin 20 mg tablet 20 mg PO QHS #90 tabs 02/22/25 Rx diltiazem HCl 360 mg capsule,24 360 mg PO QHS #90 caps 02/28/25 Rx hr,extended release (Tiadylt ER) furosemide 40 mg tablet 40 mg PO DAILY #90 TABLETS 5 03/07/25 Rx Have you fallen in the past year?: No [facility] Medical History Wears glasses History of steroid therapy Thyroid disease Restless legs Injury of head and neck History of hiatal hernia History of IBS History of diverticulitis Vocal cord dysfunction Gastric reflux CPAP (continuous positive airway pressure) dependence Shortness of breath on exertion History of echocardiogram History of stress test Hypertension History of CHF (congestive heart failure) Cardiology follow-up encounter Hx of colonic polyps Abdominal pain Pre-operative cardiovascular examination Hyperlipidemia Chest pain Chronic diastolic CHF (congestive heart failure) Atherosclerotic heart disease of [place] coronary artery without angina pectoris Abnormal stress test Dyspnea on exertion Hypertension Diastolic dysfunction Tachycardia Asthma, moderate persistent Diverticulosis IBS (irritable bowel syndrome) Gastroparesis cataracts Bronchospasm Asthmatic bronchitis Gout peroneal nerve pinched Sciatica Arthritis Anxiety Lung nodule Disorder of vocal cord Allergic rhinitis Abnormal pulmonary function test Fatigue GERD (gastroesophageal reflux disease) Asthma Hypothyroidism Asthma exacerbation Hypersomnia KATHARINA (obstructive sleep apnea) Surgical History (Reviewed 03/07/25 (more content not included)... Normal [facility] Magnesiumon 03-07-2025 Magnesium [Mass/Vol] 2.0 mg/dL Normal 1.5-2.2 [facility] Comment on above: Performed By: #### L 500.3400, L500.4100 #### [facility] [place], [address] Magnesium measurement (mass/ volume)Ordered By: Rosario Cha on 03-07-2025 Magnesium (Unsp spec) [Mass/Vol] 2.0 mg/dL 1.5-2.2 [facility] Mean corpuscular hemoglobin (MCH) determinationOrdered By: Rosario Cha on 03-07-2025 MCH (RBC) [Entitic mass] 28.5 pg 27.0-32.0 [facility] Mean corpuscular hemoglobin concentration (MCHC) determinationOrdered By: Rosario Cha on 03-07-2025 MCHC (RBC) [Mass/Vol] 33.3 g/dL 32-36 [facility] Mean platelet volume determi nationOrdered By: Rosario Cha on 03-07-2025 Platelet mean volume (Bld) [Entitic vol] 9.8 fL 6.2-12.0 [facility] Monocyte percentageOrdered B y: Rosario Cha on 03-07-2025 Monocytes/100 WBC (Bld) 7.9 % 0-10 [facility] Neutrophil percentageOrdered By: Rosario Cha on 03-07-2025 Neutrophils/100 WBC (Bld) 67.8 % 47-70 [facility] Nucleated red blood cell per centageOrdered By: Rosario Cha on 03-07-2025 Nucleated RBC/100 WBC (Bld) [Ratio] 0 % 0-5 [facility] Platelet countOrdered By: Diamante Cha on 03-07-2025 Platelets (Bld) [#/Vol] 351 10*3/uL 150-450 [facility] Potassium measurement (mass/ volume)Ordered By: Rosario Cha on 03-07-2025 Potassium (Unsp spec) [Mass/Vol] 4.4 mmol/L 3.3-5.1 [facility] Comment on above: Hemolysis present, R esults could be affected. RBC Auto (Bld) [#/Vol]Ordere d By: Rosario Cha on 03-07-2025 RBC (Bld) [#/Vol] 4.67 10*6/uL 4.2-5.[address] [facility] Screening total cholesterol/ high density lipoprotein (HDL) cholesterol ratioOrdered By: Rosario Cha on 03-07-2025 Cholesterol.total/Choles terol in HDL [Mass ratio] 2.51 {ratio} [facility] Serum creatinine measurement (mass/volume)Ordered By: Rosario Cha on 03-07-2025 Creatinine [Mass/Vol] 0.95 mg/dL 0.70-1.20 [facility] Serum globulin measurementOr dered By: Rosario Cha on 03-07-2025 Globulin (S) [Mass/Vol] 3.3 g/dL 2.2-4.2 [facility] Serum glucose measurement (m ass/volume)Ordered By: Rosario Cha on 03-07-2025 Glucose [Mass/Vol] 88 mg/dL 70-99 [facility] Serum or plasma alanine bell otransferase (ALT) measurementOrdered By: Rosario Cha on 03-07-2025 ALT [Catalytic activity/Vol] 34 U/L <35 [facility] Comment on above: Hemolysis present, R esults could be affected. Serum or plasma albumin sami urement (mass/volume)Ordered By: Rosario Cha on 03-07-2025 Albumin [Mass/Vol] 4.4 g/dL 3.4-4.8 [facility] Serum or plasma albumin/glob ulin mass ratioOrdered By: Rosario Cha on 03-07-2025 Albumin/Globulin [Mass ratio] 1.3 {ratio} 0.9-2.4 [facility] Serum or plasma alkaline fabian sphatase measurementOrdered By: Rosario Cha on 03-07-2025 ALP [Catalytic activity/Vol] 103 U/L 35-104 [facility] Serum or plasma calcium sami urement (mass/volume)Ordered By: Rosario Cha on 03-07-2025 Calcium [Mass/Vol] 9.6 mg/dL 7.6-11.0 [facility] Serum or plasma cholesterol in HDL measurement (mass/volume)Ordered By: Rosario Cha on 03-07-2025 Cholesterol in HDL [Mass/Vol] 43 mg/dL >40 [facility] Comment on above: National Cholesterol Education Program (NCEP) guidelines:<40 mg/dL: Low HDL-cholesterol (major risk factor for CHD)>= 60 mg/dL: High HDL-cholesterol (negative risk factor for CHD)HDL-cholesterol is affected by a number of factors, e.g. smoking, exercise, hormones, sex and age. Serum or plasma cholesterol measurement (mass/volume)Ordered By: Rosario Cha on 03-07-2025 Cholesterol [Mass/Vol] 108 mg/dL <201 [facility] Comment on above: Cholesterol level, D esirable <200 mg/dLBorderline high cholesterol 200-239 mg/dLHigh cholesterol >=240 mg/dLRecommendations of the NCEP Adult Treatment Panel for the following risk-cutoff thresholds for the [place] population. Serum or plasma urea nitroge n measurement (mass/volume)Ordered By: Rosario Cha on 03-07-2025 Urea nitrogen [Mass/Vol] 18 mg/dL 4-19 [facility] Sodium levelOrdered By: Paige Cha on 03-07-2025 Sodium [Moles/Vol] 138 mmol/L 133-145 [facility] T4 freeOrdered By: Rosario hamm on 03-07-2025 Free T4 [Mass/Vol] 1.30 ng/dL 0.76-1.46 [facility] TSH DL <= 0.005 mIU/L QnOrde red By: Rosario Cha on 03-07-2025 TSH Qn 0.347 uIU/mL 0.300-4.200 [facility] Total proteinOrdered By: Tania hCa on 03-07-2025 Protein [Mass/Vol] 7.7 g/dL 5.9-8.4 [facility] Triglycerides measurementOrd ered By: Rosario Cha on 03-07-2025 Triglyceride [Mass/Vol] 126 mg/dL <199 [facility] Comment on above: The drugs N-Acetylcy steine and Metamizole may falsely depress this assay. Normal range: <150 mg/dLBorderline High: 150-199 mg/dLHigh: 200-499 mg/dLVery High: >500 mg/dL White blood cell (WBC) count Ordered By: Rosario Cha on 03-07-2025 WBC (Bld) [#/Vol] 8.3 10*3/uL 4.4-11.0 [facility] Pulmonary Visit Reporton Pulmonary Visit Report [facility] Pulmonary Medicine of [address] [place], [place] [address] OFFICE VISIT Date of Service: 02/09/25 MR#: [id number] Acct: [id number] Name: RONI LEWIS Rep #: [id number] : 1950 Provider: Caridad Valladares NP Age/Sex: 74/F Location: [facility] Status: Signed Assessment and Plan Assessment and Plan (1) Asthma: Status: Chronic Qualifiers: Asthma complication type: uncomplicated Asthma persistence: intermittent Asthma severity: mild Qualified Code(s): J45.20 - Mild intermittent asthma, uncomplicated Plan: No signs of exacerbation of asthma today. This may be suboptimally controlled as she is not utilizing a daily maintenance inhaler. Her exam findings do not suggest full control as there are diminished breath sounds and a prolonged expiratory phase. I have recommended a PFT at this time. Continue with use of Singulair. I have asked for her to add Zyrtec 10 mg to her regimen and a [place] pot. I have also encouraged her to utilize albuterol on an as-needed basis to determine if there has been benefit. Contact the office with any signs of new or worsening symptoms. Follow-up in 2 to 3 months to review testing. (2) KATHARINA (obstructive sleep apnea): Status: Chronic Comment: Well-controlled on AutoPap Plan: She is using and benefiting from Pap therapy. Despite some air leak the apnea is controlled, I recommend that she continue at the current settings. No indication for titration study at this time. Contact the office for any new or worsening symptoms in the meantime. Repeat compliance download on follow-up. (3) Obesity: Status: Chronic Qualifiers: Body mass index: BMI 34.0-34.9 Obesity classification: adult class 1 (BMI 30 - 34.9) Obesity type: due to excess calories Serious obesity comorbidity presence: with serious comorbidity Qualified Code(s): E66.09 - Other obesity due to excess calories; Z68.34 - Body mass index [BMI] 34.0-34.9, adult Plan: Today we have discussed diet and exercise for weight loss. The patient is encouraged to go back to her fitness gym for exercise routine. Orders: Orders PFT Complete - DLCO, Spirometry b/a bronchodilators, lung volumes 02/22/25 J45.20 - Mild intermittent asthma, uncomplicated Plan Details Follow Up: 2-3 months (LMR) HPI HPI Comments Details: This patient presents to the office today for follow-up of her asthma and obstructive sleep apnea. She is ambulatory and currently on room air. She has not recently been seen in the ED or urgent care for any respiratory illness. She has not recently been treated with antibiotics or steroids for breathing problems. She reports that she stopped taking Breo last year because it gave her thrush. She states that she had recurrent thrush and sore throat. She honestly admits that after stopping Breo she did not see any progression of her symptoms. She feels that her symptoms were stable on or off of the inhaler although today she reports that she has had sinus congestion, chest tightness, raspy chest, chest congestion, productive cough with clear sputum. She has not utilized her albuterol. She denies shortness of breath and wheezing. She denies chest pain. She denies fever, chills, body aches. She does report that she avoids exercise. She is also compliant with Singulair daily. She is using albuterol 1-2 times per month. She is using Lasix 40 mg daily. She tries to maintain a low-sodium diet. She is utilizing rezdiffra and has noticed weight gain. She believes that this is a side effect. 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 She wakes up feeling rested and refreshed with use of her Pap device. She denies known snoring. She denies gasping for air at night. She denies daytime fatigue. She awakens feeling refreshed. Nocturia does occur x 2-3. She does take sips of water between for oral dryness. She is not having excessive nocturia. She is not requiring naps and is not nodding off to sleep unintentionally. Her hands "fall asleep" at night at times. If you recall, she is a lifelong never smoker. Compliance report for the past 30 days shows 100 % compliance with an average use of 8 hours and 22 minutes per night. Current setting is AutoPap 5 to 14 cm of water pressure typically being utilized at 10.0 cm of water. Residual AHI of 0.9 events per hour. Leaks do occur at times. This was reviewed with patient today. Intake Vital Signs 08/12/24 07:22 02/09/25 09:22 Height 5 ft 5 ft Weight: 202 lb BMI 39.4 BP 138/71 H Blood Pressure Location Rt brachial Position Sitting Respiration 16 Pulse 73 Pulse Source Monitor Temp 97.3 F L Temperature Source Temporal Artery Pulse Oximetry (%) 95 Oxygen Delivery Method room air Intake Visit Reasons: 6 M FU Air Brush Artist Required: No DME Vendor: Faisal Melendez (more content not included)... Normal [facility] ABD Limited w/ Elastographyo n 01-13-2025 ABD Limited w/ Elastography [facility] Imaging Services [address] [place], [place] [address] ABD Limited w/ Elastography MR#: [id number] Acct: [id number] Name: RONI LEWIS Rep #: [id number] : 1950 F 74 From: Juan yang MD PCP: Dr. Rosario Cha MD Status: REG CLI Study: ABD Limited w/ Elastography Date of Exam: 12/22 01/14 Exam# [id number] Ordering Dr: Oscar Kimble DO PROCEDURE: ABD LIMITED W/ ELASTOGRAPHY REASON FOR EXAM: HERNANDEZ COMPARISON: Comparison is made with prior study dated March 04, 2024. TECHNIQUE: Right upper quadrant abdominal ultrasound. Slava ElastQ Imaging shear wave elastography for non- invasive assessment of liver tissue stiffness. Slava EPIQ Elite. FINDINGS: LIVER: Size: Unremarkable Length: 16 cm cm Echotexture: Diffusely echogenic suggesting fatty infiltration Contour: Normal Lesions: None identified Elastography: EQI Med: 8.3 kPa EQI Med Kyle: 1.64 m/s IQR/Med: 27 %* GALLBLADDER: Surgically absent. COMMON BILE DUCT: Normal . PANCREAS: Normal Visualized portions of the right kidney are unremarkable. No right upper quadrant ascites. US/ABD Limited w/ Elastography IMPRESSION: MODERATE HEPATIC FIBROSIS Fatty infiltration of the liver. Status post cholecystectomy. Reference Values: SRU <1.37 m/s (5.7kPa): No to mild fibrosis 1.37 m/s - 2.2 m/s: Moderate to severe fibrosis >2.2 m/s (15kPa): Significant fibrosis / cirrhosis METAVIR Score F2 or higher: 1.34 m/s (5.7kPa) F3 or higher: 1.55 m/s (7.3kPa) F4: 1.80 m/s (10kPa) * If the IQR/Med is >30%, the variance in the measurements is a large and the accuracy of the measurement may be in question. Reading Location: [place] [address] CC: Dr. Rosario Cha MD; Oscar Kimble DO Product Applications Engineer: Signed Normal [facility] Gastroenterology Visit Repor ton 01-11-2025 Gastroenterology Visit Report [facility] Gastroenterology [address] [place] [address] OFFICE VISIT Date of Service: 01/11/25 MR#: [id number] Acct: [id number] Name: RONI LEWIS Rep #: [id number] : 1950 Provider: Oscar Kimble DO Age/Sex: 74/F Location: [facility] Status: Signed Intake Vital Signs 09/06/24 15:02 Height 5 ft Weight: 192 lb 6 oz BMI 37.5 BP 133/82 H Blood Pressure Location Rt brachial Position Sitting Respiration 16 Pulse 92 Pulse Source Monitor Temp 98.4 F Temp Source Temporal Pulse Oximetry (%) 96 Oxygen Delivery Method room air Intake Visit Reasons: 4 M FU Allergies chocolate flavor Allergy (Verified 09/06/24 14:56) Unknown corn Allergy (Verified 09/06/24 14:56) Unknown peanut Allergy (Verified 09/06/24 14:56) Unknown Penicillins Allergy (Verified 09/06/24 14:56) Unknown Tetracyclines Allergy (Verified 09/06/24 14:56) Unknown venom-honey bee (bee venom (honey bee)) Allergy (Verified 09/06/24 14:56) Unknown Medications ???Medication ???Instructions ???Recorded ???Confirmed ???Type docusate sodium 100 mg capsule 100 mg PO BID PRN PRN Constipation 11/15/19 01/11/25 Rx #60 caps nitroglycerin 0.4 mg sublingual 0.4 mg sublingual Q5-15M PRN chest 10/12/21 01/11/25 Rx tablet pain #25 tabs albuterol sulfate 2.5 mg/3 mL 2.5 mg (3 mL) inhalation Q4H PRN 0 02/11/22 01/11/25 Rx (0.083 %) solution for nebulization Sob /Or Wheezing #180 mL guaifenesin 1,200 mg tablet, 1,200 mg PO PRN PRN ALLERGIES 01/2101/11/25 History extended release 12 hr aspirin 81 mg tablet,delayed 81 mg PO QHS #90 tabs 04/09/22 Rx release wheat dextrin 3 gram/4 gram oral 1 packet PO DAILY supplement 04/0901/11/25 History powder ascorbic acid (vitamin C) 500 mg 500 mg PO BID 10/21/22 01/11/25 Hi story capsule diltiazem HCl 360 mg capsule,24 360 mg PO QHS #90 caps 03/08/24 Rx hr,extended release (Tiadylt ER) furosemide 40 mg tablet 40 mg PO DAILY #90 TABLETS 4 01/11/25 Rx simvastatin 20 mg tablet 20 mg PO QHS #90 tabs 03/22/24 Rx omeprazole 40 mg capsule,delayed 40 mg PO BID #180 caps 04/01/24 Rx release ursodiol 300 mg capsule 300 mg PO BID #180 caps 04/01/24 0 01/11/25 Rx vitamin E (dl, acetate) 180 mg 180 mg PO DAILY #90 caps 04/01/24 01/11/25 Rx (400 unit) capsule losartan 25 mg tablet 25 mg PO QHS #90 tabs 04/02/24 Rx potassium chloride 20 mEq 20 meq PO BID #180 tabs 07/16/24 0 01/11/25 Rx tablet,extended release albuterol sulfate 90 mcg/actuation 2 puff inhalation Q4H PRN 01/11/25 Rx aerosol inhaler (Ventolin HFA) shortness of breath or wheezing #18 grams montelukast 10 mg tablet 10 mg PO QHS #90 tabs 08/12/24 Rx ergocalciferol (vitamin D2) 1,250 50,000 unit PO QWEEK #12 caps 06/1601/11/25 Rx mcg (50,000 unit) capsule levothyroxine 112 mcg tablet 112 mcg PO DAILY #90 tabs 12/29/24 01/11/25 Rx sertraline 25 mg tablet 25 mg PO DAILY #90 tabs 12/29/24 0 01/11/25 Rx metoclopramide HCl 5 mg tablet 5 mg PO Q8 #90 TABLETS 01/07/25 Rx resmetirom 80 mg tablet (Rezdiffra) 80 mg PO QDAY 01/11/25 01/11/25 History Have you fallen in the past year?: No PFSH Medical History (Updated 01/11/25 @ 11:[address] Moore Friend, ) Wears glasses History of steroid therapy Thyroid disease Restless legs Injury of head and neck History of hiatal hernia History of IBS History of diverticulitis Vocal cord dysfunction Gastric reflux CPAP (continuous positive airway pressure) dependence Shortness of breath on exertion History of echocardiogram History of stress test Hypertension History of CHF (congestive heart failure) Cardiology follow-up encounter Hx of colonic polyps Abdominal pain Pre-operative cardiovascular examination Hyperlipidemia Chest pain Chronic diastolic CHF (congestive heart failure) Atherosclerotic heart disease of [place] coronary artery without angina pectoris Abnormal stress test Dyspnea on exertion Hypertension Diastolic dysfunction Tachycardia Asthma, moderate persistent Diverticulosis IBS (irritable bowel syndrome) Gastroparesis cataracts Bronchospasm Asthmatic bronchitis Gout peroneal nerve pinched Sciatica Arthritis Anxiety Lung nodule Disorder of vocal cord Allergic rhinitis Abnormal pulmonary function test Fatigue GERD (gastroesophageal reflux disease) Asthma Hypothyroidism Asthma exacerbation Hypersomnia KATHARINA (obstructive sleep apnea) Surgical History (Updated 09/06/24 @ 14:59 by Elio Chavez RN) History of cataract surgery History of hysterectomy Stented coronary artery (04/21/19) History of left heart catheterization (10/28/18) Hi (more content not included)... Normal [facility] Gastroenterology Visit Repor ton 10-05-2024 Gastroenterology Visit Report [facility] Gastroenterology [address] [place] [address] OFFICE VISIT Date of Service: 10/05/24 MR#: [id number] Acct: [id number] Name: RONI LEWIS Rep #: [id number] : 1950 Provider: Oscar Kimble DO Age/Sex: 74/F Location: [facility] Status: Signed Intake Vital Signs 03/19/24 08:13 09/06/24 15:02 Height 5 ft 5 ft Intake Visit Reasons: 6 M FU Chief Complaint: 4 m fu Allergies chocolate flavor Allergy (Verified 09/06/24 14:56) Unknown corn Allergy (Verified 09/06/24 14:56) Unknown peanut Allergy (Verified 09/06/24 14:56) Unknown Penicillins Allergy (Verified 09/06/24 14:56) Unknown Tetracyclines Allergy (Verified 09/06/24 14:56) Unknown venom-honey bee (bee venom (honey bee)) Allergy (Verified 09/06/24 14:56) Unknown Medications ???Medication ???Instructions ???Recorded ???Confirmed ???Type docusate sodium 100 mg capsule 100 mg PO BID PRN PRN Constipation 11/15/19 10/05/24 Rx #60 caps nitroglycerin 0.4 mg sublingual 0.4 mg sublingual Q5-15M PRN chest 10/12/21 10/05/24 Rx tablet pain #25 tabs albuterol sulfate 2.5 mg/3 mL 2.5 mg (3 mL) inhalation Q4H PRN 02/11/22 10/05/24 Rx (0.083 %) solution for nebulization Sob /Or Wheezing #180 mL guaifenesin 1,200 mg tablet, 1,200 mg PO PRN PRN ALLERGIES 02/15/22 10/05/24 History extended release 12 hr aspirin 81 mg tablet,delayed 81 mg PO QHS #90 tabs 04/09/22 10/05/24 Rx release wheat dextrin 3 gram/4 gram oral 1 packet PO DAILY supplement 04/09/22 10/05/24 History powder ascorbic acid (vitamin C) 500 mg 500 mg PO BID 10/21/22 10/05/24 History capsule ergocalciferol (vitamin D2) 1,250 50,000 unit PO QWEEK #12 caps 01/29/24 10/05/24 Rx mcg (50,000 unit) capsule levothyroxine 112 mcg tablet 112 mcg PO DAILY #90 tabs 01/29/24 10/05/24 Rx sertraline 25 mg tablet 25 mg PO DAILY #90 tabs 01/29/24 10/05/24 Rx diltiazem HCl 360 mg capsule,24 360 mg PO QHS #90 caps 03/08/24 10/05/24 Rx hr,extended release (Tiadylt ER) furosemide 40 mg tablet 40 mg PO DAILY #90 TABLETS 03/08/24 10/05/24 Rx simvastatin 20 mg tablet 20 mg PO QHS #90 tabs 03/22/24 10/05/24 Rx omeprazole 40 mg capsule,delayed 40 mg PO BID #180 caps 04/01/24 10/05/24 Rx release ursodiol 300 mg capsule 300 mg PO BID #180 caps 04/01/24 10/05/24 Rx vitamin E (dl, acetate) 180 mg 180 mg PO DAILY #90 caps 04/01/24 10/05/24 Rx (400 unit) capsule losartan 25 mg tablet 25 mg PO QHS #90 tabs 04/02/24 10/05/24 Rx potassium chloride 20 mEq 20 meq PO BID #180 tabs 07/16/24 10/05/24 Rx tablet,extended release metoclopramide HCl 5 mg tablet 5 mg PO Q8 #90 TABLETS 07/26/24 10/05/24 Rx albuterol sulfate 90 mcg/actuation 2 puff inhalation Q4H PRN 08/12/24 10/05/24 Rx aerosol inhaler (Ventolin HFA) shortness of breath or wheezing #18 grams montelukast 10 mg tablet 10 mg PO QHS #90 tabs 08/12/24 10/05/24 Rx Have you fallen in the past year?: No PFSH Medical History Wears glasses History of steroid therapy Thyroid disease Restless legs Injury of head and neck History of hiatal hernia History of IBS History of diverticulitis Vocal cord dysfunction Gastric reflux CPAP (continuous positive airway pressure) dependence Shortness of breath on exertion History of echocardiogram History of stress test Hypertension History of CHF (congestive heart failure) Cardiology follow-up encounter Hx of colonic polyps Abdominal pain Pre-operative cardiovascular examination Hyperlipidemia Chest pain Chronic diastolic CHF (congestive heart failure) Atherosclerotic heart disease of [place] coronary artery without angina pectoris Abnormal stress test Dyspnea on exertion Hypertension Diastolic dysfunction Tachycardia Asthma, moderate persistent Diverticulosis IBS (irritable bowel syndrome) Gastroparesis cataracts Bronchospasm Asthmatic bronchitis Gout peroneal nerve pinched Sciatica Arthritis Anxiety Lung nodule Disorder of vocal cord Allergic rhinitis Abnormal pulmonary function test Fatigue GERD (gastroesophageal reflux disease) Asthma Hypothyroidism Asthma exacerbation Hypersomnia KATHARINA (obstructive sleep apnea) Surgical History (Updated 09/06/24 @ 14:59 by Elio Chavez RN) History of cataract surgery History of hysterectomy Stented coronary artery (04/21/19) History of left heart catheterization (10/28/18) History of tubal ligation History of cholecystectomy History of appendectomy History of tonsillectomy turbinate reduction H/O nasal septoplasty H/O colonoscopy (02/21/22) H/O endoscopy Family History Brother CAD (coronary artery disease) Mother Heart disease Thyroid disorder Parkinson dise (more content not included)... Normal [facility] Lipid Profileon 09-20-2024 Cholesterol [Mass/Vol] 158 mg/dL Normal 200 [facility] Comment on above: Result Comment: <200 mg/dL Desirable 200-240 mg/dL Borderline >240 mg/dL High Risk Performed By: #### L 500.3400, L500.4100 #### [facility] [address] [place], [address] Cholesterol in HDL [Mass/Vol] 52 mg/dL Normal [facility] Comment on above: Result Comment: The drugs N-Acetylcysteine and Metamizole may falsely depress this assay. Reference Range HDL <40 mg/dL Low HDL Cholesterol HDL >or= 60 mg/dL High HDL Cholesterol Performed By: #### L 500.3400, L500.4100 #### [facility] [address] [place], [address] Cholesterol in LDL [Mass/Vol] 66 mg/dL Normal 0-130 [facility] Comment on above: Performed By: #### L 500.3400, L500.4100 #### [facility] [address] [place], [address] Cholesterol in VLDL [Mass/Vol] 40 mg/dL Normal 5-40 [facility] Comment on above: Performed By: #### L 500.3400, L500.4100 #### [facility] [address] [place], [address] Triglyceride [Mass/Vol] 201 mg/dL High [facility] Comment on above: Result Comment: The drugs N-Acetylcysteine and Metamizole may falsely depress this assay. Serum Triglycerides Reference Interval Normal <150 mg/dL Borderline high 150 - 199 mg/dL High 200 - 499 mg/dL Very High > or = 500 mg/dL Performed By: #### L 500.3400, L500.4100 #### [facility] [address] [place], [address] Liver Profileon 09-20-2024 Albumin [Mass/Vol] 3.7 g/dL Normal 3.2-5.0 [facility] Comment on above: Performed By: #### L 500.3400, L500.4100 #### [facility] [address] [place], [address] ALK P 91 U/L Normal 45-117 [facility] Comment on above: Performed By: #### L 500.3400, L500.4100 #### [facility] [address] [place], [address] ALT [Catalytic activity/Vol] 26 U/L Normal 13-56 [facility] Comment on above: Performed By: #### L 500.3400, L500.4100 #### [facility] [address] [place], [address] AST [Catalytic activity/Vol] 17 U/L Normal 15-37 [facility] Comment on above: Result Comment: Slig ht Hemolysis, Result may be falsely increased. Performed By: #### L 500.3400, L500.4100 #### [facility] [address] [place], [address] Bilirubin [Mass/Vol] 0.30 mg/dL Normal 0.20-1.00 [facility] Comment on above: Result Comment: For patients on eltrombopag therapy, use of Dimension [place] TBIL is not recommended. Performed By: #### L 500.3400, L500.4100 #### [facility] [address] [place], [address] Bilirubin.direct [Mass/Vol] 0.08 mg/dL Normal 0.00-0.30 [facility] Comment on above: Performed By: #### L 500.3400, L500.4100 #### [facility] [address] [place], [address] Globulin (S) [Mass/Vol] 4.0 g/dL Normal 2.2-4.2 [facility] Comment on above: Performed By: #### L 500.3400, L500.4100 #### [facility] [address] [place], [address] T PROT 7.7 g/dL Normal 6.4-8.2 [facility] Comment on above: Performed By: #### L 500.3400, L500.4100 #### [facility] [address] [place], [address] Insulin Levelon 09-08-2024 INSULIN,FASTING 23.6 uIU/mL Normal 2.6-24.9 [facility] Comment on above: Result Comment: Perf ormed at: [facility] [id number] [employer] D[employer]: Sherif Case PhD, Phone: [phone] Performed By: #### L 501.9985, L500.4050, L506.1000, L3300.3500 ####[facility] [address] [place], [address] Comprehensive Metabolic Prof ilon 09-06-2024 Albumin [Mass/Vol] 3.8 g/dL Normal 3.2-5.0 [facility] Comment on above: Performed By: #### L 501.9985, L500.4050, L506.1000, L3300.3500 ####[facility] [address] [place], [address] Albumin/Globulin [Mass ratio] 1.0 {ratio} Normal 0.9-2.4 [facility] Comment on above: Performed By: #### L 501.9985, L500.4050, L506.1000, L3300.3500 ####[facility] [address] [place], [address] ALK P 93 U/L Normal 45-117 [facility] Comment on above: Performed By: #### L 501.9985, L500.4050, L506.1000, L3300.3500 ####[facility] [address] [place], [address] ALT [Catalytic activity/Vol] 23 U/L Normal 13-56 [facility] Comment on above: Performed By: #### L 501.9985, L500.4050, L506.1000, L3300.3500 ####[facility] [address] [place], [address] AST [Catalytic activity/Vol] 13 U/L Low 15-37 [facility] Comment on above: Performed By: #### L 501.9985, L500.4050, L506.1000, L3300.3500 ####[facility] [address] [place], [address] Bilirubin [Mass/Vol] 0.20 mg/dL Normal 0.20-1.00 [facility] Comment on above: Result Comment: For patients on eltrombopag therapy, use of Dimension [place] TBIL is not recommended. Performed By: #### L 501.9985, L500.4050, L506.1000, L3300.3500 ####[facility] [address] [place], [address] BUN/CRE 22.9 RATIO High 10-20 [facility] Comment on above: Performed By: #### L 501.9985, L500.4050, L506.1000, L3300.3500 ####[facility] [address] [place], [address] CA,Total 9.3 mg/dL Normal 8.5-10.1 [facility] Comment on above: Performed By: #### L 501.9985, L500.4050, L506.1000, L3300.3500 ####[facility] [address] [place], [address] Chloride [Moles/Vol] 103 mmol/L Normal 98-107 [facility] Comment on above: Performed By: #### L 501.9985, L500.4050, L506.1000, L3300.3500 ####[facility] [address] [place], [address] CO2 [Moles/Vol] 30.0 mmol/L Normal 21.0-32.0 [facility] Comment on above: Performed By: #### L 501.9985, L500.4050, L506.1000, L3300.3500 ####[facility] [address] [place], [address] Creatinine [Mass/Vol] 0.88 mg/dL Normal 0.55-1.02 [facility] Comment on above: Result Comment: The validity of the calculated GFR GFRAA in patients over 70 years has not been determined. Clinical correlation is essential. Performed By: #### L 501.9985, L500.4050, L506.1000, L3300.3500 ####[facility] [address] [place], [address] EST GFR - AA 81 mL/min Normal >60 [facility] Comment on above: Result Comment: Afri can [place] GFR Calc Performed By: #### L 501.9985, L500.4050, L506.1000, L3300.3500 ####[facility] [address] [place], [address] GAP 4 Low 5-15 [facility] Comment on above: Performed By: #### L 501.9985, L500.4050, L506.1000, L3300.3500 ####[facility] [address] [place], [address] GFR/1.73 sq M.predicted among non-blacks MDRD (S/P/Bld) [Vol rate/Area] 67 mL/min/{1.73_m2} Normal >60 [facility] Comment on above: Result Comment: Non- GFR Calc Performed By: #### L 501.9985, L500.4050, L506.1000, L3300.3500 ####[facility] [address] [place], [address] Globulin (S) [Mass/Vol] 3.9 g/dL Normal 2.2-4.2 [facility] Comment on above: Performed By: #### L 501.9985, L500.4050, L506.1000, L3300.3500 ####[facility] [address] [place], [address] Glucose [Mass/Vol] 109 mg/dL High 74-106 [facility] Comment on above: Result Comment: Fast ing Glucose result from 100 to 125 mg/dL suggests IMPAIRED HOMEOSTASIS per A.D.A. criteria. Performed By: #### L 501.9985, L500.4050, L506.1000, L3300.3500 ####[facility] [address] [place], [address] Potassium [Moles/Vol] 4.1 mmol/L Normal 3.5-5.1 [facility] Comment on above: Performed By: #### L 501.9985, L500.4050, L506.1000, L3300.3500 ####[facility] [address] [place], [address] Sodium [Moles/Vol] 137 mmol/L Normal 136-145 [facility] Comment on above: Performed By: #### L 501.9985, L500.4050, L506.1000, L3300.3500 ####[facility] [address] [place], [address] T PROT 7.7 g/dL Normal 6.4-8.2 [facility] Comment on above: Performed By: #### L 501.9985, L500.4050, L506.1000, L3300.3500 ####[facility] [address] [place], [address] Urea nitrogen [Mass/Vol] 20 mg/dL High 7-18 [facility] Comment on above: Performed By: #### L 501.9985, L500.4050, L506.1000, L3300.3500 ####[facility] [address] [place], [address] Hemoglobin A1con 09-06-2024 HbA1c (Bld) [Mass fraction] 5.6 % Normal 3.8-5.6 [facility] Comment on above: Result Comment: Norm al < 5.7 % Prediabetic 5.7 - 6.4 % Diabetic >or= 6.5 % Please note range changes. Performed By: #### L 501.9985, L500.4050, L506.1000, L3300.3500 ####[facility] [address] [place], [address] MR/BMS.SARABon 09-06-2024 MR/BMS.IMB [facility] [address] [place] [address] OFFICE VISIT Date of Service: 09/06/24 MR#: [id number] Acct: [id number] Name: RONI LE[place]IS Rep #: [id number] : 1950 Provider: Dr. Rosario schuster MD Age/Sex: 74/F Location: BMS.IMB Status: Signed Intake Vital Signs 05/17/24 14:54 08/12/24 07:22 09/06/24 15:02 Height 5 ft 5 ft 5 ft Weight: 190 lb 192 lb 6 oz BMI 37.0 37.5 BP 143/66 H 133/82 H Blood Pressure Location Rt brachial Rt brachial Position Sitting Sitting Respiration 20 H 16 Pulse 74 92 Pulse Source Monitor Monitor Temp 98.0 F 98.4 F Temp Source Temporal Pulse Oximetry (%) 98 96 Oxygen Delivery Method room air room air Intake Visit Reasons: 4 M FU Chief Complaint: 4 m fu Air Brush Artist Required: No Accompanied by: Self Is patient in pain?: No Allergies chocolate flavor Allergy (Verified 09/06/24 14:56) Unknown corn Allergy (Verified 09/06/24 14:56) Unknown peanut Allergy (Verified 09/06/24 14:56) Unknown Penicillins Allergy (Verified 09/06/24 14:56) Unknown Tetracyclines Allergy (Verified 09/06/24 14:56) Unknown venom-honey bee (bee venom (honey bee)) Allergy (Verified 09/06/24 14:56) Unknown Medications ???Medication ???Instructions ???Recorded ???Confirmed ???Type docusate sodium 100 mg capsule 100 mg PO BID PRN PRN Constipation 11/15/19 09/06/24 Rx #60 caps nitroglycerin 0.4 mg sublingual 0.4 mg sublingual Q5-15M PRN chest 10/12/21 09/06/24 Rx tablet pain #25 tabs albuterol sulfate 2.5 mg/3 mL 2.5 mg (3 mL) inhalation Q4H PRN 02/11/22 09/06/24 Rx (0.083 %) solution for nebulization Sob /Or Wheezing #180 mL guaifenesin 1,200 mg tablet, 1,200 mg PO PRN PRN ALLERGIES 02/15/22 09/06/24 History extended release 12 hr aspirin 81 mg tablet,delayed 81 mg PO QHS #90 tabs 04/09/22 09/06/24 Rx release wheat dextrin 3 gram/4 gram oral 1 packet PO DAILY supplement 04/09/22 09/06/24 History powder ascorbic acid (vitamin C) 500 mg 500 mg PO BID 10/21/22 09/06/24 History capsule ergocalciferol (vitamin D2) 1,250 50,000 unit PO QWEEK #12 caps 01/29/24 09/06/24 Rx mcg (50,000 unit) capsule levothyroxine 112 mcg tablet 112 mcg PO DAILY #90 tabs 01/29/24 09/06/24 Rx sertraline 25 mg tablet 25 mg PO DAILY #90 tabs 01/29/24 09/06/24 Rx diltiazem HCl 360 mg capsule,24 360 mg PO QHS #90 caps 03/08/24 09/06/24 Rx hr,extended release (Tiadylt ER) furosemide 40 mg tablet 40 mg PO DAILY #90 TABLETS 03/08/24 09/06/24 Rx simvastatin 20 mg tablet 20 mg PO QHS #90 tabs 03/22/24 09/06/24 Rx omeprazole 40 mg capsule,delayed 40 mg PO BID #180 caps 04/01/24 09/06/24 Rx release ursodiol 300 mg capsule 300 mg PO BID #180 caps 04/01/24 09/06/24 Rx vitamin E (dl, acetate) 180 mg 180 mg PO DAILY #90 caps 04/01/24 09/06/24 Rx (400 unit) capsule losartan 25 mg tablet 25 mg PO QHS #90 tabs 04/02/24 09/06/24 Rx potassium chloride 20 mEq 20 meq PO BID #180 tabs 07/16/24 09/06/24 Rx tablet,extended release metoclopramide HCl 5 mg tablet 5 mg PO Q8 #90 TABLETS 07/26/24 09/06/24 Rx albuterol sulfate 90 mcg/actuation 2 puff inhalation Q4H PRN 08/12/24 09/06/24 Rx aerosol inhaler (Ventolin HFA) shortness of breath or wheezing #18 grams montelukast 10 mg tablet 10 mg PO QHS #90 tabs 08/12/24 09/06/24 Rx Have you fallen in the past year?: [facility] Wears glasses History of steroid therapy Thyroid disease Restless legs Injury of head and neck History of hiatal hernia History of IBS History of diverticulitis Vocal cord dysfunction Gastric reflux CPAP (continuous positive airway pressure) dependence Shortness of breath on exertion History of echocardiogram History of stress test Hypertension History of CHF (congestive heart failure) Cardiology follow-up encounter Hx of colonic polyps Abdominal pain Pre-operative cardiovascular examination Hyperlipidemia Chest pain Chronic diastolic CHF (congestive heart failure) Atherosclerotic heart disease of [place] coronary artery without angina pectoris Abnormal stress test Dyspnea on exertion Hypertension Diastolic dysfunction Tachycardia Asthma, moderate persistent Diverticulosis IBS (irritable bowel syndrome) Gastroparesis cataracts Bronchospasm Asthmatic bronchitis Gout peroneal nerve pinched Sciatica Arthritis Anxiety Lung nodule Disorder of vocal cord Allergic rhinitis Abnormal pulmonary function test Fatigue GERD (gastroesophageal reflux disease) Asthma Hypothyroidism Asthma exacerbation Hypersomnia KATHARINA (obstructive sleep apnea) Surgical History (Updated 09/06/24 @ 14:59 by Elio Chavez RN) History of cataract surgery History of hysterectomy Stented coronary katelyn (more content not included)... Normal [facility] Vitamin D,25 Hydroxyon 09-06 Vitamin D 25-OH 107.8 ng/mL Normal [facility] Comment on above: Result Comment: Kya min D 25(OH) Status Range Deficiency <20 ng/mL (50nmol/L) Insufficiency 20 - 30 ng/mL (50 - 75 nmol/L) Sufficiency 30 - 100 ng/mL (75 - 250 nmol/L) Toxicity >100 ng/mL (>250 nmol/L) Evidence suggests that patients undergoing fluorescein dye angiography can retain small amounts of fluorescein in the body for up to 48 to 72 hours post-treatment. In the cases of patients with renal insufficiency, retention could be much longer. Samples containing fluorescein can produce falsely elevated values when tested with the Advia Centaur Vitamin D assay. With fluorescein interference, observed Vitamin D values can be as high as >150 ng/mL (>375 nmol/L). Samples should be resubmitted post fluorescein clearance to ensure there is no interference with Vitamin D test results. Performed By: #### L 501.9985, L500.4050, L506.1000, L3300.3500 ####[facility] [address] [place], [address] Pulmonary Visit Reporton Pulmonary Visit Report [facility] [address] [place] [address] OFFICE VISIT Date of Service: 08/12/24 MR#: [id number] Acct: [id number] Name: RONI [place] Rep #: [id number] : 1950 Provider: MAGGIE Cruz Age/Sex: 74/F Location: [facility] Status: Signed Assessment and Plan Assessment and Plan (1) Asthma: Status: Chronic Qualifiers: Asthma complication type: uncomplicated Asthma persistence: intermittent Asthma severity: mild Qualified Code(s): J45.20 - Mild intermittent asthma, uncomplicated Plan: No signs of exacerbation of asthma today. No change in maintenance medications, stable on Singulair. No additional testing at this time. Contact the office with any signs of new or worsening symptoms. Follow-up in 6 months. She has already had her annual influenza vaccine. Provided with Pneumovax today. (2) KATHARINA (obstructive sleep apnea): Status: Chronic Comment: Well-controlled on AutoPap Plan: She is using and benefiting from Pap therapy. No indication for titration study at this time. Contact the office for any new or worsening symptoms in the meantime. Follow-up in 6 months. (3) Obesity: Status: Chronic Qualifiers: Body mass index: BMI 34.0-34.9 Obesity classification: adult class 1 (BMI 30 - 34.9) Obesity type: due to excess calories Serious obesity comorbidity presence: with serious comorbidity Qualified Code(s): E66.09 - Other obesity due to excess calories; Z68.34 - Body mass index [BMI] 34.0-34.9, adult Plan: Continue to encourage weight loss. Orders: Orders Pneumonia Immunization Today J45.40 - Moderate persistent asthma, uncomplicated, Z23 - Encounter for immunization Medications: Refilled albuterol sulfate 90 mcg/actuation (Ventolin HFA) 2 puffs inhalation Q4H PRN 18 grams 6RF shortness of breath or wheezing montelukast 10 mg PO QHS 90 tabs 3RF HPI HPI Comments Details: This patient presents to the office today for follow-up of her asthma and obstructive sleep apnea. She is ambulatory and currently on room air. She has not recently been seen in the ED or urgent care for any respiratory illness. She has not recently been treated with antibiotics or steroids for breathing problems. She reports that she stopped taking her Breo few weeks ago. She states that she had recurrent thrush and sore throat. She honestly admits that after stopping Breo she did not see any progression of her symptoms. She feels that her symptoms were stable on or off of the inhaler. She is also compliant with Singulair daily. She is using albuterol 1-2 times per month. She is using Lasix 40 mg daily. She tries to maintain a low-sodium diet. She denies any shortness of breath. She denies any cough, sputum production or hemoptysis. She denies any wheezing, chest pain or palpitations. She has not had any fever, chills or body aches. She wakes up feeling rested and refreshed with use of her Pap device. She is not having difficulty with mask leaks or dry mouth. She is not having excessive nocturia. She is not requiring naps and is not nodding off to sleep unintentionally. If you recall, she is a lifelong never smoker. Compliance report for the past 30 days shows 100 % compliance with an average use of 8 hours and 29 minutes per night. Current setting is AutoPap 5 to 14 cm of water pressure typically being utilized at 8.4 to 10.0 cm of water. Residual AHI of 1.6 events per hour. Leaks do not appear to be problematic. Intake Vital Signs 02/12/24 07:40 05/17/24 14:54 08/12/24 07:22 Height 5 ft 5 ft 5 ft Weight: 186 lb 190 lb BMI 36.3 37.0 BP 127/76 H 143/66 H Blood Pressure Location Rt brachial Rt brachial Position Sitting Sitting Respiration 16 20 H Pulse 80 74 Pulse Source Monitor Monitor Temp 97.8 F 98.0 F Temperature Source Temporal Artery Pulse Oximetry (%) 95 98 Oxygen Delivery Method room air room air Intake Visit Reasons: 6 M FU Air Brush Artist Required: No DME Vendor: Movaris Faisal Accompanied by: Self Is patient in pain?: No Allergies chocolate flavor Allergy (Verified 08/12/24 13:51) Unknown corn Allergy (Verified 08/12/24 13:51) Unknown peanut Allergy (Verified 08/12/24 13:51) Unknown Penicillins Allergy (Verified 08/12/24 13:51) Unknown Tetracyclines Allergy (Verified 08/12/24 13:51) Unknown venom-honey bee (bee venom (honey bee)) Allergy (Verified 08/12/24 13:51) Unknown Medications ???Medication ???Instructions ???Recorded ???Confirmed ???Type docusate sodium 100 mg capsule 100 mg PO BID PRN PRN Constipation 11/15/19 08/12/24 Rx #60 caps nitroglycerin 0.4 mg sublingual 0.4 mg sublingual Q5-15M PRN chest 10/12/21 08/12/24 Rx tablet pain #25 tabs albuterol sulfate 2.5 mg/3 mL 2.5 mg (3 mL) inhalation Q4H PRN 02/11/22 11 (more content not included)... Normal [facility] No Panel InformationOrdered By: Rosario Cha on 11-17-2023 Free Triiodothyronine (T3) pg/dL 2.2 pg/mL 2.18-3.98 [facility] Vitamin D 25-Hydroxy 100.4 ng/mL [facility] Serum or plasma thyroid stim ulating hormone (TSH) measurement (units/volume)Ordered By: Rosario Cha on 11-17-2023 TSH Qn 1.19 uIU/mL 0.358-3.74 [facility] Thin prep Papanicolaou smear with manual screeningOrdered By: Rosario Cha on 11-17-2023 Thin prep Papanicolaou smear with manual screening 1.21 ng/dL 0.76-1.46 [facility] Absolute lymphocyte countOrd ered By: Oscar Kimble on 10-13-2023 Lymphocytes Auto (Unsp spec) [#/Vol] 1.75 10*3/uL 0.83-4.51 [facility] Automated lymphocyte count a s percentage of total leukocytesOrdered By: Oscar Kimble on 10-13-2023 Lymphocytes/100 WBC Auto (Unsp spec) 18.4 % 19-41 [facility] Basophil percentageOrdered B y: Jose M Chel on 10-13-2023 Bilirubin [Mass/Vol] 0.40 mg/dL 0.20-1.00 [facility] Comment on above: For patients on eltr ombopag therapy, use of Dimension [place] TBIL is not recommended. Cholesterol [Mass/Vol] 132 mg/dL <200 [facility] Comment on above: <200 mg/dL Desirable 200-240 mg/dL Borderline >240 mg/dL High Risk Protein [Mass/Vol] 7.2 g/dL 6.4-8.2 [facility] Triglyceride [Mass/Vol] 108 mg/dL <199 [facility] Comment on above: The drugs N-Acetylcy steine and Metamizole may falsely depress this assay.Serum Triglycerides Reference Interval Normal <150 mg/dL Borderline high 150 - 199 mg/dL High 200 - 499 mg/dL Very High > or = 500 mg/dL Basophil percentageOrdered B y: Oscar Kimble on 10-13-2023 Ammonia (P) [Moles/Vol] 25.0 umol/L 11-32 [facility] Basophils/100 WBC (Bld) 0.7 % 0-1 [facility] Chloride [Moles/Vol] 107 mmol/L 98-107 [facility] Eosinophils/100 WBC (Bld) 1.9 % 0-5 [facility] Glucose [Mass/Vol] 120 mg/dL 74-106 [facility] Comment on above: Fasting Glucose resu lt from 100 to 125 mg/dL suggests IMPAIRED HOMEOSTASIS per A.D.A. criteria. Hemoglobin (Bld) [Mass/Vol] 12.9 g/dL 12.0-15.0 [facility] LDH [Catalytic activity/Vol] 113 U/L 84-246 [facility] Monocytes/100 WBC (Bld) 5.8 % 0-10 [facility] Neutrophils (Bld) [#/Vol] 6.9 10*3/uL 2.0-7.7 [facility] Neutrophils/100 WBC (Bld) 72.8 % 47-70 [facility] Potassium [Moles/Vol] 3.9 mmol/L 3.5-5.1 [facility] Sodium [Moles/Vol] 138 mmol/L 136-145 [facility] WBC (Bld) [#/Vol] 9.5 10*3/uL 4.4-11.0 [facility] Determination of erythrocyte mean corpuscular volume (MCV)Ordered By: Oscar Kimble on 10-13-2023 MCV (RBC) [Entitic vol] 86.9 fL 81-99 [facility] Direct bilirubinOrdered By: Jose M Milligan on 10-13-2023 Bilirubin.direct [Mass/Vol] 0.13 mg/dL 0.00-0.30 [facility] Erythrocyte distribution wid th ratioOrdered By: Oscar Kimble on 10-13-2023 Erythrocyte distribution width (RBC) [Ratio] 13.8 % 11.6-14.6 [facility] Erythrocyte distribution wid th standard deviationOrdered By: Oscar Kimble on 10-13-2023 Erythrocyte distribution width (RBC) [Entitic vol] 43.3 fL 35.1-43.9 [facility] Erythrocyte sedimentation ra teOrdered By: Oscar Kimble on 10-13-2023 ESR (Bld) [Velocity] 30 mm/h 0-30 [facility] Hematocrit Auto (Bld) [Volum e fraction]Ordered By: Oscar Kimble on 10-13-2023 Hematocrit (Bld) [Volume fraction] 39.7 % 37-47 [facility] High density lipoprotein (HD L) measurementOrdered By: Jose M Milligan on 10-13-2023 Cholesterol in HDL (Body fld) [Mass/Vol] 59 mg/dL >40 [facility] Comment on above: The drugs N-Acetylcy steine and Metamizole may falsely depress this assay. Reference Range HDL <40 mg/dL Low HDL Cholesterol HDL >or= 60 mg/dL High HDL Cholesterol Immature granulocytes/100 WB C Auto (Bld)Ordered By: Oscar Kimble on 10-13-2023 Immature granulocytes/100 WBC (Bld) 0.400 % 0.0-0.9 [facility] Comment on above: IG% - Immature Granu locytes (promyelocytes, myelocytes and metamyelocytes) > 1% indicates that a LEFT SHIFT is Present. International normalized rat io (INR) calculationOrdered By: Oscar Kimble on 10-13-2023 INR Coag (PPP) [Relative time] 1.0 {INR} [facility] Laboratory - Chemistry and C hemistry - challengeOrdered By: Jose M Milligan on 10-13-2023 ALP [Catalytic activity/Vol] 85 U/L 45-117 [facility] ALT [Catalytic activity/Vol] 22 U/L 13-56 [facility] Globulin (S) [Mass/Vol] 3.5 g/dL 2.2-4.2 [facility] - Chemistry and C hemistry - challengeOrdered By: Oscar Kimble on 10-13-2023 Albumin/Globulin [Mass ratio] 1.0 {ratio} 0.9-2.4 [facility] CO2 [Moles/Vol] 24.0 mmol/L 21.0-32.0 [facility] Urea nitrogen/Creatinine [Mass ratio] 14.4 mg/mg 10-20 [facility] Laboratory - CoagulationOrde red By: Oscar Kimble on 10-13-2023 PT Coag (PPP) [Time] 13.5 s 11.7-14.9 [facility] - Hematology and Cell countsOrdered By: Oscar Kimble on 10-13-2023 MCH (RBC) [Entitic mass] 28.2 pg 27.0-32.0 [facility] MCHC (RBC) [Mass/Vol] 32.5 g/dL 32-36 [facility] Nucleated RBC/100 WBC (Bld) [Ratio] 0 % 0-5 [facility] Platelets (Bld) [#/Vol] 423 10*3/uL 150-450 [facility] Low density lipoprotein (LDL ) cholesterol measurementOrdered By: Jose M Milligan on 10-13-2023 Cholesterol in LDL (Body fld) [Moles/Vol] 51 mg/dL 0-130 [facility] No Panel InformationOrdered By: Oscar Kimble on 10-13-2023 C-Reactive Protein Extended Range < 2.90 mg/L 0.0-3.0 [facility] Comment on above: C-Reactive Protein ( CRP) provides useful information for thediagnosis, therapy and monitoring of inflammatory processesand associated diseases. For the evaluation of Relative Riskfor Cardiovascular Disease, a High Sensitivity CRP (HSCRP)should be ordered. Estimated GFR (MDRD) Amer 67 mL/min >60 [facility] Comment on above: GFR Calc Estimated GFR (MDRD) Non-Af Amer 55 mL/min >60 [facility] Comment on above: Non- GFR Calc Platelet mean volume Hernán-Ec ker (Bld) [Entitic vol]Ordered By: Oscar Kimble on 10-13-2023 Platelet mean volume (Bld) [Entitic vol] 9.8 fL 6.2-12.0 [facility] RBC Auto (Bld) [#/Vol]Ordere d By: Oscar Kimble on 10-13-2023 RBC (Bld) [#/Vol] 4.57 10*6/uL 4.2-5.4 [facility] Serum or plasma calcium sami urement (mass/volume)Ordered By: Oscar Kimble on 10-13-2023 Calcium [Mass/Vol] 9.5 mg/dL 8.5-10.1 [facility] Serum or plasma creatinine m easurement (mass/volume)Ordered By: Oscar Kimble on 10-13-2023 Creatinine [Mass/Vol] 1.04 mg/dL 0.55-1.02 [facility] Comment on above: The validity of the calculated GFR & GFRAA in patients over 70 years has not been determined. Clinical correlation is essential. Serum or plasma urea nitroge n measurement (mass/volume)Ordered By: Oscar Kimble on 10-13-2023 Urea nitrogen [Mass/Vol] 15 mg/dL 7-18 [facility] Thin prep Papanicolaou smear with manual screeningOrdered By: Jose M Milligan on 10-13-2023 Thin prep Papanicolaou smear with manual screening 3.7 g/dL 3.2-5.0 [facility] Thin prep Papanicolaou smear with manual screening 13 U/L 15-37 [facility] Thin prep Papanicolaou smear with manual screeningOrdered By: Oscar Kimble on 10-13-2023 Thin prep Papanicolaou smear with manual screening 7 5-15 [facility] Very low density lipoprotein (VLDL) cholesterol measurementOrdered By: Jose M Milligan on 10-13-2023 Cholesterol in VLDL Calc [Moles/Vol] 22 mg/dL 5-40 [facility] Absolute lymphocyte countOrd ered By: Oscar Kimble on 03-31-2023 Lymphocytes Auto (Unsp spec) [#/Vol] 1.92 10*3/uL 0.83-4.51 [facility] Basophil percentageOrdered B y: Oscar Kimble on 03-31-2023 Basophils/100 WBC (Bld) 0.8 % 0-1 [facility] Chloride [Moles/Vol] 105 mmol/L 98-107 [facility] Eosinophils/100 WBC (Bld) 1.7 % 0-5 [facility] Glucose [Mass/Vol] 117 mg/dL 74-106 [facility] Comment on above: Fasting Glucose resu lt from 100 to 125 mg/dL suggests IMPAIRED HOMEOSTASIS per A.D.A. criteria. Neutrophils (Bld) [#/Vol] 7.4 10*3/uL 2.0-7.7 [facility] Neutrophils/100 WBC (Bld) 72.6 % 47-70 [facility] Potassium [Moles/Vol] 3.9 mmol/L 3.5-5.1 [facility] Sodium [Moles/Vol] 137 mmol/L 136-145 [facility] WBC (Bld) [#/Vol] 10.2 10*3/uL 4.4-11.[address] [facility] Basophil percentageOrdered B y: Jose M Milligan on 03-31-2023 Bilirubin [Mass/Vol] 0.30 mg/dL 0.20-1.00 [facility] Comment on above: For patients on eltr ombopag therapy, use of Dimension [place] TBIL is not recommended. Cholesterol [Mass/Vol] 120 mg/dL <200 [facility] Comment on above: <200 mg/dL Desirable 200-240 mg/dL Borderline >240 mg/dL High Risk Protein [Mass/Vol] 7.5 g/dL 6.4-8.2 [facility] Triglyceride [Mass/Vol] 94 mg/dL <199 [facility] Comment on above: The drugs N-Acetylcy steine and Metamizole may falsely depress this assay.Serum Triglycerides Reference Interval Normal <150 mg/dL Borderline high 150 - 199 mg/dL High 200 - 499 mg/dL Very High > or = 500 mg/dL Blood erythrocytes count (nu mber/volume)Ordered By: Oscar Kimble on 03-31-2023 RBC (Bld) [#/Vol] 4.66 10*6/uL 4.2-5.[address] [facility] Blood hemoglobin measurement (mass/volume)Ordered By: Oscar Kimble on 03-31-2023 Hemoglobin (Bld) [Mass/Vol] 13.3 g/dL 12.0-15.0 [facility] Blood lymphocytes/100 leukoc ytesOrdered By: Oscar Kimble on 03-31-2023 Lymphocytes/100 WBC (Bld) 18.8 % 19-41 [facility] Blood monocytes/100 leukocyt esOrdered By: Oscar Kimble on 03-31-2023 Monocytes/100 WBC (Bld) 5.7 % 0-10 [facility] Blood platelet mean volumeOr dered By: Oscar Kimble on 03-31-2023 Platelet mean volume (Bld) [Entitic vol] 9.8 fL 6.2-12.0 [facility] Determination of erythrocyte mean corpuscular volume (MCV)Ordered By: Oscar Kimble on 03-31-2023 MCV (RBC) [Entitic vol] 88.6 fL 81-99 [facility] Direct bilirubinOrdered By: Jose M Milligan on 03-31-2023 Bilirubin.direct [Mass/Vol] 0.11 mg/dL 0.00-0.30 [facility] Hematocrit Auto (Bld) [Volum e fraction]Ordered By: Oscar Kimble on 03-31-2023 Hematocrit (Bld) [Volume fraction] 41.3 % 37-47 [facility] Laboratory - Chemistry and C hemistry - challengeOrdered By: Jose M Milligan on 03-31-2023 ALP [Catalytic activity/Vol] 87 U/L 45-117 [facility] ALT [Catalytic activity/Vol] 23 U/L 13-56 [facility] Globulin (S) [Mass/Vol] 4.0 g/dL 2.2-4.2 [facility] Laboratory - Chemistry and C hemistry - challengeOrdered By: Oscar Kimble on 03-31-2023 CO2 [Moles/Vol] 26.0 mmol/L 21.0-32.0 [facility] Urea nitrogen/Creatinine [Mass ratio] 13.1 mg/mg 10-20 [facility] Laboratory - Hematology and Cell countsOrdered By: Oscar iKmble on 03-31-2023 Erythrocyte distribution width (RBC) [Entitic vol] 43.8 fL 35.1-43.9 [facility] Erythrocyte distribution width (RBC) [Ratio] 13.5 % 11.6-14.6 [facility] Immature granulocytes/100 WBC (Bld) 0.400 % 0.0-0.9 [facility] Comment on above: IG% - Immature Granu locytes (promyelocytes, myelocytes and metamyelocytes) > 1% indicates that a LEFT SHIFT is Present. MCH (RBC) [Entitic mass] 28.5 pg 27.0-32.0 [facility] Nucleated RBC/100 WBC (Bld) [Ratio] 0 % 0-5 [facility] MCHC Auto (RBC) [Mass/Vol]Or dered By: Oscar Kimble on 03-31-2023 MCHC (RBC) [Mass/Vol] 32.2 g/dL 32-36 [facility] No Panel InformationOrdered By: Oscar Kimble on 03-31-2023 Estimated GFR (MDRD) Amer 71 mL/min >60 [facility] Comment on above: GFR Calc Estimated GFR (MDRD) Non-Af Amer 58 mL/min >60 [facility] Comment on above: Non- GFR Calc Platelets bldOrdered By: John Kimble on 03-31-2023 Platelets (Bld) [#/Vol] 426 10*3/uL 150-450 [facility] Serum mitochondria antibody detectionOrdered By: Oscar Kimble on 03-31-2023 Mitochondria Ab Ql (S) <20.0 Units 0.0-20.0 [facility] Comment on above: Negative 0.0 - 20.0 Equivocal 20.1 - 24.9 Positive >24.9Mitochondrial (M2) Antibodies are found in 90-96% ofpatients with primary biliary cirrhosis.Performed at: - [facility] [id number] Director: Sherif Case PhD, Phone: [phone] Serum or plasma C reactive p rotein measurement (mass/volume)Ordered By: Oscar Kimble on 03-31-2023 CRP [Mass/Vol] 5.45 mg/L 0.0-3.0 [facility] Comment on above: C-Reactive Protein ( CRP) provides useful information for thediagnosis, therapy and monitoring of inflammatory processesand associated diseases. For the evaluation of Relative Riskfor Cardiovascular Disease, a High Sensitivity CRP (HSCRP)should be ordered. Serum or plasma actin IgG an tibody assay (units/volume)Ordered By: Oscar Kimlbe on 03-31-2023 Actin IgG Qn 6 Units 0-19 [facility] Comment on above: Negative 0 - 19 Weak positive 20 - 30 Moderate to strong positive >30 Actin Antibodies are found in 52-85% of patients with autoimmune hepatitis or chronic active hepatitis and in 22% of patients with primary biliary cirrhosis.Performed at: [employer] [id number] Director: Sherif Case PhD, Phone: [phone] Serum or plasma albumin sami urement (mass/volume)Ordered By: Jose M Milligan on 03-31-2023 Albumin [Mass/Vol] 3.5 g/dL 3.2-5.0 [facility] Serum or plasma albumin/glob ulin mass ratioOrdered By: Oscar Kimble on 03-31-2023 Albumin/Globulin [Mass ratio] 0.9 {ratio} 0.9-2.4 [facility] Serum or plasma calcium sami urement (mass/volume)Ordered By: Oscar Kimble on 03-31-2023 Calcium [Mass/Vol] 8.8 mg/dL 8.5-10.1 [facility] Serum or plasma cholesterol in HDL measurement (mass/volume)Ordered By: Jose M Milligan on 03-31-2023 Cholesterol in HDL [Mass/Vol] 51 mg/dL >40 [facility] Comment on above: The drugs N-Acetylcy steine and Metamizole may falsely depress this assay. Reference Range HDL <40 mg/dL Low HDL Cholesterol HDL >or= 60 mg/dL High HDL Cholesterol Serum or plasma cholesterol in VLDL measurement (mass/volume)Ordered By: Jose M Milligan on 03-31-2023 Cholesterol in VLDL [Mass/Vol] 19 mg/dL 5-40 [facility] Serum or plasma creatinine m easurement (mass/volume)Ordered By: Oscar Kimble on 03-31-2023 Creatinine [Mass/Vol] 0.99 mg/dL 0.55-1.02 [facility] Comment on above: The validity of the calculated GFR & GFRAA in patients over 70 years has not been determined. Clinical correlation is essential. Serum or plasma low density lipoprotein (LDL) cholesterol measurement (mass/volume)Ordered By: Jose M Milligan on 03-31-2023 Cholesterol in LDL [Mass/Vol] 50 mg/dL 0-130 [facility] Serum or plasma urea nitroge n measurement (mass/volume)Ordered By: Oscar Kimble on 03-31-2023 Urea nitrogen [Mass/Vol] 13 mg/dL 7-18 [facility] Thin prep Papanicolaou smear with manual screeningOrdered By: Jose M Milligan on 03-31-2023 Thin prep Papanicolaou smear with manual screening 14 U/L 15-37 [facility] Thin prep Papanicolaou smear with manual screeningOrdered By: Oscar Kimble on 03-31-2023 Thin prep Papanicolaou smear with manual screening 6 5-15 [facility] Absolute lymphocyte countOrd ered By: Jose M Milligan on 10-21-2022 Lymphocytes Auto (Unsp spec) [#/Vol] 1.44 10*3/uL 0.83-4.51 [facility] Basophil percentageOrdered B y: Jose M Milligan on 10-21-2022 Basophils/100 WBC (Bld) 0.5 % 0-1 [facility] Chloride [Moles/Vol] 101 mmol/L 98-107 [facility] Eosinophils/100 WBC (Bld) 0.8 % 0-5 [facility] Glucose [Mass/Vol] 102 mg/dL 74-106 [facility] Comment on above: Fasting Glucose resu lt from 100 to 125 mg/dL suggests IMPAIRED HOMEOSTASIS per A.D.A. criteria. Neutrophils (Bld) [#/Vol] 9.0 10*3/uL 2.0-7.7 [facility] Neutrophils/100 WBC (Bld) 77.9 % 47-70 [facility] Potassium [Moles/Vol] 3.9 mmol/L 3.5-5.1 [facility] Sodium [Moles/Vol] 137 mmol/L 136-145 [facility] WBC (Bld) [#/Vol] 11.6 10*3/uL 4.4-11.[address] [facility] Blood erythrocytes count (nu mber/volume)Ordered By: Jose M Milligan on 10-21-2022 RBC (Bld) [#/Vol] 4.78 10*6/uL 4.2-5.[address] [facility] Blood hemoglobin measurement (mass/volume)Ordered By: Jose M Milligan on 10-21-2022 Hemoglobin (Bld) [Mass/Vol] 13.7 g/dL 12.0-15.0 [facility] Blood lymphocytes/100 leukoc ytesOrdered By: Jose M Milligan on 10-21-2022 Lymphocytes/100 WBC (Bld) 12.4 % 19-41 [facility] Blood monocytes/100 leukocyt esOrdered By: Jose M Milligan on 10-21-2022 Monocytes/100 WBC (Bld) 7.9 % 0-10 [facility] Blood platelet mean volumeOr dered By: Jose M Milligan on 10-21-2022 Platelet mean volume (Bld) [Entitic vol] 9.7 fL 6.2-12.0 [facility] Determination of erythrocyte mean corpuscular volume (MCV)Ordered By: Jose M Milligan on 10-21-2022 MCV (RBC) [Entitic vol] 88.3 fL 81-99 [facility] Hematocrit Auto (Bld) [Volum e fraction]Ordered By: Jose M Milligan on 10-21-2022 Hematocrit (Bld) [Volume fraction] 42.2 % 37-47 [facility] Laboratory - Chemistry and C hemistry - challengeOrdered By: Jose M Milligan on 10-21-2022 CO2 [Moles/Vol] 24.0 mmol/L 21.0-32.0 [facility] Cobalamin (Vitamin B12) [Mass/Vol] 492 pg/mL 211-911 [facility] Free T4 [Mass/Vol] 1.36 ng/dL 0.76-1.46 [facility] Natriuretic peptide B (Bld) [Mass/Vol] 23.7 pg/mL 0-100 [facility] Urea nitrogen/Creatinine [Mass ratio] 15.9 mg/mg 10-20 [facility] Laboratory - Hematology and Cell countsOrdered By: Jose M Milligan on 10-21-2022 Erythrocyte distribution width (RBC) [Entitic vol] 42.9 fL 35.1-43.9 [facility] Erythrocyte distribution width (RBC) [Ratio] 13.2 % 11.6-14.6 [facility] Immature granulocytes/100 WBC (Bld) 0.500 % 0.0-0.9 [facility] Comment on above: IG% - Immature Granu locytes (promyelocytes, myelocytes and metamyelocytes) > 1% indicates that a LEFT SHIFT is Present. MCH (RBC) [Entitic mass] 28.7 pg 27.0-32.0 [facility] Nucleated RBC/100 WBC (Bld) [Ratio] 0 % 0-5 [facility] MCHC Auto (RBC) [Mass/Vol]Or dered By: Jose M Milligan on 10-21-2022 MCHC (RBC) [Mass/Vol] 32.5 g/dL 32-36 [facility] No Panel InformationOrdered By: Jose M Milligan on 10-21-2022 Estimated GFR (MDRD) Amer 65 mL/min >60 [facility] Comment on above: GFR Calc Estimated GFR (MDRD) Non-Af Amer 54 mL/min >60 [facility] Comment on above: Non- GFR Calc Free Triiodothyronine (T3) pg/dL 2.4 pg/mL 2.18-3.98 [facility] Thyroid Stimulating Hormone (TSH) 0.88 uIU/mL 0.358-3.74 [facility] Platelets bldOrdered By: Robby Milligan on 10-21-2022 Platelets (Bld) [#/Vol] 386 10*3/uL 150-450 [facility] Serum or plasma calcium sami urement (mass/volume)Ordered By: Jose M Milligan on 10-21-2022 Calcium [Mass/Vol] 9.7 mg/dL 8.5-10.1 [facility] Serum or plasma creatinine m easurement (mass/volume)Ordered By: Jose M Milligan on 10-21-2022 Creatinine [Mass/Vol] 1.07 mg/dL 0.55-1.02 [facility] Comment on above: The validity of the calculated GFR & GFRAA in patients over 70 years has not been determined. Clinical correlation is essential. Serum or plasma urea nitroge n measurement (mass/volume)Ordered By: Jose M Milligan on 10-21-2022 Urea nitrogen [Mass/Vol] 17 mg/dL 7-18 [facility] Thin prep Papanicolaou smear with manual screeningOrdered By: Jose M Milligan on 10-21-2022 Thin prep Papanicolaou smear with manual screening 12 5-15 [facility] Basophil percentageOrdered B y: Jose M Milligan on 10-09-2022 Bilirubin [Mass/Vol] 0.50 mg/dL 0.20-1.00 [facility] Comment on above: For patients on eltr ombopag therapy, use of Dimension [place] TBIL is not recommended. Cholesterol [Mass/Vol] 137 mg/dL <200 [facility] Comment on above: <200 mg/dL Desirable 200-240 mg/dL Borderline >240 mg/dL High Risk Protein [Mass/Vol] 7.8 g/dL 6.4-8.2 [facility] Triglyceride [Mass/Vol] 105 mg/dL <199 [facility] Comment on above: The drugs N-Acetylcy steine and Metamizole may falsely depress this assay.Serum Triglycerides Reference Interval Normal <150 mg/dL Borderline high 150 - 199 mg/dL High 200 - 499 mg/dL Very High > or = 500 mg/dL Direct bilirubinOrdered By: Jose M Milligan on 10-09-2022 Bilirubin.direct [Mass/Vol] 0.15 mg/dL 0.00-0.30 [facility] Laboratory - Chemistry and C hemistry - challengeOrdered By: Jose M Milligan on 10-09-2022 ALP [Catalytic activity/Vol] 88 U/L 45-117 [facility] ALT [Catalytic activity/Vol] 27 U/L 13-56 [facility] Globulin (S) [Mass/Vol] 3.8 g/dL 2.2-4.2 [facility] Serum or plasma albumin sami urement (mass/volume)Ordered By: Jose M Milligan on 10-09-2022 Albumin [Mass/Vol] 4.0 g/dL 3.2-5.0 [facility] Serum or plasma cholesterol in HDL measurement (mass/volume)Ordered By: Jose M Milligan on 10-09-2022 Cholesterol in HDL [Mass/Vol] 58 mg/dL >40 [facility] Comment on above: The drugs N-Acetylcy steine and Metamizole may falsely depress this assay. Reference Range HDL <40 mg/dL Low HDL Cholesterol HDL >or= 60 mg/dL High HDL Cholesterol Serum or plasma cholesterol in VLDL measurement (mass/volume)Ordered By: Jose M Milligan on 10-09-2022 Cholesterol in VLDL [Mass/Vol] 21 mg/dL 5-40 [facility] Serum or plasma low density lipoprotein (LDL) cholesterol measurement (mass/volume)Ordered By: Jose M Milligan on 10-09-2022 Cholesterol in LDL [Mass/Vol] 58 mg/dL 0-130 [facility] Thin prep Papanicolaou smear with manual screeningOrdered By: Jose M Milligan on 10-09-2022 Thin prep Papanicolaou smear with manual screening 13 U/L 15-37 [facility] Absolute lymphocyte counton 07-04-2022 Lymphocytes Auto (Unsp spec) [#/Vol] 1.55 10*3/uL 0.83-4.51 [facility] Work Phone: Atypical perinuclear antineu trophil cytoplasmic antibodies measurementon 07-04-2022 Neutrophil cytoplasmic Ab.perinuclear.atypical IF (S) [Titer] <1:20 titer Neg:<1:20 [facility] Work Phone: Comment on above: The atypical pANCA p attern has been observed in asignificant percentage of patients with ulcerative colitis,primary sclerosing cholangitis and autoimmune hepatitis. Basophil percentageon 2021 Basophils/100 WBC (Bld) 0.7 % 0-1 [facility] Work Phone: Bilirubin [Mass/Vol] 0.40 mg/dL 0.20-1.00 [facility] Work Phone: Comment on above: For patients on eltr ombopag therapy, use of Dimension [place] TBIL is not recommended. Chloride [Moles/Vol] 102 mmol/L 98-107 [facility] Work Phone: Eosinophils/100 WBC (Bld) 0.9 % 0-5 [facility] Work Phone: Glucose [Mass/Vol] 100 mg/dL 74-106 [facility] Work Phone: Comment on above: Fasting Glucose resu lt from 100 to 125 mg/dL suggests IMPAIRED HOMEOSTASIS per A.D.A. criteria. Neutrophils (Bld) [#/Vol] 6.5 10*3/uL 2.0-7.7 [facility] Work Phone: Neutrophils/100 WBC (Bld) 72.9 % 47-70 [facility] Work Phone: Potassium [Moles/Vol] 3.8 mmol/L 3.5-5.1 [facility] Work Phone: Protein [Mass/Vol] 7.9 g/dL 6.4-8.2 [facility] Work Phone: Sodium [Moles/Vol] 138 mmol/L 136-145 [facility] Work Phone: WBC (Bld) [#/Vol] 8.9 10*3/uL 4.4-11.0 [facility] Work Phone: Blood erythrocytes count (nu mber/volume)on 07-04-2022 RBC (Bld) [#/Vol] 4.75 10*6/uL 4.2-5.[address] [facility] [facility] Work Phone: Blood hemoglobin measurement (mass/volume)on 07-04-2022 Hemoglobin (Bld) [Mass/Vol] 13.8 g/dL 12.0-15.0 [facility] Work Phone: Blood lymphocytes/100 leukoc yteson 07-04-2022 Lymphocytes/100 WBC (Bld) 17.5 % 19-41 [facility] Work Phone: Blood monocytes/100 leukocyt eson 07-04-2022 Monocytes/100 WBC (Bld) 7.7 % 0-10 [facility] Work Phone: Blood platelet mean volumeon 07-04-2022 Platelet mean volume (Bld) [Entitic vol] 9.5 fL 6.2-12.0 [facility] Work Phone: Determination of erythrocyte mean corpuscular volume (MCV)on 07-04-2022 MCV (RBC) [Entitic vol] 87.6 fL 81-99 [facility] Work Phone: Erythrocyte sedimentation ra ivania 07-04-2022 ESR (Bld) [Velocity] 30 mm/h 0-30 [facility] Work Phone: Hematocrit Auto (Bld) [Volum e fraction]on 07-04-2022 Hematocrit (Bld) [Volume fraction] 41.6 % 37-47 [facility] Work Phone: INR in Blood by Coagulation assayon 07-04-2022 INR Coag (Bld) [Relative time] 1.0 {INR} [facility] Work Phone: Laboratory - Chemistry and C hemistry - challengeon 07-04-2022 ALP [Catalytic activity/Vol] 98 U/L 45-117 [facility] Work Phone: ALT [Catalytic activity/Vol] 22 U/L 13-56 [facility] Work Phone: CO2 [Moles/Vol] 27.0 mmol/L 21.0-32.0 [facility] Work Phone: Globulin (S) [Mass/Vol] 4.1 g/dL 2.2-4.2 [facility] Work Phone: Urea nitrogen/Creatinine [Mass ratio] 12.4 mg/mg 10-20 [facility] Work Phone: Laboratory - Coagulationon 1 PT Coag (PPP) [Time] 13.3 s 11.7-14.9 [facility] Work Phone: Laboratory - Hematology and Cell countson 07-04-2022 Erythrocyte distribution width (RBC) [Entitic vol] 42.7 fL 35.1-43.9 [facility] Work Phone: Erythrocyte distribution width (RBC) [Ratio] 13.2 % 11.6-14.6 [facility] Work Phone: Immature granulocytes/100 WBC (Bld) 0.300 % 0.0-0.9 [facility] Work Phone: Comment on above: IG% - Immature Granu locytes (promyelocytes, myelocytes and metamyelocytes) > 1% indicates that a LEFT SHIFT is Present. MCH (RBC) [Entitic mass] 29.1 pg 27.0-32.0 [facility] Work Phone: Nucleated RBC/100 WBC (Bld) [Ratio] 0 % 0-5 [facility] Work Phone: MCHC Auto (RBC) [Mass/Vol]on 07-04-2022 MCHC (RBC) [Mass/Vol] 33.2 g/dL 32-36 [facility] Work Phone: No Panel Informationon 07-04 Endomysial IgA Antibody Negative Negative [facility] Work Phone: Estimated GFR (MDRD) Amer 73 mL/min >60 [facility] Work Phone: Comment on above: GFR Calc Estimated GFR (MDRD) Non-Af Amer 60 mL/min >60 [facility] Work Phone: Comment on above: Non- GFR Calc Immunoglobulin E 8 IU/mL 6-495 [facility] Work Phone: Thyroid Stimulating Hormone (TSH) 1.32 uIU/mL 0.358-3.74 [facility] Work Phone: Vitamin D 25-Hydroxy 81.8 ng/mL [facility] Work Phone: Comment on above: Vitamin D 25(OH) Sta tus Range Deficiency <20 ng/mL (50nmol/L) Insufficiency 20 - 30 ng/mL (50 - 75 nmol/L) Sufficiency 30 - 100 ng/mL (75 - 250 nmol/L) Toxicity >100 ng/mL (>250 nmol/L) Platelets bldon 07-04-2022 Platelets (Bld) [#/Vol] 410 10*3/uL 150-450 [facility] Work Phone: Serum IgA measurement (units /volume)on 07-04-2022 IgA Qn (S) 347 mg/dL 64-422 [facility] Work Phone: Comment on above: Performed at: [employer] [address] [id number] Director: Sherif Case PhD, Phone: [phone] Serum classic neutrophil cyt oplasmic antibody assay (units/volume)on 07-04-2022 Neutrophil cytoplasmic Ab.classic Qn (S) <1:20 titer Neg:<1:20 [facility] Work Phone: Serum or plasma C reactive p rotein measurement (mass/volume)on 07-04-2022 CRP [Mass/Vol] 4.45 mg/L 0.0-3.0 [facility] Work Phone: Comment on above: C-Reactive Protein ( CRP) provides useful information for thediagnosis, therapy and monitoring of inflammatory processesand associated diseases. For the evaluation of Relative Riskfor Cardiovascular Disease, a High Sensitivity CRP (HSCRP)should be ordered. Serum or plasma IgA measurem ent (mass/volume)on 07-04-2022 IgA [Mass/Vol] 340 mg/dL 64-422 [facility] Work Phone: [phone] Serum or plasma IgG measurem ent (mass/volume)on 07-04-2022 IgG [Mass/Vol] 963 mg/dL [phone] [facility] Work Phone: [phone] Serum or plasma IgM measurem ent (mass/volume)on 07-04-2022 IgM [Mass/Vol] 43 mg/dL 26-217 [facility] Work Phone: [phone] Comment on above: Performed at: [employer] [address] [place], [place] [id number] Director: Sherif Case PhD, Phone: [phone] at: [facility] [id number] Director: Lindsey Bajwa MD, Phone: [phone] Serum or plasma albumin sami urement (mass/volume)on 07-04-2022 Albumin [Mass/Vol] 3.8 g/dL 3.2-5.0 [facility] Work Phone: Serum or plasma albumin/glob ulin mass ratioon 07-04-2022 Albumin/Globulin [Mass ratio] 0.9 {ratio} 0.9-2.4 [facility] Work Phone: Serum or plasma calcitriol m easurement (mass/volume)on 07-04-2022 1,25-dihydroxyvitamin D3 [Mass/Vol] 81.2 pg/mL 24.8-81.5 [facility] Work Phone: Comment on above: Please note refere nce interval changePerformed at: [facility] - [facility] [id number] Director: Lindsey Bajwa MD, Phone: [phone] Serum or plasma calcium sami urement (mass/volume)on 07-04-2022 Calcium [Mass/Vol] 9.0 mg/dL 8.5-10.1 [facility] Work Phone: Serum or plasma creatinine m easurement (mass/volume)on 07-04-2022 Creatinine [Mass/Vol] 0.96 mg/dL 0.55-1.02 [facility] Work Phone: Comment on above: The validity of the calculated GFR & GFRAA in patients over 70 years has not been determined. Clinical correlation is essential. Serum or plasma urea nitroge n measurement (mass/volume)on 07-04-2022 Urea nitrogen [Mass/Vol] 12 mg/dL 7-18 [facility] Work Phone: Serum perinuclear neutrophil cytoplasmic antibody titer by immunofluorescenceon 07-04-2022 Neutrophil cytoplasmic Ab.perinuclear IF (S) [Titer] <1:20 titer Neg:<1:20 [facility] Work Phone: Comment on above: The presence of posi tive fluorescence exhibiting P-ANCA orC-ANCA patterns alone is not specific for the diagnosis ofWegener's Granulomatosis (WG) or microscopic polyangiitis.Decisions about treatment should not be based solely onANCA IFA results. The [employer] ANCA Group Consensusrecommends follow up testing of positive sera with both OK-3 and MPO-ANCA enzyme immunoassays. As many as 5% serumsamples are positive only by EIA. Ref. AM J Clin [id number];111:507-513. Serum tissue transglutaminas e IgA antibody assay (units/volume)on 07-04-2022 tTG IgA Qn (S) <2 U/mL 0-3 [facility] Work Phone: Comment on above: Negative 0 - 3 Weak Positive 4 - 10 Positive >10 Tissue Transglutaminase (tTG) has been identified as the endomysial antigen. Studies have demonstr- ated that endomysial IgA antibodies have over 99% specificity for gluten sensitive enteropathy. Thin prep Papanicolaou smear with manual screeningon 07-04-2022 Thin prep Papanicolaou smear with manual screening 11 U/L 15-37 [facility] Work Phone: [phone] Thin prep Papanicolaou smear with manual screening 9 5-15 [facility] Work Phone: [phone] Thin prep Papanicolaou smear with manual screening 132 U/L 84-246 [facility] Work Phone: [phone] Gram stain for investigation of transfusion reactionon 02-11-2022 Microscopic observation Gram stain Nom (Unsp spec) [facility] Work Phone: Basophil percentageon 2021 Bilirubin [Mass/Vol] 0.40 mg/dL 0.20-1.00 [facility] Work Phone: Comment on above: For patients on eltr ombopag therapy, use of Dimension [place] TBIL is not recommended. Cholesterol [Mass/Vol] 128 mg/dL <200 [facility] Work Phone: [phone] Comment on above: <200 mg/dL Desirable 200-240 mg/dL Borderline >240 mg/dL High Risk Protein [Mass/Vol] 7.4 g/dL 6.4-8.2 [facility] Work Phone: [phone] Triglyceride [Mass/Vol] 120 mg/dL [facility] Work Phone: [phone] Comment on above: The drugs N-Acetylcy steine and Metamizole may falsely depress this assay.Serum Triglycerides Reference Interval Normal <150 mg/dL Borderline high 150 - 199 mg/dL High 200 - 499 mg/dL Very High > or = 500 mg/dL Direct bilirubinon Bilirubin.direct [Mass/Vol] 0.12 mg/dL 0.00-0.30 [facility] Work Phone: Laboratory - Chemistry and C hemistry - challengeon 01-29-2022 ALP [Catalytic activity/Vol] 93 U/L 45-117 [facility] Work Phone: ALT [Catalytic activity/Vol] 22 U/L 13-56 [facility] Work Phone: Globulin (S) [Mass/Vol] 3.6 g/dL 2.2-4.2 [facility] Work Phone: Free T4 [Mass/Vol] 1.29 ng/dL 0.76-1.46 [facility] Work Phone: No Panel Informationon 01-29 Thyroid Stimulating Hormone (TSH) 0.62 uIU/mL 0.358-3.74 [facility] Work Phone: Serum or plasma albumin sami urement (mass/volume)on 01-29-2022 Albumin [Mass/Vol] 3.8 g/dL 3.2-5.0 [facility] Work Phone: Serum or plasma cholesterol in HDL measurement (mass/volume)on 01-29-2022 Cholesterol in HDL [Mass/Vol] 51 mg/dL [facility] Work Phone: Comment on above: The drugs N-Acetylcy steine and Metamizole may falsely depress this assay. Reference Range HDL <40 mg/dL Low HDL Cholesterol HDL >or= 60 mg/dL High HDL Cholesterol Serum or plasma cholesterol in VLDL measurement (mass/volume)on 01-29-2022 Cholesterol in VLDL [Mass/Vol] 24 mg/dL 5-40 [facility] Work Phone: Serum or plasma low density lipoprotein (LDL) cholesterol measurement (mass/volume)on 01-29-2022 Cholesterol in LDL [Mass/Vol] 53 mg/dL 0-130 [facility] Work Phone: Thin prep Papanicolaou smear with manual screeningon 01-29-2022 Thin prep Papanicolaou smear with manual screening 9 U/L 15-37 [facility] Work Phone: Basophil percentageon 2021 Creatinine [Mass/Vol] 0.9 mg/dL 0.55-1.02 [facility] Work Phone: No Panel Informationon 11-02 Bedside Estimated GFR (eGFR) > 60.0000 mL/min >60 [facility] Work Phone: Absolute lymphocyte counton 10-19-2021 Lymphocytes Auto (Unsp spec) [#/Vol] 1.60 10*3/uL 0.83-4.51 [facility] Work Phone: Atypical perinuclear antineu trophil cytoplasmic antibodies measurementon 10-19-2021 Neutrophil cytoplasmic Ab.perinuclear.atypical IF (S) [Titer] <1:20 titer Neg:<1:20 [facility] Work Phone: Comment on above: The atypical pANCA p attern has been observed in asignificant percentage of patients with ulcerative colitis,primary sclerosing cholangitis and autoimmune hepatitis. Basophil percentageon 2021 Basophil percentage < 0.[address] [facility] Work Phone: Basophils/100 WBC (Bld) 0.6 % 0-1 [facility] Work Phone: Eosinophils/100 WBC (Bld) 1.6 % 0-5 [facility] Work Phone: Neutrophils (Bld) [#/Vol] 6.2 10*3/uL 2.0-7.7 [facility] Work Phone: Neutrophils/100 WBC (Bld) 70.2 % 47-70 [facility] Work Phone: WBC (Bld) [#/Vol] 8.9 10*3/uL 4.4-11.0 [facility] Work Phone: Blood erythrocytes count (nu mber/volume)on 10-19-2021 RBC (Bld) [#/Vol] 4.94 10*6/uL 4.2-5.[address] [facility] Work Phone: Blood hemoglobin measurement (mass/volume)on 10-19-2021 Hemoglobin (Bld) [Mass/Vol] 14.0 g/dL 12.0-15.0 [facility] Work Phone: [phone] Blood lymphocytes/100 leukoc yteson 10-19-2021 Lymphocytes/100 WBC (Bld) 18.1 % 19-41 [facility] Work Phone: [phone] Blood monocytes/100 leukocyt eson 10-19-2021 Monocytes/100 WBC (Bld) 8.8 % 0-10 [facility] Work Phone: Blood platelet mean volumeon 10-19-2021 Platelet mean volume (Bld) [Entitic vol] 10.1 fL 6.2-12.0 [facility] Work Phone: Determination of erythrocyte mean corpuscular volume (MCV)on 10-19-2021 MCV (RBC) [Entitic vol] 87.7 fL 81-99 [facility] Work Phone: Erythrocyte sedimentation ra ivania 10-19-2021 ESR (Bld) [Velocity] 24 mm/h 0-30 [facility] Work Phone: Hematocrit Auto (Bld) [Volum e fraction]on 10-19-2021 Hematocrit (Bld) [Volume fraction] 43.3 % 37-47 [facility] Work Phone: Laboratory - Hematology and Cell countson 10-19-2021 Erythrocyte distribution width (RBC) [Entitic vol] 43.2 fL 35.1-43.9 [facility] Work Phone: [phone] Erythrocyte distribution width (RBC) [Ratio] 13.4 % 11.6-14.6 [facility] Work Phone: Immature granulocytes/100 WBC (Bld) 0.700 % 0.0-0.9 [facility] Work Phone: Comment on above: IG% - Immature Granu locytes (promyelocytes, myelocytes and metamyelocytes) > 1% indicates that a LEFT SHIFT is Present. MCH (RBC) [Entitic mass] 28.3 pg 27.0-32.0 [facility] Work Phone: [phone] Nucleated RBC/100 WBC (Bld) [Ratio] 0 % 0-5 [facility] Work Phone: [phone] MCHC Auto (RBC) [Mass/Vol]on 10-19-2021 MCHC (RBC) [Mass/Vol] 32.3 g/dL 32-36 [facility] Work Phone: [phone] No Panel Informationon 10-19 Centromere B Antibody <0.2 AI [facility] Work Phone: [phone] Endomysial IgA Antibody Negative Negative [facility] Work Phone: [phone] Free Triiodothyronine (T3) pg/dL 2.5 pg/mL 2.18-3.98 [facility] Work Phone: Immunoglobulin E 10 IU/mL [facility] Work Phone: [phone] GSE MECHANIC Antibody 0.2 AI [facility] Work Phone: [phone] Thyroid Stimulating Hormone (TSH) 3.04 uIU/mL 0.358-3.74 [facility] Work Phone: [phone] Platelets bldon 10-19-2021 Platelets (Bld) [#/Vol] 385 10*3/uL 150-450 [facility] Work Phone: [phone] Serum DNA double strand anti body assay (units/volume)on 10-19-2021 DNA double strand Ab Qn (S) [IU]/mL [facility] Work Phone: [phone] Comment on above: Negative <5 Equivoca l 5 - 9 Positive >9 Serum Abby-1 antibody assay (u nits/volume)on 10-19-2021 Abby-1 extractable nuclear Ab Qn (S) <0.2 [facility] Work Phone: [phone] Serum Scl-70 extractable nuc lear antibody assay (units/volume)on 10-19-2021 SCL-70 extractable nuclear Ab Qn (S) <0.2 AI [facility] Work Phone: [phone] Serum Sumner extractable nucl ear antibody detectionon 10-19-2021 Sumner extractable nuclear Ab Ql (S) <0.2 AI [facility] Work Phone: [phone] Serum classic neutrophil cyt oplasmic antibody assay (units/volume)on 10-19-2021 Neutrophil cytoplasmic Ab.classic Qn (S) <1:20 titer Neg:<1:20 [facility] Work Phone: [phone] Serum or plasma C reactive p rotein measurement (mass/volume)on 10-19-2021 CRP [Mass/Vol] 4.57 mg/L 0.0-3.0 [facility] Work Phone: Comment on above: C-Reactive Protein ( CRP) provides useful information for thediagnosis, therapy and monitoring of inflammatory processesand associated diseases. For the evaluation of Relative Riskfor Cardiovascular Disease, a High Sensitivity CRP (HSCRP)should be ordered. Serum or plasma IgA measurem ent (mass/volume)on 10-19-2021 IgA [Mass/Vol] 292 mg/dL [facility] Work Phone: [phone] Serum or plasma IgG measurem ent (mass/volume)on 10-19-2021 IgG [Mass/Vol] 982 mg/dL [facility] Work Phone: [phone] Serum or plasma IgM measurem ent (mass/volume)on 10-19-2021 IgM [Mass/Vol] 35 mg/dL [facility] Work Phone: Comment on above: Performed at: [address] [id number] Director: Sherif Case PhD, Phone: [phone] at: [facility] [id number] Director: Lindsey Bajwa MD, Phone: [phone] Serum or plasma angiotensin converting enzyme measurement (enzymatic activity/volume)on 10-19-2021 Angiotensin converting enzyme [Catalytic activity/Vol] 58 U/L [facility] Work Phone: Serum or plasma folate measu rement (mass/volume)on 10-19-2021 Folate [Mass/Vol] 10.20 ng/mL 3.1-55.4 [facility] Work Phone: Serum parietal cell antibody assay (units/volume)on 10-19-2021 Parietal cell Ab Qn (S) 2.8 Units [facility] Work Phone: Comment on above: Negative 0.0 - 20.0 Equivocal 20.1 - 24.9 Positive >24.9Parietal Cell Antibodies are found in 90% of patientswith pernicious anemia and 30% of first degreerelatives with pernicious anemia. Serum perinuclear neutrophil cytoplasmic antibody titer by immunofluorescenceon 10-19-2021 Neutrophil cytoplasmic Ab.perinuclear IF (S) [Titer] <1:20 titer Neg:<1:20 [facility] Work Phone: Comment on above: The presence of posi tive fluorescence exhibiting P-ANCA orC-ANCA patterns alone is not specific for the diagnosis ofWegener's Granulomatosis (WG) or microscopic polyangiitis.Decisions about treatment should not be based solely onANCA IFA results. The [employer] ANCA [employer] Consensusrecommends follow up testing of positive sera with both OK-3 and MPO-ANCA enzyme immunoassays. As many as 5% serumsamples are positive only by EIA. Ref. AM J Clin [id number];111:507-513. Serum tissue transglutaminas e IgA antibody assay (units/volume)on 10-19-2021 tTG IgA Qn (S) <2 U/mL [facility] Work Phone: Comment on above: Negative 0 - 3 Weak Positive 4 - 10 Positive >10 Tissue Transglutaminase (tTG) has been identified as the endomysial antigen. Studies have demonstr- ated that endomysial IgA antibodies have over 99% specificity for gluten sensitive enteropathy. Thin prep Papanicolaou smear with manual screeningon 10-19-2021 Thin prep Papanicolaou smear with manual screening 166 U/L 84-246 [facility] Work Phone: Culture, urine Bacteria identified Cx Nom (U) Positive [facility] Work Phone: Vital Signs Date Time Vital Sign Value Performing Clinician Irasema priest 04-13-2025 08:06-0400 Body mass index (BMI) [Ratio] 39.2 kg/m2 Dr. Oscar Kimble DO Work Phone: [facility] 04-13-2025 08:06-0400 Body temperature 97.3 [degF] Dr. Oscar Kimble DO Work Phone: [facility] 04-13-2025 08:06-0400 Body weight 91.[address] Oscar Kimble DO Work Phone: [facility] 04-13-2025 08:06-0400 Diastolic blood pressure 88 mm[Hg] Dr. Oscar Kimble DO Work Phone: [facility] 04-13-2025 08:06-0400 Heart rate 77 /min Dr. Oscar Kimble DO Work Phone: [facility] 04-13-2025 08:06-0400 Respiratory rate 16 /min Dr. Ocsar Kimble DO Work Phone: [facility] 04-13-2025 08:06-0400 SaO2% (BldA) [Mass fraction] 96 % Dr. Oscar Kimble DO Work Phone: [facility] 04-13-2025 08:06-0400 Systolic blood pressure 134 mm[Hg] Dr. Oscar Kimble DO Work Phone: [facility] 03-14-2025 13:00-0400 Body height 152.[address] Oscar Kimble DO Work Phone: [facility] 03-14-2025 13:00-0400 Body mass index (BMI) [Ratio] 39.2 kg/m2 Dr. Oscar Kimble DO Work Phone: [facility] 03-14-2025 13:00-0400 Body weight 91.[address] Oscar Kimble DO Work Phone: [facility] 03-14-2025 13:00-0400 Diastolic blood pressure 83 mm[Hg] Dr. Oscar Kimble DO Work Phone: [facility] 03-14-2025 13:00-0400 Heart rate 73 /min Dr. Oscar Kimble DO Work Phone: [facility] 03-14-2025 13:00-0400 Respiratory rate 18 /min Dr. Oscar Kimble DO Work Phone: [phone] [place] [address] 03-14-2025 13:00-0400 Systolic blood pressure 124 mm[Hg] Dr. Oscar Kimble DO Work Phone: [facility] 03-07-2025 14:55-0400 Body height 152.[address] Oscar Kimble DO Work Phone: [phone] [place] [address] 03-07-2025 14:55-0400 Body mass index (BMI) [Ratio] 39.3 kg/m2 Dr. Oscar Kimble DO Work Phone: [phone] [place] [address] 03-07-2025 14:55-0400 Body temperature 98.6 [degF] Dr. Oscar Kimble DO Work Phone: [facility] 03-07-2025 14:55-0400 Body weight 91.[address] Oscar Kimble DO Work Phone: [facility] 03-07-2025 14:55-0400 Diastolic blood pressure 77 mm[Hg] Dr. Oscar Kimble DO Work Phone: [facility] 03-07-2025 14:55-0400 Heart rate 80 /min Dr. Oscar Kimble DO Work Phone: [facility] 03-07-2025 14:55-0400 Respiratory rate 16 /min Dr. Oscar Kimble DO Work Phone: [facility] 03-07-2025 14:55-0400 SaO2% (BldA) [Mass fraction] 94 % Dr. Oscar Kimble DO Work Phone: [facility] 03-07-2025 14:55-0400 Systolic blood pressure 139 mm[Hg] Dr. Oscar Kimble DO Work Phone: [facility] 02-09-2025 09:22-0400 Body mass index (BMI) [Ratio] 39.4 kg/m2 Dr. Oscar Kimble DO Work Phone: [facility] 02-09-2025 09:22-0400 Body temperature 97.3 [degF] Dr. Oscar Kimble DO Work Phone: [facility] 02-09-2025 09:22-0400 Body weight 91.[address] Oscar Kimble DO Work Phone: [facility] 02-09-2025 09:22-0400 Diastolic blood pressure 71 mm[Hg] Dr. Oscar Kimble DO Work Phone: [facility] 02-09-2025 09:22-0400 Heart rate 73 /min Dr. Oscar Kimble DO Work Phone: [facility] 02-09-2025 09:22-0400 Respiratory rate 16 /min Dr. Oscar Kimble DO Work Phone: [facility] 02-09-2025 09:22-0400 SaO2% (BldA) [Mass fraction] 95 % Dr. Oscar Kimble DO Work Phone: [facility] 02-09-2025 09:22-0400 Systolic blood pressure 138 mm[Hg] Dr. Oscar Kimble DO Work Phone: [facility] 11-17-2023 14:48-0500 Body height 152.[address] Rosario Cha Work Phone: [facility] 11-17-2023 14:48-0500 Body mass index (BMI) [Ratio] 36.9 kg/m2 Dr. Rosario Cha Work Phone: [facility] 11-17-2023 14:48-0500 Body temperature 97.7 [degF] Dr. Rosario Cha Work Phone: [facility] 11-17-2023 14:48-0500 Body weight 85.[address] Rosario Cha Work Phone: [facility] 11-17-2023 14:48-0500 Diastolic blood pressure 68 mm[Hg] Dr. Rosario Cha Work Phone: [facility] 11-17-2023 14:48-0500 Heart rate 78 /min Dr. Rosario Cha Work Phone: [facility] 11-17-2023 14:48-0500 Respiratory rate 16 /min Dr. Rosario Cha Work Phone: [facility] 11-17-2023 14:48-0500 SaO2% (BldA) [Mass fraction] 96 % Dr. Rosario Cha Work Phone: [facility] 11-17-2023 14:48-0500 Systolic blood pressure 120 mm[Hg] Dr. Rosario Cha Work Phone: [facility] 08-07-2023 05:50-0500 Body height 152.[address] Rosario Cha Work Phone: [facility] 08-07-2023 05:50-0500 Body mass index (BMI) [Ratio] 36.7 kg/m2 Dr. Rosario Cha Work Phone: [facility] 08-07-2023 05:50-0500 Body temperature 98.1 [degF] Dr. Rosario Cha Work Phone: [facility] 08-07-2023 05:50-0500 Body weight 85.[address] Rosario Cha Work Phone: [facility] 08-07-2023 05:50-0500 Diastolic blood pressure 66 mm[Hg] Dr. Rosario Cha Work Phone: [facility] 08-07-2023 05:50-0500 Heart rate 91 /min Dr. Rosario Cha Work Phone: [facility] 08-07-2023 05:50-0500 Respiratory rate 17 /min Dr. Rosario Cha Work Phone: [facility] 08-07-2023 05:50-0500 SaO2% (BldA) [Mass fraction] 97 % Dr. Rosario Cha Work Phone: [facility] 08-07-2023 05:50-0500 Systolic blood pressure 150 mm[Hg] Dr. Rosario Cha Work Phone: [facility] 05-14-2023 14:53-0400 Body mass index (BMI) [Ratio] 36.8 kg/m2 Dr. Rosario Cha Work Phone: [facility] 05-14-2023 14:53-0400 Body temperature 98 [degF] Dr. Rosario Cha Work Phone: [facility] 05-14-2023 14:53-0400 Body weight 85.[address] Rosario Cha Work Phone: [facility] 05-14-2023 14:53-0400 Diastolic blood pressure 81 mm[Hg] Dr. Rosario Cha Work Phone: [facility] 05-14-2023 14:53-0400 Heart rate 84 /min Dr. Rosario Cha Work Phone: [facility] 05-14-2023 14:53-0400 Respiratory rate 18 /min Dr. Rosario Cha Work Phone: [facility] 05-14-2023 14:53-0400 SaO2% (BldA) [Mass fraction] 94 % Dr. Rosario Cha Work Phone: [facility] 05-14-2023 14:53-0400 Systolic blood pressure 136 mm[Hg] Dr. Rosario Cha Work Phone: [facility] 02-04-2023 07:51-0400 Body height 152.[address] Phong Quiroga Work Phone: [facility] 02-04-2023 07:51-0400 Body mass index (BMI) [Ratio] 37.5 kg/m2 Dr. Phong Quiroga Work Phone: [facility] 02-04-2023 07:51-0400 Body temperature 97.3 [degF] Dr. Phong Quiroga Work Phone: [facility] 02-04-2023 07:51-0400 Body weight 87.[address] Phong Quiroga Work Phone: [facility] 02-04-2023 07:51-0400 Diastolic blood pressure 73 mm[Hg] Dr. Phong Quiroga Work Phone: [facility] 02-04-2023 07:51-0400 Heart rate 80 /min Dr. Phong Quiroga Work Phone: [facility] 02-04-2023 07:51-0400 Respiratory rate 20 /min Dr. Phong Quiroga Work Phone: [facility] 02-04-2023 07:51-0400 SaO2% (BldA) [Mass fraction] 94 % Dr. Phong Quiroga Work Phone: [facility] 02-04-2023 07:51-0400 Systolic blood pressure 147 mm[Hg] Dr. Phong Quiroga Work Phone: [facility] 12-24-2022 12:59-0400 Body height 152.[address] Phong Quiroga Work Phone: [facility] 12-24-2022 12:59-0400 Body mass index (BMI) [Ratio] 37.3 kg/m2 Dr. Phong Quiroga Work Phone: [facility] 12-24-2022 12:59-0400 Body weight 86.[address] Phong Quiroga Work Phone: [facility] 12-24-2022 12:59-0400 Diastolic blood pressure 74 mm[Hg] Dr. Phong Quiroga Work Phone: [facility] 12-24-2022 12:59-0400 Heart rate 77 /min Dr. Phong Quiroga Work Phone: [facility] 12-24-2022 12:59-0400 Respiratory rate 20 /min Dr. Phong Quiroga Work Phone: [facility] 12-24-2022 12:59-0400 SaO2% (BldA) [Mass fraction] 94 % Dr. Phong Quiroga Work Phone: [facility] 12-24-2022 12:59-0400 Systolic blood pressure 136 mm[Hg] Dr. Phong Quiroga Work Phone: [facility] 11-18-2022 13:34-0500 Body height 152.[address] Phong Quiroga Work Phone: [phone] [place] [address] 11-18-2022 13:34-0500 Body mass index (BMI) [Ratio] 39 kg/m2 Dr. Phong Quiroga Work Phone: [facility] 11-18-2022 13:34-0500 Body temperature 97.2 [degF] Dr. Phong Quiroga Work Phone: [facility] 11-18-2022 13:34-0500 Body weight 90.[address] Phong Quiroga Work Phone: [facility] 11-18-2022 13:34-0500 Diastolic blood pressure 76 mm[Hg] Dr. Phong Quiroga Work Phone: [facility] 11-18-2022 13:34-0500 Heart rate 90 /min Dr. Phong Quiroga Work Phone: [facility] 11-18-2022 13:34-0500 Respiratory rate 18 /min Dr. Phong Quiroga Work Phone: [facility] 11-18-2022 13:34-0500 SaO2% (BldA) [Mass fraction] 94 % Dr. Phong Quiroga Work Phone: [facility] 11-18-2022 13:34-0500 Systolic blood pressure 145 mm[Hg] Dr. Phong Quiroga Work Phone: [facility] 10-21-2022 13:21-0500 Body mass index (BMI) [Ratio] 39.2 kg/m2 Dr. Phong Quiroga Work Phone: [facility] 10-21-2022 13:21-0500 Body weight 91.[address] Phong Quiroga Work Phone: [facility] 10-21-2022 13:21-0500 Diastolic blood pressure 71 mm[Hg] Dr. Phong Quiroga Work Phone: [facility] 10-21-2022 13:21-0500 Heart rate 86 /min Dr. Phong Quiroga Work Phone: [facility] 10-21-2022 13:21-0500 Respiratory rate 18 /min Dr. Phong Quiroga Work Phone: [facility] 10-21-2022 13:21-0500 SaO2% (BldA) [Mass fraction] 94 % Dr. Phong Quiroga Work Phone: [facility] 10-21-2022 13:21-0500 Systolic blood pressure 133 mm[Hg] Dr. Phong Quiroga Work Phone: [facility] 09-26-2022 13:41-0500 Body mass index (BMI) [Ratio] 39.2 kg/m2 Dr. Phong Quiroga Work Phone: [facility] 09-26-2022 13:41-0500 Body weight 91.[address] Phong Quiroga Work Phone: [facility] 09-26-2022 13:41-0500 Diastolic blood pressure 76 mm[Hg] Dr. Phong Quiroga Work Phone: [facility] 09-26-2022 13:41-0500 Heart rate 80 /min Dr. Phong Quiroga Work Phone: [facility] 09-26-2022 13:41-0500 SaO2% (BldA) [Mass fraction] 97 % Dr. Phong Quiroga Work Phone: [facility] 09-26-2022 13:41-0500 Systolic blood pressure 128 mm[Hg] Dr. Phong Quiroga Work Phone: [facility] 08-06-2022 10:16-0500 Body mass index (BMI) [Ratio] 39.1 kg/m2 Dr. Phong Quiroga Work Phone: [phone] [place] [address] 08-06-2022 10:16-0500 Body temperature 98.6 [degF] Dr. Phong Quiroga Work Phone: [facility] 08-06-2022 10:16-0500 Body weight 90.[address] Phong Quiroga Work Phone: [facility] 08-06-2022 10:16-0500 Diastolic blood pressure 83 mm[Hg] Dr. Phong Quiroga Work Phone: [facility] 08-06-2022 10:16-0500 Heart rate 87 /min Dr. Phong Quiroga Work Phone: [facility] 08-06-2022 10:16-0500 Respiratory rate 16 /min Dr. Phong Quiroga Work Phone: [facility] 08-06-2022 10:16-0500 SaO2% (BldA) [Mass fraction] 96 % Dr. Phong Quiroga Work Phone: [facility] 08-06-2022 10:16-0500 Systolic blood pressure 144 mm[Hg] Dr. Phong Quiroga Work Phone: [facility] 04-09-2022 11:28-0400 Body height 152.[address] Phong Quiroga Work Phone: [facility] Work Phone: 04-09-2022 11:28-0400 Body mass index (BMI) [Ratio] 39 kg/m2 Dr. Phong Quiroga Work Phone: [facility] Work Phone: 04-09-2022 11:28-0400 Body weight 90.[address] Phong Quiroga Work Phone: [facility] Work Phone: 04-09-2022 11:28-0400 Diastolic blood pressure 68 mm[Hg] Dr. Phong Quiroga Work Phone: [facility] Work Phone: 04-09-2022 11:28-0400 Heart rate 81 /min Dr. Phong Quiroga Work Phone: [facility] Work Phone: 04-09-2022 11:28-0400 Respiratory rate 16 /min Dr. Phong Quiroga Work Phone: [facility] Work Phone: 04-09-2022 11:28-0400 Systolic blood pressure 117 mm[Hg] Dr. Phong Quiroga Work Phone: [facility] Work Phone: 02-21-2022 08:25-0400 Body temperature 97.8 [degF] Dr. Phong Quiroga Work Phone: [facility] Work Phone: 02-21-2022 08:25-0400 Diastolic blood pressure 49 mm[Hg] Dr. Phong Quiroga Work Phone: [facility] Work Phone: 02-21-2022 08:25-0400 Heart rate 64 /min Dr. Phong Quiroga Work Phone: [facility] Work Phone: 02-21-2022 08:25-0400 Respiratory rate 16 /min Dr. Phong Quiroga Work Phone: [facility] Work Phone: 02-21-2022 08:25-0400 SaO2% (BldA) [Mass fraction] 100 % Dr. Phong Quiroga Work Phone: [facility] Work Phone: 02-21-2022 08:25-0400 Systolic blood pressure 113 mm[Hg] Dr. Phong Quiroga Work Phone: [facility] Work Phone: 02-21-2022 06:27-0400 Body height 152.[address] Phong Quiroga Work Phone: [facility] Work Phone: 02-21-2022 06:27-0400 Body mass index (BMI) [Ratio] 38.7 kg/m2 Dr. Phong Quiroga Work Phone: [facility] Work Phone: 02-21-2022 06:27-0400 Body weight [address] Phong Quiroga Work Phone: [facility] Work Phone: 02-11-2022 10:58-0400 Body height 152.[address] Phong Quiroga Work Phone: [facility] Work Phone: 02-11-2022 10:58-0400 Body mass index (BMI) [Ratio] 40 kg/m2 Dr. Phong Quiroga Work Phone: [facility] Work Phone: 02-11-2022 10:58-0400 Body temperature 97.5 [degF] Dr. Phong Quiroga Work Phone: [facility] Work Phone: 02-11-2022 10:58-0400 Body weight 92.[address] Phong Quiroga Work Phone: [facility] Work Phone: 02-11-2022 10:58-0400 Diastolic blood pressure 80 mm[Hg] Dr. Phong Quiroga Work Phone: [facility] Work Phone: 02-11-2022 10:58-0400 Heart rate 89 /min Dr. Phong Quiroga Work Phone: [facility] Work Phone: 02-11-2022 10:58-0400 Respiratory rate 17 /min Dr. Phong Quiroga Work Phone: [facility] Work Phone: 02-11-2022 10:58-0400 SaO2% (BldA) [Mass fraction] 97 % Dr. Phong Quiroga Work Phone: [facility] Work Phone: 02-11-2022 10:58-0400 Systolic blood pressure 128 mm[Hg] Dr. Phong Quiroga Work Phone: [facility] Work Phone: 10-18-2021 04:51-0500 Body height 152.[address] Phong Quiroga Work Phone: [facility] Work Phone: 10-18-2021 04:51-0500 Body mass index (BMI) [Ratio] 41.3 kg/m2 Dr. Phong Quiroga Work Phone: [facility] Work Phone: 10-18-2021 04:51-0500 Body temperature 97.2 [degF] Dr. Phong Quiroga Work Phone: [facility] Work Phone: 10-18-2021 04:51-0500 Body weight 96.[address] Phong Quiroga Work Phone: [facility] Work Phone: 10-18-2021 04:51-0500 Diastolic blood pressure 80 mm[Hg] Dr. Phong Quiroga Work Phone: [facility] Work Phone: 10-18-2021 04:51-0500 Heart rate 87 /min Dr. Phong Quiroga Work Phone: [facility] Work Phone: 10-18-2021 04:51-0500 Respiratory rate 20 /min Dr. Phong Quiroga Work Phone: [facility] Work Phone: 10-18-2021 04:51-0500 SaO2% (BldA) [Mass fraction] 97 % Dr. Phong Quiroga Work Phone: [facility] Work Phone: 10-18-2021 04:51-0500 Systolic blood pressure 126 mm[Hg] Dr. Phong Quiroga Work Phone: [facility] Work Phone: 10-12-2021 10:29-0500 Body weight 96.[address] Phong Quiroga Work Phone: [facility] Work Phone: 10-12-2021 10:29-0500 Diastolic blood pressure 68 mm[Hg] Dr. Phong Quiroga Work Phone: [facility] Work Phone: 10-12-2021 10:29-0500 Heart rate 88 /min Dr. Phong Quiroga Work Phone: [facility] Work Phone: 10-12-2021 10:29-0500 Respiratory rate 16 /min Dr. Phong Quiroga Work Phone: [facility] Work Phone: 10-12-2021 10:29-0500 Systolic blood pressure 170 mm[Hg] Dr. Phong Quiroga Work Phone: [facility] Work Phone: 11-06-2020 14:34-0500 Body mass index (BMI) [Ratio] 40.2 kg/m2 Dr. Phong Quiroga Work Phone: [facility] Work Phone: Encounters Encounter Date Encounter Type Care Provider Facility Start: 07-22-2025 ambulatory Rosario Cha Facility :[facility] Start: 07-01-2025 End: 07-01-2025 Patient encounter procedure Oscar Kimble DO -[facility] Work Phone: Start: 07-01-2025 End: 07-01-[address] Rosario Cha MD Work Phone: -[facility] Start: 06-02-2025 End: 06-02-[address] Rosario Cha MD Work Phone: -Physical Therapy Start: 06-02-2025 End: 06-02-[address] Rosario Cha MD -Physical Therapy Work Phone: Start: 04-13-2025 End: 04-13-2025 Patient encounter procedure GLORY Valladares -[facility] Work Phone: Start: 04-13-2025 End: 04-13-[address] Oscar Kimble DO Work Phone: -[facility] Start: 04-12-[address] Rosario Cha MD -Physical Therapy Work Phone: Start: 03-14-2025 End: 03-14-2025 Patient encounter procedure Jose M Milligan NP-C -[facility] Work Phone: Start: 03-14-2025 End: 03-14-[address] Oscar Kimble DO Work Phone: [facility] Work Phone: Start: 03-07-2025 End: 03-07-[address] Oscar Kimble DO Work Phone: [facility] Work Phone: Start: 03-07-2025 End: 03-07-[address] Rosario Cha MD -Laboratory Work Phone: Start: 03-07-2025 End: 03-07-[address] Rosario Cha MD -[facility] [place] Work Phone: Start: 03-07-2025 End: 03-07-[address] Oscar Kimble DO Work Phone: [facility] Work Phone: Start: 03-07-2025 End: 03-07-2025 ambulatory Rosario Cha Facility:[facility] Start: 02-22-2025 Non-patient / Non-visit Dr. Sander Mcdonough DO -[facility] Start: 02-22-2025 End: 02-22-[address] Oscar Kimble DO Work Phone: [facility] Work Phone: Start: 02-22-2025 End: 02-22-2025 Patient encounter procedure GLORY Valladares -Pulmonary Services/Neurology Work Phone: Start: 02-22-2025 End: 02-22-2025 ambulatory Rosario Cha Facility:[facility] Start: 02-09-2025 End: 02-09-2025 Patient encounter procedure GLORY Valladares -[facility] Work Phone: Start: 02-09-2025 End: 02-09-[address] Oscar Kimble DO Work Phone: [facility] Work Phone: Start: 01-13-2025 End: 01-13-2025 Patient encounter procedure Oscar Kimble DO -Ultrasound [facility] Work Phone: Start: 01-13-2025 End: 01-13-2025 ambulatory Rosario Cha Facility:[facility] Start: 01-11-2025 End: 01-11-2025 Patient encounter procedure Oscar Kimble DO -[facility] Work Phone: Start: 01-11-2025 End: 01-11-2025 ambulatory Oscarraul Kimble Facility:[facility] Start: 10-05-2024 End: 10-05-2024 ambulatory Oscarsaman Kimble Facility:[facility] Start: 09-20-2024 End: 09-20-2024 ambulatory Rosario Cha Facility:[facility] Start: 09-06-2024 End: 09-06-2024 ambulatory Rosario Cha Facility:[facility] Start: 09-06-2024 End: 09-06-2024 ambulatory Rosario Cha Facility:[facility] Start: 08-12-2024 End: 08-12-2024 ambulatory Rosario Cha Facility:[facility] Start: 11-17-2023 End: 11-17-[address] Rosario Cha Work Phone: [facility] Work Phone: Start: 11-17-2023 End: 11-17-[address] Rosario Cha Work Phone: [facility]-Laboratory Work Phone: Start: 11-17-2023 End: 11-17-[address] Rosario Cha Work Phone: [facility] [place] Work Phone: Start: 10-24-2023 End: 10-24-[address] Rosario Cha Work Phone: [facility] Work Phone: Start: 10-13-2023 End: 10-13-[address] Rosario Cha Work Phone: [facility] Work Phone: Start: 10-13-2023 End: 10-13-[address] Rosario Cha Work Phone: [facility]-Laboratory Work Phone: Start: 08-29-2023 End: 08-29-[address] Rosario Cha Work Phone: [facility] Work Phone: Start: 08-29-2023 End: 08-29-[address] Rosario Cha Work Phone: [facility] Work Phone: Start: 08-07-2023 End: 08-07-[address] [facility] Work Phone: Start: 06-25-2023 End: 06-25-[address] Rosario Cha Work Phone: [facility] [place] Work Phone: Start: 05-14-2023 End: 05-14-[address] Rosario Cha Work Phone: [facility] [place] Work Phone: Start: 03-31-2023 End: 03-31-[address] Phong Quiroga Work Phone: [facility] Work Phone: Start: 03-31-2023 End: 03-31-[address] Phong Quiroga Work Phone: [facility] Work Phone: Start: 02-04-2023 End: 02-04-[address] [facility] Quiroga [facility] Work Phone: Start: 01-23-2023 Non-patient / Non-visit Dr. Phong Quiroga Work Phone: [facility] Start: 01-21-2023 Non-patient / Non-visit Dr. Phong Quiroga Work Phone: [facility] Start: 01-21-2023 End: 01-21-[address] Phong Quiroga Work Phone: [facility] Work Phone: Start: 01-21-2023 End: 01-21-[address] [facility] Quiro[facility] Start: 12-24-2022 End: 12-24-[address] Phong Quiroga Work Phone: [facility] Start: 11-21-2022 End: 11-21-[address] Phong Quiroga Work Phone: [facility] Work Phone: Start: 11-21-2022 End: 11-21-[address] Phong Quiroga Work Phone: [facility]-Outpatient Breast Imaging Start: 11-18-2022 End: 11-18-[address] Phong Quiroga Work Phone: [facility] Start: 11-08-2022 Non-patient / Non-visit Dr. Phong Quiroga Work Phone: [facility] Medicine Start: 10-25-2022 Non-patient / Non-visit Dr. Phong Quiroga Work Phone: [facility] Start: 10-23-2022 Non-patient / Non-visit Dr. Phong Quiroga Work Phone: [facility] Start: 10-23-2022 End: 10-23-[address] Ph[facility] Quiroga [facility] Start: 10-21-2022 End: 10-21-[address] Phong Quiroga Work Phone: [facility]-Laboratory Start: 10-21-2022 End: 10-21-[address] Phong Quiroga Work Phone: [facility] Start: 10-09-2022 End: 10-09-[address] Phong Quiroga Work Phone: [facility]-Laboratory Start: 09-26-2022 End: 09-26-[address] Phong Quiroga Work Phone: [facility] Start: 08-06-2022 End: 08-06-[address] Phong Quiroga Work Phone: [facility]-Pulmonary Medicine [facility] Start: 07-12-2022 End: 07-12-[address] Phong Quiroga Work Phone: [facility] Work Phone: Start: 07-12-2022 End: 07-12-[address] Phong Quiroga Work Phone: [facility]-Ultrasound, [facility] Start: 07-09-2022 End: 07-09-[address] Phong Quiroga Work Phone: [facility] Work Phone: Start: 07-09-2022 End: 07-09-[address] Phong Quiroga Work Phone: [facility]-Laboratory, Specimen Start: 07-04-2022 End: 07-04-[address] Phong Quiroga Work Phone: [facility] Work Phone: Start: 07-04-2022 End: 07-04-[address] Phong Quiroga Work Phone: [facility]-Laboratory Start: 07-04-2022 End: 07-04-[address] Phong Quiroga Work Phone: [facility] Start: 04-09-2022 End: 04-09-[address] Phong Quiroga Work Phone: [facility] Start: 02-21-2022 Non-patient / Non-visit Dr. Phong Quiroga Work Phone: [facility] Start: 02-21-2022 End: 02-21-2022 Admission to same day surgery center Dr. Phong Quiroga Work Phone: [facility]-Endoscopy Start: 02-11-2022 End: 02-11-[address] Phong Quiroga Work Phone: [facility]-Pulmonary Medicine [facility] Start: 01-29-2022 End: 01-29-[address] Phong Quiroga Work Phone: [facility]-Laboratory Start: 12-05-2021 End: 12-05-[address] Phong Quiroga Work Phone: [facility] Start: 11-02-2021 End: 11-02-[address] Phong Quiroga Work Phone: [facility] Start: 10-29-2021 Non-patient / Non-visit Dr. Phong Qurioga Work Phone: [facility] Start: 10-29-2021 End: 10-29-[address] Phong Quiroga Work Phone: [facility]-Cardiovascular Services Start: 10-19-2021 End: 10-19-[address] Phong Quiroga Work Phone: [facility]-Laboratory Start: 10-19-2021 End: 10-19-[address] Phong Quiroga Work Phone: [facility] Start: 10-18-2021 End: 10-18-[address] Phong Quiroga Work Phone: [facility]-Pulmonary Medicine [facility] Start: 10-12-2021 End: 10-12-[address] Phong Quiroga Work Phone: [facility] Start: 11-01-[address] Phong Quiroga Work Phone: [facility] Procedures Date Procedure Procedure Detail Performing Clinician Start: 03-07-2025 Vitamin D, 25-hydrox y measurement Dr. Oscar Kimble DO Work Phone: Comment on above: Vitamin D StatusDefi ciency: <20 ng/mL (50nmol/L)Insufficiency: 20-30 ng/mL (50-75 nmol/L)Sufficiency: 30-100 ng/mL (75-250 nmol/L)Toxicity: >100 ng/mL (>250 nmol/L) Start: 01-13-2025 Ultrasound elastogra phy of liver Dr. Oscar Kimble DO Work Phone: Start: 08-29-2023 Ultrasound elastogra phy of liver Dr. Rosario Cha Work Phone: Start: 03-31-2023 Ultrasound elastogra phy of liver Dr. Phong Quiroga Work Phone: Start: 01-21-2023 Cardiovascular stres s test using pharmacologic stress agent Dr. Phong Quiroga Work Phone: Start: 11-21-2022 Screening mammography Yue Quiroga Work Phone: Start: 07-12-[address] Phong Quiroga Work Phone: Start: 07-12-[address] Phong Quiroga Work Phone: Start: 02-21-[address] Phong Quiroga Work Phone: Start: 02-11-2022 Investigation of tra nsfusion reaction Dr. Phong Quiroga Work Phone: Start: 02-11-2022 End: 02-11-[address] Phong Quiroga Work Phone: Start: 11-02-2021 Computed tomography of abdomen and pelvis with intravenous contrast Dr. Phong Quiroga Work Phone: Start: 10-29-2021 Nuclear Stress Test - Chemical Dr. Phong Quiroga Work Phone: Urine culture Dr. Phong larsen Work Phone: Plan of Treatment Date Care Activity Detail Author Start: 03-07-2025 Patient referral [facility] Work Phone: Start: 07-04-2022 IgA [Mass/volume] in Serum or Plasma [facility] Work Phone: Start: 07-04-2022 IgE [Units/volume] i n Serum or Plasma [facility] Work Phone: Start: 07-04-2022 IgG [Mass/volume] in Serum or Plasma [facility] Work Phone: Start: 07-04-2022 IgM [Mass/volume] in Serum or Plasma [facility] Work Phone: Start: 07-04-2022 [facility] Work Phone: CBC W Auto Different ial panel - Blood [facility] Comprehensive metabo lic 2000 panel - Serum or Plasma [facility] Hemoglobin A1c/Hemog lobin.total in Blood [facility] IgA [Mass/volume] in Serum or Plasma [facility] Work Phone: IgE [Units/volume] i n Serum or Plasma [facility] Work Phone: IgG [Mass/volume] in Serum or Plasma [facility] Work Phone: IgM [Mass/volume] in Serum or Plasma [facility] Work Phone: Lipid 1996 panel - S cynthia or Plasma [facility] Magnesium measurement [facility] Measurement of respi ratory function [facility] Neutrophil cytoplasm ic Ab.classic [Units/volume] in Serum [facility] Work Phone: P-ANCA measurement [facility] Work Phone: Patient referral [facility] Work Phone: T4 free measurement [facility] Thyroid stimulating hormone measurement [facility] Triiodothyronine, fr ee measurement [facility] Ultrasound elastography [facility] Work Phone: US Abdomen limited [facility] Work Phone: Vitamin D, 25-hydrox y measurement [facility] Immunizations Immunization Date Immunization Notes Care Provider Fa [facility] 08-12-2024 pneumococcal polysaccharide vaccine, [address] Moore Friend DO Work Phone: [facility] 06-14-2024 influenza, high dose seasonal, preservative-free Dr. Oscar Kimble DO Work Phone: [facility] 06-14-2024 Pfizer Covid-19 (Comirnaty) Dr. Oscar Kimble DO Work Phone: [facility] 06-14-2024 RSV Adult Recombinan t (Arexvy) Dr. Moore Friend DO Work Phone: [facility] 06-25-2023 influenza, injectabl e, quadrivalent, preservative free Dr. Rosario Cha Work Phone: [facility] 12-06-2020 Covid (Moderna) Dr. Phong Roberson nnsuzie Work Phone: [facility] 11-08-2020 Covid (Moderna) Dr. Phong roca Work Phone: [facility] 07-05-[address] Phong Quiroga Work Phone: [facility] 06-28-2019 Fluad 2019-20 65yr up(PF)45 mcg(15 mcgx3)/0.5 mL intramuscular syringe (flu vac Dr. Phong Quiroga Work Phone: [facility] Work Phone: Payers Date Payer Category Payer Self-pay [id number] 2016 Unknown [id number] 2015 Medicare [id number] Private Health Insurance [facility] [id number] Unknown [id number] 2.16.8 [id number] Unknown [id number] 2.16.8 [id number] Unknown [id number] 2.16.8 [id number] Unknown [id number] 2.16.8 [id number] Unknown [id number] 2.16.8 [id number] Unknown [id number] 2.16.8 [id number] Unknown [id number] 2.16.8 [id number] Unknown [id number] 2.16.8 [id number] Unknown [id number] 2.16.8 [id number] Unknown [id number] 2.16.8 [id number] Unknown [id number] 2.16.8 [id number] Unknown [id number] 2.16.8 [id number] Unknown [id number] 2.16.8 [id number] Unknown [id number] 2.16.8 [id number] Unknown [id number] 2.16.8 [id number] Unknown [id number] 2.16.8 [id number] Unknown [id number] 2.16.8 [id number] Social History Date Type Detail Facility Start: 12-05-2021 End: 11-17-2023 Tobacco smoking status NHIS Unknown if ever smoked [facility] Start: 11-11-2019 Non-smoker [facility] Start: 1950 Sex Assigned At Female [facility] Start: 03-19-2024 Tobacco smoking stat us NHIS Never smoked tobacco (finding) [facility] Sex Female [facility] Mental Status Date Assessment Result Facility 02-21-2022 Cognitive function Voice/Name [facility] Work Phone: Clinical Notes 01-11-2025 to 07-01-2025 Note Date & Type Note Facility 07-01-2025 Progress note [facility] 06-02-2025 Discharge summary Note Date/Time June 02, 2025 7:00pm [facility] Physical Therapy [facility] [place] [address] / REHABILITATION SERVICES DISCHARGE SUMMARY MR#: [id number] Acct: [id number] Name: RONI LEWIS Rep #: [id number] : 1950 75 From: Greogrio Resendiz PT, ATC Referring Dr.: Dr. Rosario Cha MD Status: REG RCR Insurance: MEDICARE PART A B ANTHEM Discharge Summary D/C summary: It has been my pleasure to treat RONI LEWIS referred by Dr. Rosario Cha MD, with the diagnosis of Left Shoulder Pain and Cervicalgia for a total of 23 visit(s). Discharge Date: Please see the following information for a summary of their discharge status. Subjective Subjective: My left shoulder still pops Pain L SH: Pain Intensity (Out of 10): 1 R SH: Pain Intensity (Out of 10): 0 Overall Improvement % Improvement: 90 Objective Objective/Function: L shoulder pain 10/01 Pt still has intermittent finger tingling at this time Pt is I with HEP Pt has full AROM in B shoulders B shoulders are strong and equal when compared bilaterally Goals Goal 1:: Patient will be I with HEP and progression. Goal Progress: Goal Met Goal 2:: Patient will report no dural s/s for 1 week Goal Progress: Progressing Goal 3:: Patient will maintain proper posture t/o tx session to demo increased scap s/s Goal Progress: Goal Met Goal 4:: Patient will report 80% improvement Goal Progress: Goal Met Plan Plan: Discharge to HEP D/C Information d/c sentence: If there are questions or concerns regarding this patient's physical therapy, please feel free to call me at [phone]. Thank you for the referral of thispatient. Sincerely, Gregorio Resendiz, PT, ATC Balance/Gait/Functional tests Balance/Special Test Scores Oswestry Low Back Score: 5 Oswestry Neck Score: 8 Improvement % Improvement: 90 <Electronically signed by Gregorio Resendiz PT, ATC> 06/02/25 1515 CC: Dr. Rosario Cha MD ~ [facility] Signed [facility] Work Phone: 1(889) 735-190409-11-2025 Discharge summary [facility] Physical Therapy [facility] [address] [place] [address] [address] [place] [id number] / REHABILITATION SERVICES DISCHARGE SUMMARY MR#: [id number] Acct: [id number] Name: RONI LEWIS Rep #: [id number] : 1950 75 From: Gregorio Resendiz PT, ATC Referring Dr.: Dr. Rosario Cha MD Status: REG RCR Insurance: MEDICARE PART A B ANTHEM Discharge Summary D/C summary: It has been my pleasure to treat RONI LEWIS referred by Dr. Rosario Cha MD, with the diagnosis of Left Shoulder Pain and Cervicalgia for a total of 23 visit(s). Discharge Date: Please see the following information for a summary of their discharge status. Subjective Subjective: My left shoulder still pops Pain L SH: Pain Intensity (Out of 10): 1 R SH: Pain Intensity (Out of 10): 0 Overall Improvement % Improvement: 90 Objective Objective/Function: L shoulder pain 10/01 Pt still has intermittent finger tingling at this time Pt is I with HEP Pt has full AROM in B shoulders B shoulders are strong and equal when compared bilaterally Goals Goal 1:: Patient will be I with HEP and progression. Goal Progress: Goal Met Goal 2:: Patient will report no dural s/s for 1 week Goal Progress: Progressing Goal 3:: Patient will maintain proper posture t/o tx session to demo increased scap s/s Goal Progress: Goal Met Goal 4:: Patient will report 80% improvement Goal Progress: Goal Met Plan Plan: Discharge to HEP D/C Information d/c sentence: If there are questions or concerns regarding this patient's physical therapy, please feel free to call me at [phone]. Thank you for the referral of thispatient. Sincerely, Gregorio Resendiz, PT, ATC Balance/Gait/Functional tests Balance/Special Test Scores Oswestry Low Back Score: 5 Oswestry Neck Score: 8 Improvement % Improvement: 90 06/02/25 1515 CC: Dr. Rosario Cha MD ~ [facility] Signed [facility]07-23-2025 Evaluation note* Diagnosis Onset Date Resolution Status Admit Date Asthma chronic April 13 1:35pm Obesity chronic April 13 1:35pm KATHARINA (obstructive sleep apnea) chroni c April 13, 2025 1:35pm Nonalcoholic steatohepatitis (HERNANDEZ) acute July 01 9:11am Constipation chronic June 9:11am Fatty liver chronic July 01, 2025 9:11am GERD (gastroesophageal reflu x disease) chronic July 01 9:11am [facility] Work Phone: 1(400) 513-621005-21-2025 Evaluation note* Diagnosis Onset Date Resolution Status Admit Date Asthma chronic February 09, 2025 12:52pm Obesity chronic February 09, 2025 12:52pm KATHARINA (obstructive sleep apnea) chroni c February 09, 2025 12:52pm Left shoulder pain acute February 202024 2:44pm Neck pain on left side acute 2024 2:44pm Nonalcoholic steatohepatitis (HERNANDEZ) acute March 07, 2025 2:44pm Atherosclerotic heart diseas e of [place] 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 March 07, 2025 2:44pm BMI 39.0-39.9,adult chronic March 07, 2025 2:44pm Fatty liver chronic March 07 2:44pm Hyperlipidemia chronic March 07, 2025 2:44pm Hypertension chronic March 07, 2 025 2:44pm Hypothyroidism chronic March 07, 2025 2:44pm KATHARINA (obstructive sleep apnea) chroni c March 07, 2025 2:44pm Atherosclerotic heart diseas e of [place] 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 March 14, 2025 12:51pm Diastolic dysfunction chronic Feb 12:51pm Hyperlipidemia chronic March 14, 2025 12:51pm Hypertension chronic March 14, 2 025 12:51pm Asthma chronic April 13 1:35pm Obesity chronic April 13 1:35pm KATHARINA (obstructive sleep apnea) chroni c April 13, 2025 1:35pm [facility] Work Phone: 1(871) 911-516704-22-2025 Evaluation note* Diagnosis Onset Date Resolution Status Admit Date Nonalcoholic steatohepatitis (HERNANDEZ) acute January 11, 2025 10:50am Constipation chronic January 11, 2025 10:50am Fatty liver chronic January 11, 2 025 10:50am GERD (gastroesophageal reflu x disease) chronic January 11, 2025 10:50am Asthma chronic February 09, 2025 12:52pm Obesity chronic February 09, 2025 12:52pm KATHARINA (obstructive sleep apnea) chroni c February 09, 2025 12:52pm [facility] Work Phone: 1([phone]) 679-338904-22-2025 Evaluation note* Diagnosis Onset Date Resolution Status Admit Date Nonalcoholic steatohepatitis (HERNANDEZ) acute January 11, 2025 10:50am Constipation chronic January 11, 2025 10:50am Fatty liver chronic January 11, 2 025 10:50am GERD (gastroesophageal reflu x disease) chronic January 11, 2025 10:50am Asthma chronic February 09, 2025 12:52pm Obesity chronic February 09, 2025 12:52pm KATHARINA (obstructive sleep apnea) chroni c February 09, 2025 12:52pm Nonalcoholic steatohepatitis (HERNANDEZ) acute March 07, 2025 2:44pm Atherosclerotic heart diseas e of [place] 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 March 07, 2025 2:44pm BMI 39.0-39.9,adult chronic March 07, 2025 2:44pm Fatty liver chronic March 07 2:44pm Hyperlipidemia chronic March 07, 2025 2:44pm Hypertension chronic March 07, 2 025 2:44pm Hypothyroidism chronic March 07, 2025 2:44pm KATHARINA (obstructive sleep apnea) chroni c March 07, 2025 2:44pm [facility] Work Phone: 1(580) 263-490704-22-2025 Evaluation note* Diagnosis Onset Date Resolution Status Admit Date Nonalcoholic steatohepatitis (HERNANDEZ) acute January 11, 2025 10:50am Constipation chronic January 11, 2025 10:50am Fatty liver chronic January 11, 2 025 10:50am GERD (gastroesophageal reflu x disease) chronic January 11, 2025 10:50am Asthma chronic February 09, 2025 12:52pm Obesity chronic February 09, 2025 12:52pm KATHARINA (obstructive sleep apnea) chroni c February 09, 2025 12:52pm Left shoulder pain acute February 202024 2:44pm Neck pain on left side acute Ju 2024 2:44pm Nonalcoholic steatohepatitis (HERNANDEZ) acute March 07, 2025 2:44pm Atherosclerotic heart diseas e of [place] 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 March 07, 2025 2:44pm BMI 39.0-39.9,adult chronic March 07, 2025 2:44pm Fatty liver chronic March 07 2:44pm Hyperlipidemia chronic March 07, 2025 2:44pm Hypertension chronic March 07, 2 025 2:44pm Hypothyroidism chronic March 07, 2025 2:44pm KATHARINA (obstructive sleep apnea) chroni c March 07, 2025 2:44pm [facility] Work Phone: 1([phone]) 790-250104-22-2025 Evaluation note* Diagnosis Onset Date Resolution Status Admit Date Nonalcoholic steatohepatitis (HERNANDEZ) acute January 11, 2025 10:50am Constipation chronic January 11, 2025 10:50am Fatty liver chronic January 11, 2 025 10:50am GERD (gastroesophageal reflu x disease) chronic January 11, 2025 10:50am Asthma chronic February 09, 2025 12:52pm Obesity chronic February 09, 2025 12:52pm KATHARINA (obstructive sleep apnea) chroni c February 09, 2025 12:52pm Left shoulder pain acute February 202024 2:44pm Neck pain on left side acute 2024 2:44pm Nonalcoholic steatohepatitis (HERNANDEZ) acute March 07, 2025 2:44pm Atherosclerotic heart diseas e of [place] 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 March 07, 2025 2:44pm BMI 39.0-39.9,adult chronic March 07, 2025 2:44pm Fatty liver chronic March 07 2:44pm Hyperlipidemia chronic March 07, 2025 2:44pm Hypertension chronic March 07, 2 025 2:44pm Hypothyroidism chronic March 07, 2025 2:44pm KATHARINA (obstructive sleep apnea) chroni c March 07, 2025 2:44pm Atherosclerotic heart diseas e of [place] 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 March 14, 2025 12:51pm Diastolic dysfunction chronic Feb 12:51pm Hypertension chronic March 14, 2 025 12:51pm [facility] Work Phone: 1([phone]) 652-937104-22-2025 Evaluation note* Diagnosis Onset Date Resolution Status Admit Date Nonalcoholic steatohepatitis (HERNANDEZ) acute January 11, 2025 10:50am Constipation chronic January 11, 2025 10:50am Fatty liver chronic January 11, 2 025 10:50am GERD (gastroesophageal reflu x disease) chronic January 11, 2025 10:50am Asthma chronic February 09, 2025 12:52pm Obesity chronic February 09, 2025 12:52pm KATHARINA (obstructive sleep apnea) chroni c February 09, 2025 12:52pm Left shoulder pain acute February 202024 2:44pm Neck pain on left side acute Ju ne 2024 2:44pm Nonalcoholic steatohepatitis (HERNANDEZ) acute March 07, 2025 2:44pm Atherosclerotic heart diseas e of [place] 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 March 07, 2025 2:44pm BMI 39.0-39.9,adult chronic March 07, 2025 2:44pm Fatty liver chronic March 07 2:44pm Hyperlipidemia chronic March 07, 2025 2:44pm Hypertension chronic March 07, 2 025 2:44pm Hypothyroidism chronic March 07, 2025 2:44pm KATHARINA (obstructive sleep apnea) chroni c March 07, 2025 2:44pm Atherosclerotic heart diseas e of [place] 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 March 14, 2025 12:51pm Diastolic dysfunction chronic Erick 2024 12:51pm Hyperlipidemia chronic March 14, 2025 12:51pm Hypertension chronic March 14, 2 025 12:51pm Asthma chronic April 13 1:35pm Obesity chronic April 13 1:35pm KATHARINA (obstructive sleep apnea) chroni c April 13, 2025 1:35pm [facility] Work Phone: Evaluation note* Diagnosis Onset Date Resolution Status Atherosclerotic heart diseas e of [place] 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 Chronic diastolic CHF (congestive heart failure) chronic Hyperlipidemia chronic Hypertension chronic Stented coronary artery April 21, 2019 c hronic Asthma chronic BMI 39.0-39.9,adult chronic KATHARINA (obstructive sleep apnea) chronic Abdominal pain acute GERD (gastroesophageal reflux disease) chronic Diverticulosis resolved Fatty liver acute Hx of colonic polyps acute GERD (gastroesophageal reflux disease) chronic IBS (irritable bowel syndrome) [facility] Work Phone: Evaluation note* Diagnosis Onset Date Resolution Status Asthma chronic BMI 39.0-39.9,adult chronic KATHARINA (obstructive sleep apnea) chronic Abdominal pain acute GERD (gastroesophageal reflux disease) chronic Diverticulosis resolved Fatty liver acute Hx of colonic polyps acute GERD (gastroesophageal reflux disease) chronic IBS (irritable bowel syndrome) chronic Asthma, moderate persistent chronic BMI 39.0-39.9,adult chronic KATHARINA (obstructive sleep apnea) [facility] Work Phone: Evaluation note* Diagnosis Onset Date Resolution Status Fatty liver acute Hx of colonic polyps acute GERD (gastroesophageal reflux disease) chronic IBS (irritable bowel syndrome) chronic Asthma, moderate persistent chronic BMI 39.0-39.9,adult chronic KATHARINA (obstructive sleep apnea) chronic [facility] Work Phone: Evaluation note* Diagnosis Onset Date Resolution Status Atherosclerotic heart diseas e of [place] 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 Chronic diastolic CHF (congestive heart failure) chronic Hyperlipidemia chronic Hypertension chronic Stented coronary artery April 21, 2019 c hronic Constipation chronic Fatty liver chronic GERD (gastroesophageal reflux disease) chronic [facility] Work Phone: Evaluation note* Diagnosis Onset Date Resolution Status Asthma chronic BMI 39.0-39.9,adult chronic KATHARINA (obstructive sleep apnea) chronic Constipation chronic Fatty liver chronic GERD (gastroesophageal reflux disease) chronic Claudication acute Fatigue acute Atherosclerotic heart diseas e of [place] 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 Chronic diastolic CHF (conge stive heart failure) chronic Hyperlipidemia chronic Hypertension chronic Stented coronary artery April 21, 2019 c hronic Fatigue acute Asthma chronic BMI 39.0-39.9,adult chronic Fatty liver chronic GERD (gastroesophageal reflux disease) chronic Hyperlipidemia chronic Hypertension chronic Hypothyroidism chronic Stented coronary artery April 21, 2019 c hronic Vocal cord dysfunction chron ic Encounter to establish care noneactive [facility] Work Phone: Evaluation note* Diagnosis Onset Date Resolution Status Fatigue acute Atherosclerotic heart diseas e of [place] 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 Chronic diastolic CHF (conge stive heart failure) chronic Hyperlipidemia chronic Hypertension chronic Stented coronary artery April 21, 2019 c hronic Claudication resolved Fatigue acute Asthma chronic BMI 39.0-39.9,adult chronic Fatty liver chronic GERD (gastroesophageal reflux disease) chronic Hyperlipidemia chronic Hypertension chronic Hypothyroidism chronic Stented coronary artery April 21, 2019 c hronic Vocal cord dysfunction chron ic Encounter to establish care noneactive Fatigue acute Atherosclerotic heart diseas e of [place] 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 Chronic diastolic CHF (conge stive heart failure) chronic Hyperlipidemia chronic Hypertension chronic Claudication resolved [facility] Work Phone: Evaluation note* Diagnosis Onset Date Resolution Status Fatigue acute Atherosclerotic heart diseas e of [place] 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 Chronic diastolic CHF (congestive heart failure) chronic Hyperlipidemia chronic Hypertension chronic Claudication resolved Asthma chronic BMI 39.0-39.9,adult chronic KATHARINA (obstructive sleep apnea) chronic [facility] Work Phone: Evaluation note* Diagnosis Onset Date Resolution Status Asthma chronic BMI 39.0-39.9,adult chronic KATHARINA (obstructive sleep apnea) chronic [facility] Work Phone: Evaluation note* Diagnosis Onset Date Resolution Status Asthma chronic BMI 39.0-39.9,adult chronic KATHARINA (obstructive sleep apnea) chronic Asthma chronic BMI 39.0-39.9,adult chronic KATHARINA (obstructive sleep apnea) chronic Asthma chronic Atherosclerotic heart diseas e of [place] 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 Hyperlipidemia chronic Hypertension chronic Hypothyroidism chronic [facility] Work Phone: Progress note Author Oscar Kimble [facility] Note Date/Time July 01, 2025 1 0:32am [facility] [address] [place] [address] OFFICE VISIT Date of Service: 07/01/25 MR#: [id number] Acct: [id number] Name: RONI LEWIS Rep #: [id number] : 1950 Provider: Oscar Kimble DO Age/Sex: 75/F Location: [facility] Status: Signed Intake Vital Signs 09/06/24 15:02 04/13/25 08:06 Height 5 ft 5 ft Intake Visit Reasons: 4 M FU Allergies Environmental Allergies: Uncoded (dust) Allergy (Unknown, Verified 04/13/25 13:44) unknown mold Allergy (Unknown, Verified 04/13/25 13:44) unknown chocolate flavor Allergy (Verified 04/13/25 13:44) Unknown corn Allergy (Verified 04/13/25 13:44) Unknown peanut Allergy (Verified 04/13/25 13:44) Unknown Penicillins Allergy (Verified 04/13/25 13:44) Unknown Tetracyclines Allergy (Verified 04/13/25 13:44) Unknown venom-honey bee (bee venom (honey bee)) Allergy (Verified 04/13/25 13:44) Unknown Medications ?Medication ?Instructions ?Recorded ?Confirmed ?Type docusate sodium 100 mg capsule 100 mg PO BID PRN PRN C onstipation 11/15/19 07/01/25 Rx #60 caps nitroglycerin 0.4 mg sublingual 0.4 mg sublingual Q5-1 5M PRN chest 10/12/21 07/01/25 Rx tablet pain #25 tabs albuterol sulfate 2.5 mg/3 mL 2.5 mg (3 mL) inhalation Q4H PRN 02/11/22 07/01/25 Rx (0.083 %) solution for nebulization Sob &/Or Wheezing #180 mL guaifenesin 1,200 mg tablet, 1,200 mg PO PRN PRN ALLER GIES 02/15/22 07/01/25 History extended release 12 hr aspirin 81 mg tablet,delayed 81 mg PO QHS #90 tabs 07/01/25 Rx release wheat dextrin 3 gram/4 gram oral 1 packet PO DAILY sup plement 04/09/22 07/01/25 History powder albuterol sulfate 90 mcg/actuation 2 puff inhalation Q 4H PRN 08/12/24 07/01/25 Rx aerosol inhaler (Ventolin HFA) shortness of breath or wheezing #18 grams montelukast 10 mg tablet 10 mg PO QHS #90 tabs 07/01/25 Rx ergocalciferol (vitamin D2) 1,250 50,000 unit PO QWEEK #12 caps 12/29/24 07/01/25 Rx mcg (50,000 unit) capsule levothyroxine 112 mcg tablet 112 mcg PO DAILY #90 tabs 12/29/24 07/01/25 Rx sertraline 25 mg tablet 25 mg PO DAILY #90 tabs 06/1607/01/25 Rx resmetirom 80 mg tablet (Rezdiffra) 80 mg PO QDAY 12/2207/01/25 History simvastatin 20 mg tablet 20 mg PO QHS #90 tabs 07/01/25 Rx diltiazem HCl 360 mg capsule,24 360 mg PO QHS #90 caps 02/28/25 07/01/25 Rx hr,extended release (Tiadylt ER) furosemide 40 mg tablet 40 mg PO DAILY #90 TABLETS 0 02/28/25 07/01/25 Rx losartan 25 mg tablet 25 mg PO QHS #90 TABLETS 07/01/25 Rx ascorbic acid (vitamin C) 500 mg 500 mg PO DAILY 03/1407/01/25 History capsule vitamin E (dl, acetate) 180 mg 180 mg PO BID 03/14/25 07/01/25 History (400 unit) capsule omeprazole 40 mg capsule,delayed 40 mg PO BID #180 cap s 03/21/25 07/01/25 Rx release metoclopramide HCl 5 mg tablet 5 mg PO Q8 #90 TABLETS 04/11/25 07/01/25 Rx potassium chloride 20 mEq 20 meq PO BID #180 tabs 05/2407/01/25 Rx tablet,extended release Have you fallen in the past year?: No Nurse's Note: Pt was scheduled for EGD on 07.22.25 at the end of their appt today. Reviewed prep instructions and which medications to hold prior to procedure with pt in office. A paper copy of EGD prep instructions were given to pt. Pt denies any questions or concerns at this time. Cardiac clearance faxed to [facility] Medical History Neck pain on left side Left shoulder pain Wears glasses History of steroid therapy Thyroid disease Restless legs Injury of head and neck History of hiatal hernia History of IBS History of diverticulitis Vocal cord dysfunction Gastric reflux CPAP (continuous positive airway pressure) dependence Shortness of breath on exertion History of echocardiogram History of stress test Hypertension History of CHF (congestive heart failure) Cardiology follow-up encounter Hx of colonic polyps Abdominal pain Pre-operative cardiovascular examination Hyperlipidemia Chest pain Chronic diastolic CHF (congestive heart failure) Atherosclerotic heart disease of [place] coronary artery without angina pectoris Abnormal stress test Dyspnea on exertion Hypertension Diastolic dysfunction Tachycardia Asthma, moderate persistent Diverticulosis IBS (irritable bowel syndrome) Gastroparesis cataracts Bronchospasm Asthmatic bronchitis Gout peroneal nerve pinched Sciatica Arthritis Anxiety Lung nodule Disorder of vocal cord Allergic rhinitis Abnormal pulmonary function test Fatigue GERD (gastroesophageal reflux disease) Asthma Hypothyroidism Asthma exacerbation Hypersomnia KATHARINA (obstructive sleep apnea) Surgical History History of cataract surgery History of hysterectomy Stented coronary artery (04/21/19) History of left heart catheterization (10/28/18) History of tubal ligation History of cholecystectomy History of appendectomy History of tonsillectomy turbinate reduction H/O nasal septoplasty H/O colonoscopy (02/21/22) H/O endoscopy Family History Brother CAD (coronary artery disease) Mother Heart disease Thyroid disorder Parkinson disease Hypertension Arthritis Father Heart disease Cancer Arthritis Hypertension High cholesterol Pulmonary fibrosis Social History Smoking Status: Never smoker alcohol intake: current alcohol intake frequency: holidays/special occasions only substance use type: does not use caffeine: Yes Type: coffee Number of servings: 1 and tea Number of servings: 1 HPI HPI Details: RONI LEWIS, is a 75 F who presents to the office today for follow up. *BGI established 10.19.21 with heartburn, regurgitation and chest pain; onset 2009 with progression of severity and frequency. ? Biochemical CBC, ESR, LDH, LIANA, folate, TSH, T3, GAME, ANCA, KRISTEN comp, AMA, ASM, celiac, anti-parietal cell ab without pertinent abnormality ? CRP H4.57 ? CT abd/pel .08.13 hepatic steatosis; s/p cholecystectomy; small hiatal hernia; diverticulosis OV 3 with epigastric discomfort, bloating constipation alternating with diarrhea ? EGD and colonoscopy 02.21.22 EGD LA Grade A esophagitis; gastritis. ? Colonoscopy 5mm polyp; diverticulosis; TI congestion OV 6 avoid prescription medications r/t cost. Start 1200kcal/day caloric restriction. GERD, Start reglan. OV 1.02.11 recommend caloric restriction to 1200kcal/day. GERD well managed with reglan. Constipation continue fiber, kefir and PRN Colace. ? Biochemical 7.07.14 CBC, CMP, LFT, AMA, ASM without pertinent abnormality. ? CRP H5.45 ? US/elastography 7.07.14 hepatic measurement 16.8cm with fatty infiltration, stiffness 9.6kPa Contact 04.08.23 with results. ? US/elastography 12.05.14 hepatic measurement 16.9cm with fatty infiltration, stiffness 7.6kPa; increased pancreatic echogenicity OV 2.2.24 Pt reports feeling well. Reports does not feel hungry often, but will eat 3 meals a day. Reglan taken 3 times daily before meals with success. Reportsdiet well rounded. Not able to incorporate much physical activity due to caring to with dementia. US/elastography 6 hepatic measurement 16.6cm with fatty infiltration,stiffness 10.2kPa. Liver biopsy 03.19.24 Liver parenchymal tissue with macrovesicular steatosisand focal mild portal chronic inflammation. Start Vitamin E 80mg and Ursodiol 250 BID. OV 7.24 Pt reports alternating diarrhea and constipation; denies blood in thestool. Pt reports that she does not feel heartburn, but her voice gets raspy. Would like to talk about Omeprazole and dosing. OV 1..25 Pt reports continued symptoms from previous visit. Is having daily bm, but states she is not going very much. pt reports that she switched insurance and is unsure which medications she will be able to continue. OV 4..25 pt reports that she has started Rezdiffra and is having some loose stools from it. Pt reports 3-4 loose stool per day, but notes that her stomach is no longer "hard". Pt reports a change in the color of her stool as well and wonders if this could also be from the Rezdiffra. US and elastography 01.13.25 hepatic measurement 16cm with fatty infiltration, stiffness measures 8.3kPa. OV 10.10.25 pt reports that she is feeling well and denies GI symptoms of concern at this time. Pt reports that she has gained about 15lbs and wonders if the Rezdiffra is causing this. States she has increased her exercise to 45 - 60 minutes 5 days a week. Also notes continued occasional loose stool. Has questions regarding Rezdiffra and how long will she need to be on. ?She has a history of obesity and non-alcoholic steatohepatitis (HERNANDEZ) cirrhosis. She presents for a follow-up appointment to discuss weight loss options and her desire tostop Rezdiffra due to the high cost of the medication. She reports she has gained 15 pounds since her last visit. ROS Const Constitutional: Positive for weight change (weight gain); No fatigue or fever(s) ENT ENT: No difficulty swallowing Gastro GI: No abdominal pain, belching, bloating, change in bowel habits, change in stool character, coffee ground emesis, constipation, cramping, diarrhea, heartburn, difficulty swallowing, feeling full early, excessive flatus, incontinent of stools, Vomiting blood/hematemesis, Blood in stool, loose stools,Black,tarry stools, nausea/dyspepsia, pain with swallowing, vomiting or other Musc Musculoskeletal: Positive for Arthritis; No joint pain Skin Skin: No yellowing of the eye or itchy eyes Psych Psychiatric: No anxiety and No depression Endo Endocrine: Positive for weight change (weight gain); No fatigue Aller/Imm Allergy/Immunologic: No itchy eyes Michael/Lymp Hematologic/Lymphatic: No easy bleeding or easy bruising Exam Const General: cooperative and comfortable Nutritional Appearance: obese Orientation: alert, awake and oriented x3 Eyes Sclera: sclerae normal Resp Effort & Inspection: normal respiratory effort Skin General: no rashes or lesions noted Psych Mood: euthymic mood Assessment and Plan Assessment and Plan (1) Nonalcoholic steatohepatitis (HERNANDEZ): Status: Acute (2) Fatty liver: Status: Chronic Plan: 75-year-old female with obesity and HERNANDEZ cirrhosis, showing improvement in liverfibrosis based on a lower elastography score. This improvement is likely attributable to the current treatment regimen of Rezdiffra, Ursodiol, and Vitamin E.Spence issues to address include: * Weight gain:?The patient's 15-pound weight gain is concerning, especially in the context of HERNANDEZ, and warrants further investigation, despite her reported exercise regimen. Rezdiffra is not known to cause weight gain, so other contributing factors should be considered. * Occasional loose stools:?This is a reported side effect of Rezdiffra but is considered mild. The current management appears to be sufficient. * Medication cost concerns:?The patient's desire to discontinue Rezdiffra due to cost is a significant barrier to her continued care. While Rezdiffra has shown a positive effect on her liver fibrosis, stopping treatment carries the risk of disease progression. Alternatives and financial assistance programs need to be explored.? Plan * Medication Management: * Rezdiffra:?Discuss the benefits of Rezdiffra, citing the improvement in her elastography score, and the risks of stopping treatment. Acknowledge her financial concerns and explore patient assistance programs or discount cards with her, such as the one offered by the business office representative. * Ursodiol and Vitamin E:?Continue current therapy with ursodiol and vitamin E. * Loose Stools:?Reinforce dietary management for loose stools, such as increasing fiber, and encourage her to stay hydrated. * Weight Management: * Dietary Review:?Review the patient's diet history to identify potential reasons for weight gain. Recommend a Mediterranean-style diet, which has shown benefits for fatty liver disease. Advise tracking calories, focusing on whole foods, and limiting processed foods and sugary drinks. * Exercise:?Congratulate the patient on her exercise habits. Suggest a combination of aerobic and strength training, noting that exercise can improve liver health independent of weight loss. A cardiology evaluation may be prudent before a significant increase in exercise intensity. * Weight Loss Goals:?Discuss safe and realistic weight loss goals (e.g., 3% to 5% of total body weight) for improving liver health. Consider a referral to a dietitian for structured meal planning. * Medications:?Discuss the possibility of adding other weight-management medications, such as a GLP-1 agonist, which can also benefit fatty liver disease. * Referrals: * Dietitian:?Refer to a registered dietitian for medical nutrition therapy to help with weight loss and managing HERNANDEZ. * Cardiology:?Consider a cardiology referral to evaluate and manage cardiovascular risk factors, as HERNANDEZ is associated with increased cardiovascular risk. * Follow-up: * Frequency:?Schedule a follow-up appointment in 3 months to monitor weight, GI symptoms, medication adherence, and liver function. * Monitoring:?Order follow-up labs, including liver enzymes and any other necessary tests. Re-evaluate elastography in 1 year.? We reviewed her liver elastography, mild stiffness; will have her focus on healthy diet, continue max 1200 kcal daily (she estimates 800-900 kcal/day), andwork on being more physically active. Handout on NAFLD. (3) Constipation: Status: Chronic Plan: Continue benefiber or try Fiber Choice tablets, kefir, prn colace. Can use oil if [place] Stool Scale Type 1. (4) GERD (gastroesophageal reflux disease): Status: Chronic Plan: Continue PPI. Continue metoclopramide. Coding Level of Care Code Off vis,est,level 4 Diagnoses Nonalcoholic steatohepatitis (HERNANDEZ) K75.81 Fatty liver K76.0 Constipation K59.00 GERD (gastroesophageal reflux disease) K21.9 Clinical Quality Measures Falls Risk Screening/Assistive Devices Have you fallen in the past year?: No 07/01/25 9866 <Electronically signed by Oscar price DO> Date _ Oscar Barrettignlanden Signature: Date (if applicable) CC: ~ [facility] Work Phone: Reason for referral (narrative)No reason for referral information availableLakeside Hospital Work Phone: Chief Complaint and Reason for Visit Chief Complaint 10 m fu 6 M FU STOMACH ISSUES E ORDERS CP, BARBOSA, FAITGUE, CAD, PCI DIVERTICULOSIS 6 WK FU Reason for Visit 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 pectoris Chronic diastolic CHF (congestive heart failure) Hyperlipidemia Hypertension Stented coronary artery Asthma BMI 39.0-39.9,adult KATHARINA (obstructive sleep apnea) Abdominal pain GERD (gastroesophageal reflux disease) Diverticulosis Fatty liver Hx of colonic polyps GERD (gastroesophageal reflux disease) IBS (irritable bowel syndrome) Chief Complaint 6 M FU STOMACH ISSUES E ORDERS CP, BARBOSA, FAITGUE, CAD, PCI DIVERTICULOSIS 6 WK FU 4 M FU Reason for Visit Asthma BMI 39.0-39.9,adult KATHARINA (obstructive sleep apnea) Abdominal pain GERD (gastroesophageal reflux disease) Diverticulosis Fatty liver Hx of colonic polyps GERD (gastroesophageal reflux disease) IBS (irritable bowel syndrome) Asthma, moderate persistent BMI 39.0-39.9,adult KATHARINA (obstructive sleep apnea) Chief Complaint CP, BARBOSA, [place] D, PCI DIVERTICULOSIS 6 WK FU 4 M FU Reason for Visit Fatty liver Hx of colonic polyps GERD (gastroesophageal reflux disease) IBS (irritable bowel syndrome) Asthma, moderate persistent BMI 39.0-39.9,adult KATHARINA (obstructive sleep apnea) Chief Complaint 6 M FU FU E ORDERS Reason for Visit 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 pectoris Chronic diastolic CHF (congestive heart failure) Hyperlipidemia Hypertension Stented coronary artery Constipation Fatty liver GERD (gastroesophageal reflux disease) Chief Complaint 6 M FU FU E ORDERS FATTY LIVER Reason for Visit 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 pectoris Chronic diastolic CHF (congestive heart failure) Hyperlipidemia Hypertension Stented coronary artery Constipation Fatty liver GERD (gastroesophageal reflux disease) Chief Complaint 6 M FU 3 MO FU E ORDER 6 M FU E ORDERS PVD, CLAUDICATION Amb Documentation Amb Documentation Establish Care SCREENING Reason for Visit Asthma BMI 39.0-39.9,adult KATHARINA (obstructive sleep apnea) Constipation Fatty liver GERD (gastroesophageal reflux disease) Claudication Fatigue Atherosclerotic heart disease of [place] coronary artery without angina pectoris Chronic diastolic CHF (congestive heart failure) Hyperlipidemia Hypertension Stented coronary artery Fatigue Asthma BMI 39.0-39.9,adult Fatty liver GERD (gastroesophageal reflux disease) Hyperlipidemia Hypertension Hypothyroidism Stented coronary artery Vocal cord dysfunction Encounter to establish care Chief Complaint E ORDER 6 M FU E ORDERS PVD, CLAUDICATION Amb Documentation Amb Documentation Establish Care SCREENING 2-3 m fu CHEST PAIN, CAD HX CHEST PAIN, CAD HX Amb Documentation Reason for Visit Fatigue Atherosclerotic heart disease of [place] coronary artery without angina pectoris Chronic diastolic CHF (congestive heart failure) Hyperlipidemia Hypertension Stented coronary artery Claudication Fatigue Asthma BMI 39.0-39.9,adult Fatty liver GERD (gastroesophageal reflux disease) Hyperlipidemia Hypertension Hypothyroidism Stented coronary artery Vocal cord dysfunction Encounter to establish care Fatigue Atherosclerotic heart disease of [place] coronary artery without angina pectoris Chronic diastolic CHF (congestive heart failure) Hyperlipidemia Hypertension Claudication Chief Complaint 2-3 m fu CHEST PAIN, CAD HX CHEST PAIN, CAD HX Amb Documentation 6 M FU FATTY LIVER, E ORDERS 2 DRS/LABS Reason for Visit Fatigue Atherosclerotic heart disease of [place] coronary artery without angina pectoris Chronic diastolic CHF (congestive heart failure) Hyperlipidemia Hypertension Claudication Asthma BMI 39.0-39.9,adult KATHARINA (obstructive sleep apnea) Chief Complaint 6 M FU flu shot 6 M FU FATTY LIVER Reason for Visit Asthma BMI 39.0-39.9,adult KATHARINA (obstructive sleep apnea) Chief Complaint flu shot 6 M FU FATTY LIVER INT LAB AND STANDING Reason for Visit Asthma BMI 39.0-39.9,adult KATHARINA (obstructive sleep apnea) Chief Complaint 6 M FU FATTY LIVER INT LAB AND STANDING follow up 6 M FU E-ORDER Reason for Visit Asthma BMI 39.0-39.9,adult KATHARINA (obstructive sleep apnea) Asthma BMI 39.0-39.9,adult KATHARINA (obstructive sleep apnea) Asthma Atherosclerotic heart disease of [place] coronary artery without angina pectoris Hyperlipidemia Hypertension Hypothyroidism Chief Complaint Admit Date 4 M FU January 11, 2025 10: 50am HERNANDEZ January 13, 2025 7:0 4am 6 M FU February 09, 2025 12:52 pm Reason for Visit Admit Date Nonalcoholic steatohepatitis (HERNANDEZ) Apri l 2024 10:50am Constipation January 11, 2025 10: 50am Fatty liver January 11, 2025 10: 50am GERD (gastroesophageal reflux disease) A pril 2024 10:50am Asthma February 09, 2025 12:52 pm Obesity February 09, 2025 12:52 pm KATHARINA (obstructive sleep apnea) February 09, 2025 12:52pm Chief Complaint Admit Date 4 M FU January 11, 2025 10: 50am HERNANDEZ January 13, 2025 7:0 4am 6 M FU February 09, 2025 12:52 pm J45.20 - Mild intermittent asthma, uncom plicated February 22, 2025 7:59am Chief Complaint Admit Date 4 M FU January 11, 2025 10: 50am HERNANDEZ January 13, 2025 7:0 4am 6 M FU February 09, 2025 12:52 pm J45.20 - Mild intermittent asthma, uncom plicated February 22, 2025 7:59am 6 M FU March 07, 2025 2:44 pm Reason for Visit Admit Date Nonalcoholic steatohepatitis (HERNANDEZ) Apri l 2024 10:50am Constipation January 11, 2025 10: 50am Fatty liver January 11, 2025 10: 50am GERD (gastroesophageal reflux disease) A pril 2024 10:50am Asthma February 09, 2025 12:52 pm Obesity February 09, 2025 12:52 pm KATHARINA (obstructive sleep apnea) February 09, 2025 12:52pm Nonalcoholic steatohepatitis (HERNANDEZ) March 07, 2025 2:44pm Atherosclerotic heart diseas e of [place] coronary artery without angina pectoris March 07, 2025 2:44pm BMI 39.0-39.9,adult March 07, 2025 2:44 pm Fatty liver March 07, 2025 2:44 pm Hyperlipidemia March 07, 2025 2:44 pm Hypertension March 07, 2025 2:44 pm Hypothyroidism March 07, 2025 2:44 pm KATHARINA (obstructive sleep apnea) March 07, 2025 2:44pm Chief Complaint Admit Date 4 M FU January 11, 2025 10: 50am HERNANDEZ January 13, 2025 7:0 4am 6 M FU February 09, 2025 12:52 pm J45.20 - Mild intermittent asthma, uncom plicated February 22, 2025 7:59am 6 M FU March 07, 2025 2:44 pm INT LAB ORDERS March 07, 2025 4:26 pm Reason for Visit Admit Date Nonalcoholic steatohepatitis (HERNANDEZ) Apri l 2024 10:50am Constipation January 11, 2025 10: 50am Fatty liver January 11, 2025 10: 50am GERD (gastroesophageal reflux disease) A pril 2024 10:50am Asthma February 09, 2025 12:52 pm Obesity February 09, 2025 12:52 pm KATHARINA (obstructive sleep apnea) February 09, 2025 12:52pm Left shoulder pain March 07, 2025 2:44 pm Neck pain on left side March 07, 2025 2 :44pm Nonalcoholic steatohepatitis (HERNANDEZ) March 07, 2025 2:44pm Atherosclerotic heart diseas e of [place] coronary artery without angina pectoris March 07, 2025 2:44pm BMI 39.0-39.9,adult March 07, 2025 2:44 pm Fatty liver March 07, 2025 2:44 pm Hyperlipidemia March 07, 2025 2:44 pm Hypertension March 07, 2025 2:44 pm Hypothyroidism March 07, 2025 2:44 pm KATHARINA (obstructive sleep apnea) March 07, 2025 2:44pm Chief Complaint Admit Date 4 M FU January 11, 2025 10: 50am HERNANDEZ January 13, 2025 7:0 4am 6 M FU February 09, 2025 12:52 pm J45.20 - Mild intermittent asthma, uncom plicated February 22, 2025 7:59am J45.20 - Mild intermittent asthma, uncom plicated February 22, 2025 8:05am 6 M FU March 07, 2025 2:44 pm INT LAB ORDERS March 07, 2025 4:26 pm 1 Y FU/PT WANTING SPORTS MEDIA AFTER THIS March 142024 12:51pm Reason for Visit Admit Date Nonalcoholic steatohepatitis (HERNANDEZ) Apri l 2024 10:50am Constipation January 11, 2025 10: 50am Fatty liver January 11, 2025 10: 50am GERD (gastroesophageal reflux disease) A pril 2024 10:50am Asthma February 09, 2025 12:52 pm Obesity February 09, 2025 12:52 pm KATHARINA (obstructive sleep apnea) February 09, 2025 12:52pm Left shoulder pain March 07, 2025 2:44 pm Neck pain on left side March 07, 2025 2 :44pm Nonalcoholic steatohepatitis (HERNANDEZ) March 07, 2025 2:44pm Atherosclerotic heart diseas e of [place] coronary artery without angina pectoris March 07, 2025 2:44pm BMI 39.0-39.9,adult March 07, 2025 2:44 pm Fatty liver March 07, 2025 2:44 pm Hyperlipidemia March 07, 2025 2:44 pm Hypertension March 07, 2025 2:44 pm Hypothyroidism March 07, 2025 2:44 pm KATHARINA (obstructive sleep apnea) March 07, 2025 2:44pm Atherosclerotic heart diseas e of [place] coronary artery without angina pectoris March 14, 2025 12:51pm Diastolic dysfunction March 14, 2025 12 :51pm Hypertension March 14, 2025 12:5 1pm Chief Complaint Admit Date 4 M FU January 11, 2025 10: 50am HER[place]NDEZ January 13, 2025 7:0 4am 6 M FU February 09, 2025 12:52 pm J45.20 - Mild intermittent asthma, uncom plicated February 22, 2025 7:59am J45.20 - Mild intermittent asthma, uncom plicated February 22, 2025 8:05am 6 M FU March 07, 2025 2:44 pm INT LAB ORDERS March 07, 2025 4:26 pm 1 Y FU/PT WANTING SPORTS MEDIA AFTER THIS March 142024 12:51pm NECK/SHOULDER RX HERE April 12, 2025 1: 00pm 2 M FU April 13, 2025 1:35 pm Reason for Visit Admit Date Nonalcoholic steatohepatitis (HERNANDEZ) Apri l 2024 10:50am Constipation January 11, 2025 10: 50am Fatty liver January 11, 2025 10: 50am GERD (gastroesophageal reflux disease) A pril 2024 10:50am Asthma February 09, 2025 12:52 pm Obesity February 09, 2025 12:52 pm KATHARINA (obstructive sleep apnea) February 09, 2025 12:52pm Left shoulder pain March 07, 2025 2:44 pm Neck pain on left side March 07, 2025 2 :44pm Nonalcoholic steatohepatitis (HERNANDEZ) March 07, 2025 2:44pm Atherosclerotic heart diseas e of [place] coronary artery without angina pectoris March 07, 2025 2:44pm BMI 39.0-39.9,adult March 07, 2025 2:44 pm Fatty liver March 07, 2025 2:44 pm Hyperlipidemia March 07, 2025 2:44 pm Hypertension March 07, 2025 2:44 pm Hypothyroidism March 07, 2025 2:44 pm KATHARINA (obstructive sleep apnea) March 07, 2025 2:44pm Atherosclerotic heart diseas e of [place] coronary artery without angina pectoris March 14, 2025 12:51pm Diastolic dysfunction March 14, 2025 12 :51pm Hyperlipidemia March 14, 2025 12:5 1pm Hypertension March 14, 2025 12:5 1pm Asthma April 13, 2025 1:35 pm Obesity April 13, 2025 1:35 pm KATHARINA (obstructive sleep apnea) April 13, 2025 1:35pm Chief Complaint Admit Date 6 M FU February 09, 2025 12:52 pm J45.20 - Mild intermittent asthma, uncom plicated February 22, 2025 7:59am J45.20 - Mild intermittent asthma, uncom plicated February 22, 2025 8:05am 6 M FU March 07, 2025 2:44 pm INT LAB ORDERS March 07, 2025 4:26 pm 1 Y FU/PT WANTING SPORTS MEDIA AFTER THIS March 142024 12:51pm 2 M FU April 13, 2025 1:35 pm NECK/SHOULDER RX HERE June 02 1:00pm Reason for Visit Admit Date Asthma February 09, 2025 12:52 pm Obesity February 09, 2025 12:52 pm KATHARINA (obstructive sleep apnea) February 09, 2025 12:52pm Left shoulder pain March 07, 2025 2:44 pm Neck pain on left side March 07, 2025 2 :44pm Nonalcoholic steatohepatitis (HERNANDEZ) March 07, 2025 2:44pm Atherosclerotic heart diseas e of [place] coronary artery without angina pectoris March 07, 2025 2:44pm BMI 39.0-39.9,adult March 07, 2025 2:44 pm Fatty liver March 07, 2025 2:44 pm Hyperlipidemia March 07, 2025 2:44 pm Hypertension March 07, 2025 2:44 pm Hypothyroidism March 07, 2025 2:44 pm KATHARINA (obstructive sleep apnea) March 07, 2025 2:44pm Atherosclerotic heart diseas e of [place] coronary artery without angina pectoris March 14, 2025 12:51pm Diastolic dysfunction March 14, 2025 12 :51pm Hyperlipidemia March 14, 2025 12:5 1pm Hypertension March 14, 2025 12:5 1pm Asthma April 13, 2025 1:35 pm Obesity April 13, 2025 1:35 pm KATHARINA (obstructive sleep apnea) April 13, 2025 1:35pm Chief Complaint Admit Date 2 M FU April 13, 2025 1:35 pm NECK/SHOULDER RX HERE June 02 1:00pm 4 M FU July 01, 2025 9 :11am Reason for Visit Admit Date Asthma April 13, 2025 1:35 pm Obesity April 13, 2025 1:35 pm KATHARINA (obstructive sleep apnea) April 13, 2025 1:35pm Nonalcoholic steatohepatitis (HERNANDEZ) Octo 2024 9:11am Constipation July 01, 2025 9 :11am Fatty liver July 01, 2025 9 :11am GERD (gastroesophageal reflux disease) O ctober 2024 9:11am Family History No Family History Records Found Relationship Condition Age at Onset Recorded Date/T won brother Coronary artery disease Unknown mother Cardiac disease Unknown Disorder of thyroid Unknown Parkinson's disease Unknown Hypertension Unknown Arthritis Unknown father Cardiac disease Unknown Malignant neoplasm Unknown High blood cholesterol Unknown Fibrosis of lung Unknown Advance Directives No Advanced Directives Records Found Advance Directive Response Recorded Date/ Time Advance Directives Yes April 21 11:06am Living Will Yes November 15, 020 12:24pm Power of Residential Counselor Yes November 15, 2019 12:24pm Advance Directive Response Recorded Date/ Time Advance Directives Yes April 21 11:06am Living Will Yes February 15, 2022 1 0:15am Power of Residential Counselor Yes February 15, 2022 10:15am Advance Directive Response Recorded Date/ Time Advance Directives Yes April 21 10:06am Living Will Yes February 15, 2022 9 :15am Power of Residential Counselor Yes February 15, 2022 9:15am Advance Directive Response Recorded Date/ Time Advance Directives Yes January 06 024 10:40am Summary Purpose Additional Source Comments Goals (unrecognized section and content) Goals may be documented in a n alternate sectionGoals may be documented in an alternate sectionGoals may be documented in an alternate sectionGoals may be documented in an alternate sectionGoals may be documented in an alternate sectionGoals may be documented in an alternate sectionGoals may be documented in an alternate sectionGoals may be documented in an alternate sectionGoals may be documented in an alternate sectionGoals may be documented in an alternate sectionGoals may be documented in an alternate sectionGoals may be documented in an alternate sectionGoals may be documented in an alternate sectionGoals may be documented in an alternate sectionGoals may be documented in an alternate sectionGoals may be documented in an alternate sectionGoals may be documented in an alternate sectionGoals may be documented in an alternate sectionGoals may be documented in an alternate sectionGoals may be documented in an alternate section Care Teams (unrecognized sec tion and content) Team Status: Active Member Role Status Dates Dr. Rosario Cha MD Primary Care Provider Active Team Status: Inactive Member Role Status Dates Dr. Phong Quiroga MD Primary Care Provider, Referring Provider Active Dr. Neo Mensah MD Attending Provider Active Team Status: Inactive Member Role Status Dates Dr. Phong Quiroga MD Primary Care Provider, Referring Provider Active Jose M Milligan PAYMENT ANALYST, PAYMENT ANALYST-C Attending Provider Active Team Status: Inactive Member Role Status Dates Dr. Phong Quiroga MD Primary Care Provider, Referring Provider Active Carolyne King PAYMENT ANALYST, PAYMENT ANALYST-C Attending Provider Active Team Status: Inactive Member Role Status Dates Dr. Rosario Cha MD Primary Care Provider, Attendi ng Provider Active Team Status: Active Member Role Status Dates Dr. Rosario Cha MD Primary Care Provider Active Dr. Salvtaore Dunlap MD Attending Provider Active Jose M Yolanda Milligan PAYMENT ANALYST, PAYMENT ANALYST-C Referring Provider Active Team Status: Active Member Role Status Dates Dr. Rosario Cha MD Primary Care Provider Active Jose M Milligan PAYMENT ANALYST, PAYMENT ANALYST-C Attending Provider Active Team Status: Active Member Role Status Dates Dr. Rosario Cha MD Primary Care Provider Active George Webber Attending Provider Active Team Status: Inactive Member Role Status Dates Dr. Phong Quiroga MD Primary Care Provider Active Jose M Milligan PAYMENT ANALYST, PAYMENT ANALYST-C Attending Provider Active Team Status: Inactive Member Role Status Dates Jose M Milligan PAYMENT ANALYST, PAYMENT ANALYST-C Attending Provider, Referring Pro vider Active Dr. Rosario Cha MD Primary Care Provider Active Team Status: Inactive Member Role Status Dates Dr. Phong Quiroga MD Primary Care Provider Active Jose M Milligan PAYMENT ANALYST, PAYMENT ANALYST-C Attending Provider, Referring Pro vider Active Team Status: Inactive Member Role Status Dates Dr. Phong Quiroga MD Referring Provider Active Jose M Milligan PAYMENT ANALYST, PAYMENT ANALYST-C Attending Provider Active Dr. Rosario Cha MD Primary Care Provider Active Team Status: Active Member Role Status Dates Dr. Rosario Cha MD Primary Care Provider Active Jose M Milligan PAYMENT ANALYST, PAYMENT ANALYST-C Referring Provider, Other Provide r Active Dr. Wilma Almodovar MD Attending Provider Active Team Status: Inactive Member Role Status Dates Dr. Rosario Cha MD Primary Care Provider Active Jose M Milligan PAYMENT ANALYST, PAYMENT ANALYST-C Attending Provider, Referring Pro vider Active Team Status: Inactive Member Role Status Dates Dr. Phong Quiroga MD Referring Provider Active Katja Cruz PAYMENT ANALYST, PAYMENT ANALYST-C Attending Provider Active Dr. Rosario Cha MD Primary Care Provider Active Team Status: Inactive Member Role Status Dates Dr. Rosario Cha MD Primary Care Provider Active Dr. Oscar Kimble DO Attending Provider, Referring Provider Active Jose M Milligan PAYMENT ANALYST, PAYMENT ANALYST-C Other Provider Active Team Status: Inactive Member Role Status Dates Dr. Rosario Cha MD Referring Provider Active Dr. Neo Mensah MD Attending Provider Active Team Status: Inactive Member Role Status Dates Dr. Oscar Kimble DO Attending Provider, Referring Provider Active Dr. Rosario Cha MD Primary Care Provider Active Team Status: Inactive Member Role Status Dates Dr. Rosario Cha MD Primary Care Provider, Referri ng Provider Active Dr. Oscar Kimble DO Attending Provider Active Team Status: Inactive Member Role Status Dates Dr. Rosario Cha MD Primary Care Pro vider, Attending Provider, Referring Provider Active Team Status: Inactive Member Role Status Dates Dr. Oscar Kimble DO Attending Provider Active Start: January 11, 2025 End: January 11, 2025 Team Status: Inactive Member Role Status Dates Dr. Oscar Kimble DO Attending Provider Active Start: January 13, 2025 End: January 13, 2025 Dr. Oscar Kimble DO Referring Provider Active Start: January 13, 2025 End: January 13, 2025 Dr. Rosario Cha MD Primary Care Provider Active Start: January 13, 2025 End: January 13, 2025 Team Status: Inactive Member Role Status Dates Dr. Rosario Cha MD Referring Provider Active Start: February 09, 2025 End: February 09, 2025 MAGGIE Byers Attending Provider Active Start: February 09, 2025 End: February 09, 2025 Team Status: Inactive Member Role Status Dates MAGGIE Byers Attending Provider Active Start: February 22, 2025 End: February 22, 2025 MAGGIE Byers Referring Provider Active Start: February 22, 2025 End: February 22, 2025 Dr. Rosario Cha MD Primary Care Provider Active Start: February 22, 2025 End: February 22, 2025 Team Status: Inactive Member Role Status Dates Dr. Rosario Cha MD Primary Care Provider Active Start: March 07, 2025 End: March 07, 2025 Dr. Rosario Cha MD Attending Provider Active Start: March 07, 2025 End: March 07, 2025 Team Status: Inactive Member Role Status Dates Dr. Rosario Cha MD Primary Care Provider Active Start: March 07, 2025 End: March 07, 2025 Dr. Rosario Cha MD Attending Provider Active Start: March 07, 2025 End: March 07, 2025 Dr. Rosario Cha MD Referring Provider Active Start: March 07, 2025 End: March 07, 2025 Team Status: Active Member Role Status Dates Dr. Rosario Cha MD Primary Care Provider Active Start: February 22, 2025 Dr. Sander Mcdonough DO Attending Provider Active S tart: February 22, 2025 MAGGIE Byers Referring Provider Active Start: February 22, 2025 Team Status: Inactive Member Role Status Dates Dr. Rosario Cha MD Primary Care Provider Active Start: March 14, 2025 End: March 14, 2025 Dr. Rosario Cha MD Referring Provider Active Start: March 14, 2025 End: March 14, 2025 Jose M Milligan NP PAYMENT ANALYST-C Attending Provider Active S tart: March 14, 2025 End: March 14, 2025 Team Status: Active Member Role/Relationship Status Dates Dr. Rosario Cha MD Primary Care Provider Active Team Status: Inactive Member Role/Relationship Status Dates Dr. Oscar Kimble DO Attending Provider Active Start: January 11, 2025 End: January 11, 2025 Team Status: Inactive Member Role/Relationship Status Dates Dr. Oscar Kimble DO Attending Provider Active Start: January 13, 2025 End: January 13, 2025 Dr. Oscar Kimble DO Referring Provider Active Start: January 13, 2025 End: January 13, 2025 Dr. Rosario Cha MD Primary Care Provider Active Start: January 13, 2025 End: January 13, 2025 Team Status: Inactive Member Role/Relationship Status Dates Dr. Rosario Cha MD Referring Provider Active Start: February 09, 2025 End: February 09, 2025 MAGGIE Byers Attending Provider Active Start: February 09, 2025 End: February 09, 2025 Team Status: Inactive Member Role/Relationship Status Dates MAGGIE Byers Attending Provider Active Start: February 22, 2025 End: February 22, 2025 MAGGIE Byers Referring Provider Active Start: February 22, 2025 End: February 22, 2025 Dr. Rosario Cha MD Primary Care Provider Active Start: February 22, 2025 End: February 22, 2025 Team Status: Active Member Role/Relationship Status Dates Dr. Rosario Cha MD Primary Care Provider Active Start: February 22, 2025 Dr. Sander Mcdonough DO Attending Provider Active S tart: February 22, 2025 Caridad Valladares NP-C Referring Provider Active Start: February 22, 2025 Team Status: Inactive Member Role/Relationship Status Dates Dr. Rosario Cha MD Primary Care Provider Active Start: March 07, 2025 End: March 07, 2025 Dr. Rosario Cha MD Attending Provider Active Start: March 07, 2025 End: March 07, 2025 Team Status: Inactive Member Role/Relationship Status Dates Dr. Rosario Cha MD Primary Care Provider Active Start: March 07, 2025 End: March 07, 2025 Dr. Rosario Cha MD Attending Provider Active Start: March 07, 2025 End: March 07, 2025 Dr. Rosario Cha MD Referring Provider Active Start: March 07, 2025 End: March 07, 2025 Team Status: Inactive Member Role/Relationship Status Dates Dr. Rosario Cha MD Primary Care Provider Active Start: March 14, 2025 End: March 14, 2025 Dr. Rosario Cha MD Referring Provider Active Start: March 14, 2025 End: March 14, 2025 Jose M Milligan NP, PAYMENT ANALYST-C Attending Provider Active S tart: March 14, 2025 End: March 14, 2025 Team Status: Active Member Role/Relationship Status Dates Dr. Rosario Cha MD Primary Care Provider Active Start: April 12, 2025 Dr. Rosario Cha MD Attending Provider Active Start: April 12, 2025 Dr. Rosario Cha MD Referring Provider Active Start: April 12, 2025 Team Status: Inactive Member Role/Relationship Status Dates Caridad Valladares NP-C Attending Provider Active Start: April 13, 2025 End: April 13, 2025 Dr. Rosario Cha MD Primary Care Provider Active Start: April 13, 2025 End: April 13, 2025 Dr. Rosario Cha MD Referring Provider Active Start: April 13, 2025 End: April 13, 2025 Team Status: Inactive Member Role/Relationship Status Dates Dr. Rosario Cha MD Referring Provider Active Start: February 09, 2025 End: February 09, 2025 Caridad Valladares NP-C Attending Provider Active Start: February 09, 2025 End: February 09, 2025 Team Status: Inactive Member Role/Relationship Status Dates Caridad Valladares NP-C Attending Provider Active Start: February 22, 2025 End: February 22, 2025 Caridad Valladares NP-C Referring Provider Active Start: February 22, 2025 End: February 22, 2025 Dr. Rosario Cha MD Primary Care Provider Active Start: February 22, 2025 End: February 22, 2025 Team Status: Active Member Role/Relationship Status Dates Dr. Rosario Cha MD Primary Care Provider Active Start: February 22, 2025 Dr. Sander Mcdonough DO Attending Provider Active S tart: February 22, 2025 KEVIN ByersC Referring Provider Active Start: February 22, 2025 Team Status: Inactive Member Role/Relationship Status Dates Dr. Rosario Cha MD Primary Care Provider Active Start: March 07, 2025 End: March 07, 2025 Dr. Rosario Cha MD Attending Provider Active Start: March 07, 2025 End: March 07, 2025 Team Status: Inactive Member Role/Relationship Status Dates Dr. Rosario Cha MD Primary Care Provider Active Start: March 07, 2025 End: March 07, 2025 Dr. Rosario Cha MD Attending Provider Active Start: March 07, 2025 End: March 07, 2025 Dr. Rosario Cha MD Referring Provider Active Start: March 07, 2025 End: March 07, 2025 Team Status: Inactive Member Role/Relationship Status Dates Dr. Rosario Cha MD Primary Care Provider Active Start: March 14, 2025 End: March 14, 2025 Dr. Rosario Cha MD Referring Provider Active Start: March 14, 2025 End: March 14, 2025 Jose M Milligan NP PAYMENT ANALYST-C Attending Provider Active S tart: March 14, 2025 End: March 14, 2025 Team Status: Inactive Member Role/Relationship Status Dates MAGGIE Byers Attending Provider Active Start: April 13, 2025 End: April 13, 2025 Dr. Rosario Cha MD Primary Care Provider Active Start: April 13, 2025 End: April 13, 2025 Dr. Rosario Cha MD Referring Provider Active Start: April 13, 2025 End: April 13, 2025 Team Status: Inactive Member Role/Relationship Status Dates Dr. Rosario Cha MD Primary Care Provider Active Start: June 02, 2025 End: June 02, 2025 Dr. Rosario Cha MD Attending Provider Active Start: June 02, 2025 End: June 02, 2025 Dr. Rosario Cha MD Referring Provider Active Start: June 02, 2025 End: June 02, 2025 Team Status: Active Member Role/Relationship Status Dates Dr. Rosario Cha MD Primary care physician Active Team Status: Inactive Member Role/Relationship Status Dates MAGGIE Byers Attending physician Active Start: April 13, 2025 End: April 13, 2025 Dr. Rosario Cha MD Primary care physician Active Start: April 13, 2025 End: April 13, 2025 Dr. Rosario Cha MD Referring Provider Active Start: April 13, 2025 End: April 13, 2025 Team Status: Inactive Member Role/Relationship Status Dates Dr. Rosario Cha MD Primary care physician Active Start: June 02, 2025 End: June 02, 2025 Dr. Rosario Cha MD Attending physician Active Start: June 02, 2025 End: June 02, 2025 Dr. Rosario Cha MD Referring Provider Active Start: June 02, 2025 End: June 02, 2025 Team Status: Inactive Member Role/Relationship Status Dates Dr. Oscar Kimble DO Attending physician Active Start: July 01, 2025 End: July 01, 2025 Dr. Rosario Cha MD Primary care physician Active Start: July 01, 2025 End: July 01, 2025 Dr. Rosario Cha MD Referring Provider Active Start: July 01, 2025 End: July 01, 2025 INFORMATION SOURCE (unrecogn ized section and content) DATE CREATED AUTHOR 07/21/2025 [facility] FOR RECORDS PERTAINING TO PATIENTS WHO ARE OR HAVE BEEN ENROLLED IN A CHEMICAL DEPENDENCY/SUBSTANCEABUSE PROGRAM, SOME INFORMATION MAY BE OMITTED. This clinical summary was aggregated from multiple sources. Caution should be exercised in using it in the provision of clinical care. This summary normalizes information from multiple sources, and as a consequence, information in this document may materially change the coding, format and clinical context of patient data. In addition, data may be omitted in some cases. CLINICAL DECISIONS SHOULD BE BASED ON THE PRIMARY CLINICAL RECORDS. [employer] [facility]. provides no warranty or guarantee of the accuracy or completeness of information in this document.
[2025-07-22] MEDS: Lactated Ringers 1,000 ML 15 ML IV (08:17)
--- NOTE | 2025-07-22 08:32 | HP.PCM_ITS ---
HPI - General General Date of Admission: 07/22/25 Date of Service: 07/22/25 HPI Narrative RONI LEWIS, is a 75 F who presents [ RONI LEWIS, is a 75 F who presents to the office today for follow up. *BGI established 10.19.21 with heartburn, regurgitation and chest pain; onset 2009 with progression of severity and frequency. Biochemical CBC, ESR, LDH, LIANA, folate, TSH, T3, GAME, ANCA, KRISTEN comp, AMA, ASM, celiac, anti-parietal cell ab without pertinent abnormality CRP H4.57 CT abd/pel 2.08.13 hepatic steatosis; s/p cholecystectomy; small hiatal hernia; diverticulosis OV 3. with epigastric discomfort, bloating constipation alternating with diarrhea EGD and colonoscopy 6.11.13 EGD LA Grade A esophagitis; gastritis. Colonoscopy 5mm polyp; diverticulosis; TI congestion OV 6 avoid prescription medications r/t cost. Start 1200kcal/day caloric restriction. GERD, Start reglan. OV 1.02.11 recommend caloric restriction to 1200kcal/day. GERD well managed with reglan. Constipation continue fiber, kefir and PRN Colace. Biochemical .07.14 CBC, CMP, LFT, AMA, ASM without pertinent abnormality. CRP H5.45 US/elastography 7.07.14 hepatic measurement 16.8cm with fatty infiltration, stiffness 9.6kPa Contact 7 with results. US/elastography 12.8.23 hepatic measurement 16.9cm with fatty infiltration, stiffness 7.6kPa; increased pancreatic echogenicity OV 2..24 Pt reports feeling well. Reports does not feel hungry often, but will eat 3 meals a day. Reglan taken 3 times daily before meals with success. Reports diet well rounded. Not able to incorporate much physical activity due to caring to with dementia. US/elastography . hepatic measurement 16.6cm with fatty infiltration, stiffness 10.2kPa. Liver biopsy 03.19.24 Liver parenchymal tissue with macrovesicular steatosis and focal mild portal chronic inflammation. Start Vitamin E 80mg and Ursodiol 250 BID. OV 7.10.24 Pt reports alternating diarrhea and constipation; denies blood in the stool. Pt reports that she does not feel heartburn, but her voice gets raspy. Would like to talk about Omeprazole and dosing. OV 114 Pt reports continued symptoms from previous visit. Is having daily bm, but states she is not going very much. pt reports that she switched insurance and is unsure which medications she will be able to continue. OV 01.11.25 pt reports that she has started Rezdiffra and is having some loose stools from it. Pt reports 3-4 loose stool per day, but notes that her stomach is no longer "hard". Pt reports a change in the color of her stool as well and wonders if this could also be from the Rezdiffra. US and elastography 01.13.25 hepatic measurement 16cm with fatty infiltration, stiffness measures 8.3kPa. OV 10 pt reports that she is feeling well and denies GI symptoms of concern at this time. Pt reports that she has gained about 15lbs and wonders if the Rezdiffra is causing this. States she has increased her exercise to 45 - 60 minutes 5 days a week. Also notes continued occasional loose stool. Has questions regarding Rezdiffra and how long will she need to be on. She has a history of obesity and non-alcoholic steatohepatitis (HERNANDEZ) cirrhosis. She presents for a follow-up appointment to discuss weight loss options and her desire to stop Rezdiffra due to the high cost of the medication. She reports she has gained 15 pounds since her last visit. [facility] Medical History (Updated 07/22/25 @ 08:[address] Moore Friend, DO) Neck pain on left side Left shoulder pain Wears glasses Thyroid disease Restless legs Injury of head and neck History of hiatal hernia History of IBS History of diverticulitis Vocal cord dysfunction Gastric reflux CPAP (continuous positive airway pressure) dependence Shortness of breath on exertion History of echocardiogram History of stress test Hypertension History of CHF (congestive heart failure) Cardiology follow-up encounter Hx of colonic polyps Abdominal pain Pre-operative cardiovascular examination Hyperlipidemia Chest pain Chronic diastolic CHF (congestive heart failure) Atherosclerotic heart disease of [place] coronary artery without angina pectoris Abnormal stress test Dyspnea on exertion Hypertension Diastolic dysfunction Tachycardia Asthma, moderate persistent Diverticulosis IBS (irritable bowel syndrome) Gastroparesis cataracts Bronchospasm Asthmatic bronchitis Gout peroneal nerve pinched Sciatica Arthritis Anxiety Lung nodule Disorder of vocal cord Allergic rhinitis Abnormal pulmonary function test Fatigue GERD (gastroesophageal reflux disease) Asthma Hypothyroidism Asthma exacerbation Hypersomnia KATHARINA (obstructive sleep apnea) Home Medications Medication Instructions Recorded Last Taken Type docusate sodium 100 mg capsule 100 mg PO BID PRN PRN C onstipation 11/15/19 Unknown Rx #60 caps nitroglycerin 0.4 mg sublingual 0.4 mg sublingual Q5-1 5M PRN chest 10/12/21 Unknown Rx tablet pain #25 tabs albuterol sulfate 2.5 mg/3 mL 2.5 mg (3 mL) inhalation Q4H PRN 02/11/22 Unknown Rx (0.083 %) solution for nebulization Sob &/Or Wheezing #180 mL guaifenesin 1,200 mg tablet, 1,200 mg PO PRN PRN ALLER GIES 02/15/22 Unknown History extended release 12 hr aspirin 81 mg tablet,delayed 81 mg PO QHS #90 tabs 07/15/25 Rx release wheat dextrin 3 gram/4 gram oral 1 packet PO DAILY sup plement 04/09/22 Unknown History powder albuterol sulfate 90 mcg/actuation 2 puff inhalation Q 4H PRN 08/12/24 Unknown Rx aerosol inhaler (Ventolin HFA) shortness of breath or wheezing #18 grams montelukast 10 mg tablet 10 mg PO QHS #90 tabs Unknown Rx ergocalciferol (vitamin D2) 1,250 50,000 unit PO QWEEK #12 caps 12/29/24 Unknown Rx mcg (50,000 unit) capsule levothyroxine 112 mcg tablet 112 mcg PO DAILY #90 tabs 12/29/24 07/22/25 07:00 Rx sertraline 25 mg tablet 25 mg PO DAILY #90 tabs 06/16 Unknown Rx resmetirom 80 mg tablet (Rezdiffra) 80 mg PO QDAY 12/22 11/16 Unknown History simvastatin 20 mg tablet 20 mg PO QHS #90 tabs Unknown Rx diltiazem HCl 360 mg capsule,24 360 mg PO QHS #90 caps 02/28/25 Unknown Rx hr,extended release (Tiadylt ER) furosemide 40 mg tablet 40 mg PO DAILY #90 TABLETS 0 02/28/25 Unknown Rx losartan 25 mg tablet 25 mg PO QHS #90 TABLETS Unknown Rx ascorbic acid (vitamin C) 500 mg 500 mg PO DAILY 03/14 Unknown History capsule vitamin E (dl, acetate) 180 mg 180 mg PO BID 03/14/25 Unknown History (400 unit) capsule omeprazole 40 mg capsule,delayed 40 mg PO BID #180 cap s 03/21/25 07/22/25 07:00 Rx release potassium chloride 20 mEq 20 meq PO BID #180 tabs 05/24 06/16 Unknown Rx tablet,extended release metoclopramide HCl 5 mg tablet 5 mg PO Q8 #90 TABLETS 07/04/25 07/21/25 07:00 Rx Allergy/AdvReac Type Severity Reaction Status Date / Time Environmental Allergies: Allergy Unknown unknown Verified 07/22/25 08:04 Uncoded (dust) mold Allergy Unknown unknown Verified 07/22/25 08:04 chocolate flavor Allergy Unknown Verified 07/22/25 08:04 corn Allergy Unknown Verified 07/22/25 08:04 peanut Allergy Unknown Verified 07/22/25 08:04 Penicillins Allergy Unknown Verified 07/22/25 08:04 Tetracyclines Allergy Unknown Verified 07/22/25 08:04 venom-honey bee (bee venom Allergy Unknown Verified 07/22/25 08:04 (honey bee)) Family History Brother CAD (coronary artery disease) Mother Heart disease Thyroid disorder Parkinson disease Hypertension Arthritis Father Heart disease Cancer Arthritis Hypertension High cholesterol Pulmonary fibrosis Surgical History History of cataract surgery History of hysterectomy Stented coronary artery (04/21/19) History of left heart catheterization (10/28/18) History of tubal ligation History of cholecystectomy History of appendectomy History of tonsillectomy turbinate reduction H/O nasal septoplasty H/O colonoscopy (02/21/22) H/O endoscopy Social History Smoking Status: Never smoker alcohol intake: current alcohol intake frequency: holidays/special occasions only substance use type: does not use caffeine: Yes Type: coffee Number of servings: 1 and tea Number of servings: 1 ROS Constitutional Constitutional: Denies fatigue, fever(s), poor appetite, weight gain or weight loss Gastrointestinal Gastrointestinal: Denies belching, bloating, change in bowel habits, change in stool character, chewing difficulty, coffee ground emesis, constipation, cramping, diarrhea, dyspepsia, dysphagia, early satiety, excessive flatus, fecal incontinence, heartburn, hematemesis, hematochezia, hemorrhoids, loose stools, melena, nausea, odynophagia, rectal bleeding, tenesmus, vomiting or weight changes Vital Signs Vital Signs Vital Signs: 07/22/25 08:06 07/22/25 08:06 Temperature 98.3 F Temperature Source Temporal Pulse Rate 73 Respiratory Rate 16 Respiratory Pattern Normal Blood Pressure 138/53 H Blood Pressure Mean 81 Blood Pressure Source Monitor Blood Pressure Position Semi-Fowlers Blood Pressure Location Right Arm Pulse Ox 98 Oxygen Delivery Method Room Air Weight Weight: 207 lb 3.752 oz Body Mass Index (BMI) 40.4 Physical Exam Const alert, oriented x3, no apparent distress and healthy appearing General Appearance: cooperative GI normal to inspection, nondistended, normoactive bowel sounds, soft to palpation, non-tender and non-distended Percussion: normal to percussion Rectal Exam: deferred Assessment & Plan Assessment/Plan (1) Nonalcoholic steatohepatitis (HERNANDEZ): (2) Fatty liver: (3) Constipation: (4) GERD (gastroesophageal reflux disease): PLAN: Plan ROS Const Constitutional: Positive for weight change (weight gain); No fatigue or fever(s) ENT ENT: No difficulty swallowing Gastro GI: No abdominal pain, belching, bloating, change in bowel habits, change in stool character, coffee ground emesis, constipation, cramping, diarrhea, heartburn, difficulty swallowing, feeling full early, excessive flatus, incontinent of stools, Vomiting blood/hematemesis, Blood in stool, loose stools, Black,tarry stools, nausea/dyspepsia, pain with swallowing, vomiting or other Musc Musculoskeletal: Positive for Arthritis; No joint pain Skin Skin: No yellowing of the eye or itchy eyes Psych Psychiatric: No anxiety and No depression Endo Endocrine: Positive for weight change (weight gain); No fatigue Aller/Imm Allergy/Immunologic: No itchy eyes Michael/Lymp Hematologic/Lymphatic: No easy bleeding or easy bruising Exam Const General: cooperative and comfortable Nutritional Appearance: obese Orientation: alert, awake and oriented x3 Eyes Sclera: sclerae normal Resp Effort & Inspection: normal respiratory effort Skin General: no rashes or lesions noted Psych Mood: euthymic mood Assessment and Plan Assessment and Plan (1) Nonalcoholic steatohepatitis (HERNANDEZ): Status: Acute (2) Fatty liver: Status: Chronic Plan: 75-year-old female with obesity and HERNANDEZ cirrhosis, showing improvement in liver fibrosis based on a lower elastography score. This improvement is likely attributable to the current treatment regimen of Rezdiffra, Ursodiol, and Vitamin E. Spence issues to address include: * Weight gain: The patient's 15-pound weight gain is concerning, especially in the context of HERNANDEZ, and warrants further investigation, despite her reported exercise regimen. Rezdiffra is not known to cause weight gain, so other contributing factors should be considered. * Occasional loose stools: This is a reported side effect of Rezdiffra but is considered mild. The current management appears to be sufficient. * Medication cost concerns: The patient's desire to discontinue Rezdiffra due to cost is a significant barrier to her continued care. While Rezdiffra has shown a positive effect on her liver fibrosis, stopping treatment carries the risk of disease progression. Alternatives and financial assistance programs need to be explored. Plan * Medication Management: * Rezdiffra: Discuss the benefits of Rezdiffra, citing the improvement in her elastography score, and the risks of stopping treatment. Acknowledge her financial concerns and explore patient assistance programs or discount cards with her, such as the one offered by the forensic psychiatrist. * Ursodiol and Vitamin E: Continue current therapy with ursodiol and vitamin E. * Loose Stools: Reinforce dietary management for loose stools, such as increasing fiber, and encourage her to stay hydrated. * Weight Management: * Dietary Review: Review the patient's diet history to identify potential reasons for weight gain. Recommend a Mediterranean-style diet, which has shown benefits for fatty liver disease. Advise tracking calories, focusing on whole foods, and limiting processed foods and sugary drinks. * Exercise: Congratulate the patient on her exercise habits. Suggest a combination of aerobic and strength training, noting that exercise can improve liver health independent of weight loss. A cardiology evaluation may be prudent before a significant increase in exercise intensity. * Weight Loss Goals: Discuss safe and realistic weight loss goals (e.g., 3% to 5% of total body weight) for improving liver health. Consider a referral to a dietitian for structured meal planning. * Medications: Discuss the possibility of adding other weight-management medications, such as a GLP-1 agonist, which can also benefit fatty liver disease. * Referrals: * Dietitian: Refer to a registered dietitian for medical nutrition therapy to help with weight loss and managing HERNANDEZ. * Cardiology: Consider a cardiology referral to evaluate and manage cardiovascular risk factors, as HERNANDEZ is associated with increased cardiovascular risk. * Follow-up: * Frequency: Schedule a follow-up appointment in 3 months to monitor weight, GI symptoms, medication adherence, and liver function. * Monitoring: Order follow-up labs, including liver enzymes and any other necessary tests. Re-evaluate elastography in 1 year. We reviewed her liver elastography, mild stiffness; will have her focus on healthy diet, continue max 1200 kcal daily (she estimates 800-900 kcal/day), and work on being more physically active. Handout on NAFLD. (3) Constipation: Status: Chronic Plan: Continue benefiber or try Fiber Choice tablets, kefir, prn colace. Can use oil if [place] Stool Scale Type 1. 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 Continue PPI. Continue metoclopramide. ]
--- NOTE | 2025-07-22 08:36 | PRE.ANES_ITS ---
ASA Classification* ASA Classification ASA Classification: 3 Assessment & Plan Anesthesia* Anesthesia Assessment Anesthesia Assessment: Discussed sedation and/or anesthesia options, risks, benefits, and alternatives with patient/parents/legal guardian/POA. Questions invited. The patient/parents/legal guardian/POA seems to understand and agrees to proceed with anesthesia plan. Reviewed the physical assessment, medical history, allergy history and patient home medications list prior to surgery/procedure/anesthetic and documented any changes. Performed airway and anesthesia risk assessments. Anesthesia Type Anesthesia Type: MAC Anesthesia Focused Assessment* Temperature: 98.3 F Pulse Rate: 73 Blood Pressure: 138/53 Respiratory Rate: 16 Pulse Ox: 98 Airway Assessment Mouth opens: >3 cm Mallampati Score: II Labs Anesthesia Preop lab: CBC WBC, (4.4-11.0) 8.3 K/mm3 03/07/25, 16:30 RBC, (4.2-5.4) 4.67 M/mm3 03/07/25, 16:30 Hgb, (12.0-15.0) 13.3 g/dL 03/07/25, 16:30 Hct, (37-47) 39.9 % 03/07/25, 16:30 Plt Count, (150-450) 351 K/mm3 03/07/25, 16:30 CHEMISTRY Potassium, (3.3-5.1) 4.4 mmol/L 03/07/25, 16:30 Sodium, (133-145) 138 mmol/L 03/07/25, 16:30 Magnesium, (1.5-2.2) 2.0 mg/dL 03/07/25, 16:30 BUN, (4-19) 18 mg/dL 03/07/25, 16:30 Creatinine, (0.70-1.20) 0.95 mg/dL 03/07/25, 16:30 Glucose, (70-99) 88 mg/dL 03/07/25, 16:30 POC Glucose, (70-110) 121 mg/dL H 10/28/18, 08:34 TSH, (0.300-4.200) 0.347 uIU/mL 03/07/25, 16:30 COAG PT, (11.7-14.9) 14.0 SECONDS 03/19/24, 07:45 Pre-Assessment Diagnosis/Proposed Procedure Planned Operative Procedure(s): EGD Anesthesia History 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 When Was Last Pacemaker Check QUESTION #4 FULL TEXT: You/Your Family Experience fever (hyperthermia) with Anesthesia Last Oral Intake Last Oral intake: Last Oral Intake NPO since 19:00 07/22/25 08:06 Meds taken in AM with sips of Yes 07/22/25 08:06 water? Meds patient instructed to see med list 07/22/25 08:06 take am of surgery PONV PONV - children's ministry director: PONV - children's ministry director Female Yes 07/20/25 11:21 HX of Motion Sickness No 07/20/25 11:21 HX of N/V After Surgery No 07/20/25 11:21 Non-Smoker Yes 07/20/25 11:21 Duration of Surgery greater No 07/20/25 11:21 than 60 minutes Number of Risk Factors 2 07/20/25 11:21 PONV Score Moderate Risk 07/20/25 11:21 Height & Weight Height & Weight: Anesthesia: Height & Weight Height 5 ft 07/22/25 08:06 Weight: 94 kg 07/22/25 08:06 Body Mass Index (BMI) 40.4 07/22/25 08:06 Respiratory Assessment Respiratory Assessment - children's ministry director: Respiratory Tract Infection Hx - children's ministry director Hx Respiratory Tract Infection No 07/20/25 11:21 STOP Sleep Apnea STOP Sleep Apnea - children's ministry director: STOP Sleep Apnea - children's ministry director Hx Hypertension Yes 07/20/25 11:21 Hx Sleep Apnea Yes 07/20/25 11:21 CPAP No 07/20/25 11:21 BIPAP Yes 07/20/25 11:21 Do you snore loudly (louder than talking or can be heard Do you often feel tired/ fatigued/ sleepy during daytime? Has anyone observed you stop breathing during sleep? STOP Results Positive 07/20/25 11:21 QUESTION #5 FULL TEXT : Do you snore loudly (louder than talking or can be heard through closed doors)? Tobacco Use History Tobacco Use History - children's ministry director: Tobacco Use History - children's ministry director Tobacco Use Smoking Status Never smoker 07/20/25 11:21 Hx Tobacco Use No 07/20/25 11:21 Years Smoking Packs Smoked per Day Smoking Cessation Date was within the last 15 years Hx Smoking Cessation Date Hx Smoking Cessation Counseling Hematologic Medial History Hematologic Hx - children's ministry director: Hematologic Medical Hx - manager documentation Hx of Blood Transfusion No 07/20/25 11:21 Hx of Transfusion in last 3 No 07/20/25 11:21 Months Date of Last Transfusion (if within last 3 months) Ever experience any problems No 07/20/25 11:21 with transfusion(s)? Specify any problems Hx of Preganancy in last 3 No 07/20/25 11:21 Months Nurse Filling Out Transfusion VLEHMAN 07/20/25 11:21 & Questions: Date: 07/20/25 07/20/25 11:21 Time: 11:24 07/20/25 11:21 Patient unable to answer at this time (ie. confused, unrespo /Reproduction History /Reproductive History - children's ministry director: /Reproductive Hx- children's ministry director Hx Now Gestational Age (in weeks): EDC: Hx Hx Para Hx Section SAB No 07/20/25 11:21 Active Medications Active Medications: Current Medications Generic Name Dose Route Start Last Admin Trade Name Freq PRN Reason Stop Dose Admin Lactated Ringer's 1,000 mls @ 15 mls/hr 07/22/25 08:00 07/22/25 08:17 IV 15 mls/hr .Q48H MIKI Administration PFSH Medical History Neck pain on left side Left shoulder pain Wears glasses Thyroid disease Restless legs Injury of head and neck History of hiatal hernia History of IBS History of diverticulitis Vocal cord dysfunction Gastric reflux CPAP (continuous positive airway pressure) dependence Shortness of breath on exertion History of echocardiogram History of stress test Hypertension History of CHF (congestive heart failure) Cardiology follow-up encounter Hx of colonic polyps Abdominal pain Pre-operative cardiovascular examination Hyperlipidemia Chest pain Chronic diastolic CHF (congestive heart failure) Atherosclerotic heart disease of [place] coronary artery without angina pectoris Abnormal stress test Dyspnea on exertion Hypertension Diastolic dysfunction Tachycardia Asthma, moderate persistent Diverticulosis IBS (irritable bowel syndrome) Gastroparesis cataracts Bronchospasm Asthmatic bronchitis Gout peroneal nerve pinched Sciatica Arthritis Anxiety Lung nodule Disorder of vocal cord Allergic rhinitis Abnormal pulmonary function test Fatigue GERD (gastroesophageal reflux disease) Asthma Hypothyroidism Asthma exacerbation Hypersomnia KATHARINA (obstructive sleep apnea) Home Medications Medication Instructions Recorded Last Taken Type docusate sodium 100 mg capsule 100 mg PO BID PRN PRN C onstipation 11/15/19 Unknown Rx #60 caps nitroglycerin 0.4 mg sublingual 0.4 mg sublingual Q5-1 5M PRN chest 10/12/21 Unknown Rx tablet pain #25 tabs albuterol sulfate 2.5 mg/3 mL 2.5 mg (3 mL) inhalation Q4H PRN 02/11/22 Unknown Rx (0.083 %) solution for nebulization Sob &/Or Wheezing #180 mL guaifenesin 1,200 mg tablet, 1,200 mg PO PRN PRN ALLER GIES 02/15/22 Unknown History extended release 12 hr aspirin 81 mg tablet,delayed 81 mg PO QHS #90 tabs 07/15/25 Rx release wheat dextrin 3 gram/4 gram oral 1 packet PO DAILY sup plement 04/09/22 Unknown History powder albuterol sulfate 90 mcg/actuation 2 puff inhalation Q 4H PRN 08/12/24 Unknown Rx aerosol inhaler (Ventolin HFA) shortness of breath or wheezing #18 grams montelukast 10 mg tablet 10 mg PO QHS #90 tabs Unknown Rx ergocalciferol (vitamin D2) 1,250 50,000 unit PO QWEEK #12 caps 12/29/24 Unknown Rx mcg (50,000 unit) capsule levothyroxine 112 mcg tablet 112 mcg PO DAILY #90 tabs 12/29/24 07/22/25 07:00 Rx sertraline 25 mg tablet 25 mg PO DAILY #90 tabs 06/16 Unknown Rx resmetirom 80 mg tablet (Rezdiffra) 80 mg PO QDAY 12/22 11/16 Unknown History simvastatin 20 mg tablet 20 mg PO QHS #90 tabs Unknown Rx diltiazem HCl 360 mg capsule,24 360 mg PO QHS #90 caps 02/28/25 Unknown Rx hr,extended release (Tiadylt ER) furosemide 40 mg tablet 40 mg PO DAILY #90 TABLETS 0 02/28/25 Unknown Rx losartan 25 mg tablet 25 mg PO QHS #90 TABLETS Unknown Rx ascorbic acid (vitamin C) 500 mg 500 mg PO DAILY 03/14 Unknown History capsule vitamin E (dl, acetate) 180 mg 180 mg PO BID 03/14/25 Unknown History (400 unit) capsule omeprazole 40 mg capsule,delayed 40 mg PO BID #180 cap s 03/21/25 07/22/25 07:00 Rx release potassium chloride 20 mEq 20 meq PO BID #180 tabs 05/24 06/16 Unknown Rx tablet,extended release metoclopramide HCl 5 mg tablet 5 mg PO Q8 #90 TABLETS 07/04/25 07/21/25 07:00 Rx Allergy/AdvReac Type Severity Reaction Status Date / Time Environmental Allergies: Allergy Unknown unknown Verified 07/22/25 08:04 Uncoded (dust) mold Allergy Unknown unknown Verified 07/22/25 08:04 chocolate flavor Allergy Unknown Verified 07/22/25 08:04 corn Allergy Unknown Verified 07/22/25 08:04 peanut Allergy Unknown Verified 07/22/25 08:04 Penicillins Allergy Unknown Verified 07/22/25 08:04 Tetracyclines Allergy Unknown Verified 07/22/25 08:04 venom-honey bee (bee venom Allergy Unknown Verified 07/22/25 08:04 (honey bee)) Family History Brother CAD (coronary artery disease) Mother Heart disease Thyroid disorder Parkinson disease Hypertension Arthritis Father Heart disease Cancer Arthritis Hypertension High cholesterol Pulmonary fibrosis Surgical History History of cataract surgery History of hysterectomy Stented coronary artery (04/21/19) History of left heart catheterization (10/28/18) History of tubal ligation History of cholecystectomy History of appendectomy History of tonsillectomy turbinate reduction H/O nasal septoplasty H/O colonoscopy (02/21/22) H/O endoscopy Social History Smoking Status: Never smoker alcohol intake: current alcohol intake frequency: holidays/special occasions only substance use type: does not use caffeine: Yes Type: coffee Number of servings: 1 and tea Number of servings: 1 Review of Systems (Anesthesia) ROS Narrative System reviewed and no additional complaints, except as documented.
--- NOTE | 2025-07-22 09:00 | EGD_PTH ---
PATIENT: RONI LEWIS LOC: [facility] U#:[id number] AGE/SX: 75/F ROOM: RE07/22/[address]: Dr. Oscar Kimble DO : 1950 BED: DIS: 07/22/2025 SPEC #: [id number] RECD: 07/22/25 10:07 STATUS: ALISON ANKIT #: [id number] ABBY: 07/22/25 09:[address]: Oscar Kimble DEPT: SURGICAL PATHOLOGY RECD BY: Tashi Goodson ENTERED: 07/22/25 14:05 SP TYPE: EGD BIOPSY PRICILA DR: Dr. Rosario Cha MD Tissues: A - Esophagus, NOS B - Gastric mucous membrane Procedures: Immunohistochemical Stains Surgery Specimen Level IV HEADER OPERATION: EGD with biopsies PRE-OP DIAGNOSIS: HERNANDEZ, fatty liver, constipation, GERD TISSUE SUBMITTED: A- Distal esophagus biopsy, B- Gastric body biopsy MICROSCOPIC DIAGNOSIS A. Distal esophagus, biopsy: - Benign squamous mucosa. - Columnar mucosa negative for goblet cell metaplasia. B. Gastric body, biopsy: - Fragments of oxyntic mucosa with features of fundic gland polyp. - Fragment of antral mucosa with chronic gastritis. - IHC for H pylori PENDING, to be reported in an addendum. MICROSCOPIC DESCRIPTION Slides are reviewed. GROSS DESCRIPTION A. Received in fixative is one container labeled with the patient's name and designated "Distal esophagus biopsy." The specimen consists of three irregular fragments of reynoso tissue that measure 0.2 to 0.5 cm. The specimen is totally submitted in one cassette. B. Received in fixative is one container labeled with the patient's name and designated "Gastric body biopsy." The specimen consists of multiple irregular fragments of reynoso tissue that in aggregate measure 1.2 x 0.7 x 0.2 cm. The specimen is totally submitted in one cassette. DC 07/22/2025 CPT:21278v1,01706 ADDENDUM ADDENDUM ADDENDUM ADDENDUM ADDENDUM ADDENDUM ADDENDUM ADDENDUM ADDENDUM ADDENDUM ADDENDUM ADDENDUM ADDENDUM 08/09/2025 09:34 ADDENDUM 08/09/2025 09:34 ADDENDUM 08/09/2025 09:34 ADDENDUM 08/09/2025 09:34 ADDENDUM 08/09/2025 09:34 This addendum is to report the result of the IHC stain (B): B) IHC negative for H. pylori organisms. All matched controls reacted appropriately. These tests were developed and their performance characteristics determined by [facility]. They may not have been cleared or approved by the U.[place]. Food and Drug Administration. The FDA has determined that such clearance or approval is not necessary. The above immunohistochemical markers and/or special stains have been reviewed by the Pathologist
--- NOTE | 2025-07-22 10:00 | PCM.POST.ANE ---
Anesthesia: Postop Eval I Current Vital Signs Temperature: 98.8 F Pulse Rate: 72 Blood Pressure: 140/69 Respiratory Rate: 16 Pulse Ox: 95 Oxygen Delivery Method: Room Air Assessment Airway patent: Yes Spontaneous unlabored respirations: Yes Mental status: Awake and Calm nausea: No Vomiting: No Anesthesia Complication: No Fluid Hydration Crystalloid volume administer (ml): 400 Total IV fluid infused: 400 Progress Note Anesthesia document: Postop Eval 1 completed: Yes
--- NOTE | 2025-07-22 10:08 | OP.EGD_ITS ---
Patient Name: Mary Bañuelos Procedure Date: 07/22/2025 9:37 AM Date of : 1950 Age: 75 Procedure: Upper GI endoscopy Indications: Functional Dyspepsia, Follow-up of Lake's esophagus Providers: Oscar Kimble DO Referring MD: Rosario Cha Medicines: Monitored Anesthesia Care Patient Profile: This is a 75 year old female. Refer to note in patient chart for documentation of history and physical. Patient has symptoms of acute left upper quadrant abdominal pain, acute epigastric abdominal pain, chronic heartburn and chronic nausea. Complications: No immediate complications. Procedure: Pre-Anesthesia Assessment: - Prior to the procedure, a History and Physical was performed, and patient medications and allergies were reviewed. The patient is competent. The risks and benefits of the procedure and the sedation options and risks were discussed with the patient. All questions were answered and informed consent was obtained. Patient identification and proposed procedure were verified by the physician in the pre-procedure area. Mental Status Examination: alert and oriented. Airway Examination: normal oropharyngeal airway and neck mobility. Respiratory Examination: clear to auscultation. CV Examination: normal. Prophylactic Antibiotics: The patient does not require prophylactic antibiotics. Prior Anticoagulants: The patient has taken no anticoagulant or antiplatelet agents except for NSAID medication. ASA Grade Assessment: II - A patient with mild systemic disease. After reviewing the risks and benefits, the patient was deemed in satisfactory condition to undergo the procedure. The anesthesia plan was to use monitored anesthesia care (MAC). Immediately prior to administration of medications, the patient was re-assessed for adequacy to receive sedatives. The heart rate, respiratory rate, oxygen saturations, blood pressure, adequacy of pulmonary ventilation, and response to care were monitored throughout the procedure. The physical status of the patient was re-assessed after the procedure. After obtaining informed consent, the endoscope was passed under direct vision. Throughout the procedure, the patient's blood pressure, pulse, and oxygen saturations were monitored continuously. The gastroscope was introduced through the mouth, and advanced to the fourth part of the duodenum. Small bowel enteroscopy was deemed necessary. The upper GI endoscopy was accomplished without difficulty. The patient tolerated the procedure well. Scope In: 9:45:58 AM Scope Out: 9:51:56 AM Total Procedure Duration Time 0 hours 5 minutes 58 seconds Findings: The Z-line was irregular and was found 38 cm from the incisors. Biopsies were taken with a cold forceps for histology. A medium-sized hiatal hernia was present. Localized mildly erythematous mucosa without bleeding was found in the gastric fundus. Biopsies were taken with a cold forceps for histology. Biopsies were taken with a cold forceps for Helicobacter pylori testing. Verification of patient identification for the specimen was done. Estimated blood loss was minimal. No gross lesions were noted in the entire examined duodenum. Impression: - Z-line irregular, 38 cm from the incisors. Biopsied. - Medium-sized hiatal hernia. - Erythematous mucosa in the gastric fundus. Biopsied. - No gross lesions in the entire examined duodenum. Recommendation: - Discharge patient to home. - Resume previous diet. - Continue present medications. - Await pathology results. Procedure Code(s): --- Professional --- 09089, Small intestinal endoscopy, enteroscopy beyond second portion of duodenum, not including ileum; with biopsy, single or multiple CPT copyright 2021 [employer] [place] [employer]. All rights reserved. The codes documented in this report are preliminary and upon ramp boss review may be revised to meet current compliance requirements. Oscar Kimble DO 07/22/2025 10:07:56 AM This report has been signed electronically. Number of Addenda: 0 Note Initiated On: 07/22/2025 9:37 AM
--- NOTE | 2025-07-22 10:08 | OP.PROVAT_ITS ---
07/22/2025 Rosario Cha [facility] [address] [place] [address] Re : Upper GI endoscopy procedure for Mary Josryanet Dear Dr. Cha This procedure was performed on Tuesday, July 22, 2025. My impressions and recommendations are as follows: Impressions : - Z-line irregular, 38 cm from the incisors. Biopsied. - Medium-sized hiatal hernia. - Erythematous mucosa in the gastric fundus. Biopsied. - No gross lesions in the entire examined duodenum. Recommendations : - Discharge patient to home. - Resume previous diet. - Continue present medications. - Await pathology results. My findings are described in the full procedure note, which is enclosed. If I can be of further assistance, please feel free to contact me at . Sincerely, Oscar Kimble, 07/22/2025 10:07:56 AM This report has been signed electronically.
--- NOTE | 2025-07-22 11:05 | PCM.POSTANE2 ---
Anesthesia Postop Eval I Sum Postop Eval Completion status Anesthesia document: Postop Eval 1 completed: Yes Anesthesia Postop Eval I Summary Anesthesia Postop Eval I Summary: Anesthesia Postop Eval I: Assessment Summary Airway patent Yes 07/22/25 10:01 [email or web address] Spontaneous unlabored Yes 07/22/25 10:01 [email or web address] respirations Mental status Awake,Calm 07/22/25 10:01 [email or web address] nausea No 07/22/25 10:01 [email or web address] Vomiting No 07/22/25 10:01 [email or web address] Anesthesia Postop Eval I: Fluid Summary Crystalloid volume administer 400 07/22/25 10:01 [email or web address] (ml) Colloids volume administered ( ml) Blood Product volume administered (ml) Total IV fluid infused 400 07/22/25 10:01 [email or web address] Anesthesia Postop Eval I: Summary Notes Anesthesia Complication No 07/22/25 10:01 [email or web address] Anesthesia Complication Comment: Post-operative progress note Anesthesia: Postop Eval II Evaluation Mental status: Awake Pain Level: 0 nausea: No Vomiting: No
== END 2025-07-22 10:48 | disposition home or self-care (01) ==
LOC: EN 07:46 → AC 07:48
PROVIDERS: PCP Internal Medicine; Referring Provider Internal Medicine; Visit Provider Internal Medicine Gastroenterology
DX: K75.81 Nonalcoholic steatohepatitis (NASH) (principal); I11.0 Hypertensive heart disease with heart failure; I50.32 Chronic diastolic (congestive) heart failure; Z90.710 Acquired absence of both cervix and uterus; Z79.82 Long term (current) use of aspirin; E78.5 Hyperlipidemia, unspecified; Z90.49 Acquired absence of other specified parts of digestive tract; K21.9 Gastro-esophageal reflux disease without esophagitis; I25.10 Atherosclerotic heart disease of native coronary artery without angina pectoris; K44.9 Diaphragmatic hernia without obstruction or gangrene; Z86.0100 Personal history of colon polyps, unspecified; G47.33 Obstructive sleep apnea (adult) (pediatric); Z99.89 Dependence on other enabling machines and devices; E03.9 Hypothyroidism, unspecified; Z79.890 Hormone replacement therapy; F41.9 Anxiety disorder, unspecified; Z79.899 Other long term (current) drug therapy; L21.9 Seborrheic dermatitis, unspecified; Z95.5 Presence of coronary angioplasty implant and graft; Z98.51 Tubal ligation status; K59.00 Constipation, unspecified; K22.89 Other specified disease of esophagus; K31.89 Other diseases of stomach and duodenum; K29.50 Unspecified chronic gastritis without bleeding
CPT/HCPCS: 43239; 88305; 88342; J2405

== ENCOUNTER → 2025-09-09 | Outpatient (CLI) | payer MEDICARE, BC, SELFPAY ==
[2024-01-07 10:40] VITALS: BMI 34.7
--- OUTSIDE RECORDS SUMMARY | 2025-09-09 05:53 | XMS RPT_ITS | CCD ---
Author Organization [facility] Care Team Providers Care Lockstitch Cup Setter Name Role Phone Dr. Phong Quiroga Primary Care Provider Dr. Phong Quiroga Referring Provider Dr. Jesus Alberto Hanson Attending Provider Dr. Neo Mensah Attending Provider Dr. Neo Mensah Referring Provider Dr. Oscar Kimble Attending Provider [phone] Christine HOLDER, MODEL DRESSER-C Carolyne Georges Attending Provider Dr. Phong Quiroga Primary Care Provider Dr. Phong Quiroga Referring Provider Dr. Jesus Alberto Hanson Attending Provider Anthony HOLDER, MAGGIE Hightower Attending Provider [phone] Dr. Phong Quiroga Primary Care Provider Dr. Phong Quiroga Referring Provider Dr. Oscar Kimble Attending Provider Dr. Oscar Kimble Other Provider Phong Quiroga Referring Provider Unavailable Dr. Phong Quiroga Primary Care Provider Dr. Phong Quiroga Referring Provider Chel HOLDER NP-Jigna Guerrero Attending Provider Dr. Oscar Kimble Attending Provider Dr. Phong Quiroga Primary Care Provider Dr. Phong Quiroga Referring Provider Dr. Neo Mensah Attending Provider Christine MODEL DRESSER, MODEL DRESSER-C aCrolyne Georges Attending Provider Roof MODEL DRESSER, MODEL DRESSER-C Jose M Guerrero Attending Provider Dr. Rosario Cha Primary Care Provider Dr. Salvatore Dunlap Attending Provider Roof MODEL DRESSER, MODEL DRESSER-C Jose M H Referring Provider George Webber Attending Provider Unavailable Dr. Rosario Cha Attending Provider Dr. Phong Quiroga Primary Care Provider Dr. Phong Quiroga Referring Provider Roof MODEL DRESSER, MODEL DRESSER-C Jose M Guerrero Attending Provider Dr. Rosario Cha Primary Care Provider Dr. Salvatore Dunlap Attending Provider Roof MODEL DRESSER, MODEL DRESSER-C Jose M Guerrero Referring Provider George Webber Attending Provider Unavailable Dr. Rosario Cha Attending Provider Roof MODEL DRESSER, MODEL DRESSER-C Jose M Guerrero Other Provider Dr. Wilma Almodovar Attending Provider Dr. Phong Quiroga Referring Provider Roof MODEL DRESSER, MODEL DRESSER-C Jose M Guerrero Attending Provider Dr. Rosario Cha Primary Care Provider Roof MODEL DRESSER, MODEL DRESSER-C Jose M Guerrero Referring Provider Cruz MODEL DRESSER, MODEL DRESSER-C Katja Attending Provider Dr. Rosario Cha Primary Care Provider Dr. Rosario Cha Attending Provider Dr. Rosario Cha Referring Provider Dr. Neo Mensah Attending Provider Dr. Rosario Cha Primary Care Provider Dr. Rosario Cha Attending Provider [phone] Rosario Cha Primary Care Provider Dr. Oscar Kimble Attending Provider Dr. Rosario Cha Attending Provider Dr. Oscar Kimble DO Attending Provider Shyanne NATH, Dr. Moore Referring Provider Starla LOUISE, Dr. Ponce Primary Care Provider [phone] Starla LOUISE, Dr. Ponce Referring Provider Jacquelyn MODEL DRESSER-CCaridad Attending Provider Jacquelyn HODLER-CCaridad Referring Provider Dr. Rosario Cha MD Attending Provider Dr. Sander Mcdonough DO Attending Provider [facility] MODEL DRESSER-C, Jose M Guerrero Attending Provider Starla LOUISE, Dr. Ponce Primary Care Provider [phone] Jacquelyn MODEL DRESSER-CCaridad Attending Physician Starla LOUISE, Dr. Ponce Primary Care Physician Starla LOUISE, Dr. Ponce Referring Provider Starla LOUISE, Dr. Ponce Attending Physician [phone] Shyanne NATH, Dr. Moore Attending Physician [phone] Oscar Kimble Attending Unavailable Rosario Cha Primary Care Unavailable Oscar Kimble Consulting Unavailable Rosario Cha Referring Unavailable Rosario Cha Referring Unavailable Caridad Valldaares Attending Unavailable Oscar Kimble Attending Unavailable StarlaRosario piña Attending Unavailable Starla, Rosario Primary Care Unavailable StarlaRosario Attending Unavailable Starla, Rosario Primary Care Unavailable StarlaRosario Referring Unavailable [facility] MODEL DRESSER, Jose M H Attending Unavailable Starla, Rosario Primary Care Unavailable Rosario Cha Referring Unavailable Caridad Valladares Attending Unavailable Starla, Rosario Primary Care Unavailable Starla, Rosario Primary Care Unavailable Friend, Oscar Attending Unavailable Starla, Rosario Referring Unavailable Starla, Rosario Primary Care Unavailable Starla, Rosario Referring Unavailable Anthony MODEL DRESSER, Katja Attending Unavailable Friend, Oscar Attending Unavailable Starla, Rosario Primary Care Unavailable Rufener, Caridad M Referring Unavailable Sander Mcdonough Attending Unavailable Starla, Rsoario Primary Care Unavailable Rufener, Caridad M Referring Unavailable Rufener Caridad M Attending Unavailable Starla, Rosario Attending Unavailable Starla, Rosario Primary Care Unavailable Starla, Rosario Referring Unavailable Starla, Rosario Primary Care Unavailable Roof MODEL DRESSER, Jose M H Referring Unavailable Roof MODEL DRESSER, Jose M H Attending Unavailable Starla, Rosario Attending Unavailable Starla, Rosario Primary Care Unavailable Starla, Rosario Referring Unavailable Starla, Rosario Attending Unavailable Starla, Rosario Primary Care Unavailable Starla, Rosario Referring Unavailable Friend, Oscar Attending Unavailable Starla, Rosario Primary Care Unavailable Starla, Rosario Referring Unavailable Starla, Rosario Primary Care Unavailable Friend, Oscar Attending Unavailable Friend, Oscar Referring Unavailable Allergies Allergy Classification Reported Allergen(s) Allergy Type Date of Onset Reaction(s) Facility (20 sources) Chocolate; Translations: [chocolate flavor] Allergy to substance 2 Unknown [facility] (20 sources) corn allergenic extract Drug Allergy 2 [facility] (20 sources) peanut allergenic extract Drug Allergy 2 Unknown [facility] (20 sources) Penicillins; Translations: [Penicillins] Allergy to substance 2 Unknown [facility] (20 sources) Tetracyclines; Translations: [Tetracyclines] Allergy to substance 2 Unknown [facility] (20 sources) venom-honey bee Allergy to substance 2 Unknown [facility] (4 sources) Environmental allergy Allergy to substance 2 [facility] (4 sources) Mold Extract Drug Allergy 5 [facility] (5 sources) Environmental Allergies: Uncoded; Translations: [Environmental Allergies: Uncoded] Allergy to substance 5 [facility] (1 source) corn extract Drug Allergy 5 [facility] Repository (1 source) Mold Extract Drug Allergy 5 [facility] Repository (1 source) peanut allergenic extract Drug Allergy 5 [facility] Repository (1 source) venom-honey bee Drug allergy (disorder) 5 [facility] Repository Medications Current Medications Medication Drug Class(es) [...] 04, 2014 12:00am October 10, 2017 10:20am [id number] actuat albuterol 0.09 mg/actuat metered dose inhaler (20 sources) beta2-Adrenergic Agonist Start: 03-21-2021 End: 02-11-2022 take 2.5 mg by inhalation every four hours as needed for wheezing Start: 03-21-2021 End: 08-12-2024 Albuterol Sulfate (Ventolin Hfa) 90 mcg/actuation HFA aerosol inhaler Discontinued 2 NMA INHALATION Q4H as needed for shortness of breath or wheezing 09 03August 07, 2023 11:15am August 12, 2024 3:15pm [...] 2 NMA INHALATION TWICE A DAY 1 3 March 21, 2021 12:00am March 22, 2021 [...] Discontinued 2 PUFF INHALATION TWICE A DAY March 20, 2021 11:00pm March 22, 2021 5:31am administer with spacer, rinse mouth after each use Start: 03-21-2021 End: 03-22-2021 take 1 puff(s) by mouth twice daily Budesonide-Formoterol (Symbicort) 160-4.5 mcg/actuation HFA aerosol inhaler Discontinued 2 PUFF INHALATION TWICE A DAY March 21, 2021 12:00am March 22, 2021 6:31am administer with spacer, rinse mouth after each use Xovzzob-Tnkxddayi-Mois (20 sources) Start: 03-09-2018 End: 04-15-2019 take 2 tablets by mouth once daily Pteuqtm-Xhnhhhfsc-Xezo Discontinued 2 TABLET PO DAILY March 09, 2018 1:36pm April 15, 2019 9:23am Start: 03-09-2018 End: 04-15-2019 Jtxygkw-Ravqesxab-Unmw 333-1 33-5 mg tablet Discontinued 2 {tbl} PO DAILY 0 March 09, 2018 12:00am April 15, 2019 9:23am Start: 03-09-2018 End: 04-15-2019 Bmfnyez-Dhfhnfqry-Brzv 333-1 33-5 mg tablet Discontinued 2 {tbl} PO DAILY March 09, 2018 12:00am April 15, 2019 9:23am Start: 03-09-2018 End: 04-15-2019 take 2 tablets by mouth once daily Laiybif-Zelkatmkd-Lijt Discontinued 2 TABLET PO DAILY March 08, 2018 11:00pm April 15, 2019 8:23am Start: 03-09-2018 End: 04-15-2019 take 2 tablets by mouth once daily Tkydqlk-Mblngkcxp-Rtzt Discontinued 2 TABLET PO DAILY March 09, 2018 12:00am April 15, 2019 9:23am cholecalciferol 1.25 mg oral capsule (20 sources) Vitamin D Start: 10-20-2017 End: 04-15-2019 take 1 capsule by mouth every other week Cholecalciferol (Vitamin D3) 50,000 unit capsule Discontinued 32553 U PO EVERY WEEK January 13, 2018 8:48am April 15, 2019 9:21am 50,000 unit PO every other week Start: 10-10-2017 End: 10-20-2017 Cholecalciferol (Vitamin D3) 50,000 unit capsule Discontinued 45688 U PO .qmonthly October 10, 2017 1:00am [...] mg tablet Discontinued 75 mg PO DAILY 90 3 May 09, 2023 8:27am February 23, [...] D2) 1,250 mcg (50,000 unit) capsule Discontinued 44367 U PO EVERY WEEK 12 January 29, 2024 12:43pm December 29, 2024 2:05pm Start: 02-11-2022 End: 11-18-2022 take 14782 [IU] by mouth every week Ergocalciferol (Vitamin D2) Active 34109 UNIT PO EVERY WEEK November 18, 2022 [...] tablet Discontinued 100 mg PO DAILY 7 April 14, 2024 7:56am August 12, 2024 [...] with device Active 1 INH INHALATION daily October 02, 2023 12:56pm after inhalation, rinse [...] tablet Discontinued 112 ug PO DAILY 90 January 29, 2024 12:43pm [...] 18, 2022 4:43pm February 04, 2023 10:22am Qfzkgscoujfk-Nl-Xw on-Minerals (Multiple Vitamin, Womens) tablet (20 sources) Start: 10-10-2017 End: 03-09-2018 take 1 tablet by mouth once daily Phttjsvflfyc-Rl-Ny on-Minerals (Multiple Vitamin, Womens) tablet Discontinued 1 TABLET PO daily October 10, 2017 11:16am March 09, 2018 1:35pm Start: 10-10-2017 End: 03-09-2018 Izqjowimnixv-Yy-Dmsf-Mineral s (Multiple Vitamin, Womens) tablet Discontinued 1 {tbl} PO daily as needed for Supplement Spice Fumigator 0 October 10, 2017 1:00am March 09, 2018 1:35pm Start: 10-10-2017 End: 03-09-2018 Ktnfpxizvtzb-Pr-Fqyr-Mineral s (Multiple Vitamin, Womens) tablet Discontinued 1 {tbl} PO daily as needed for Supplement Spice Fumigator October 10, 2017 1:00am March 09, 2018 1:35pm Start: 10-10-2017 End: 03-09-2018 take 1 tablet by mouth once daily Ffgondaudpwj-Ra-Izun-Minerals (Multiple Vitamin, Womens) tablet Discontinued 1 TABLET PO daily October 10, 2017 12:00am March 09, 2018 12:35pm Start: 10-10-2017 End: 03-09-2018 take 1 tablet by mouth once daily Uyltvbpirure-Fy-Svna-Minerals (Multiple Vitamin, Womens) tablet Discontinued 1 TABLET PO daily October 10, 2017 1:00am March 09, 2018 1:35pm nystatin 128276 unt/ml oral suspension (8 sources) Polyene Antifungal [...] Discontinued 20 mg PO AT BEDTIME 90 March 22, 2024 8:07am February 22, 2025 8:07am sucralfate 1000 mg oral tablet (8 sources) Aluminum Complex Start: 01-02-2024 End: 02-23-2024 take 1 tablet by mouth before mealtime Sucralfate 1 gram tablet Discontinued 1 g PO before meals 90 0 January 02, 2024 12:00am February 23, 2024 1:06pm tiotropium 0.018 mg inhalation powder (20 sources) Anticholinergic Start: 11-04-2014 End: 10-10-2017 Tiotropium Ellis 1 PUFF inhaler Discontinued 1 NMA INHALATION DAILY November 04, 2014 1:00am October 10, 2017 11:20am Start: 11-04-2014 End: 10-10-2017 take 1 puff(s) by inhalation once daily Tiotropium Ellis Discontinued 1 PUFF INHALATION DAILY November 04, 2014 12:00am October 10, 2017 10:20am tretinoin 0.87667 mg/mg topical gel (20 sources) Retinoid Start: [...] Coronary atherosclerosis; Translations: [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] Onset: 03-07-20 Chronic Comment on above: Up to 50% luminal ir regularities in proximal OM 1, all other arteries normal per [facility] 10/28/18.Single vessel CAD of the Ramus IntermediusSuccessful [...] Nonalcoholic steatohepatitis; Translations: [Nonalcoholic steatohepatitis (HERNANDEZ)] Onset: 08-02-20 25 01-11-2025 Chronic Malaise and fatigue (20 sources) Fatigue; [...] [Constipation, unspecified] 07-04-2022 Episodic Other gastrointestinal disorders (5 sources) Constipation, unspecified; Translations: [Constipation, unspecified] Onset: 08-02-20 Episodic Other liver diseases (20 sources) Steatosis of liver; Translations: [Fatty (change of) liver, not elsewhere classified] 07-04-2022 Chronic Other liver diseases (11 sources) Fatty (change of) liver, not elsewhere [...] (20 sources) Hypothyroidism; Translations: [Hypothyroidism, unspecified] Onset: 03-07-2011-01-2019 Chronic Unclassified (10 sources) Left shoulder pain; [...] OM 1, all other arteries normal per [facility] done @ [facility], Dr. Olmedo Unclassified (17 sources) peroneal nerve pinched 04-10-2022 Unclassified (17 sources) turbinate reduction 04-10-2022 Comment on above: 10/24/2017 Results Test Name Value Interpretation Reference Range Facility EGD Reporton 07-22-2025 EGD Report [facility] Medical Records Department [address] [place] [address] EGD Report MR#: [id number] Acct: [id number] Name: MARY LEWIS Rep #: [id number] : 1950 75 From: Oscar Kimble DO PCP: Dr. Rosario Cha MD Status:[facility] Patient Name: Mary Lewis Procedure Date: 07/22/2025 9:37 AM Date of : 1950 Age: 75 Procedure: Upper GI endoscopy Indications: Functional Dyspepsia, Follow-up of Lake's esophagus Providers: Oscar Kimble DO Referring MD: Rosario hCa Medicines: Monitored Anesthesia Care Patient Profile: This is a 75 year old female. Refer to note in patient chart for documentation of history and physical. Patient has symptoms of acute left upper quadrant abdominal pain, acute epigastric abdominal pain, chronic heartburn and chronic nausea. Complications: No immediate complications. Procedure: Pre-Anesthesia Assessment: - Prior to the procedure, a History and Physical was performed, and patient medications and allergies were reviewed. The patient is competent. The risks and benefits of the procedure and the sedation options and risks were discussed with the patient. All questions were answered and informed consent was obtained. Patient identification and proposed procedure were verified by the physician in the pre-procedure area. Mental Status Examination: alert and oriented. Airway Examination: normal oropharyngeal airway and neck mobility. Respiratory Examination: clear to auscultation. CV Examination: normal. Prophylactic Antibiotics: The patient does not require prophylactic antibiotics. Prior Anticoagulants: The patient has taken no anticoagulant or antiplatelet agents except for NSAID medication. ASA Grade Assessment: II - A patient with mild systemic disease. After reviewing the risks and benefits, the patient was deemed in satisfactory condition to undergo the procedure. The anesthesia plan was to use monitored anesthesia care (MAC). Immediately prior to administration of medications, the patient was re-assessed for adequacy to receive sedatives. The heart rate, respiratory rate, oxygen saturations, blood pressure, adequacy of pulmonary ventilation, and response to care were monitored throughout the procedure. The physical status of the patient was re-assessed after the procedure. After obtaining informed consent, the endoscope was passed under direct vision. Throughout the procedure, the patient's blood pressure, pulse, and oxygen saturations were monitored continuously. The gastroscope was introduced through the mouth, and advanced to the fourth part of the duodenum. Small bowel enteroscopy was deemed necessary. The upper GI endoscopy was accomplished without difficulty. The patient tolerated the procedure well. Scope In: 9:45:58 AM Scope Out: 9:51:56 AM Total Procedure Duration Time 0 hours 5 minutes 58 seconds Findings: The Z-line was irregular and was found 38 cm from the incisors. Biopsies were taken with a cold forceps for histology. A medium-sized hiatal hernia was present. Localized mildly erythematous mucosa without bleeding was found in the gastric fundus. Biopsies were taken with a cold forceps for histology. Biopsies were taken with a cold forceps for Helicobacter pylori testing. Verification of patient identification for the specimen was done. Estimated blood loss was minimal. No gross lesions were noted in the entire examined duodenum. Impression: - Z-line irregular, 38 cm from the incisors. Biopsied. - Medium-sized hiatal hernia. - Erythematous mucosa in the gastric fundus. Biopsied. - No gross lesions in the entire examined duodenum. Recommendation: - Discharge patient to home. - Resume previous diet. - Continue present medications. - Await pathology results. Procedure Code(s): --- Professional --- 58855, Small intestinal endoscopy, enteroscopy beyond second portion of duodenum, not including ileum; with biopsy, single or multiple CPT copyright 2021 [employer]. All rights reserved. The codes documented in this report are preliminary and upon special agent secret service review may be revised to meet current compliance requirements. Oscar Kimble DO 07/22/2025 10:07:56 AM This report has been signed electronically. Number of Addenda: 0 Note Initiated On: 07/22/2025 9:37 AM 07/22/25 1008 Date Oscar Kimble DO Cosigner Signature: Date (if indicated) CC: Dr. Rosario Cha MD; Oscar Kimble DO Date Dictated: 07/22/25 0937 Date Transcribed: Head Automatic Sawyer: RF Signed [facility] MR/OP.PROVAToraul 07-22-2025 MR/OP.[facility] Medical Records Department [address] [place] [address] Provation Physician Letter MR#: [id number] Acct: [id number] Name: MARY LEWIS Rep #: [id number] : 1950 75 From: Oscar Kimble DO PCP: Dr. Rosario Cha MD Status:REG [facility] 07/22/2025 Rosario Cha [facility] [address] [place] [id number] Re : Upper GI endoscopy procedure for Mary Lewis Dear Dr. Cha This procedure was performed on Tuesday, July 22, 2025. My impressions and recommendations are as follows: Impressions : - Z-line irregular, 38 cm from the incisors. Biopsied. - Medium-sized hiatal hernia. - Erythematous mucosa in the gastric fundus. Biopsied. - No gross lesions in the entire examined duodenum. Recommendations : - Discharge patient to home. - Resume previous diet. - Continue present medications. - Await pathology results. My findings are described in the full procedure note, which is enclosed. If I can be of further assistance, please feel free to contact me at . Sincerely, Oscar Kimble DO 07/22/2025 10:07:56 AM This report has been signed electronically. 07/22/25 1008 Date Oscar Kimble DO Cosigner Signature: Date (if indicated) CC: Dr. Rosario Cha MD; Oscar Kimble DO Date Dictated: 07/22/25 0937 Date Transcribed: Head Automatic Sawyer: BEAR Signed [facility] MR/POSTOP.[facility] 07-22-2025 MR/POSTOP.[facility] Medical Records Department [address] [place] [address] Anesthesia Postop Eval I 07/22/25 1000 MR#: [id number] Acct: [id number] Name: MARY LEWIS Rep #: [id number] : 1950 75 From: Marcus Pereira PCP: Dr. Rosario Cha MD Status:REG [facility] Y Race: C Location: [place] [address] Anesthesia: Postop Eval I Current Vital Signs Temperature: 98.8 F Pulse Rate: 72 Blood Pressure: 140/69 Respiratory Rate: 16 Pulse Ox: 95 Oxygen Delivery Method: Room Air Assessment Airway patent: Yes Spontaneous unlabored respirations: Yes Mental status: Awake and Calm nausea: No Vomiting: No Anesthesia Complication: No Fluid Hydration Crystalloid volume administer (ml): 400 Total IV fluid infused: 400 Progress Note Anesthesia document: Postop Eval 1 completed: Yes 07/22/25 1001 Date Marcus Wilson Signature: Date CC: Signed Normal [facility] MR/[id number] 07-22-2025 [facility] Medical Records Department [address] [place] [address] Anesthesia Postop Eval II 07/22/25 1105 MR#: [id number] Acct: [id number] Name: MARY LEWIS Rep #: [id number] : 1950 75 From: Angelo Palacios MD PCP: Dr. Rosario Cha MD Status:[facility] Y Race: C Location: [place] Anesthesia Postop Eval I Sum Postop Eval Completion status Anesthesia document: Postop Eval 1 completed: Yes Anesthesia Postop Eval I Summary Anesthesia Postop Eval I Summary: Anesthesia Postop Eval I: Assessment Summary Airway patent Yes 07/22/25 10:01 [email or web address] Spontaneous unlabored Yes 07/22/25 10:01 [email or web address] respirations Mental status Awake,Calm 07/22/25 10:01 [email or web address] nausea No 07/22/25 10:01 [email or web address] Vomiting No 07/22/25 10:01 [email or web address] Anesthesia Postop Eval I: Fluid Summary Crystalloid volume administer 400 07/22/25 10:01 [email or web address] (ml) Colloids volume administered ( ml) Blood Product volume administered (ml) Total IV fluid infused 400 07/22/25 10:01 [email or web address] Anesthesia Postop Eval I: Summary Notes Anesthesia Complication No 07/22/25 10:01 [email or web address] Anesthesia Complication Comment: Post-operative progress note Anesthesia: Postop Eval II Evaluation Mental status: Awake Pain Level: 0 nausea: No Vomiting: No 07/22/25 1105 Date Angelo Palacios MD Cosigner Signature: Date CC: Signed Normal [facility] MR/PAT.YAAon 07-20-2025 MR/PAT.[facility] Medical Records Department [address] [place] [address] PAT - Anesthesia 07/20/25 1411 MR#: [id number] Acct: [id number] Name: MARY LEWIS Rep #: [id number] : 1950 75 From: Angelo Palacios MD PCP: Dr. Rosario Cha MD Status:PRE [facility] [place] Y Race: C Location: EN Pre-Assessment Diagnosis/Proposed Procedure Planned Operative Procedure(s): EGD Anesthesia History Anesthesia History - genetics physician: Anesthesia History - genetics physician Hx Hospitalization No 07/20/25 11:21 Any Problems [...] take am of surgery PONV PONV - genetics physician: PONV - genetics physician Female Yes 07/20/25 11:21 HX of Motion Sickness No 07/20/25 11:21 HX of N/V After Surgery No 07/20/25 11:21 Non-Smoker Yes 07/20/25 11:21 Duration of Surgery greater No 07/20/25 11:21 than 60 minutes Number of Risk Factors 2 07/20/25 11:21 PONV Score Moderate Risk 07/20/25 11:21 Height Weight Height Weight: Anesthesia: Height Weight Height 5 ft 04/13/25 08:06 Respiratory Assessment Respiratory Assessment - genetics physician: Respiratory Tract Infection Hx - genetics physician Hx Respiratory Tract Infection No 07/20/25 11:21 STOP Sleep Apnea STOP Sleep Apnea - genetics physician: STOP Sleep Apnea - genetics physician Hx Hypertension Yes 07/20/25 11:21 Hx Sleep [...] Tobacco Use History Tobacco Use History - genetics physician: Tobacco Use History - genetics physician Tobacco Use Smoking Status Never smoker 07/20/25 11:21 Hx Tobacco Use No 07/20/25 11:21 Years Smoking Packs Smoked per Day Smoking Cessation Date was within the last 15 years Hx Smoking Cessation Date Hx Smoking Cessation Counseling Hematologic Medial History Hematologic Hx - genetics physician: Hematologic Medical Hx - power originator Hx of Blood Transfusion No 07/20/25 11:21 Hx of Transfusion in last 3 No 07/20/25 11:21 Months Date of Last Transfusion (if within last 3 months) Ever experience any problems No 07/20/25 11:21 with transfusion(s)? Specify any problems Hx of Preganancy in last 3 No 07/20/25 11:21 Months Nurse Filling Out Transfusion VLEHMAN 07/20/25 11:21 Questions: Date: 07/20/25 07/20/25 11:21 Time: 11:24 07/20/25 11:21 Patient unable to answer at this time (ie. 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 Normal [facility] Gastroenterology Visit Repor ton 07-01-2025 Gastroenterology Visit Report [facility] Gastroenterology [address] [place] [address] OFFICE VISIT Date of Service: 07/01/25 MR#: [id number] Acct: [id number] Name: MARY LEWIS Rep #: [id number] : 1950 Provider: Oscar Kimble DO Age/Sex: 75/F [place] [facility] [place]: Signed Intake Vital Signs 09/06/24 15:02 [...] tablet, 1,200 mg PO PRN PRN ALLERGIES 01/2107/01/25 History extended release 12 hr aspirin 81 [...] at this time. Cardiac clearance faxed to [facility]. 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 Normal [facility] PT D/C Summary (1)on 025 PT D/C Summary (1) [facility] Physical Therapy [facility] [address] [place] [address] / REHABILITATION SERVICES DISCHARGE SUMMARY MR#: [id number] Acct: [id number] Name: MARY LEWIS Rep #: [id number] : 1950 75 From: Gregorio Resendiz PT, ATC Referring Dr.: Dr. Rosario Cha MD Status: R EG RCR Insurance: MEDICARE PART A B ANTH Discharge Summary D/C summary: It has been my pleasure to treat MARY LEWIS referred by Dr. Rosario Cha MD, [...] please feel free to call me at [phone]. Thank you for the referral of this patient. Sincerely, Gregorio Resendiz, PT, ATC Balance/Gait/Functiona l tests Balance/Special Test Scores Oswestry Low Back Score: 5 Oswestry Neck Score: 8 Improvement % Improvement: 90 06/02/25 8225 CC: Dr. Rosario Cha MD [facility] Signed Normal [facility] Re-Evaluation - PT (1)on Re-Evaluation - PT (1) [facility] Physical Therapy [facility] [address] [place] [address] / REEVALUATION / MEDICARE RECERTIFICATION PHYSICAL THERAPY MR#: [id number] Acct: [id number] Name: MARY LEWIS Rep #: [id number] : 1950 75 From: Talia Lara DPT Referring Dr.: Dr. Rosario Cha MD Status:REG RCR Insurance: MEDICARE PART A B ANTHEM Re-Evaluation Intro: Dr. Rosario Cha MD, It has been my pleasure to treat MARY LEWIS over the last 9 visits for [...] 4/5, IR/ER: 4/5, Extn: 4/5, Elbow/Wrist: 5/5 Excel Analyst: equal, Sensation; WNL to gross touch bilateral [...] do not hesitate to contact me at [phone] by phone or if you have questions or concerns regarding this new plan of care! Sincerely, Talia Lara, ESTRELLA 04/14/25 3425 CC: Dr. Rosario Cha MD ELR Signed For Medicare only, by signing this I certify the plan of care. Physicians Signature Date Normal [facility] Pulmonary Visit Reporton Pulmonary Visit Report [facility] Pulmonary Medicine of [address] [place] [address] OFFICE VISIT Date of Service: 04/13/25 MR#: [id number] Acct: [id number] Name: MARY LEWIS Rep #: [id number] : 1950 Provider: Caridad Valladares NP Age/Sex: 75/F [place] [facility] [place]: Signed Assessment and Plan Assessment and [...] a new finding. Continue with use of [place] pot and as needed use of Zyrtec. [...] does watch her heart rate as she can get tachy with use of Zyrtec. She is using Cheri pot daily. She does have C4, 5, 6 nerve pain she also reports right scapular musculoskeletal pain that is elicited with palpation. She is utilizing rezdiffra and has noticed weight gain. She believes that this is a side effect. 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 She wakes up feeling rested and refreshed [...] a history of a reduced DLCO from 2015, 2016, 2017 and 2018. The 2019 DLCO [...] M FU Chief Complaint: 6 M FU Core Measures Abstractor Required: No DME Vendor: Faisal Accompanied by: Self Is patient in pain?: No Allergies Environmental Allergies: Uncoded (dust) Allergy (Unknown, Verified 04/13/25 13:44) unknown mold Allergy (Unknown, Verified 04/13/25 13:44) unknown chocolate flavor Allergy (Verified 04/13/25 13:44) Unknown (more content not included)... Normal [facility] Cardiology Visit Reporton Cardiology Visit Report [facility] 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 Normal [facility] Inital Evaluation (1) - PTon 03-14-2025 Inital Evaluation (1) - PT [facility] Physical Therapy [address] [place] [address] / REHABILITATION SERVICES INITIAL EVALUATION MR#: [id number] Acct: [id number] Name: MARY LEWIS Rep #: [id number] : 1950 74 From: Talia Lara DPT Referring Dr.: Dr. Rosario Cha MD Status: R EG RCR Insurance: MEDICARE PART A B ANTH Patient's Visit Information Visit Information Visit Information: MARY LEWIS is a 74 year old F [...] has not had medications or injections. No ANDERSON, blurred vision or dizziness. 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 She likes [...] 3+/5, IR/ER: 4-/5, Extn: 4/5, Elbow/Wrist: 5/5 Excel Analyst: equal, Sensation; WNL to gross touch bilatera [...] to be FAXED BACK to us at [phone] for Medicare purposes. For Medicare only, by signing this I certify the plan of care. Please let me know if there are questions or concerns regarding this plan of care. Physician Signature: Date:__ 03/14/25 1551 CC: Dr. Rosario Cha MD ELR Signed Normal [facility] Comprehensive Metabolic Prof ilon 03-08-2025 Albumin [Mass/Vol] 4.4 g/dL Normal 3.4-4.8 [facility] Comment on above: Performed By: #### L 506.0400, L506.1001, L100.0100, L500.4100, L501.92361, L501.5200, L501.9520, L500.4050, L501.9985 ####[facility] [address] [place], [address] Albumin/Globulin [Mass ratio] 1.3 {ratio} Normal 0.9-2.4 [facility] Comment on above: Performed By: #### L 506.0400, L506.1001, L100.0100, L500.4100, L501.25342, L501.5200, L501.9520, L500.4050, L501.9985 ####[facility] [address] [place], [address] ALK PHOS 103 U/L Normal 35-104 [facility] Comment on above: Performed By: #### L 506.0400, L506.1001, L100.0100, L500.4100, L501.41279, L501.5200, L501.9520, L500.4050, L501.9985 ####[facility] [address] [place], [address] ALT [Catalytic activity/Vol] 34 U/L Normal <=34 [facility] Comment on above: Result Comment: Hemo lysis present, Results??could be affected. ?? Performed By: #### L 506.0400, L506.1001, L100.0100, L500.4100, L501.76153, L501.5200, L501.9520, L500.4050, L501.9985 ####[facility] [address] [place], [address] AST [Catalytic activity/Vol] 57 U/L High <=31 [facility] Comment on above: Result Comment: Hemo lysis present, Results??could be affected. ?? Performed By: #### L 506.0400, L506.1001, L100.0100, L500.4100, L501.72331, L501.5200, L501.9520, L500.4050, L501.9985 ####[facility] [address] [place], [address] Bilirubin [Mass/Vol] 0.34 mg/dL Normal 0.00-1.30 [facility] Comment on above: Performed By: #### L 506.0400, L506.1001, L100.0100, L500.4100, L501.19871, L501.5200, L501.9520, L500.4050, L501.9985 ####[facility] [address] [place], [address] BUN/CRE 18.4 RATIO Normal 10-20 [facility] Comment on above: Performed By: #### L 506.0400, L506.1001, L100.0100, L500.4100, L501.80014, L501.5200, L501.9520, L500.4050, L501.9985 ####[facility] [address] [place], [address] Calcium [Mass/Vol] 9.6 mg/dL Normal 7.6-11.0 [facility] Comment on above: Performed By: #### L 506.0400, L506.1001, L100.0100, L500.4100, L501.97668, L501.5200, L501.9520, L500.4050, L501.9985 ####[facility] [address] [place], [address] Chloride [Moles/Vol] 100 mmol/L Normal 98-108 [facility] Comment on above: Performed By: #### L 506.0400, L506.1001, L100.0100, L500.4100, L501.13156, L501.5200, L501.9520, L500.4050, L501.9985 ####[facility] [address] [place], [address] CO2 [Moles/Vol] 21.1 mmol/L Normal 21.0-32.0 [facility] Comment on above: Performed By: #### L 506.0400, L506.1001, L100.0100, L500.4100, L501.38628, L501.5200, L501.9520, L500.4050, L501.9985 ####[facility] [address] [place], [address] Creatinine [Mass/Vol] 0.95 mg/dL Normal 0.70-1.20 [facility] Comment on above: Performed By: #### L 506.0400, L506.1001, L100.0100, L500.4100, L501.03260, L501.5200, L501.9520, L500.4050, L501.9985 ####[facility] [address] [place], [place], [phone] GAP 16 High 5-15 [facility] Comment on above: Performed By: #### L 506.0400, L506.1001, L100.0100, L500.4100, L501.37355, L501.5200, L501.9520, L500.4050, L501.9985 ####[facility] [address], [address] GFR/1.73 sq M.predicted among non-blacks MDRD (S/P/Bld) [Vol rate/Area] 63 mL/min/{1.73_m2} Normal >60 [facility] Comment on above: Result Comment: mL/m in/1.73m2 CKD-EPI Creatinine Equation (2020) Performed By: #### L 506.0400, L506.1001, L100.0100, L500.4100, L501.27976, L501.5200, L501.9520, L500.4050, L501.9985 ####[facility] [address] [place], [address] Globulin (S) [Mass/Vol] 3.3 g/dL Normal 2.2-4.2 [facility] Comment on above: Performed By: #### L 506.0400, L506.1001, L100.0100, L500.4100, L501.55173, L501.5200, L501.9520, L500.4050, L501.9985 ####[facility] [address] [place], [address] Glucose [Mass/Vol] 88 mg/dL Normal 70-99 [facility] Comment on above: Performed By: #### L 506.0400, L506.1001, L100.0100, L500.4100, L501.59121, L501.5200, L501.9520, L500.4050, L501.9985 ####[facility] [address] [place], [address] Potassium [Moles/Vol] 4.4 mmol/L Normal 3.3-5.1 [facility] Comment on above: Result Comment: Hemo lysis present, Results??could be affected. ?? Performed By: #### L 506.0400, L506.1001, L100.0100, L500.4100, L501.07432, L501.5200, L501.9520, L500.4050, L501.9985 ####[facility] [address] [place], [place], [phone] Sodium [Moles/Vol] 138 mmol/L Normal 133-145 [facility] Comment on above: Performed By: #### L 506.0400, L506.1001, L100.0100, L500.4100, L501.71154, L501.5200, L501.9520, L500.4050, L501.9985 ####[facility] [address] [place], [place], [phone] T PROT 7.7 g/dL Normal 5.9-8.4 [facility] Comment on above: Performed By: #### L 506.0400, L506.1001, L100.0100, L500.4100, L501.54858, L501.5200, L501.9520, L500.4050, L501.9985 ####[facility] [address] [place], [place], [phone] Urea nitrogen [Mass/Vol] 18 mg/dL Normal 4-19 [facility] Comment on above: Performed By: #### L 506.0400, L506.1001, L100.0100, L500.4100, L501.60177, L501.5200, L501.9520, L500.4050, L501.9985 ####[facility] [address] [place], [place], [phone] Free T3on 03-08-2025 Free T3 [Mass/Vol] 3.1 pg/mL Normal 2.18-3.98 [facility] Comment on above: Performed By: #### L 506.0400, L506.1001, L100.0100, L500.4100, L501.24673, L501.5200, L501.9520, L500.4050, L501.9985 ####[facility] [address] [place], [place], [phone] Lipid Profileon 03-08-2025 CHOL:HDL 2.51 Normal [facility] Comment on above: Performed By: #### L 506.0400, L506.1001, L100.0100, L500.4100, L501.97090, L501.5200, L501.9520, L500.4050, L501.9985 ####[facility] [address] [place], [place], [phone] Cholesterol [Mass/Vol] 108 mg/dL Normal <=200 [facility] Comment on above: Result Comment: Chol esterol level, Desirable <200 mg/dL Borderline high cholesterol 200-239 mg/dL High cholesterol >=240 mg/dL Recommendations of the NCEP Adult Treatment Panel for the following risk-cutoff thresholds for the [place] population. Performed By: #### L 506.0400, L506.1001, L100.0100, L500.4100, L501.58380, L501.5200, L501.9520, L500.4050, L501.9985 ####[facility] [address] [place], [place], [phone] Cholesterol in HDL [Mass/Vol] 43 mg/dL Normal [facility] Comment on above: Result Comment: Jennifer onal Cholesterol Education Program (NCEP) guidelines: <40 mg/dL: Low HDL-cholesterol (major risk factor for CHD) >= 60 mg/dL: High HDL-cholesterol (negative risk factor for CHD) HDL-cholesterol is affected by a number of factors, e.g. smoking, exercise, hormones, sex and age. Performed By: #### L 506.0400, L506.1001, L100.0100, L500.4100, L501.83489, L501.5200, L501.9520, L500.4050, L501.9985 ####[facility] [address] [place], [address] Cholesterol in LDL [Mass/Vol] 40 mg/dL Normal [facility] Comment on above: Result Comment: Bord oqlloq=880-803 mg/dL Higher Ohsj=522 mg/dL or greater Performed By: #### L 506.0400, L506.1001, L100.0100, L500.4100, L501.86131, L501.5200, L501.9520, L500.4050, L501.9985 ####[facility] [address] [place], [place], [phone] Cholesterol in VLDL [Mass/Vol] 25 mg/dL Normal 5-40 [facility] Comment on above: Performed By: #### L 506.0400, L506.1001, L100.0100, L500.4100, L501.50671, L501.5200, L501.9520, L500.4050, L501.9985 ####[facility] [address] [place], [place], [phone] Triglyceride [Mass/Vol] 126 mg/dL Normal [facility] Comment on above: Result Comment: The drugs N-Acetylcysteine and Metamizole may falsely depress this assay. Normal range: <150 mg/dL Borderline High: 150-199 mg/dL High: 200-499 mg/dL Very High: >500 mg/dL Performed By: #### L 506.0400, L506.1001, L100.0100, L500.4100, L501.79494, L501.5200, L501.9520, L500.4050, L501.9985 ####[facility] [address] [place], [place], [phone] T4 Free Directon 03-08-2025 T4 FREE DIRECT 1.30 ng/dL Normal 0.76-1.46 [facility] Comment on above: Performed By: #### L 506.0400, L506.1001, L100.0100, L500.4100, L501.52123, L501.5200, L501.9520, L500.4050, L501.9985 ####[facility] [address] [place], [place], [address] Thyroid Stim Hormone (TSH)on 03-08-2025 TSH 0.347 uIU/mL Normal 0.300-4.200 [facility] Comment on above: Performed By: #### L 506.0400, L506.1001, L100.0100, L500.4100, L501.12462, L501.5200, L501.9520, L500.4050, L501.9985 ####[facility] [address] [place], [place], [phone] Vitamin D,25 Hydroxyon 03-08 Vitamin D 25-OH 74.4 ng/mL Normal 30-100 [facility] Comment on above: Result Comment: Kya min D Status Deficiency: <20 ng/mL (50nmol/L) Insufficiency: 20-30 ng/mL (50-75 nmol/L) Sufficiency: 30-100 ng/mL (75-250 nmol/L) Toxicity: >100 ng/mL (>250 nmol/L) Performed By: #### L 506.0400, L506.1001, L100.0100, L500.4100, L501.29838, L501.5200, L501.9520, L500.4050, L501.9985 ####[facility] [address] [place], [place], [phone] Absolute lymphocyte countOrd ered By: Rosario Cha on 03-07-2025 Lymphocytes Auto (Unsp spec) [#/Vol] 1.79 10*3/uL 0.83-4.51 [facility] Absolute neutrophil countOrd ered By: Rosario Cha on 03-07-2025 Neutrophils (Bld) [#/Vol] 5.7 10*3/uL 2.0-7.7 [facility] Anion gap in Serum or Plasma Ordered By: Rosario Cha on 03-07-2025 Anion gap [Moles/Vol] 16 mmol/L High 5-15 [facility] Automated lymphocyte count a s percentage of total leukocytesOrdered By: Rosario Cha on 03-07-2025 Lymphocytes/100 WBC Auto (Unsp spec) 21.5 % 19-41 [facility] BUN/creatinine ratioOrdered By: oRsario Cha on 03-07-2025 Urea nitrogen/Creatinine [Mass ratio] 18.4 mg/mg 10-20 [facility] Basophil percentageOrdered B y: Rosario Cha on 03-07-2025 Basophils/100 WBC (Bld) 0.7 % 0-1 [facility] Bilirubin, totalOrdered By: Rosario Moncadachner on 03-07-2025 Bilirubin [Mass/Vol] 0.34 mg/dL 0.00-1.30 [facility] CBC W/Diff, Automatedon 02-20 Absolute Lymph 1.79 X10 3/uL Normal 0.83-4.51 [facility] Comment on above: Performed By: #### L 506.0400, L506.1001, L100.0100, L500.4100, L501.86430, L501.5200, L501.9520, L500.4050, L501.9985 ####[facility] [address] [place], [address] Absolute Neut 5.7 X10 3/uL Normal 2.0-7.7 [facility] Comment on above: Performed By: #### L 506.0400, L506.1001, L100.0100, L500.4100, L501.12644, L501.5200, L501.9520, L500.4050, L501.9985 ####[facility] [address] [place], [address] Basophils/100 WBC (Bld) 0.7 % Normal 0-1 [facility] Comment on above: Performed By: #### L 506.0400, L506.1001, L100.0100, L500.4100, L501.75625, L501.5200, L501.9520, L500.4050, L501.9985 ####[facility] [address] [place], [address] Eosinophils/100 WBC (Bld) 1.7 % Normal 0-5 [facility] Comment on above: Performed By: #### L 506.0400, L506.1001, L100.0100, L500.4100, L501.74105, L501.5200, L501.9520, L500.4050, L501.9985 ####[facility] [address] [place], [place], [phone]) Erythrocyte distribution width (RBC) [Ratio] 13.0 % Normal 11.6-14.6 [facility] Comment on above: Performed By: #### L 506.0400, L506.1001, L100.0100, L500.4100, L501.46700, L501.5200, L501.9520, L500.4050, L501.9985 ####[facility] [address] [place], [place], [phone]) Hematocrit (Bld) [Volume fraction] 39.9 % Normal 37-47 [facility] Comment on above: Performed By: #### L 506.0400, L506.1001, L100.0100, L500.4100, L501.95344, L501.5200, L501.9520, L500.4050, L501.9985 ####[facility] [address] [place], [place], [phone]46) Hemoglobin (Bld) [Mass/Vol] 13.3 g/dL Normal 12.0-15.0 [facility] Comment on above: Performed By: #### L 506.0400, L506.1001, L100.0100, L500.4100, L501.14434, L501.5200, L501.9520, L500.4050, L501.9985 ####[facility] [address] [place], [address] IG% 0.400 Normal 0.0-0.9 [facility] Comment on above: Result Comment: IG% - Immature Granulocytes (promyelocytes, myelocytes and metamyelocytes) > 1% indicates that a LEFT SHIFT is Present. Performed By: #### L 506.0400, L506.1001, L100.0100, L500.4100, L501.71251, L501.5200, L501.9520, L500.4050, L501.9985 ####[facility] [address] [place], [address] Lymphocytes/100 WBC (Bld) 21.5 % Normal 19-41 [facility] Comment on above: Performed By: #### L 506.0400, L506.1001, L100.0100, L500.4100, L501.37265, L501.5200, L501.9520, L500.4050, L501.9985 ####[facility] [address] [place], [address] MCH (RBC) [Entitic mass] 28.5 pg Normal 27.0-32.0 [facility] Comment on above: Performed By: #### L 506.0400, L506.1001, L100.0100, L500.4100, L501.81409, L501.5200, L501.9520, L500.4050, L501.9985 ####[facility] [address] [place], [address] MCHC (RBC) [Mass/Vol] 33.3 g/dL Normal 32-36 [facility] Comment on above: Performed By: #### L 506.0400, L506.1001, L100.0100, L500.4100, L501.10737, L501.5200, L501.9520, L500.4050, L501.9985 ####[facility] [address] [place], [address] MCV (RBC) [Entitic vol] 85.4 fL Normal 81-99 [facility] Comment on above: Performed By: #### L 506.0400, L506.1001, L100.0100, L500.4100, L501.26947, L501.5200, L501.9520, L500.4050, L501.9985 ####[facility] [address] [place], [address] Monocytes/100 WBC (Bld) 7.9 % Normal 0-10 [facility] Comment on above: Performed By: #### L 506.0400, L506.1001, L100.0100, L500.4100, L501.29026, L501.5200, L501.9520, L500.4050, L501.9985 ####[facility] [address] [place], [place], [phone] Neutrophils/100 WBC (Bld) 67.8 % Normal 47-70 [facility] Comment on above: Performed By: #### L 506.0400, L506.1001, L100.0100, L500.4100, L501.81288, L501.5200, L501.9520, L500.4050, L501.9985 ####[facility] [address] [place], [place], [phone] Nucleated RBC (Bld) [#/Vol] 0 10*3/uL Normal 0-5 [facility] Comment on above: Performed By: #### L 506.0400, L506.1001, L100.0100, L500.4100, L501.01312, L501.5200, L501.9520, L500.4050, L501.9985 ####[facility] [address] [place], [address] Platelet mean volume (Bld) [Entitic vol] 9.8 fL Normal 6.2-12.0 [facility] Comment on above: Performed By: #### L 506.0400, L506.1001, L100.0100, L500.4100, L501.66052, L501.5200, L501.9520, L500.4050, L501.9985 ####[facility] [address] [place], [address] Platelets (Bld) [#/Vol] 351 10*3/uL Normal 150-450 [facility] Comment on above: Performed By: #### L 506.0400, L506.1001, L100.0100, L500.4100, L501.01607, L501.5200, L501.9520, L500.4050, L501.9985 ####[facility] [address] [place], [address] RBC (Bld) [#/Vol] 4.67 10*6/uL Normal 4.2-5.4 [facility] Comment on above: Performed By: #### L 506.0400, L506.1001, L100.0100, L500.4100, L501.11992, L501.5200, L501.9520, L500.4050, L501.9985 ####[facility] [address] [place], [address] RDW SD 40.4 fl Normal 35.1-43.9 [facility] Comment on above: Performed By: #### L 506.0400, L506.1001, L100.0100, L500.4100, L501.30875, L501.5200, L501.9520, L500.4050, L501.9985 ####[facility] [address] [place], [address] WBC (Bld) [#/Vol] 8.3 10*3/uL Normal 4.4-11.0 [facility] Comment on above: Performed By: #### L 506.0400, L506.1001, L100.0100, L500.4100, L501.62422, L501.5200, L501.9520, L500.4050, L501.9985 ####[facility] [address] [place], [address] Calculated very low density lipoprotein (VLDL) cholesterol measurementOrdered By: Rosario Cha on 03-07-2025 Calculated very low density lipoprotein (VLDL) cholesterol measurement 25 mg/dL 5-40 [facility] Carbon dioxide, total [Moles /volume] in Central venous bloodOrdered By: Rosario Cha on 03-07-2025 CO2 [Moles/Vol] 21.1 mmol/L 21.0-32.0 [facility] Chloride assayOrdered By: Diamante Cha on 03-07-2025 Chloride [Moles/Vol] 100 mmol/L 98-108 [facility] Eosinophil percentageOrdered By: Rosario Cha on 03-07-2025 Eosinophils/100 WBC (Bld) 1.7 % 0-5 [facility] Erythrocyte distribution wid th ratioOrdered By: Rosario Cha on 03-07-2025 Erythrocyte distribution width (RBC) [Ratio] 13.0 % 11.6-14.6 [facility] Erythrocyte distribution wid th standard deviationOrdered By: Rosario Cha on 03-07-2025 Erythrocyte distribution width (RBC) [Ratio] 40.4 fl 35.1-43.9 [facility] Free Z0Eskloxm By: Rosario hamm on 03-07-2025 Free T3 [Mass/Vol] 3.1 pg/mL 2.18-3.98 [facility] Glomerular filtration rate ( GFR) estimation/1.73 sq m using serum, plasma, or whole bOrdered By: Rosario Cha on 03-07-2025 GFR/1.73 sq M.predicted among non-blacks MDRD (S/P/Bld) [Vol rate/Area] 63 mL/min/{1.73_m2} >60 [facility] Comment on above: mL/min/1.73m2 CKD-EP I Creatinine Equation (2020) Hematocrit Auto (Bld) [Volum e fraction]Ordered By: Rosario Cha on 03-07-2025 Hematocrit (Bld) [Volume fraction] 39.9 % 37-47 [facility] Hemoglobin A1con 03-07-2025 HbA1c (Bld) [Mass fraction] 6.1 % High <=5.6 [facility] Comment on above: Result Comment: Norm al < 5.7 % Prediabetic 5.7 - 6.4 % Diabetic >or= 6.5 % Please note range changes. Performed By: #### L 506.0400, L506.1001, L100.0100, L500.4100, L501.42594, L501.5200, L501.9520, L500.4050, L501.9985 ####[facility] [address] [place], [address] Hemoglobin A1c percentageOrd ered By: Rosario Cha on 03-07-2025 HbA1c (Bld) [Mass fraction] 6.1 % High <5.7 [facility] Comment on above: Normal < 5.7 % Predi abetic 5.7 - 6.4 % Diabetic >or= 6.5 % Please note range changes. Hemoglobin measurementOrdere d By: Rosario Cha on 03-07-2025 Hemoglobin (Bld) [Mass/Vol] 13.3 g/dL 12.0-15.0 [facility] Immature granulocytes/100 WB C Auto (Bld)Ordered By: Rosario Cha on 03-07-2025 Immature granulocytes/100 WBC (Bld) 0.400 % 0.0-0.9 [facility] Comment on above: IG% - Immature Granu locytes (promyelocytes, myelocytes and metamyelocytes) > 1% indicates that a LEFT SHIFT is Present. LDL calc ser/plasOrdered By: Rosario Cha on 03-07-2025 Cholesterol in LDL [Mass/Vol] 40 mg/dL [facility] Comment on above: Tqbpfljgvy=236-029 m g/dL & Higher Yscx=410 mg/dL or greater Laboratory - Chemistry and C hemistry - challengeOrdered By: Rosario Cha on 03-07-2025 AST [Catalytic activity/Vol] 57 U/L High <32 [facility] Comment on above: Hemolysis present, R esults could be affected. MCV (mean corpuscular volume ) determinationOrdered By: Rosario Cha on 03-07-2025 MCV (RBC) [Entitic vol] 85.4 fL 81-99 [facility] MR/BMS.IMBon 03-07-2025 MR/BMS.IMB [facility] [address] [place] [address] OFFICE VISIT Date of Service: 03/07/25 MR#: [id number] Acct: [id number] Name: MARY LEWIS Rep #: [id number] : 1950 Provider: Dr. 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 Normal [facility] Magnesiumon 03-07-2025 Magnesium [Mass/Vol] 2.0 mg/dL Normal 1.5-2.2 [facility] Comment on above: Performed By: #### L 506.0400, L506.1001, L100.0100, L500.4100, L501.67608, L501.5200, L501.9520, L500.4050, L501.9985 ####[facility] [address] [place], [place], [id number] Magnesium measurement (mass/ volume)Ordered By: Rosario Cha on 03-07-2025 Magnesium (Unsp spec) [Mass/Vol] 2.0 mg/dL 1.5-2.2 [facility] Mean corpuscular hemoglobin (MCH) determinationOrdered By: Rosario Cha on 03-07-2025 MCH (RBC) [Entitic mass] 28.5 pg 27.0-32.0 [facility] Mean corpuscular hemoglobin concentration (MCHC) determinationOrdered By: Rosario Cha on 03-07-2025 MCHC (RBC) [Mass/Vol] 33.3 g/dL 32-36 [facility] Mean platelet volume determi nationOrdered By: Rosario Cha on 03-07-2025 Platelet mean volume (Bld) [Entitic vol] 9.8 fL 6.2-12.0 [facility] Monocyte percentageOrdered B y: Rosario Cha on 03-07-2025 Monocytes/100 WBC (Bld) 7.9 % 0-10 [facility] Neutrophil percentageOrdered By: Rosario Cha on 03-07-2025 Neutrophils/100 WBC (Bld) 67.8 % 47-70 [facility] Nucleated red blood cell per centageOrdered By: Rosario Cha on 03-07-2025 Nucleated RBC/100 WBC (Bld) [Ratio] 0 % 0-5 [facility] Platelet countOrdered By: Diamante Cha on 03-07-2025 Platelets (Bld) [#/Vol] 351 10*3/uL 150-450 [facility] Potassium measurement (mass/ volume)Ordered By: Rosario Cha on 03-07-2025 Potassium (Unsp spec) [Mass/Vol] 4.4 mmol/L 3.3-5.1 [facility] Comment on above: Hemolysis present, R esults could be affected. RBC Auto (Bld) [#/Vol]Ordere d By: Rosario Cha on 03-07-2025 RBC (Bld) [#/Vol] 4.67 10*6/uL 4.2-5.4 [facility] Screening total cholesterol/ high density lipoprotein (HDL) cholesterol ratioOrdered By: Rosario Cha on 03-07-2025 Cholesterol.total/Choles terol in HDL [Mass ratio] 2.51 {ratio} [facility] Serum creatinine measurement (mass/volume)Ordered By: Rosario Cha on 03-07-2025 Creatinine [Mass/Vol] 0.95 mg/dL 0.70-1.20 [facility] Serum globulin measurementOr dered By: Rosario Cha on 03-07-2025 Globulin (S) [Mass/Vol] 3.3 g/dL 2.2-4.2 [facility] Serum glucose measurement (m ass/volume)Ordered By: Rosario Cha on 03-07-2025 Glucose [Mass/Vol] 88 mg/dL 70-99 [facility] Serum or plasma alanine bell otransferase (ALT) measurementOrdered By: Rosario Cha on 03-07-2025 ALT [Catalytic activity/Vol] 34 U/L <35 [facility] Comment on above: Hemolysis present, R esults could be affected. Serum or plasma albumin sami urement (mass/volume)Ordered By: Rosario Cha on 03-07-2025 Albumin [Mass/Vol] 4.4 g/dL 3.4-4.8 [facility] Serum or plasma albumin/glob ulin mass ratioOrdered By: Rosario Cha on 03-07-2025 Albumin/Globulin [Mass ratio] 1.3 {ratio} 0.9-2.4 [facility] Serum or plasma alkaline fabian sphatase measurementOrdered By: Rosario Cha on 03-07-2025 ALP [Catalytic activity/Vol] 103 U/L 35-104 [facility] Serum or plasma calcium sami urement (mass/volume)Ordered By: Rosario Cha on 03-07-2025 Calcium [Mass/Vol] 9.6 mg/dL 7.6-11.0 [facility] Serum or plasma cholesterol in HDL measurement (mass/volume)Ordered By: Rosario Cha on 03-07-2025 Cholesterol in HDL [Mass/Vol] 43 mg/dL >40 [facility] Comment on above: National Cholesterol Education Program (NCEP) guidelines:<40 mg/dL: Low HDL-cholesterol (major risk factor for CHD)>= 60 mg/dL: High HDL-cholesterol (negative risk factor for CHD)HDL-cholesterol is affected by a number of factors, e.g. smoking, exercise, hormones, sex and age. Serum or plasma cholesterol measurement (mass/volume)Ordered By: Rosario Cha on 03-07-2025 Cholesterol [Mass/Vol] 108 mg/dL <201 [facility] Comment on above: Cholesterol level, D esirable <200 mg/dLBorderline high cholesterol 200-239 mg/dLHigh cholesterol >=240 mg/dLRecommendations of the NCEP Adult Treatment Panel for the following risk-cutoff thresholds for the [place] population. Serum or plasma urea nitroge n measurement (mass/volume)Ordered By: Rosario Cha on 03-07-2025 Urea nitrogen [Mass/Vol] 18 mg/dL 4-19 [facility] Sodium levelOrdered By: Paige Cha on 03-07-2025 Sodium [Moles/Vol] 138 mmol/L 133-145 [facility] T4 freeOrdered By: Rosario hamm on 03-07-2025 Free T4 [Mass/Vol] 1.30 ng/dL 0.76-1.46 [facility] TSH DL <= 0.005 mIU/L QnOrde red By: Rosario Cha on 03-07-2025 TSH Qn 0.347 uIU/mL 0.300-4.200 [facility] Total proteinOrdered By: Tania Cha on 03-07-2025 Protein [Mass/Vol] 7.7 g/dL 5.9-8.4 [facility] Triglycerides measurementOrd ered By: Rosario Cha on 03-07-2025 Triglyceride [Mass/Vol] 126 mg/dL <199 [facility] Comment on above: The drugs N-Acetylcy steine and Metamizole may falsely depress this assay. Normal range: <150 mg/dLBorderline High: 150-199 mg/dLHigh: 200-499 mg/dLVery High: >500 mg/dL White blood cell (WBC) count Ordered By: Rosario Cha on 03-07-2025 WBC (Bld) [#/Vol] 8.3 10*3/uL 4.4-11.0 [facility] Pulmonary Visit Reporton Pulmonary Visit Report [facility] [address] [place] [address] OFFICE VISIT Date of Service: 02/09/25 MR#: [id number] Acct: [id number] Name: MARY LEWIS Rep #: [id number] : 1950 Provider: Caridad Valladares NP Age/Sex: 74/F Location: [facility] Status: Signed Assessment and Plan Assessment [...] 10 mg to her regimen and a [place] pot. I have also encouraged her to [...] side effect. 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 She wakes up feeling rested and refreshed [...] nodding off to sleep unintentionally. Her hands fall asleep at night at times. If you recall, [...] air Intake Visit Reasons: 6 M FU Core Measures Abstractor Required: No DME Vendor: Faisal Cazaresie (more content not included)... Normal [facility] ABD Limited w/ Elastographyo n 01-13-2025 ABD Limited w/ Elastography [facility] [address] [place] [address] ABD Limited w/ Elastography MR#: [id number] Acct: [id number] Name: MARY LEWIS Rep #: [id number] : 1950 F 74 From: Juan yang MD PCP: Dr. Rosario Cha MD Status: REG CL Study: ABD Limited w/ Elastography Date of Exam: 12/22 01/14 Exam# [id number] Ordering Dr: Oscar Kimble DO PROCEDURE: ABD [...] measurement may be in question. Reading Location: [place] [address] CC: Dr. Rosario Cha MD; Oscar Kimble DO Head Automatic Sawyer: Signed Normal [facility] Gastroenterology Visit Repor ton 01-11-2025 Gastroenterology Visit Report [facility] [address] [place] [address] OFFICE VISIT Date of Service: 01/11/25 MR#: [id number] Acct: [id number] Name: MARY LEWIS Rep #: [id number] : 1950 Provider: Oscar Kimble DO Age/Sex: 74/F [place] [facility] Status: Signed Intake Vital Signs 09/06/24 15:02 [...] you fallen in the past year?: No [facility] Medical History (Updated 01/11/25 @ 11:[address] 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 Normal [facility] Lipid Profileon 09-20-2024 Cholesterol [Mass/Vol] 158 mg/dL Normal 200 [facility] Comment on above: Result Comment: <200 mg/dL Desirable 200-240 mg/dL Borderline >240 mg/dL High Risk Performed By: #### L 500.3400, L500.4100 ####[facility] [address] [place], [address] Cholesterol in HDL [Mass/Vol] 52 mg/dL Normal [facility] Comment on above: Result Comment: The drugs N-Acetylcysteine and Metamizole may falsely depress this assay. Reference Range HDL <40 mg/dL Low HDL Cholesterol HDL >or= 60 mg/dL High HDL Cholesterol Performed By: #### L 500.3400, L500.4100 ####[facility] [address] [place], [address] Cholesterol in LDL [Mass/Vol] 66 mg/dL Normal 0-130 [facility] Comment on above: Performed By: #### L 500.3400, L500.4100 ####[facility] [address] [place], [address] Cholesterol in VLDL [Mass/Vol] 40 mg/dL Normal 5-40 [facility] Comment on above: Performed By: #### L 500.3400, L500.4100 ####[facility] [address] [place], [address] Triglyceride [Mass/Vol] 201 mg/dL High [facility] Comment on above: Result Comment: The drugs N-Acetylcysteine and Metamizole may falsely depress this assay. Serum Triglycerides Reference Interval Normal <150 mg/dL Borderline high 150 - 199 mg/dL High 200 - 499 mg/dL Very High > or = 500 mg/dL Performed By: #### L 500.3400, L500.4100 ####[facility] [address] [place], [address] Liver Profileon 09-20-2024 Albumin [Mass/Vol] 3.7 g/dL Normal 3.2-5.0 [facility] Comment on above: Performed By: #### L 500.3400, L500.4100 #### [facility] Laboratory [address] [place], [address] ALK P 91 U/L Normal 45-117 [facility] Comment on above: Performed By: #### L 500.3400, L500.4100 #### [facility] [address] [place], [address] ALT [Catalytic activity/Vol] 26 U/L Normal 13-56 [facility] Comment on above: Performed By: #### L 500.3400, L500.4100 #### [facility] [address] [place], [address] AST [Catalytic activity/Vol] 17 U/L Normal 15-37 [facility] Comment on above: Result Comment: Slig ht Hemolysis, Result may be falsely increased. Performed By: #### L 500.3400, L500.4100 #### [facility] [address] [place], [address] Bilirubin [Mass/Vol] 0.30 mg/dL Normal 0.20-1.00 [facility] Comment on above: Result Comment: For patients on eltrombopag therapy, use of Dimension [place] TBIL is not recommended. Performed By: #### L 500.3400, L500.4100 #### [facility] [address] [place], [address] Bilirubin.direct [Mass/Vol] 0.08 mg/dL Normal 0.00-0.30 [facility] Comment on above: Performed By: #### L 500.3400, L500.4100 #### [facility] [address] [place], [address] Globulin (S) [Mass/Vol] 4.0 g/dL Normal 2.2-4.2 [facility] Comment on above: Performed By: #### L 500.3400, L500.4100 #### [facility] [address] [place], [address] T PROT 7.7 g/dL Normal 6.4-8.2 [facility] Comment on above: Performed By: #### L 500.3400, L500.4100 #### [facility] [address] [place], [address] Insulin Levelon 09-08-2024 INSULIN,FASTING 23.6 uIU/mL Normal 2.6-24.9 [facility] Comment on above: Result Comment: Perf ormed at: - [facility] [address] [id number] Bottling Room Worker: Sherif Case PhD, Phone: [phone] Performed By: #### L 501.4522, L500.4050, L506.1000, L3300.3500 ####[facility] [address] [place], [address] Comprehensive Metabolic Prof ilon 09-06-2024 Albumin [Mass/Vol] 3.8 g/dL Normal 3.2-5.0 [facility] Comment on above: Performed By: #### L 501.9985, L500.4050, L506.1000, L3300.3500 ####[facility] [address] [place], [address] Albumin/Globulin [Mass ratio] 1.0 {ratio} Normal 0.9-2.4 [facility] Comment on above: Performed By: #### L 501.9985, L500.4050, L506.1000, L3300.3500 ####[facility] [address] [place], [address] ALK P 93 U/L Normal 45-117 [facility] Comment on above: Performed By: #### L 501.9985, L500.4050, L506.1000, L3300.3500 ####[facility] [address] [place], [address] ALT [Catalytic activity/Vol] 23 U/L Normal 13-56 [facility] Comment on above: Performed By: #### L 501.9985, L500.4050, L506.1000, L3300.3500 ####[facility] [address] [place], [address] AST [Catalytic activity/Vol] 13 U/L Low 15-37 [facility] Comment on above: Performed By: #### L 501.9985, L500.4050, L506.1000, L3300.3500 ####[facility] [address] [place], [address] Bilirubin [Mass/Vol] 0.20 mg/dL Normal 0.20-1.00 [facility] Comment on above: Result Comment: For patients on eltrombopag therapy, use of Dimension [place] TBIL is not recommended. Performed By: #### L 501.9985, L500.4050, L506.1000, L3300.3500 ####[facility] [address] [place], [address] BUN/CRE 22.9 RATIO High 10-20 [facility] Comment on above: Performed By: #### L 501.9985, L500.4050, L506.1000, L3300.3500 ####[facility] [address] [place], [address] CA,Total 9.3 mg/dL Normal 8.5-10.1 [facility] Comment on above: Performed By: #### L 501.9985, L500.4050, L506.1000, L3300.3500 ####[facility] [address] [place], [address] Chloride [Moles/Vol] 103 mmol/L Normal 98-107 [facility] Comment on above: Performed By: #### L 501.9985, L500.4050, L506.1000, L3300.3500 ####[facility] [address] [place], [address] CO2 [Moles/Vol] 30.0 mmol/L Normal 21.0-32.0 [facility] Comment on above: Performed By: #### L 501.9985, L500.4050, L506.1000, L3300.3500 ####[facility] [address] [place], [address] Creatinine [Mass/Vol] 0.88 mg/dL Normal 0.55-1.02 [facility] Comment on above: Result Comment: The validity of the calculated GFR GFRAA in patients over 70 years has not been determined. Clinical correlation is essential. Performed By: #### L 501.9985, L500.4050, L506.1000, L3300.3500 ####[facility] [address] [place], [address] EST GFR - AA 81 mL/min Normal >60 [facility] Comment on above: Result Comment: Afri can Polish GFR Calc Performed By: #### L 501.9985, L500.4050, L506.1000, L3300.3500 ####[facility] [address] [place], [address] GAP 4 Low 5-15 [facility] Comment on above: Performed By: #### L 501.9985, L500.4050, L506.1000, L3300.3500 ####[facility] [address] [place], [address] GFR/1.73 sq M.predicted among non-blacks MDRD (S/P/Bld) [Vol rate/Area] 67 mL/min/{1.73_m2} Normal >60 [facility] Comment on above: Result Comment: Non- GFR Calc Performed By: #### L 501.9985, L500.4050, L506.1000, L3300.3500 ####[facility] [address] [place], [address] Globulin (S) [Mass/Vol] 3.9 g/dL Normal 2.2-4.2 [facility] Comment on above: Performed By: #### L 501.9985, L500.4050, L506.1000, L3300.3500 ####[facility] [address] [place], [address] Glucose [Mass/Vol] 109 mg/dL High 74-106 [facility] Comment on above: Result Comment: Fast ing Glucose result from 100 to 125 mg/dL suggests IMPAIRED HOMEOSTASIS per A.D.A. criteria. Performed By: #### L 501.9985, L500.4050, L506.1000, L3300.3500 ####[facility] [address] [place], [address] Potassium [Moles/Vol] 4.1 mmol/L Normal 3.5-5.1 [facility] Comment on above: Performed By: #### L 501.9985, L500.4050, L506.1000, L3300.3500 ####[facility] [address] [place], [address] Sodium [Moles/Vol] 137 mmol/L Normal 136-145 [facility] Comment on above: Performed By: #### L 501.9985, L500.4050, L506.1000, L3300.3500 ####[facility] [address] [place], [address] T PROT 7.7 g/dL Normal 6.4-8.2 [facility] Comment on above: Performed By: #### L 501.9985, L500.4050, L506.1000, L3300.3500 ####[facility] [address] [place], [address] Urea nitrogen [Mass/Vol] 20 mg/dL High 7-18 [facility] Comment on above: Performed By: #### L 501.9985, L500.4050, L506.1000, L3300.3500 ####[facility] [address] [place], [address] Hemoglobin A1con 09-06-2024 HbA1c (Bld) [Mass fraction] 5.6 % Normal 3.8-5.6 [facility] Comment on above: Result Comment: Norm al < 5.7 % Prediabetic 5.7 - 6.4 % Diabetic >or= 6.5 % Please note range changes. Performed By: #### L 501.9985, L500.4050, L506.1000, L3300.3500 ####[facility] [address] [place], [address] MR/LÁZARO.Williams 09-06-2024 MR/BMS.LONI [facility] [address] [place] [address] OFFICE VISIT Date of Service: 09/06/24 MR#: [id number] Acct: [id number] Name: MARY LEWIS Rep #: [id number] : 1950 Provider: Dr. Rosario schuster MD Age/Sex: 74/F [place] [facility] [place]: Signed Intake Vital Signs 05/17/24 14:54 [...] M FU Chief Complaint: 4 m fu Core Measures Abstractor Required: No Accompanied by: Self Is patient [...] you fallen in the past year?: No [facility] Medical History Wears glasses History of steroid [...] (congestive heart failure) 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 Abnormal stress [...] coronary katelyn (more content not included)... Normal [facility] Vitamin D,25 Hydroxyon 09-06 Vitamin D 25-OH 107.8 ng/mL Normal [facility] Comment on above: Result Comment: Kya min [...] D test results. Performed By: #### L [id number], L500.4050, L506.1000, L3300.3500 ####[facility] [id number] [place], [address] Pulmonary Visit Reporton Pulmonary Visit Report [facility] [address] [place] [address] OFFICE VISIT Date of Service: 08/12/24 MR#: [id number] Acct: [id number] Name: MARY LEWIS Rep #: [id number] : 1950 Provider: MAGGIE Cruz Age/Sex: 74/F [place] [facility] [place] Status: Signed Assessment and Plan Assessment and [...] air Intake Visit Reasons: 6 M FU Core Measures Abstractor Required: No DME Vendor: [employer] Accompanied by: Self Is patient in pain?: [...] 02/11/22 11 (more content not included)... Normal [facility] No Panel InformationOrdered By: Rosario Cha on 11-17-2023 Free Triiodothyronine (T3) pg/dL 2.2 pg/mL 2.18-3.98 [facility] Vitamin D 25-Hydroxy 100.4 ng/mL [facility] Serum or plasma thyroid stim ulating hormone (TSH) measurement (units/volume)Ordered By: Rosario Cha on 11-17-2023 TSH Qn 1.19 uIU/mL 0.358-3.74 [facility] Thin prep Papanicolaou smear with manual screeningOrdered By: Rosario Cha on 11-17-2023 Thin prep Papanicolaou smear with manual screening 1.21 ng/dL 0.76-1.46 [facility] Absolute lymphocyte countOrd ered By: Oscar Kimble on 10-13-2023 Lymphocytes Auto (Unsp spec) [#/Vol] 1.75 10*3/uL 0.83-4.51 [facility] Automated lymphocyte count a s percentage of total leukocytesOrdered By: Oscar Kimble on 10-13-2023 Lymphocytes/100 WBC Auto (Unsp spec) 18.4 % 19-41 [facility] Basophil percentageOrdered B y: Jose M Milligan on 10-13-2023 Bilirubin [Mass/Vol] 0.40 mg/dL 0.20-1.00 [facility] Comment on above: For patients on eltr ombopag therapy, use of Dimension [place] TBIL is not recommended. Cholesterol [Mass/Vol] 132 mg/dL <200 [facility] Comment on above: <200 mg/dL Desirable 200-240 mg/dL Borderline >240 mg/dL High Risk Protein [Mass/Vol] 7.2 g/dL 6.4-8.2 [facility] Triglyceride [Mass/Vol] 108 mg/dL <199 [facility] Comment on above: The drugs N-Acetylcy steine and Metamizole may falsely depress this assay.Serum Triglycerides Reference Interval Normal <150 mg/dL Borderline high 150 - 199 mg/dL High 200 - 499 mg/dL Very High > or = 500 mg/dL Basophil percentageOrdered B y: Oscar Friend on 10-13-2023 Ammonia (P) [Moles/Vol] 25.0 umol/L 11-32 [facility] Basophils/100 WBC (Bld) 0.7 % 0-1 [facility] Chloride [Moles/Vol] 107 mmol/L 98-107 [facility] Eosinophils/100 WBC (Bld) 1.9 % 0-5 [facility] Glucose [Mass/Vol] 120 mg/dL 74-106 [facility] Comment on above: Fasting Glucose resu lt from 100 to 125 mg/dL suggests IMPAIRED HOMEOSTASIS per A.D.A. criteria. Hemoglobin (Bld) [Mass/Vol] 12.9 g/dL 12.0-15.0 [facility] LDH [Catalytic activity/Vol] 113 U/L 84-246 [facility] Monocytes/100 WBC (Bld) 5.8 % 0-10 [facility] Neutrophils (Bld) [#/Vol] 6.9 10*3/uL 2.0-7.7 [facility] Neutrophils/100 WBC (Bld) 72.8 % 47-70 [facility] Potassium [Moles/Vol] 3.9 mmol/L 3.5-5.1 [facility] Sodium [Moles/Vol] 138 mmol/L 136-145 [facility] WBC (Bld) [#/Vol] 9.5 10*3/uL 4.4-11.0 [facility] Determination of erythrocyte mean corpuscular volume (MCV)Ordered By: Oscar Kimble on 10-13-2023 MCV (RBC) [Entitic vol] 86.9 fL 81-99 [facility] Direct bilirubinOrdered By: Jose M Milligan on 10-13-2023 Bilirubin.direct [Mass/Vol] 0.13 mg/dL 0.00-0.30 [facility] Erythrocyte distribution wid th ratioOrdered By: Oscar Kimble on 10-13-2023 Erythrocyte distribution width (RBC) [Ratio] 13.8 % 11.6-14.6 [facility] Erythrocyte distribution wid th standard deviationOrdered By: Oscar Kimble on 10-13-2023 Erythrocyte distribution width (RBC) [Entitic vol] 43.3 fL 35.1-43.9 [facility] Erythrocyte sedimentation ra teOrdered By: Oscar Kimble on 10-13-2023 ESR (Bld) [Velocity] 30 mm/h 0-30 [facility] Hematocrit Auto (Bld) [Volum e fraction]Ordered By: Oscar Kimble on 10-13-2023 Hematocrit (Bld) [Volume fraction] 39.7 % 37-47 [facility] High density lipoprotein (HD L) measurementOrdered By: Jose M Milligan on 10-13-2023 Cholesterol in HDL (Body fld) [Mass/Vol] 59 mg/dL >40 [facility] Comment on above: The drugs N-Acetylcy steine and Metamizole may falsely depress this assay. Reference Range HDL <40 mg/dL Low HDL Cholesterol HDL >or= 60 mg/dL High HDL Cholesterol Immature granulocytes/100 WB C Auto (Bld)Ordered By: Oscar Kimble on 10-13-2023 Immature granulocytes/100 WBC (Bld) 0.400 % 0.0-0.9 [facility] Comment on above: IG% - Immature Granu locytes (promyelocytes, myelocytes and metamyelocytes) > 1% indicates that a LEFT SHIFT is Present. International normalized rat io (INR) calculationOrdered By: Oscar Kimble on 10-13-2023 INR Coag (PPP) [Relative time] 1.0 {INR} [facility] Laboratory - Chemistry and C hemistry - challengeOrdered By: Jose M Milligan on 10-13-2023 ALP [Catalytic activity/Vol] 85 U/L 45-117 [facility] ALT [Catalytic activity/Vol] 22 U/L 13-56 [facility] Globulin (S) [Mass/Vol] 3.5 g/dL 2.2-4.2 [facility] Laboratory - Chemistry and C hemistry - challengeOrdered By: Oscar Kimble on 10-13-2023 Albumin/Globulin [Mass ratio] 1.0 {ratio} 0.9-2.4 [facility] CO2 [Moles/Vol] 24.0 mmol/L 21.0-32.0 [facility] Urea nitrogen/Creatinine [Mass ratio] 14.4 mg/mg 10-20 [facility] Laboratory - CoagulationOrde red By: Oscar Kimble on 10-13-2023 PT Coag (PPP) [Time] 13.5 s 11.7-14.9 [facility] Laboratory - Hematology and Cell countsOrdered By: Oscar Kimble on 10-13-2023 MCH (RBC) [Entitic mass] 28.2 pg 27.0-32.0 [facility] MCHC (RBC) [Mass/Vol] 32.5 g/dL 32-36 [facility] Nucleated RBC/100 WBC (Bld) [Ratio] 0 % 0-5 [facility] Platelets (Bld) [#/Vol] 423 10*3/uL 150-450 [facility] Low density lipoprotein (LDL ) cholesterol measurementOrdered By: Jose M Milligan on 10-13-2023 Cholesterol in LDL (Body fld) [Moles/Vol] 51 mg/dL 0-130 [facility] No Panel InformationOrdered By: Oscar Kimble on 10-13-2023 C-Reactive Protein Extended Range < 2.90 mg/L 0.0-3.0 [facility] Comment on above: C-Reactive Protein ( CRP) provides useful information for thediagnosis, therapy and monitoring of inflammatory processesand associated diseases. For the evaluation of Relative Riskfor Cardiovascular Disease, a High Sensitivity CRP (HSCRP)should be ordered. Estimated GFR (MDRD) Amer 67 mL/min >60 [facility] Comment on above: GFR Calc Estimated GFR (MDRD) Non-Af Amer 55 mL/min >60 [facility] Comment on above: Non- GFR Calc Platelet mean volume Hernán-Ec ker (Bld) [Entitic vol]Ordered By: Oscar Kimble on 10-13-2023 Platelet mean volume (Bld) [Entitic vol] 9.8 fL 6.2-12.0 [facility] RBC Auto (Bld) [#/Vol]Ordere d By: Oscar Kimble on 10-13-2023 RBC (Bld) [#/Vol] 4.57 10*6/uL 4.2-5.4 [facility] Serum or plasma calcium sami urement (mass/volume)Ordered By: Oscar Kimble on 10-13-2023 Calcium [Mass/Vol] 9.5 mg/dL 8.5-10.1 [facility] Serum or plasma creatinine m easurement (mass/volume)Ordered By: Oscar Kimble on 10-13-2023 Creatinine [Mass/Vol] 1.04 mg/dL 0.55-1.02 [facility] Comment on above: The validity of the calculated GFR & GFRAA in patients over 70 years has not been determined. Clinical correlation is essential. Serum or plasma urea nitroge n measurement (mass/volume)Ordered By: Oscar Kimble on 10-13-2023 Urea nitrogen [Mass/Vol] 15 mg/dL 7-18 [facility] Thin prep Papanicolaou smear with manual screeningOrdered By: Jose M Milligan on 10-13-2023 Thin prep Papanicolaou smear with manual screening 3.7 g/dL 3.2-5.0 [facility] Thin prep Papanicolaou smear with manual screening 13 U/L 15-37 [facility] Thin prep Papanicolaou smear with manual screeningOrdered By: Oscar Kimble on 10-13-2023 Thin prep Papanicolaou smear with manual screening 7 5-15 [facility] Very low density lipoprotein (VLDL) cholesterol measurementOrdered By: Jose M Milligan on 10-13-2023 Cholesterol in VLDL Calc [Moles/Vol] 22 mg/dL 5-40 [facility] Absolute lymphocyte countOrd ered By: Oscar Kimble on 03-31-2023 Lymphocytes Auto (Unsp spec) [#/Vol] 1.92 10*3/uL 0.83-4.51 [facility] Basophil percentageOrdered B y: Oscar Kimble on 03-31-2023 Basophils/100 WBC (Bld) 0.8 % 0-1 [facility] Chloride [Moles/Vol] 105 mmol/L 98-107 [facility] Eosinophils/100 WBC (Bld) 1.7 % 0-5 [facility] Glucose [Mass/Vol] 117 mg/dL 74-106 [facility] Comment on above: Fasting Glucose resu lt from 100 to 125 mg/dL suggests IMPAIRED HOMEOSTASIS per A.D.A. criteria. Neutrophils (Bld) [#/Vol] 7.4 10*3/uL 2.0-7.7 [facility] Neutrophils/100 WBC (Bld) 72.6 % 47-70 [facility] Potassium [Moles/Vol] 3.9 mmol/L 3.5-5.1 [facility] Sodium [Moles/Vol] 137 mmol/L 136-145 [facility] WBC (Bld) [#/Vol] 10.2 10*3/uL 4.4-11.0 [facility] Basophil percentageOrdered B y: Jose M Milligan on 03-31-2023 Bilirubin [Mass/Vol] 0.30 mg/dL 0.20-1.00 [facility] Comment on above: For patients on eltr ombopag therapy, use of Dimension [place] TBIL is not recommended. Cholesterol [Mass/Vol] 120 mg/dL <200 [facility] Comment on above: <200 mg/dL Desirable 200-240 mg/dL Borderline >240 mg/dL High Risk Protein [Mass/Vol] 7.5 g/dL 6.4-8.2 [facility] Triglyceride [Mass/Vol] 94 mg/dL <199 [facility] Comment on above: The drugs N-Acetylcy steine and Metamizole may falsely depress this assay.Serum Triglycerides Reference Interval Normal <150 mg/dL Borderline high 150 - 199 mg/dL High 200 - 499 mg/dL Very High > or = 500 mg/dL Blood erythrocytes count (nu mber/volume)Ordered By: Oscar Kimble on 03-31-2023 RBC (Bld) [#/Vol] 4.66 10*6/uL 4.2-5.4 [facility] Blood hemoglobin measurement (mass/volume)Ordered By: Oscar Kimble on 03-31-2023 Hemoglobin (Bld) [Mass/Vol] 13.3 g/dL 12.0-15.0 [facility] Blood lymphocytes/100 leukoc ytesOrdered By: Oscar Kimble on 03-31-2023 Lymphocytes/100 WBC (Bld) 18.8 % 19-41 [facility] Blood monocytes/100 leukocyt esOrdered By: Oscar Kimble on 03-31-2023 Monocytes/100 WBC (Bld) 5.7 % 0-10 [facility] Blood platelet mean volumeOr dered By: Oscar Kimble on 03-31-2023 Platelet mean volume (Bld) [Entitic vol] 9.8 fL 6.2-12.0 [facility] Determination of erythrocyte mean corpuscular volume (MCV)Ordered By: Oscar Kimble on 03-31-2023 MCV (RBC) [Entitic vol] 88.6 fL 81-99 [facility] Direct bilirubinOrdered By: oJse M Milligan on 03-31-2023 Bilirubin.direct [Mass/Vol] 0.11 mg/dL 0.00-0.30 [facility] Hematocrit Auto (Bld) [Volum e fraction]Ordered By: Oscar Kimble on 03-31-2023 Hematocrit (Bld) [Volume fraction] 41.3 % 37-47 [facility] Laboratory - Chemistry and C hemistry - challengeOrdered By: Jose M Milligan on 03-31-2023 ALP [Catalytic activity/Vol] 87 U/L 45-117 [facility] ALT [Catalytic activity/Vol] 23 U/L 13-56 [facility] Globulin (S) [Mass/Vol] 4.0 g/dL 2.2-4.2 [facility] Laboratory - Chemistry and C hemistry - challengeOrdered By: Oscar Kimble on 03-31-2023 CO2 [Moles/Vol] 26.0 mmol/L 21.0-32.0 [facility] Urea nitrogen/Creatinine [Mass ratio] 13.1 mg/mg 10-20 [facility] Laboratory - Hematology and Cell countsOrdered By: Oscar Kimble on 03-31-2023 Erythrocyte distribution width (RBC) [Entitic vol] 43.8 fL 35.1-43.9 [facility] Erythrocyte distribution width (RBC) [Ratio] 13.5 % 11.6-14.6 [facility] Immature granulocytes/100 WBC (Bld) 0.400 % 0.0-0.9 [facility] Comment on above: IG% - Immature Granu locytes (promyelocytes, myelocytes and metamyelocytes) > 1% indicates that a LEFT SHIFT is Present. MCH (RBC) [Entitic mass] 28.5 pg 27.0-32.0 [facility] Nucleated RBC/100 WBC (Bld) [Ratio] 0 % 0-5 [facility] MCHC Auto (RBC) [Mass/Vol]Or dered By: Oscar Kimble on 03-31-2023 MCHC (RBC) [Mass/Vol] 32.2 g/dL 32-36 [facility] No Panel InformationOrdered By: Oscar Kimble on 03-31-2023 Estimated GFR (MDRD) Amer 71 mL/min >60 [facility] Comment on above: GFR Calc Estimated GFR (MDRD) Non-Af Amer 58 mL/min >60 [facility] Comment on above: Non- GFR Calc Platelets bldOrdered By: John Kimble on 03-31-2023 Platelets (Bld) [#/Vol] 426 10*3/uL 150-450 [facility] Serum mitochondria antibody detectionOrdered By: Oscar Kimble on 03-31-2023 Mitochondria Ab Ql (S) <20.0 Units 0.0-20.0 [facility] Comment on above: Negative 0.0 - 20.0 Equivocal 20.1 - 24.9 Positive >24.9Mitochondrial (M2) Antibodies are found in 90-96% ofpatients with primary biliary cirrhosis.Performed at: [facility] [employer] [id number] Director: Sherif Case PhD, Phone: [phone] Serum or plasma C reactive p rotein measurement (mass/volume)Ordered By: Oscar Kimble on 03-31-2023 CRP [Mass/Vol] 5.45 mg/L 0.0-3.0 [facility] Comment on above: C-Reactive Protein ( CRP) provides useful information for thediagnosis, therapy and monitoring of inflammatory processesand associated diseases. For the evaluation of Relative Riskfor Cardiovascular Disease, a High Sensitivity CRP (HSCRP)should be ordered. Serum or plasma actin IgG an tibody assay (units/volume)Ordered By: Oscar Kimble on 03-31-2023 Actin IgG Qn 6 Units 0-19 [facility] Comment on above: Negative 0 - 19 Weak positive 20 - 30 Moderate to strong positive >30 Actin Antibodies are found in 52-85% of patients with autoimmune hepatitis or chronic active hepatitis and in 22% of patients with primary biliary cirrhosis.Performed at: [facility] [id number] Director: Sherif Case PhD, Phone: [phone] Serum or plasma albumin sami urement (mass/volume)Ordered By: Jose M Milligan on 03-31-2023 Albumin [Mass/Vol] 3.5 g/dL 3.2-5.0 [facility] Serum or plasma albumin/glob ulin mass ratioOrdered By: Oscar Kimble on 03-31-2023 Albumin/Globulin [Mass ratio] 0.9 {ratio} 0.9-2.4 [facility] Serum or plasma calcium sami urement (mass/volume)Ordered By: Oscar Kimble on 03-31-2023 Calcium [Mass/Vol] 8.8 mg/dL 8.5-10.1 [facility] Serum or plasma cholesterol in HDL measurement (mass/volume)Ordered By: Jos eM Milligan on 03-31-2023 Cholesterol in HDL [Mass/Vol] 51 mg/dL >40 [facility] Comment on above: The drugs N-Acetylcy steine and Metamizole may falsely depress this assay. Reference Range HDL <40 mg/dL Low HDL Cholesterol HDL >or= 60 mg/dL High HDL Cholesterol Serum or plasma cholesterol in VLDL measurement (mass/volume)Ordered By: Jose M Milligan on 03-31-2023 Cholesterol in VLDL [Mass/Vol] 19 mg/dL 5-40 [facility] Serum or plasma creatinine m easurement (mass/volume)Ordered By: Oscar Kimble on 03-31-2023 Creatinine [Mass/Vol] 0.99 mg/dL 0.55-1.02 [facility] Comment on above: The validity of the calculated GFR & GFRAA in patients over 70 years has not been determined. Clinical correlation is essential. Serum or plasma low density lipoprotein (LDL) cholesterol measurement (mass/volume)Ordered By: Jose M Milligan on 03-31-2023 Cholesterol in LDL [Mass/Vol] 50 mg/dL 0-130 [facility] Serum or plasma urea nitroge n measurement (mass/volume)Ordered By: Oscar Kimble on 03-31-2023 Urea nitrogen [Mass/Vol] 13 mg/dL 7-18 [facility] Thin prep Papanicolaou smear with manual screeningOrdered By: Jose M Milligan on 03-31-2023 Thin prep Papanicolaou smear with manual screening 14 U/L 15-37 [facility] Thin prep Papanicolaou smear with manual screeningOrdered By: Oscar Kimble on 03-31-2023 Thin prep Papanicolaou smear with manual screening 6 5-15 [facility] Absolute lymphocyte countOrd ered By: Jose M Milligan on 10-21-2022 Lymphocytes Auto (Unsp spec) [#/Vol] 1.44 10*3/uL 0.83-4.51 [facility] Basophil percentageOrdered B y: Jose M Milligan on 10-21-2022 Basophils/100 WBC (Bld) 0.5 % 0-1 [facility] Chloride [Moles/Vol] 101 mmol/L 98-107 [facility] Eosinophils/100 WBC (Bld) 0.8 % 0-5 [facility] Glucose [Mass/Vol] 102 mg/dL 74-106 [facility] Comment on above: Fasting Glucose resu lt from 100 to 125 mg/dL suggests IMPAIRED HOMEOSTASIS per A.D.A. criteria. Neutrophils (Bld) [#/Vol] 9.0 10*3/uL 2.0-7.7 [facility] Neutrophils/100 WBC (Bld) 77.9 % 47-70 [facility] Potassium [Moles/Vol] 3.9 mmol/L 3.5-5.1 [facility] Sodium [Moles/Vol] 137 mmol/L 136-145 [facility] WBC (Bld) [#/Vol] 11.6 10*3/uL 4.4-11.0 [facility] Blood erythrocytes count (nu mber/volume)Ordered By: Jose M Milligan on 10-21-2022 RBC (Bld) [#/Vol] 4.78 10*6/uL 4.2-5.4 [facility] Blood hemoglobin measurement (mass/volume)Ordered By: Jose M Milligan on 10-21-2022 Hemoglobin (Bld) [Mass/Vol] 13.7 g/dL 12.0-15.0 [facility] Blood lymphocytes/100 leukoc ytesOrdered By: Jose M Milligan on 10-21-2022 Lymphocytes/100 WBC (Bld) 12.4 % 19-41 [facility] Blood monocytes/100 leukocyt esOrdered By: Jose M Milligan on 10-21-2022 Monocytes/100 WBC (Bld) 7.9 % 0-10 [facility] Blood platelet mean volumeOr dered By: Jose M Milligan on 10-21-2022 Platelet mean volume (Bld) [Entitic vol] 9.7 fL 6.2-12.0 [facility] Determination of erythrocyte mean corpuscular volume (MCV)Ordered By: Jose M Milligan on 10-21-2022 MCV (RBC) [Entitic vol] 88.3 fL 81-99 [facility] Hematocrit Auto (Bld) [Volum e fraction]Ordered By: Jose M Milligan on 10-21-2022 Hematocrit (Bld) [Volume fraction] 42.2 % 37-47 [facility] Laboratory - Chemistry and C hemistry - challengeOrdered By: Jose M Milligan on 10-21-2022 CO2 [Moles/Vol] 24.0 mmol/L 21.0-32.0 [facility] Cobalamin (Vitamin B12) [Mass/Vol] 492 pg/mL 211-911 [facility] Free T4 [Mass/Vol] 1.36 ng/dL 0.76-1.46 [facility] Natriuretic peptide B (Bld) [Mass/Vol] 23.7 pg/mL 0-100 [facility] Urea nitrogen/Creatinine [Mass ratio] 15.9 mg/mg 10-20 [facility] Laboratory - Hematology and Cell countsOrdered By: Jose M Milligan on 10-21-2022 Erythrocyte distribution width (RBC) [Entitic vol] 42.9 fL 35.1-43.9 [facility] Erythrocyte distribution width (RBC) [Ratio] 13.2 % 11.6-14.6 [facility] Immature granulocytes/100 WBC (Bld) 0.500 % 0.0-0.9 [facility] Comment on above: IG% - Immature Granu locytes (promyelocytes, myelocytes and metamyelocytes) > 1% indicates that a LEFT SHIFT is Present. MCH (RBC) [Entitic mass] 28.7 pg 27.0-32.0 [facility] Nucleated RBC/100 WBC (Bld) [Ratio] 0 % 0-5 [facility] MCHC Auto (RBC) [Mass/Vol]Or dered By: Jose M Milligan on 10-21-2022 MCHC (RBC) [Mass/Vol] 32.5 g/dL 32-36 [facility] No Panel InformationOrdered By: Jose M Milligan on 10-21-2022 Estimated GFR (MDRD) Amer 65 mL/min >60 [facility] Comment on above: GFR Calc Estimated GFR (MDRD) Non-Af Amer 54 mL/min >60 [facility] Comment on above: Non- GFR Calc Free Triiodothyronine (T3) pg/dL 2.4 pg/mL 2.18-3.98 [facility] Thyroid Stimulating Hormone (TSH) 0.88 uIU/mL 0.358-3.74 [facility] Platelets bldOrdered By: Robby Milligan on 10-21-2022 Platelets (Bld) [#/Vol] 386 10*3/uL 150-450 [facility] Serum or plasma calcium sami urement (mass/volume)Ordered By: Jose M Milligan on 10-21-2022 Calcium [Mass/Vol] 9.7 mg/dL 8.5-10.1 [facility] Serum or plasma creatinine m easurement (mass/volume)Ordered By: Jose M Milligan on 10-21-2022 Creatinine [Mass/Vol] 1.07 mg/dL 0.55-1.02 [facility] Comment on above: The validity of the calculated GFR & GFRAA in patients over 70 years has not been determined. Clinical correlation is essential. Serum or plasma urea nitroge n measurement (mass/volume)Ordered By: Jose M Milligan on 10-21-2022 Urea nitrogen [Mass/Vol] 17 mg/dL 7-18 [facility] Thin prep Papanicolaou smear with manual screeningOrdered By: Jose M Milligan on 10-21-2022 Thin prep Papanicolaou smear with manual screening 12 5-15 [facility] Basophil percentageOrdered B y: Jose M Milligan on 10-09-2022 Bilirubin [Mass/Vol] 0.50 mg/dL 0.20-1.00 [facility] Comment on above: For patients on eltr ombopag therapy, use of Dimension [place] TBIL is not recommended. Cholesterol [Mass/Vol] 137 mg/dL <200 [facility] Comment on above: <200 mg/dL Desirable 200-240 mg/dL Borderline >240 mg/dL High Risk Protein [Mass/Vol] 7.8 g/dL 6.4-8.2 [facility] Triglyceride [Mass/Vol] 105 mg/dL <199 [facility] Comment on above: The drugs N-Acetylcy steine and Metamizole may falsely depress this assay.Serum Triglycerides Reference Interval Normal <150 mg/dL Borderline high 150 - 199 mg/dL High 200 - 499 mg/dL Very High > or = 500 mg/dL Direct bilirubinOrdered By: Jose M Milligan on 10-09-2022 Bilirubin.direct [Mass/Vol] 0.15 mg/dL 0.00-0.30 [facility] Laboratory - Chemistry and C hemistry - challengeOrdered By: Jose M Milligan on 10-09-2022 ALP [Catalytic activity/Vol] 88 U/L 45-117 [facility] ALT [Catalytic activity/Vol] 27 U/L 13-56 [facility] Globulin (S) [Mass/Vol] 3.8 g/dL 2.2-4.2 [facility] Serum or plasma albumin sami urement (mass/volume)Ordered By: Jose M Milligan on 10-09-2022 Albumin [Mass/Vol] 4.0 g/dL 3.2-5.0 [facility] Serum or plasma cholesterol in HDL measurement (mass/volume)Ordered By: Jose M Milligan on 10-09-2022 Cholesterol in HDL [Mass/Vol] 58 mg/dL >40 [facility] Comment on above: The drugs N-Acetylcy steine and Metamizole may falsely depress this assay. Reference Range HDL <40 mg/dL Low HDL Cholesterol HDL >or= 60 mg/dL High HDL Cholesterol Serum or plasma cholesterol in VLDL measurement (mass/volume)Ordered By: Jose M Milligan on 10-09-2022 Cholesterol in VLDL [Mass/Vol] 21 mg/dL 5-40 [facility] Serum or plasma low density lipoprotein (LDL) cholesterol measurement (mass/volume)Ordered By: Jose M Milligan on 10-09-2022 Cholesterol in LDL [Mass/Vol] 58 mg/dL 0-130 [facility] Thin prep Papanicolaou smear with manual screeningOrdered By: Jose M Milligan on 10-09-2022 Thin prep Papanicolaou smear with manual screening 13 U/L 15-37 [facility] Absolute lymphocyte counton 07-04-2022 Lymphocytes Auto (Unsp spec) [#/Vol] 1.55 10*3/uL 0.83-4.51 [facility] Work Phone: Atypical perinuclear antineu trophil cytoplasmic antibodies measurementon 07-04-2022 Neutrophil cytoplasmic Ab.perinuclear.atypical IF (S) [Titer] <1:20 titer Neg:<1:20 [facility] Work Phone: Comment on above: The atypical pANCA p attern has been observed in asignificant percentage of patients with ulcerative colitis,primary sclerosing cholangitis and autoimmune hepatitis. Basophil percentageon 2021 Basophils/100 WBC (Bld) 0.7 % 0-1 [facility] Work Phone: Bilirubin [Mass/Vol] 0.40 mg/dL 0.20-1.00 [facility] Work Phone: Comment on above: For patients on eltr ombopag therapy, use of Dimension [place] TBIL is not recommended. Chloride [Moles/Vol] 102 mmol/L 98-107 [facility] Work Phone: Eosinophils/100 WBC (Bld) 0.9 % 0-5 [facility] Work Phone: Glucose [Mass/Vol] 100 mg/dL 74-106 [facility] Work Phone: Comment on above: Fasting Glucose resu lt from 100 to 125 mg/dL suggests IMPAIRED HOMEOSTASIS per A.D.A. criteria. Neutrophils (Bld) [#/Vol] 6.5 10*3/uL 2.0-7.7 [facility] Work Phone: Neutrophils/100 WBC (Bld) 72.9 % 47-70 [facility] Work Phone: Potassium [Moles/Vol] 3.8 mmol/L 3.5-5.1 [facility] Work Phone: Protein [Mass/Vol] 7.9 g/dL 6.4-8.2 [facility] Work Phone: Sodium [Moles/Vol] 138 mmol/L 136-145 [facility] Work Phone: WBC (Bld) [#/Vol] 8.9 10*3/uL 4.4-11.0 [facility] Work Phone: Blood erythrocytes count (nu mber/volume)on 07-04-2022 RBC (Bld) [#/Vol] 4.75 10*6/uL 4.2-5.4 [facility] Work Phone: Blood hemoglobin measurement (mass/volume)on 07-04-2022 Hemoglobin (Bld) [Mass/Vol] 13.8 g/dL 12.0-15.0 [facility] Work Phone: Blood lymphocytes/100 leukoc yteson 07-04-2022 Lymphocytes/100 WBC (Bld) 17.5 % 19-41 [facility] Work Phone: Blood monocytes/100 leukocyt eson 07-04-2022 Monocytes/100 WBC (Bld) 7.7 % 0-10 [facility] Work Phone: Blood platelet mean volumeon 07-04-2022 Platelet mean volume (Bld) [Entitic vol] 9.5 fL 6.2-12.0 [facility] Work Phone: Determination of erythrocyte mean corpuscular volume (MCV)on 07-04-2022 MCV (RBC) [Entitic vol] 87.6 fL 81-99 [facility] Work Phone: Erythrocyte sedimentation ra ivania 07-04-2022 ESR (Bld) [Velocity] 30 mm/h 0-30 [facility] Work Phone: Hematocrit Auto (Bld) [Volum e fraction]on 07-04-2022 Hematocrit (Bld) [Volume fraction] 41.6 % 37-47 [facility] Work Phone: INR in Blood by Coagulation assayon 07-04-2022 INR Coag (Bld) [Relative time] 1.0 {INR} [facility] Work Phone: Laboratory - Chemistry and C hemistry - challengeon 07-04-2022 ALP [Catalytic activity/Vol] 98 U/L 45-117 [facility] Work Phone: ALT [Catalytic activity/Vol] 22 U/L 13-56 [facility] Work Phone: CO2 [Moles/Vol] 27.0 mmol/L 21.0-32.0 [facility] Work Phone: Globulin (S) [Mass/Vol] 4.1 g/dL 2.2-4.2 [facility] Work Phone: Urea nitrogen/Creatinine [Mass ratio] 12.4 mg/mg 10-20 [facility] Work Phone: Laboratory - Coagulationon 1 PT Coag (PPP) [Time] 13.3 s 11.7-14.9 [facility] Work Phone: Laboratory - Hematology and Cell countson 07-04-2022 Erythrocyte distribution width (RBC) [Entitic vol] 42.7 fL 35.1-43.9 [facility] Work Phone: Erythrocyte distribution width (RBC) [Ratio] 13.2 % 11.6-14.6 [facility] Work Phone: Immature granulocytes/100 WBC (Bld) 0.300 % 0.0-0.9 [facility] Work Phone: [phone] Comment on above: IG% - Immature Granu locytes (promyelocytes, myelocytes and metamyelocytes) > 1% indicates that a LEFT SHIFT is Present. MCH (RBC) [Entitic mass] 29.1 pg 27.0-32.0 [facility] Work Phone: Nucleated RBC/100 WBC (Bld) [Ratio] 0 % 0-5 [facility] Work Phone: [phone] MCHC Auto (RBC) [Mass/Vol]on 07-04-2022 MCHC (RBC) [Mass/Vol] 33.2 g/dL 32-36 [facility] Work Phone: No Panel Informationon 07-04 Endomysial IgA Antibody Negative Negative [facility] Work Phone: [phone] Estimated GFR (MDRD) Amer 73 mL/min >60 [facility] Work Phone: Comment on above: GFR Calc Estimated GFR (MDRD) Non-Af Amer 60 mL/min >60 [facility] Work Phone: Comment on above: Non- GFR Calc Immunoglobulin E 8 IU/mL 6-495 [facility] Work Phone: Thyroid Stimulating Hormone (TSH) 1.32 uIU/mL 0.358-3.74 [facility] Work Phone: Vitamin D 25-Hydroxy 81.8 ng/mL [facility] Work Phone: [phone] Comment on above: Vitamin D 25(OH) Sta tus Range Deficiency <20 ng/mL (50nmol/L) Insufficiency 20 - 30 ng/mL (50 - 75 nmol/L) Sufficiency 30 - 100 ng/mL (75 - 250 nmol/L) Toxicity >100 ng/mL (>250 nmol/L) Platelets bldon 07-04-2022 Platelets (Bld) [#/Vol] 410 10*3/uL 150-450 [facility] Work Phone: [phone] Serum IgA measurement (units /volume)on 07-04-2022 IgA Qn (S) 347 mg/dL 64-422 [facility] Work Phone: [phone] Comment on above: Performed at: [facility] [place], [place] [id number] Director: Sherif Case PhD, Phone: [phone] Serum classic neutrophil cyt oplasmic antibody assay (units/volume)on 07-04-2022 Neutrophil cytoplasmic Ab.classic Qn (S) <1:20 titer Neg:<1:20 [facility] Work Phone: [phone] Serum or plasma C reactive p rotein measurement (mass/volume)on 07-04-2022 CRP [Mass/Vol] 4.45 mg/L 0.0-3.0 [facility] Work Phone: [phone] Comment on above: C-Reactive Protein ( CRP) provides useful information for thediagnosis, therapy and monitoring of inflammatory processesand associated diseases. For the evaluation of Relative Riskfor Cardiovascular Disease, a High Sensitivity CRP (HSCRP)should be ordered. Serum or plasma IgA measurem ent (mass/volume)on 07-04-2022 IgA [Mass/Vol] 340 mg/dL 64-422 [facility] Work Phone: [phone] Serum or plasma IgG measurem ent (mass/volume)on 07-04-2022 IgG [Mass/Vol] 963 mg/dL [phone] [facility] Work Phone: [phone] Serum or plasma IgM measurem ent (mass/volume)on 07-04-2022 IgM [Mass/Vol] 43 mg/dL 26-217 [facility] Work Phone: [phone] Comment on above: Performed at: [facility] [place], [place] [id number] Director: Sherif Case PhD, Phone: [phone] at: [address] [id number] Director: Lindsey Bajwa MD, Phone: [phone] Serum or plasma albumin sami urement (mass/volume)on 07-04-2022 Albumin [Mass/Vol] 3.8 g/dL 3.2-5.0 [facility] Work Phone: [phone] Serum or plasma albumin/glob ulin mass ratioon 07-04-2022 Albumin/Globulin [Mass ratio] 0.9 {ratio} 0.9-2.4 [facility] Work Phone: Serum or plasma calcitriol m easurement (mass/volume)on 07-04-2022 1,25-dihydroxyvitamin D3 [Mass/Vol] 81.2 pg/mL 24.8-81.5 [facility] Work Phone: Comment on above: Please note refere nme interval changePerformed at: [facility] [id number] Director: Lindsey Bajwa MD, Phone: [phone] Serum or plasma calcium sami urement (mass/volume)on 07-04-2022 Calcium [Mass/Vol] 9.0 mg/dL 8.5-10.1 [facility] Work Phone: [phone] Serum or plasma creatinine m easurement (mass/volume)on 07-04-2022 Creatinine [Mass/Vol] 0.96 mg/dL 0.55-1.02 [facility] Work Phone: Comment on above: The validity of the calculated GFR & GFRAA in patients over 70 years has not been determined. Clinical correlation is essential. Serum or plasma urea nitroge n measurement (mass/volume)on 07-04-2022 Urea nitrogen [Mass/Vol] 12 mg/dL 7-18 [facility] Work Phone: Serum perinuclear neutrophil cytoplasmic antibody titer by immunofluorescenceon 07-04-2022 Neutrophil cytoplasmic Ab.perinuclear IF (S) [Titer] <1:20 titer Neg:<1:20 [facility] Work Phone: Comment on above: The presence of posi tive fluorescence exhibiting P-ANCA orC-ANCA patterns alone is not specific for the diagnosis ofWegener's Granulomatosis (WG) or microscopic polyangiitis.Decisions about treatment should not be based solely onANCA IFA results. The [employer] Consensusrecommends follow up testing of positive sera with both MO-3 and MPO-ANCA enzyme immunoassays. As many as 5% serumsamples are positive only by EIA. Ref. AM J Clin [id number];111:507-513. Serum tissue transglutaminas e IgA antibody assay (units/volume)on 07-04-2022 tTG IgA Qn (S) <2 U/mL 0-3 [facility] Work Phone: Comment on above: Negative 0 - 3 Weak Positive 4 - 10 Positive >10 Tissue Transglutaminase (tTG) has been identified as the endomysial antigen. Studies have demonstr- ated that endomysial IgA antibodies have over 99% specificity for gluten sensitive enteropathy. Thin prep Papanicolaou smear with manual screeningon 07-04-2022 Thin prep Papanicolaou smear with manual screening 11 U/L 15-37 [facility] Work Phone: Thin prep Papanicolaou smear with manual screening 9 5-15 [facility] Work Phone: [phone] Thin prep Papanicolaou smear with manual screening 132 U/L 84-246 [facility] Work Phone: Gram stain for investigation of transfusion reactionon 02-11-2022 Microscopic observation Gram stain Nom (Unsp spec) [facility] Work Phone: Basophil percentageon 2021 Bilirubin [Mass/Vol] 0.40 mg/dL 0.20-1.00 [facility] Work Phone: Comment on above: For patients on eltr ombopag therapy, use of Dimension [place] TBIL is not recommended. Cholesterol [Mass/Vol] 128 mg/dL <200 [facility] Work Phone: Comment on above: <200 mg/dL Desirable 200-240 mg/dL Borderline >240 mg/dL High Risk Protein [Mass/Vol] 7.4 g/dL 6.4-8.2 [facility] Work Phone: [phone] Triglyceride [Mass/Vol] 120 mg/dL [facility] Work Phone: [phone] Comment on above: The drugs N-Acetylcy steine and Metamizole may falsely depress this assay.Serum Triglycerides Reference Interval Normal <150 mg/dL Borderline high 150 - 199 mg/dL High 200 - 499 mg/dL Very High > or = 500 mg/dL Direct bilirubinon Bilirubin.direct [Mass/Vol] 0.12 mg/dL 0.00-0.30 [facility] Work Phone: [phone] Laboratory - Chemistry and C hemistry - challengeon 01-29-2022 ALP [Catalytic activity/Vol] 93 U/L 45-117 [facility] Work Phone: [phone] ALT [Catalytic activity/Vol] 22 U/L 13-56 [facility] Work Phone: [phone] Globulin (S) [Mass/Vol] 3.6 g/dL 2.2-4.2 [facility] Work Phone: [phone] T4 [Mass/Vol] 1.29 ng/dL 0.76-1.46 [facility] Work Phone: [phone] No Panel Informationon 01-29 Thyroid Stimulating Hormone (TSH) 0.62 uIU/mL 0.358-3.74 [facility] Work Phone: [phone] Serum or plasma albumin sami urement (mass/volume)on 01-29-2022 Albumin [Mass/Vol] 3.8 g/dL 3.2-5.0 [facility] Work Phone: [phone] Serum or plasma cholesterol in HDL measurement (mass/volume)on 01-29-2022 Cholesterol in HDL [Mass/Vol] 51 mg/dL [facility] Work Phone: [phone] Comment on above: The drugs N-Acetylcy steine and Metamizole may falsely depress this assay. Reference Range HDL <40 mg/dL Low HDL Cholesterol HDL >or= 60 mg/dL High HDL Cholesterol Serum or plasma cholesterol in VLDL measurement (mass/volume)on 01-29-2022 Cholesterol in VLDL [Mass/Vol] 24 mg/dL 5-40 [facility] Work Phone: Serum or plasma low density lipoprotein (LDL) cholesterol measurement (mass/volume)on 01-29-2022 Cholesterol in LDL [Mass/Vol] 53 mg/dL 0-130 [facility] Work Phone: Thin prep Papanicolaou smear with manual screeningon 01-29-2022 Thin prep Papanicolaou smear with manual screening 9 U/L 15-37 [facility] Work Phone: Basophil percentageon 2021 Creatinine [Mass/Vol] 0.9 mg/dL 0.55-1.02 [facility] Work Phone: No Panel Informationon 11-02 Bedside Estimated GFR (eGFR) > 60.0000 mL/min >60 [facility] Work Phone: Absolute lymphocyte counton 10-19-2021 Lymphocytes Auto (Unsp spec) [#/Vol] 1.60 10*3/uL 0.83-4.51 [facility] Work Phone: Atypical perinuclear antineu trophil cytoplasmic antibodies measurementon 10-19-2021 Neutrophil cytoplasmic Ab.perinuclear.atypical IF (S) [Titer] <1:20 titer Neg:<1:20 [facility] Work Phone: Comment on above: The atypical pANCA p attern has been observed in asignificant percentage of patients with ulcerative colitis,primary sclerosing cholangitis and autoimmune hepatitis. Basophil percentageon 2021 Basophil percentage < 0.2 [facility] Work Phone: Basophils/100 WBC (Bld) 0.6 % 0-1 [facility] Work Phone: Eosinophils/100 WBC (Bld) 1.6 % 0-5 [facility] Work Phone: Neutrophils (Bld) [#/Vol] 6.2 10*3/uL 2.0-7.7 [facility] Work Phone: Neutrophils/100 WBC (Bld) 70.2 % 47-70 [facility] Work Phone: WBC (Bld) [#/Vol] 8.9 10*3/uL 4.4-11.0 [facility] Work [facility]: Blood erythrocytes count (nu mber/volume)on 10-19-2021 RBC (Bld) [#/Vol] 4.94 10*6/uL 4.2-5.4 [facility] Work Phone: Blood hemoglobin measurement (mass/volume)on 10-19-2021 Hemoglobin (Bld) [Mass/Vol] 14.0 g/dL 12.0-15.0 [facility] Work Phone: Blood lymphocytes/100 leukoc yteson 10-19-2021 Lymphocytes/100 WBC (Bld) 18.1 % 19-41 [facility] Work Phone: Blood monocytes/100 leukocyt eson 10-19-2021 Monocytes/100 WBC (Bld) 8.8 % 0-10 [facility] Work Phone: Blood platelet mean volumeon 10-19-2021 Platelet mean volume (Bld) [Entitic vol] 10.1 fL 6.2-12.0 [facility] Work Phone: Determination of erythrocyte mean corpuscular volume (MCV)on 10-19-2021 MCV (RBC) [Entitic vol] 87.7 fL 81-99 [facility] Work Phone: Erythrocyte sedimentation ra ivania 10-19-2021 ESR (Bld) [Velocity] 24 mm/h 0-30 [facility] Work Phone: Hematocrit Auto (Bld) [Volum e fraction]on 10-19-2021 Hematocrit (Bld) [Volume fraction] 43.3 % 37-47 [facility] Work Phone: Laboratory - Hematology and Cell countson 10-19-2021 Erythrocyte distribution width (RBC) [Entitic vol] 43.2 fL 35.1-43.9 [facility] Work Phone: [phone] Erythrocyte distribution width (RBC) [Ratio] 13.4 % 11.6-14.6 [facility] Work Phone: [phone] Immature granulocytes/100 WBC (Bld) 0.700 % 0.0-0.9 [facility] Work Phone: [phone] Comment on above: IG% - Immature Granu locytes (promyelocytes, myelocytes and metamyelocytes) > 1% indicates that a LEFT SHIFT is Present. MCH (RBC) [Entitic mass] 28.3 pg 27.0-32.0 [facility] Work Phone: [phone] Nucleated RBC/100 WBC (Bld) [Ratio] 0 % 0-5 [facility] Work Phone: [phone] MCHC Auto (RBC) [Mass/Vol]on 10-19-2021 MCHC (RBC) [Mass/Vol] 32.3 g/dL 32-36 [facility] Work Phone: [phone] Panel Informationon 10-19 Centromere B Antibody <0.2 [facility] Work Phone: [phone] Endomysial IgA Antibody Negative Negative [facility] Work Phone: [phone] Free Triiodothyronine (T3) pg/dL 2.5 pg/mL 2.18-3.98 [facility] Work Phone: [phone] Immunoglobulin E 10 IU/mL [facility] Work Phone: [phone] PHYSICAL AERODYNAMICIST Antibody 0.2 AI [facility] Work Phone: [phone] Thyroid Stimulating Hormone (TSH) 3.04 uIU/mL 0.358-3.74 [facility] Work Phone: [phone] Platelets bldon 10-19-2021 Platelets (Bld) [#/Vol] 385 10*3/uL 150-450 [facility] Work Phone: [phone] Serum DNA double strand anti body assay (units/volume)on 10-19-2021 DNA double strand Ab Qn (S) [IU]/mL [facility] Work Phone: [phone] Comment on above: Negative <5 Equivoca l 5 - 9 Positive >9 Serum Abby-1 antibody assay (u nits/volume)on 10-19-2021 Abby-1 extractable nuclear Ab Qn (S) <0.2 [facility] Work Phone: [phone] Serum Scl-70 extractable nuc lear antibody assay (units/volume)on 10-19-2021 SCL-70 extractable nuclear Ab Qn (S) <0.2 AI [facility] Work Phone: [phone] Serum [place] extractable nucl ear antibody detectionon 10-19-2021 [place] extractable nuclear Ab Ql (S) <0.2 [facility] Work Phone: [phone] Serum classic neutrophil cyt oplasmic antibody assay (units/volume)on 10-19-2021 Neutrophil cytoplasmic Ab.classic Qn (S) <1:20 titer Neg:<1:20 [facility] Work Phone: [phone] Serum or plasma C reactive p rotein measurement (mass/volume)on 10-19-2021 CRP [Mass/Vol] 4.57 mg/L 0.0-3.0 [facility] Work Phone: Comment on above: C-Reactive Protein ( CRP) provides useful information for thediagnosis, therapy and monitoring of inflammatory processesand associated diseases. For the evaluation of Relative Riskfor Cardiovascular Disease, a High Sensitivity CRP (HSCRP)should be ordered. Serum or plasma IgA measurem ent (mass/volume)on 10-19-2021 IgA [Mass/Vol] 292 mg/dL [facility] Work Phone: [phone] Serum or plasma IgG measurem ent (mass/volume)on 10-19-2021 IgG [Mass/Vol] 982 mg/dL [facility] Work Phone: [phone] Serum or plasma IgM measurem ent (mass/volume)on 10-19-2021 IgM [Mass/Vol] 35 mg/dL [facility] Work Phone: Comment on above: Performed at: [address] [id number] Director: Sherif Case PhD, Phone: [phone] at: [facility] [address] [id number] Director: Lindsey Bajwa MD, Phone: [phone] Serum or plasma angiotensin converting enzyme measurement (enzymatic activity/volume)on 10-19-2021 Angiotensin converting enzyme [Catalytic activity/Vol] 58 U/L [facility] Work Phone: Serum or plasma folate measu rement (mass/volume)on 10-19-2021 Folate [Mass/Vol] 10.20 ng/mL 3.1-55.4 [facility] Work Phone: Serum parietal cell antibody assay (units/volume)on 10-19-2021 Parietal cell Ab Qn (S) 2.8 Units [facility] Work Phone: Comment on above: Negative 0.0 - 20.0 Equivocal 20.1 - 24.9 Positive >24.9Parietal Cell Antibodies are found in 90% of patientswith pernicious anemia and 30% of first degreerelatives with pernicious anemia. Serum perinuclear neutrophil cytoplasmic antibody titer by immunofluorescenceon 10-19-2021 Neutrophil cytoplasmic Ab.perinuclear IF (S) [Titer] <1:20 titer Neg:<1:20 [facility] Work Phone: Comment on above: The presence of posi tive fluorescence exhibiting P-ANCA orC-ANCA patterns alone is not specific for the diagnosis ofWegener's Granulomatosis (WG) or microscopic polyangiitis.Decisions about treatment should not be based solely onANCA IFA results. The [employer] Consensusrecommends follow up testing of positive sera with both MO-3 and MPO-ANCA enzyme immunoassays. As many as 5% serumsamples are positive only by EIA. Ref. AM J Clin [id number];111:507-513. Serum tissue transglutaminas e IgA antibody assay (units/volume)on 10-19-2021 tTG IgA Qn (S) <2 U/mL [facility] Work Phone: Comment on above: Negative 0 - 3 Weak Positive 4 - 10 Positive >10 Tissue Transglutaminase (tTG) has been identified as the endomysial antigen. Studies have demonstr- ated that endomysial IgA antibodies have over 99% specificity for gluten sensitive enteropathy. Thin prep Papanicolaou smear with manual screeningon 10-19-2021 Thin prep Papanicolaou smear with manual screening 166 U/L 84-246 [facility] Work Phone: Culture, urine Bacteria identified Cx Nom (U) Positive [facility] Work Phone: Vital Signs Date Time Vital Sign Value Performing Clinician Faci lity 04-13-2025 08:06-0400 Body mass index (BMI) [Ratio] 39.2 kg/m2 Dr. Oscar Kimble DO Work Phone: [facility] 04-13-2025 08:06-0400 Body temperature 97.3 [degF] Dr. Oscar Kimble DO Work Phone: [facility] 04-13-2025 08:06-0400 Body weight 91.[address] Oscar Kimble DO Work Phone: [facility] 04-13-2025 08:06-0400 Diastolic blood pressure 88 mm[Hg] Dr. Oscar Kimble DO Work Phone: [facility] 04-13-2025 08:06-0400 Heart rate 77 /min Dr. Oscar Kimble DO Work Phone: [facility] 04-13-2025 08:06-0400 Respiratory rate 16 /min Dr. Oscar Kimble DO Work Phone: [facility] 04-13-2025 08:06-0400 SaO2% (BldA) [Mass fraction] 96 % Dr. Oscar Kimble DO Work Phone: [facility] 04-13-2025 08:06-0400 Systolic blood pressure 134 mm[Hg] Dr. Oscar Kimble DO Work Phone: [facility] 03-14-2025 13:00-0400 Body height 152.[address] Oscar Kimble DO Work Phone: [facility] 03-14-2025 13:00-0400 Body mass index (BMI) [Ratio] 39.2 kg/m2 Dr. Oscar Kimble DO Work Phone: 9(821)481-316138 [place] [address] 03-14-2025 13:00-0400 Body weight 91.[address] Oscar Kimble DO Work Phone: 9(439)964-640238 [place] [address] 03-14-2025 13:00-0400 Diastolic blood pressure 83 mm[Hg] Dr. Oscar Kimble DO Work Phone: 0(988)275-438838 [place] [address] 03-14-2025 13:00-0400 Heart rate 73 /min Dr. Oscar Kimble DO Work Phone: 3(436)493-754938 [place] [address] 03-14-2025 13:00-0400 Respiratory rate 18 /min Dr. Oscar Kimble DO Work Phone: 9(986)915-368138 [place] [address] 03-14-2025 13:00-0400 Systolic blood pressure 124 mm[Hg] Dr. Oscar Kimble DO Work Phone: 9(361)420-382938 [place] [address] 03-07-2025 14:55-0400 Body height 152.[address] Oscar Kimble DO Work Phone: 7(895)301-300738 [place] [address] 03-07-2025 14:55-0400 Body mass index (BMI) [Ratio] 39.3 kg/m2 Dr. Oscar Kimble DO Work Phone: 5(779)751-301238 [place] [address] 03-07-2025 14:55-0400 Body temperature 98.6 [degF] Dr. Oscar Kimble DO Work Phone: 8(026)231-771038 [place] [address] 03-07-2025 14:55-0400 Body weight 91.[address] Oscar Kimble DO Work Phone: 8(700)856-725038 [place] [address] 03-07-2025 14:55-0400 Diastolic blood pressure 77 mm[Hg] Dr. Oscar Kimble DO Work Phone: 6(906)288-001338 [place] [address] 03-07-2025 14:55-0400 Heart rate 80 /min Dr. Oscar Kimble DO Work Phone: [facility] 03-07-2025 14:55-0400 Respiratory rate 16 /min Dr. Oscar Kimble DO Work Phone: [facility] 03-07-2025 14:55-0400 SaO2% (BldA) [Mass fraction] 94 % Dr. Oscar Kimble DO Work Phone: [facility] 03-07-2025 14:55-0400 Systolic blood pressure 139 mm[Hg] Dr. Oscar Kimble DO Work Phone: 4(085)415-864738 [place] [address] 02-09-2025 09:22-0400 Body mass index (BMI) [Ratio] 39.4 kg/m2 Dr. Oscar Kimble DO Work Phone: 7(687)019-545038 [place] [address] 02-09-2025 09:22-0400 Body temperature 97.3 [degF] Dr. Oscar Kimble DO Work Phone: 5(333)812-404938 [place] [address] 02-09-2025 09:22-0400 Body weight 91.[address] Oscar Kimble DO Work Phone: 0(698)255-542138 [place] [address] 02-09-2025 09:22-0400 Diastolic blood pressure 71 mm[Hg] Dr. Oscar Kimble DO Work Phone: [facility] 02-09-2025 09:22-0400 Heart rate 73 /min Dr. Oscar Kimble DO Work Phone: [facility] 02-09-2025 09:22-0400 Respiratory rate 16 /min Dr. Oscar Kimble DO Work Phone: [facility] 02-09-2025 09:22-0400 SaO2% (BldA) [Mass fraction] 95 % Dr. Oscar Kimble DO Work Phone: [facility] 02-09-2025 09:22-0400 Systolic blood pressure 138 mm[Hg] Dr. Oscar Kimble DO Work Phone: 6(730)038-914438 [place] [address] 11-17-2023 14:48-0500 Body height 152.[address] Rosario Cha Work Phone: [facility] 11-17-2023 14:48-0500 Body mass index (BMI) [Ratio] 36.9 kg/m2 Dr. Rosario Cha Work Phone: [facility] 11-17-2023 14:48-0500 Body temperature 97.7 [degF] Dr. Rosario Cha Work Phone: [facility] 11-17-2023 14:48-0500 Body weight 85.[address] Rosario Cha Work Phone: [facility] 11-17-2023 14:48-0500 Diastolic blood pressure 68 mm[Hg] Dr. Rosario Cha Work Phone: [facility] 11-17-2023 14:48-0500 Heart rate 78 /min Dr. Rosario Cha Work Phone: [facility] 11-17-2023 14:48-0500 Respiratory rate 16 /min Dr. Rosario Cha Work Phone: [facility] 11-17-2023 14:48-0500 SaO2% (BldA) [Mass fraction] 96 % Dr. Rosario Cha Work Phone: [facility] 11-17-2023 14:48-0500 Systolic blood pressure 120 mm[Hg] Dr. Rosario Cha Work Phone: [facility] 08-07-2023 05:50-0500 Body height 152.[address] Rosario Cha Work Phone: [facility] 08-07-2023 05:50-0500 Body mass index (BMI) [Ratio] 36.7 kg/m2 Dr. Rosario Cha Work Phone: [facility] 08-07-2023 05:50-0500 Body temperature 98.1 [degF] Dr. Rosario Cha Work Phone: [facility] 08-07-2023 05:50-0500 Body weight 85.[address] Rosario Cha Work Phone: [facility] 08-07-2023 05:50-0500 Diastolic blood pressure 66 mm[Hg] Dr. Rosario Cha Work Phone: [facility] 08-07-2023 05:50-0500 Heart rate 91 /min Dr. Rosario Cha Work Phone: [facility] 08-07-2023 05:50-0500 Respiratory rate 17 /min Dr. Rosario Cha Work Phone: [facility] 08-07-2023 05:50-0500 SaO2% (BldA) [Mass fraction] 97 % Dr. Rosario Cha Work Phone: [facility] 08-07-2023 05:50-0500 Systolic blood pressure 150 mm[Hg] Dr. Rosario Cha Work Phone: [facility] 05-14-2023 14:53-0400 Body mass index (BMI) [Ratio] 36.8 kg/m2 Dr. Rosario Cha Work Phone: [facility] 05-14-2023 14:53-0400 Body temperature 98 [degF] Dr. Rosario Cha Work Phone: [facility] 05-14-2023 14:53-0400 Body weight 85.[address] Rosario Cha Work Phone: [facility] 05-14-2023 14:53-0400 Diastolic blood pressure 81 mm[Hg] Dr. Rosario Cha Work Phone: [facility] 05-14-2023 14:53-0400 Heart rate 84 /min Dr. Rosario Cha Work Phone: [facility] 05-14-2023 14:53-0400 Respiratory rate 18 /min Dr. Rosario Cha Work Phone: [facility] 05-14-2023 14:53-0400 SaO2% (BldA) [Mass fraction] 94 % Dr. Rosario Cha Work Phone: [facility] 05-14-2023 14:53-0400 Systolic blood pressure 136 mm[Hg] Dr. Rosario Cha Work Phone: [facility] 02-04-2023 07:51-0400 Body height 152.[address] Phong Quiroga Work Phone: [facility] 02-04-2023 07:51-0400 Body mass index (BMI) [Ratio] 37.5 kg/m2 Dr. Phong Quiroga Work Phone: [facility] 02-04-2023 07:51-0400 Body temperature 97.3 [degF] Dr. Phong Quiroga Work Phone: [facility] 02-04-2023 07:51-0400 Body weight 87.[address] Phong Quiroga Work Phone: [facility] 02-04-2023 07:51-0400 Diastolic blood pressure 73 mm[Hg] Dr. Phong Quiroga Work Phone: [facility] 02-04-2023 07:51-0400 Heart rate 80 /min Dr. Phong Quiroga Work Phone: [facility] 02-04-2023 07:51-0400 Respiratory rate 20 /min Dr. Phong Quiroga Work Phone: [facility] 02-04-2023 07:51-0400 SaO2% (BldA) [Mass fraction] 94 % Dr. Phong Quiroga Work Phone: [facility] 02-04-2023 07:51-0400 Systolic blood pressure 147 mm[Hg] Dr. Phong Quiroga Work Phone: [facility] 12-24-2022 12:59-0400 Body height 152.[address] Phong Quiroga Work Phone: [facility] 12-24-2022 12:59-0400 Body mass index (BMI) [Ratio] 37.3 kg/m2 Dr. Phong Quiroga Work Phone: 1(835)094-331940 [place] [address] 12-24-2022 12:59-0400 Body weight 86.[address] Phong Quiroga Work Phone: 2(941)189-534740 [place] [address] 12-24-2022 12:59-0400 Diastolic blood pressure 74 mm[Hg] Dr. Phong Quiroga Work Phone: 5(534)786-811340 [place] [address] 12-24-2022 12:59-0400 Heart rate 77 /min Dr. Phong Quiroga Work Phone: 1(980)611-005636 [address] 12-24-2022 12:59-0400 Respiratory rate 20 /min Dr. Phong Quiroga Work Phone: 8(937)521-190336 [address] 12-24-2022 12:59-0400 SaO2% (BldA) [Mass fraction] 94 % Dr. Phong Quiroga Work Phone: 7(177)556-138940 [place] [address] 12-24-2022 12:59-0400 Systolic blood pressure 136 mm[Hg] Dr. Phong Quiroga Work Phone: 0(487)866-597640 [place] [address] 11-18-2022 13:34-0500 Body height 152.[address] Phong Quiroga Work Phone: 2(943)926-499040 [place] [address] 11-18-2022 13:34-0500 Body mass index (BMI) [Ratio] 39 kg/m2 Dr. Phong Quiroga Work Phone: 2(044)374-371840 [place] [address] 11-18-2022 13:34-0500 Body temperature 97.2 [degF] Dr. Phong Quiroga Work Phone: 9(315)729-365240 [place] [address] 11-18-2022 13:34-0500 Body weight 90.[address] Phong Quiroga Work Phone: 1(776)096-584940 [place] [address] 11-18-2022 13:34-0500 Diastolic blood pressure 76 mm[Hg] Dr. Phong Quiroga Work Phone: [facility] 11-18-2022 13:34-0500 Heart rate 90 /min Dr. Phnog Quiroga Work Phone: [facility] 11-18-2022 13:34-0500 Respiratory rate 18 /min Dr. Phong Quiroga Work Phone: [facility] 11-18-2022 13:34-0500 SaO2% (BldA) [Mass fraction] 94 % Dr. Phong Quiroga Work Phone: [facility] 11-18-2022 13:34-0500 Systolic blood pressure 145 mm[Hg] Dr. Phong Quiroga Work Phone: [facility] 10-21-2022 13:21-0500 Body mass index (BMI) [Ratio] 39.2 kg/m2 Dr. Phong Quiroga Work Phone: [facility] 10-21-2022 13:21-0500 Body weight 91.[address] Phong Quiroga Work Phone: [facility] 10-21-2022 13:21-0500 Diastolic blood pressure 71 mm[Hg] Dr. Phong Quiroga Work Phone: [facility] 10-21-2022 13:21-0500 Heart rate 86 /min Dr. Phong Quiroga Work Phone: [facility] 10-21-2022 13:21-0500 Respiratory rate 18 /min Dr. Phong Quiroga Work Phone: [facility] 10-21-2022 13:21-0500 SaO2% (BldA) [Mass fraction] 94 % Dr. Phong Quiroga Work Phone: [facility] 10-21-2022 13:21-0500 Systolic blood pressure 133 mm[Hg] Dr. Phong Quiroga Work Phone: [facility] 09-26-2022 13:41-0500 Body mass index (BMI) [Ratio] 39.2 kg/m2 Dr. Phong Quiroga Work Phone: [facility] 09-26-2022 13:41-0500 Body weight 91.[address] Phong Quiroga Work Phone: [facility] 09-26-2022 13:41-0500 Diastolic blood pressure 76 mm[Hg] Dr. Phong Quiroga Work Phone: [facility] 09-26-2022 13:41-0500 Heart rate 80 /min Dr. Phong Quiroga Work Phone: [facility] 09-26-2022 13:41-0500 SaO2% (BldA) [Mass fraction] 97 % Dr. Phong Quiroga Work Phone: [facility] 09-26-2022 13:41-0500 Systolic blood pressure 128 mm[Hg] Dr. Phong Quiroga Work Phone: [facility] 08-06-2022 10:16-0500 Body mass index (BMI) [Ratio] 39.1 kg/m2 Dr. Phong Quiroga Work Phone: [facility] 08-06-2022 10:16-0500 Body temperature 98.6 [degF] Dr. Phong Quiroga Work Phone: [facility] 08-06-2022 10:16-0500 Body weight 90.[address] Phong Quiroga Work Phone: [facility] 08-06-2022 10:16-0500 Diastolic blood pressure 83 mm[Hg] Dr. Phong Quiroga Work Phone: [facility] 08-06-2022 10:16-0500 Heart rate 87 /min Dr. Phong Quiroga Work Phone: [facility] 08-06-2022 10:16-0500 Respiratory rate 16 /min Dr. Phong Quiroga Work Phone: [facility] 08-06-2022 10:16-0500 SaO2% (BldA) [Mass fraction] 96 % Dr. Phong Quiroga Work Phone: [facility] 08-06-2022 10:16-0500 Systolic blood pressure 144 mm[Hg] Dr. Phong Quiroga Work Phone: [facility] 04-09-2022 11:28-0400 Body height 152.[address] Phong Quiroga Work Phone: [facility] Work Phone: 04-09-2022 11:28-0400 Body mass index (BMI) [Ratio] 39 kg/m2 Dr. Phong Quiroga Work Phone: [facility] Work Phone: 04-09-2022 11:28-0400 Body weight 90.[address] Phong Quiroga Work Phone: [facility] Work Phone: 04-09-2022 11:28-0400 Diastolic blood pressure 68 mm[Hg] Dr. Phong Quiroga Work Phone: [facility] Work Phone: 04-09-2022 11:28-0400 Heart rate 81 /min Dr. Phong Quiroga Work Phone: [facility] Work Phone: 04-09-2022 11:28-0400 Respiratory rate 16 /min Dr. Phong Quiroga Work Phone: [facility] Work Phone: 04-09-2022 11:28-0400 Systolic blood pressure 117 mm[Hg] Dr. Phong Quiroga Work Phone: [facility] Work Phone: 02-21-2022 08:25-0400 Body temperature 97.8 [degF] Dr. Phong Quiroga Work Phone: [facility] Work Phone: 02-21-2022 08:25-0400 Diastolic blood pressure 49 mm[Hg] Dr. Phong Quiroga Work Phone: [facility] Work Phone: 02-21-2022 08:25-0400 Heart rate 64 /min Dr. Phong Quiroga Work Phone: [facility] Work Phone: 02-21-2022 08:25-0400 Respiratory rate 16 /min Dr. Phong Quiroga Work Phone: [facility] Work Phone: 02-21-2022 08:25-0400 SaO2% (BldA) [Mass fraction] 100 % Dr. Phong Quiroga Work Phone: [facility] Work Phone: 02-21-2022 08:25-0400 Systolic blood pressure 113 mm[Hg] Dr. Phong Quiroga Work Phone: [facility] Work Phone: 02-21-2022 06:27-0400 Body height 152.[address] Phong Quiroga Work Phone: [facility] Work Phone: 02-21-2022 06:27-0400 Body mass index (BMI) [Ratio] 38.7 kg/m2 Dr. Phong Quiroga Work Phone: [facility] Work Phone: 02-21-2022 06:27-0400 Body weight [address] Phong Quiroga Work Phone: [facility] Work Phone: 02-11-2022 10:58-0400 Body height 152.[address] Phong Quiroga Work Phone: [facility] Work Phone: 02-11-2022 10:58-0400 Body mass index (BMI) [Ratio] 40 kg/m2 Dr. Phong Quiroga Work Phone: [facility] Work Phone: 02-11-2022 10:58-0400 Body temperature 97.5 [degF] Dr. Phong Quiroga Work Phone: [facility] Work Phone: 02-11-2022 10:58-0400 Body weight 92.[address] Phong Quiroga Work Phone: [facility] Work Phone: 02-11-2022 10:58-0400 Diastolic blood pressure 80 mm[Hg] Dr. Phong Quiroga Work Phone: [facility] Work Phone: 02-11-2022 10:58-0400 Heart rate 89 /min Dr. Phong Quiroga Work Phone: [facility] Work Phone: 02-11-2022 10:58-0400 Respiratory rate 17 /min Dr. Phong Quiroga Work Phone: [facility] Work Phone: 02-11-2022 10:58-0400 SaO2% (BldA) [Mass fraction] 97 % Dr. Phong Quiroga Work Phone: [facility] Work Phone: 02-11-2022 10:58-0400 Systolic blood pressure 128 mm[Hg] Dr. Phong Quiroga Work Phone: [facility] Work Phone: 10-18-2021 04:51-0500 Body height 152.[address] Phong Quiroga Work Phone: [facility] Work Phone: 10-18-2021 04:51-0500 Body mass index (BMI) [Ratio] 41.3 kg/m2 Dr. Phong Quiroga Work Phone: [facility] Work Phone: 10-18-2021 04:51-0500 Body temperature 97.2 [degF] Dr. Phong Quiroga Work Phone: [facility] Work Phone: 10-18-2021 04:51-0500 Body weight 96.[address] Phong Quiroga Work Phone: [facility] Work Phone: 10-18-2021 04:51-0500 Diastolic blood pressure 80 mm[Hg] Dr. Phong Quiroga Work Phone: [facility] Work Phone: 10-18-2021 04:51-0500 Heart rate 87 /min Dr. Phong Quiroga Work Phone: [facility] Work Phone: 10-18-2021 04:51-0500 Respiratory rate 20 /min Dr. Phong Quiroga Work Phone: [facility] Work Phone: 10-18-2021 04:51-0500 SaO2% (BldA) [Mass fraction] 97 % Dr. Phong Quiroga Work Phone: [facility] Work Phone: 10-18-2021 04:51-0500 Systolic blood pressure 126 mm[Hg] Dr. Phong Quiroga Work Phone: [facility] Work Phone: 10-12-2021 10:29-0500 Body weight 96.[address] Phong Quiroga Work Phone: [facility] Work Phone: 10-12-2021 10:29-0500 Diastolic blood pressure 68 mm[Hg] Dr. Phong Quiroga Work Phone: [facility] Work Phone: 10-12-2021 10:29-0500 Heart rate 88 /min Dr. Phong Quiroga Work Phone: [facility] Work Phone: 10-12-2021 10:29-0500 Respiratory rate 16 /min Dr. Phong Quiroga Work Phone: [facility] Work Phone: 10-12-2021 10:29-0500 Systolic blood pressure 170 mm[Hg] Dr. Phong Quiroga Work Phone: [facility] Work Phone: 11-06-2020 14:34-0500 Body mass index (BMI) [Ratio] 40.2 kg/m2 Dr. Phong Quiroga Work Phone: [facility] Work Phone: Encounters Encounter Date Encounter Type Care Provider Facility Start: 07-22-2025 End: 07-22-2025 ambulatory Oscar Kimble Facility:[facility] Start: 07-01-2025 End: 07-01-2025 Patient encounter procedure Oscar Kimble DO -[facility] Work Phone: Start: 07-01-2025 End: 07-01-[address] Rosario Cha MD Work Phone: -[facility] Start: 06-02-2025 End: 06-02-[address] Rosario Cha MD Work Phone: -Physical Therapy Start: 06-02-2025 End: 06-02-[address] Rosario Cha MD -Physical Therapy Work Phone: Start: 04-13-2025 End: 04-13-2025 Patient encounter procedure GLORY Valladares -[facility] Work Phone: Start: 04-13-2025 End: 04-13-[address] Oscar Kimble DO Work Phone: -[facility] Start: 04-12-[address] Rosario Cha MD -Physical Therapy Work Phone: Start: 03-14-2025 End: 03-14-2025 Patient encounter procedure Jose M SERRANO -[facility] Work Phone: Start: 03-14-2025 End: 03-14-[address] Oscar Kimble DO Work Phone: [facility] Work Phone: Start: 03-07-2025 End: 03-07-[address] Oscar Kimble DO Work Phone: [facility] Work Phone: Start: 03-07-2025 End: 03-07-[address] Rosario Cha MD -Laboratory Work Phone: Start: 03-07-2025 End: 03-07-[address] Rosario Cha MD -[facility] Work Phone: Start: 03-07-2025 End: 03-07-[address] Oscar Kimble DO Work Phone: [facility] Work Phone: Start: 03-07-2025 End: 03-07-2025 ambulatory Rosario Cha Facility:[facility] Start: 02-22-2025 Non-patient / Non-visit Dr. Sander Mcdonough DO -[facility] Start: 02-22-2025 End: 02-22-[address] Oscar Kimble DO Work Phone: [facility] Work Phone: Start: 02-22-2025 End: 02-22-2025 Patient encounter procedure GLORY Valladares -Pulmonary Services/Neurology Work Phone: Start: 02-22-2025 End: 02-22-2025 ambulatory Rosario Cha Facility:[facility] Start: 02-09-2025 End: 02-09-2025 Patient encounter procedure GLORY Valladares -[facility] Work Phone: Start: 02-09-2025 End: 02-09-[address] Oscar Kimble DO Work Phone: [facility] Work Phone: Start: 01-13-2025 End: 01-13-2025 Patient encounter procedure Oscar Kimble DO -Ultrasound [facility] Work Phone: Start: 01-13-2025 End: 01-13-2025 ambulatory Rosario Cha Facility:[facility] Start: 01-11-2025 End: 01-11-2025 Patient encounter procedure Oscar Kimble DO -[facility] Work Phone: Start: 01-11-2025 End: 01-11-2025 ambulatory Oscarraul Kimble Facility:[facility] Start: 10-05-2024 End: 10-05-2024 ambulatory Oscarsaman Kimble [place] Start: 09-20-2024 End: 09-20-2024 ambulatory Rosario Cha Facility:[facility] Start: 09-06-2024 End: 09-06-2024 ambulatory Rosario Cha Facility:[facility] Start: 09-06-2024 End: 09-06-2024 ambulatory Rosario Cha Facility:[facility] Start: 08-12-2024 End: 08-12-2024 ambulatory Rosario Cha Facility:[facility] Start: 11-17-2023 End: 11-17-[address] Rosario Cha Work Phone: [facility] Work Phone: Start: 11-17-2023 End: 11-17-[address] Rosario Cha Work Phone: [facility]-Laboratory Work Phone: Start: 11-17-2023 End: 11-17-[address] Rosario Cha Work Phone: [facility] Work Phone: Start: 10-24-2023 End: 10-24-[address] Rosario Cha Work Phone: [facility] Work Phone: Start: 10-13-2023 End: 10-13-[address] Rosario Cha Work Phone: [facility] Work Phone: Start: 10-13-2023 End: 10-13-[address] Rosario Cha Work Phone: [facility]-Laboratory Work Phone: Start: 08-29-2023 End: 08-29-[address] Rosario Cha Work Phone: [facility] Work Phone: Start: 08-29-2023 End: 08-29-[address] Rosario Cha Work Phone: [facility] Work Phone: Start: 08-07-2023 End: 08-07-[address] Rosario Cha Work Phone: [facility] Work Phone: Start: 06-25-2023 End: 06-25-[address] Rosario Cha Work Phone: [facility] [place] Work Phone: Start: 05-14-2023 End: 05-14-[address] Rosario Cha Work Phone: [facility] Work Phone: Start: 03-31-2023 End: 03-31-[address] Phong Quiroga Work Phone: [facility] Work Phone: Start: 03-31-2023 End: 03-31-[address] Phong Quiroga Work Phone: [facility] Work Phone: Start: 02-04-2023 End: 02-04-[address] Phong Quiroga Work Phone: [facility] Work Phone: Start: 01-23-2023 Non-patient / Non-visit Dr. Phong Quiroga Work Phone: [facility] Start: 01-21-2023 Non-patient / Non-visit Dr. Phong Quiroga Work Phone: [facility] Start: 01-21-2023 End: 01-21-[address] Phong Quiroga Work Phone: [facility] Work Phone: Start: 01-21-2023 End: 01-21-[address] [facility] Start: 12-24-2022 End: 12-24-[address] Phong Quiroga Work Phone: [facility] Start: 11-21-2022 End: 11-21-[address] Phong Quiroga Work Phone: [facility] Work Phone: Start: 11-21-2022 End: 11-21-[address] Phong Quiroga Work Phone: [facility]-Outpatient Breast Imaging Start: 11-18-2022 End: 11-18-[address] Phong Quiroga Work Phone: [facility] Start: 11-08-2022 Non-patient / Non-visit Dr. Phong Quiroga Work Phone: [facility] Start: 10-25-2022 Non-patient / Non-visit Dr. Phong Quiroga Work Phone: [facility] Heart [facility] Start: 10-23-2022 Non-patient / Non-visit Dr. Phong Quiroga Work Phone: [facility] Start: 10-23-2022 End: 10-23-[address] Phong Quiroga Work Phone: [facility]Cardiovascular Services Start: 10-21-2022 End: 10-21-[address] Phong Quiroga Work Phone: [facility]Laboratory Start: 10-21-2022 End: 10-21-[address] Phong Quiroga Work Phone: [facility] Start: 10-09-2022 End: 10-09-[address] [facility] Start: 09-26-2022 End: 09-26-[address] Phong Quiroga Work Phone: [facility] Start: 08-06-2022 End: 08-06-[address] [facility] Start: 07-12-2022 End: 07-12-[address] Phong Quiroga Work Phone: [facility] Work Phone: Start: 07-12-2022 End: 07-12-[address] Phong Quiroga Work Phone: [facility] Start: 07-09-2022 End: 07-09-[address] Phong Quiroga Work Phone: [facility] Work Phone: Start: 07-09-2022 End: 07-09-[address] Phong Quiroga Work Phone: [facility]-Laboratory, Specimen Start: 07-04-2022 End: 07-04-[address] Phong Quiroga Work Phone: [facility] Work Phone: Start: 07-04-2022 End: 07-04-[address] Phong Quiroga Work Phone: [facility] Start: 07-04-2022 End: 07-04-[address] Phong Quiroga Work Phone: [facility] Start: 04-09-2022 End: 04-09-[address] Phong Quiroga Work Phone: [facility] Start: 02-21-2022 Non-patient / Non-visit Dr. Phong Quiroga Work Phone: [facility] Start: 02-21-2022 End: 02-21-2022 Admission to same day surgery center Dr. Phong Quiroga Work Phone: [facility]-Endoscopy Start: 02-11-2022 End: 02-11-[address] Phong Quiroga Work Phone: [facility]-Pulmonary Medicine [facility] Start: 01-29-2022 End: 01-29-[address] Phong Quiroga Work Phone: [facility] Start: 12-05-2021 End: 12-05-[address] Phong Quiroga Work Phone: [facility] Start: 11-02-2021 End: 11-02-[address] Phong Quiroga Work Phone: [facility] Start: 10-29-2021 Non-patient / Non-visit Dr. Phong Quiroga Work Phone: [facility] Start: 10-29-2021 End: 10-29-[address] Phong Quiroga Work Phone: [facility]Cardi[facility] Services Start: 10-19-2021 End: 10-19-[address] Phong Quiroga Work Phone: [facility] Start: 10-19-2021 End: 10-19-[address] Phong Quiroga Work Phone: [facility] Start: 10-18-2021 End: 10-18-[address] Phong Quiroga Work Phone: [facility] Start: 10-12-2021 End: 10-12-[address] Phong Quiroga Work Phone: [facility] Start: 11-01-[address] Phong Quiroga Work Phone: [facility] Procedures Date Procedure Procedure Detail Performing Clinician [...] Activity Detail Author Start: 03-07-2025 Patient referral [facility] Work Phone: Start: 07-04-2022 IgA [Mass/volume] in Serum or Plasma [facility] Work Phone: Start: 07-04-2022 IgE [Units/volume] i n [facility] Work Phone: Start: 07-04-2022 IgG [Mass/volume] in Serum or Plasma [facility] Work Phone: Start: 07-04-2022 IgM [Mass/volume] in Serum or Plasma [facility] Work Phone: Start: 07-04-2022 [facility] Work Phone: CBC W Auto Different ial panel - Blood [facility] Comprehensive metabo lic 2000 panel - Serum or Plasma [facility] Hemoglobin A1c/Hemog lobin.total in Blood [facility] IgA [Mass/volume] in Serum or Plasma [facility] Work Phone: IgE [Units/volume] i n Serum or Plasma [facility] Work Phone: IgG [Mass/volume] in Serum or Plasma [facility] Work Phone: IgM [Mass/volume] in Serum or Plasma [facility] Work Phone: Lipid 1996 panel - S cynthia or Plasma [facility] Magnesium measurement [facility] Measurement of respi ratory function [facility] Neutrophil cytoplasm ic Ab.classic [Units/volume] in Serum [facility] Work Phone: P-ANCA measurement [facility] Work Phone: Patient referral [facility] Work Phone: T4 free measurement [facility] Thyroid stimulating hormone measurement [facility] Triiodothyronine, fr ee measurement [facility] Ultrasound elastography [facility] Work Phone: US Abdomen limited [facility] Work Phone: Vitamin D, 25-hydrox y measurement [facility] Immunizations Immunization Date Immunization Notes Care Provider Fa [facility] 08-12-2024 pneumococcal polysaccharide vaccine, [address] Moore Friend DO Work Phone: [facility] 06-14-2024 influenza, high dose seasonal, preservative-free Dr. Moore Friend DO Work Phone: [facility] 06-14-2024 Pfizer Covid-19 (Comirnaty) Dr. Moore Friend DO Work Phone: [facility] 06-14-2024 RSV Adult Recombinan t (Arexvy) Dr. Moore Friend DO Work Phone: [facility] 06-25-2023 influenza, injectabl e, quadrivalent, preservative free Dr. Rosario Cha Work Phone: [facility] 12-06-2020 Covid (Moderna) Dr. Phong roca Work Phone: [facility] 11-08-2020 Covid (Moderna) Dr. Phong roca Work Phone: [facility] 07-05-[address] Phong Quiroga Work Phone: [facility] 06-28-2019 Fluad 2019-20 65yr up(PF)45 mcg(15 mcgx3)/0.5 mL intramuscular syringe (flu vac Dr. Phong Quiroga Work Phone: [facility] Work Phone: Payers Date Payer Category Payer Self-pay [id number] 2016 Unknown [id number] 2015 Medicare [id number] Private Health Insurance [facility] [id number] Unknown [id number] 2.16.8 [id number] Unknown [id number] 2.16.8 [id number] Unknown [id number] 2.16.8 [id number] Unknown [id number] 2.16.8 [id number] Unknown [id number] 2.16.8 40.1.014756.3.579.2.462 Unknown [id number] 2.16.8 40.1.491020.3.579.2.462 Unknown [id number] 2.16.8 40.1.959678.3.579.2.462 Unknown [id number] 2.16.8 40.1.538670.3.579.2.462 Unknown [id number] 2.16.8 40.1.270361.3.579.2.462 Unknown [id number] 2.16.8 40.1.649447.3.579.2.462 Unknown [id number] 2.16.8 40.1.412811.3.579.2.462 Unknown [id number] 2.16.8 40.1.183818.3.579.2.462 Unknown [id number] 2.16.8 40.1.875483.3.579.2.462 Unknown [id number] 2.16.8 40.1.416742.3.579.2.462 Unknown [id number] 2.16.8 40.1.720476.3.579.2.462 Unknown [id number] 2.16.8 40.1.089845.3.579.2.462 Unknown [id number] 2.16.8 40.1.778000.3.579.2.462 Unknown [id number] 2.16.8 40.1.196030.3.579.2.462 Social History Date Type Detail Facility Start: 12-05-2021 End: 11-17-2023 Tobacco smoking status NHIS Unknown if ever smoked [facility] Start: 11-11-2019 Non-smoker [facility] Start: 1950 Sex Assigned At Female W [facility] Start: 03-19-2024 Tobacco smoking stat us NHIS Never smoked tobacco (finding) [facility] Sex Female [facility] Mental Status Date Assessment Result Facility 02-21-2022 Cognitive function Voice/Name [facility] Work Phone: Clinical Notes 01-11-2025 to 07-22-2025 Note Date & Type Note Facility 07-22-2025 Note [facility] Medical Records Department [address] [place] [address] History Physical Exam 07/22/25 0832 MR#: [id number] Acct: [id number] Name: MARY LEWIS Rep #: [id number] : 1950 75 From: Oscar Friend DO PCP: Dr. Rosario Cha MD Status:REG SDC Location: [place] [address]-1 HPI - General General Date of Admission: 07/22/25 Date of Service: 07/22/25 HPI Narrative MARY LEWIS, is a 75 F who presents [ MARY LEWIS, is a 75 F who presents to the office today for follow up. *BGI established 10.19.21 with heartburn, regurgitation and chest pain; onset 2009 with progression of severity and frequency. ? Biochemical CBC, ESR, LDH, LIANA, folate, TSH, T3, GAME, ANCA, KRISTEN comp, AMA, ASM, celiac, anti-parietal cell ab without pertinent abnormality ? CRP H4.57 ? CT abd/pel 11.02.21 hepatic steatosis; s/p cholecystectomy; small hiatal hernia; diverticulosis OV 12.05.21 with epigastric discomfort, bloating constipation alternating with diarrhea ? EGD and colonoscopy 02.21.22 EGD LA Grade A esophagitis; gastritis. ? Colonoscopy 5mm polyp; diverticulosis; TI congestion OV 03.07.22 avoid prescription medications r/t cost. Start 1200kcal/day caloric restriction. GERD, Start reglan. OV .02.11 recommend caloric restriction to 1200kcal/day. GERD well managed with reglan. Constipation continue fiber, kefir and PRN Colace. ? Biochemical .07.14 CBC, CMP, LFT, AMA, ASM without pertinent abnormality. ? CRP H5.45 ? US/elastography 03.31.23 hepatic measurement 16.8cm with fatty infiltration, stiffness 9.6kPa Contact 04.08.23 with results. ? US/elastography 12 hepatic measurement 16.9cm with fatty infiltration, stiffness 7.6kPa; increased pancreatic echogenicity OV 2.2.24 Pt reports feeling well. Reports does not feel hungry often, but will eat 3 meals a day. Reglan taken 3 times daily before meals with success. Reports diet well rounded. Not able to incorporate much physical activity due to caring to with dementia. US/elastography 03.04.24 hepatic measurement 16.6cm with fatty infiltration, stiffness 10.2kPa. Liver biopsy 03.19.24 Liver parenchymal tissue with macrovesicular steatosis and focal mild portal chronic inflammation. Start Vitamin E 80mg and Ursodiol 250 BID. OV 7.10.24 Pt reports alternating diarrhea and constipation; denies blood in the stool. Pt reports that she does not feel [...] notes that her stomach is no longer hard. Pt reports a change in the color of her stool as well and wonders if this could also be from the Rezdiffra. US and elastography 01.13.25 hepatic measurement 16cm with fatty infiltration, stiffness measures 8.3kPa. OV 07.01.25 pt reports that she is feeling well [...] long will she need to be on. ???She has a history of obesity and non-alcoholic steatohepatitis (HERNANDEZ) cirrhosis. She presents for a follow-up appointment to discuss weight loss options and her desire to stop Rezdiffra due to the high cost of the medication. She reports she has gained 15 pounds since her last visit. [facility] Medical History (Updated 07/22/25 @ 08:[address] Moore Friend, DO) Neck pain on left side Left shoulder [...] diastolic CHF (congestive heart failure) Atherosclerotic heart (more content not included)... [facility] 07-01-2025 Progress note [facility] 06-02-2025 Discharge summary Note Date/Time June 02, 2025 7:00pm [facility] Physical Therapy [facility] [facility] [place] [address] / REHABILITATION SERVICES DISCHARGE SUMMARY MR#: [id number] Acct: [id number] Name: MARY LEWIS Rep #: [id number] : 1950 75 From: Gregorio Resendiz PT, ATC Referring Dr.: Dr. Rosario Cha MD Status: REG RCR Insurance: MEDICARE PART A B ANTH Discharge Summary D/C summary: It has been my pleasure to treat MARY LEWIS referred by Dr. Rosario Cha MD, [...] Progress: Goal Met Plan Plan: Discharge to [facility] D/C Information d/c sentence: If there are questions or concerns regarding this patient's physical therapy, please feel free to call me at [phone]. Thank you for the referral of thispatient. Sincerely, Gregorio Resendiz, PT, ATC Balance/Gait/Functional tests Balance/Special Test Scores Oswestry Low Back Score: 5 Oswestry Neck Score: 8 Improvement % Improvement: 90 <Electronically signed by Gregorio Resendiz PT, ATC> 06/02/25 9338 CC: Dr. Rosario Cha MD ~ [facility] Signed [facility] Work Phone: 1(789) 137-846609-11-2025 Discharge summary [facility] Physical Therapy [facility] [address] [place] [address] [address] [place] [address] / REHABILITATION SERVICES DISCHARGE SUMMARY MR#: [id number] Acct: [id number] Name: MARY LEWIS Rep #: [id number] : 1950 75 From: Gregorio Resendiz PT, ATC Referring Dr.: Dr. Rosario Cha MD Status: REG RCR Insurance: MEDICARE PART A B ANTHEM Discharge Summary D/C summary: It has been my pleasure to treat MARY LEWIS referred by Dr. Rosario Cha MD, [...] please feel free to call me at [phone]. Thank you for the referral of thispatient. Sincerely, Gregorio Resendiz, PT, ATC Balance/Gait/Functional tests Balance/Special Test Scores Oswestry Low Back Score: 5 Oswestry Neck Score: 8 Improvement % Improvement: 90 06/02/25 1515 CC: Dr. Rosario Cha MD ~ [facility] Signed [facility]07-23-2025 Evaluation note* Diagnosis Onset Date Resolution Status Admit Date Asthma chronic April 13 1:35pm Obesity chronic April 13 1:35pm KATHARINA (obstructive sleep apnea) chroni c April 13, 2025 1:35pm Nonalcoholic steatohepatitis (HERNANDEZ) acute July 01 9:11am Constipation chronic June 9:11am Fatty liver chronic July 01, 2025 9:11am GERD (gastroesophageal reflu x disease) chronic July 01 9:11am [facility] Work Phone: 1(414) 263-623005-21-2025 Evaluation note* Diagnosis Onset Date Resolution Status Admit Date Asthma chronic February 09, 2025 12:52pm Obesity chronic February 09, 2025 12:52pm KATHARINA (obstructive sleep apnea) chroni c February 09, 2025 12:52pm Left shoulder pain acute February 202024 2:44pm Neck pain on left side acute 2024 2:44pm Nonalcoholic steatohepatitis (HERNANDEZ) acute March 07, 2025 2:44pm 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 March 07, 2025 2:44pm BMI 39.0-39.9,adult chronic March 07, 2025 2:44pm Fatty liver chronic March 07 2:44pm Hyperlipidemia chronic March 07, 2025 2:44pm Hypertension chronic March 07, 2 025 2:44pm Hypothyroidism chronic March 07, 2025 2:44pm KATHARINA (obstructive sleep apnea) chroni c March 07, 2025 2:44pm 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 March 14, 2025 12:51pm Diastolic dysfunction chronic Feb 12:51pm Hyperlipidemia chronic March 14, 2025 12:51pm Hypertension chronic March 14, 2 025 12:51pm Asthma chronic April 13 1:35pm Obesity chronic April 13 1:35pm KATHARINA (obstructive sleep apnea) chroni c April 13, 2025 1:35pm [facility] Work Phone: 1(582) 131-802604-22-2025 Evaluation note* Diagnosis Onset Date Resolution Status Admit Date Nonalcoholic steatohepatitis (HERNANDEZ) acute January 11, 2025 10:50am Constipation chronic January 11, 2025 10:50am Fatty liver chronic January 11, 2 025 10:50am GERD (gastroesophageal reflu x disease) chronic January 11, 2025 10:50am Asthma chronic February 09, 2025 12:52pm Obesity chronic February 09, 2025 12:52pm KATHARINA (obstructive sleep apnea) chroni c February 09, 2025 12:52pm [facility] Work Phone: 1([phone]) 378-255004-22-2025 Evaluation note* Diagnosis Onset Date Resolution Status [...] 2025 2:44pm 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9,adult chronic March 07, 2025 2:44pm Fatty liver chronic March 07 2:44pm Hyperlipidemia chronic March 07, 2025 2:44pm Hypertension chronic March 07, 2 025 2:44pm Hypothyroidism chronic March 07, 2025 2:44pm KATHARINA (obstructive sleep apnea) chroni c March 07, 2025 2:44pm [facility] Work Phone: 1(488) 248-332604-22-2025 Evaluation note* Diagnosis Onset Date Resolution Status [...] left side acute 2024 2:44pm Nonalcoholic steatohepatitis (HERNADNEZ) acute March 07, 2025 2:44pm 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 March 07, 2025 2:44pm BMI 39.0-39.9,adult chronic March 07, 2025 2:44pm Fatty liver chronic March 07 2:44pm Hyperlipidemia chronic March 07, 2025 2:44pm Hypertension chronic March 07, 2 025 2:44pm Hypothyroidism chronic March 07, 2025 2:44pm KATHARINA (obstructive sleep apnea) chroni c March 07, 2025 2:44pm 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 March 14, 2025 12:51pm Diastolic dysfunction chronic Feb 12:51pm Hypertension chronic March 14, 2 025 12:51pm [facility] Work Phone: 1([phone]) 243-251404-22-2025 Evaluation note* Diagnosis Onset Date Resolution Status [...] 2025 2:44pm 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 March 07, 2025 2:44pm BMI 39.0-39.9,adult chronic March 07, 2025 2:44pm Fatty liver chronic March 07 2:44pm Hyperlipidemia chronic March 07, 2025 2:44pm Hypertension chronic March 07, 2 025 2:44pm Hypothyroidism chronic March 07, 2025 2:44pm KATHARINA (obstructive sleep apnea) chroni c March 07, 2025 2:44pm 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 March 14, 2025 12:51pm Diastolic dysfunction chronic Feb 12:51pm Hyperlipidemia chronic March 14, 2025 12:51pm Hypertension chronic March 14, 2 025 12:51pm Asthma chronic April 13 1:35pm Obesity chronic April 13 1:35pm KATHARINA (obstructive sleep apnea) chroni c April 13, 2025 1:35pm [facility] Work Phone: Evaluation note* Diagnosis Onset Date Resolution Status 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 Chronic diastolic CHF (congestive heart failure) chronic Hyperlipidemia chronic Hypertension chronic Stented coronary artery April 21, 2019 c hronic Asthma chronic BMI 39.0-39.9,adult chronic KATHARINA (obstructive sleep apnea) chronic Abdominal pain acute GERD (gastroesophageal reflux disease) chronic Diverticulosis resolved Fatty liver acute Hx of colonic polyps acute GERD (gastroesophageal reflux disease) chronic IBS (irritable bowel syndrome) [facility] Work Phone: Evaluation note* Diagnosis Onset Date Resolution Status Asthma chronic BMI 39.0-39.9,adult chronic KATHARINA (obstructive sleep apnea) chronic Abdominal pain acute GERD (gastroesophageal reflux disease) chronic Diverticulosis resolved Fatty liver acute Hx of colonic polyps acute GERD (gastroesophageal reflux disease) chronic IBS (irritable bowel syndrome) chronic Asthma, moderate persistent chronic BMI 39.0-39.9,adult chronic KATHARINA (obstructive sleep apnea) chronic [facility] Work Phone: Evaluation note* Diagnosis Onset Date Resolution Status Fatty liver acute Hx of colonic polyps acute GERD (gastroesophageal reflux disease) chronic IBS (irritable bowel syndrome) chronic Asthma, moderate persistent chronic BMI 39.0-39.9,adult chronic KATHARINA (obstructive sleep apnea) chronic [facility] Work Phone: Evaluation note* Diagnosis Onset Date Resolution Status 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 Chronic diastolic CHF (congestive heart failure) chronic Hyperlipidemia chronic Hypertension chronic Stented coronary artery April 21, 2019 c hronic Constipation chronic Fatty liver chronic GERD (gastroesophageal reflux disease) chronic [facility] Work Phone: Evaluation note* Diagnosis Onset Date Resolution Status Asthma chronic BMI 39.0-39.9,adult chronic KATHARINA (obstructive sleep apnea) chronic Constipation chronic Fatty liver chronic GERD (gastroesophageal reflux disease) chronic Claudication acute Fatigue acute 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 Chronic [...] chron ic Encounter to establish care noneactive [facility] Work Phone: Evaluation note* Diagnosis Onset Date Resolution Status Fatigue acute 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 Chronic [...] Fatigue acute 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 Chronic diastolic CHF (conge stive heart failure) chronic Hyperlipidemia chronic Hypertension chronic Claudication resolved [facility] Work Phone: Evaluation note* Diagnosis Onset Date Resolution Status Fatigue acute 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 Chronic diastolic CHF (congestive heart failure) chronic Hyperlipidemia chronic Hypertension chronic Claudication resolved Asthma chronic BMI 39.0-39.9,adult chronic KATHARINA (obstructive sleep apnea) chronic [facility] Work Phone: Evaluation note* Diagnosis Onset Date Resolution Status Asthma chronic BMI 39.0-39.9,adult chronic KATHARINA (obstructive sleep apnea) chronic [facility] Work Phone: Evaluation note* Diagnosis Onset Date Resolution Status Asthma chronic BMI 39.0-39.9,adult chronic KATHARINA (obstructive sleep apnea) chronic Asthma chronic BMI 39.0-39.9,adult chronic KATHARINA (obstructive sleep apnea) chronic Asthma chronic 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 Cardiac clearance faxed to [facility]. 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 *[facility]I established 10.19.21 with heartburn, regurgitation and chest pain; onset 2009 with progression of severity and frequency. ? Biochemical CBC, ESR, LDH, LIANA, folate, TSH, T3, GAME, ANCA, KRISTEN comp, AMA, ASM, celiac, anti-parietal cell ab without pertinent abnormality ? CRP H4.57 ? CT abd/pel 2.08.13 hepatic steatosis; s/p cholecystectomy; small hiatal hernia; diverticulosis OV 3. with epigastric discomfort, bloating constipation alternating with diarrhea ? EGD and colonoscopy .11.13 EGD LA Grade A esophagitis; gastritis. ? Colonoscopy 5mm polyp; diverticulosis; TI congestion OV 6 avoid prescription medications r/t cost. Start 1200kcal/day caloric restriction. GERD, Start reglan. OV .02.11 recommend caloric restriction to 1200kcal/day. GERD well managed with reglan. Constipation continue fiber, kefir and PRN Colace. ? Biochemical 03.31.23 CBC, CMP, LFT, AMA, ASM without pertinent abnormality. ? CRP H5.45 ? US/elastography 03.31.23 hepatic measurement 16.8cm with fatty infiltration, stiffness 9.6kPa Contact 04.08.23 with results. ? US/elastography 12.05.14 hepatic measurement 16.9cm with fatty infiltration, stiffness 7.6kPa; increased pancreatic echogenicity OV 2.24 Pt reports feeling well. Reports does not feel hungry often, but will eat 3 meals a day. Reglan taken 3 times daily before meals with success. Reportsdiet well rounded. Not able to incorporate much physical activity due to caring to with dementia. US/elastography 03.04.24 hepatic measurement 16.6cm with fatty infiltration,stiffness 10.2kPa. Liver biopsy 03.19.24 Liver parenchymal tissue with macrovesicular steatosisand focal mild portal chronic inflammation. Start Vitamin E 80mg and Ursodiol 250 BID. OV 7 Pt reports alternating diarrhea and constipation; denies blood in thestool. Pt reports that she does not feel heartburn, but her voice gets raspy. Would like to talk about Omeprazole and dosing. OV 1 Pt reports continued symptoms from previous visit. Is having daily bm, but states she is not going very much. pt reports that she switched insurance and is unsure which medications she will be able to continue. OV 01.11.25 pt reports that she has started Rezdiffra and is having some loose stools from it. Pt reports 3-4 loose stool per day, but notes that her stomach is no longer hard. Pt reports a change in the color of her stool as well and wonders if this could also be from the Rezdiffra. US and elastography 01.13.25 hepatic measurement 16cm with fatty infiltration, stiffness measures 8.3kPa. OV 10 pt reports that she is feeling well [...] such as the one offered by the gravity prospecting operator. * Ursodiol and Vitamin E:?Continue current therapy [...] kefir, prn colace. Can use oil if [place] Stool Scale Type 1. (4) GERD (gastroesophageal reflux disease): Status: Chronic Plan: Continue PPI. Continue metoclopramide. Coding Level of Care Code Off vis,est,level 4 Diagnoses Nonalcoholic steatohepatitis (HERNANDEZ) K75.81 Fatty liver K76.0 Constipation K59.00 GERD (gastroesophageal reflux disease) K21.9 Clinical Quality Measures Falls Risk Screening/Assistive Devices Have you fallen in the past year?: No 07/01/25 [id number] <Electronically signed by Oscar price DO> Date _ Oscar Kimble DO Cosigner Signature: Date (if applicable) CC: ~ [facility] Work Phone: Reason for referral (narrative)No reason for referral information availableBlH[facility] Work Phone: Chief Complaint and Reason for Visit Chief Complaint 10 m fu 6 M FU STOMACH ISSUES E ORDERS CP, BARBOSA, FAITGUE, CAD, PCI DIVERTICULOSIS 6 WK FU Reason for Visit 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 Chronic diastolic [...] for Visit 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 Chronic diastolic CHF (congestive heart failure) Hyperlipidemia Hypertension Stented coronary artery Constipation Fatty liver GERD (gastroesophageal reflux disease) Chief Complaint 6 M FU FU E ORDERS FATTY LIVER Reason for Visit 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 Chronic diastolic [...] disease) Claudication Fatigue 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 Chronic diastolic [...] for Visit Fatigue 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 Chronic diastolic CHF (congestive heart failure) Hyperlipidemia Hypertension Stented coronary artery Claudication Fatigue Asthma BMI 39.0-39.9,adult Fatty liver GERD (gastroesophageal reflux disease) Hyperlipidemia Hypertension Hypothyroidism Stented coronary artery Vocal cord dysfunction Encounter to establish care Fatigue 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 Chronic diastolic CHF (congestive heart failure) Hyperlipidemia Hypertension Claudication Chief Complaint 2-3 m fu CHEST PAIN, CAD HX CHEST PAIN, CAD HX Amb Documentation 6 M FU FATTY LIVER, E ORDERS 2 DRS/LABS Reason for Visit Fatigue 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 Chronic diastolic [...] sleep apnea) Asthma 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 Hyperlipidemia Hypertension [...] 2025 2:44pm 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ath coronary artery without angina pectoris March 07, [...] 2025 2:44pm 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[place] coronary artery without angina pectoris March 07, 2025 2:44pm BMI 39.0-39.9,adult March 07, 2025 2:44 pm Fatty liver March 07, 2025 2:44 pm Hyperlipidemia March 07, 2025 2:44 pm Hypertension March 07, 2025 2:44 pm Hypothyroidism March 07, 2025 2:44 pm KATHARINA (obstructive sleep apnea) March 07, 2025 2:44pm Chief Complaint Admit Date 4 M FU January 11, 2025 10: 50am HERNADNEZ January 13, 2025 7:0 4am 6 M FU February 09, 2025 12:52 pm J45.20 - Mild intermittent asthma, uncom plicated February 22, 2025 7:59am J45.20 - Mild intermittent asthma, uncom plicated February 22, 2025 8:05am 6 M FU March 07, 2025 2:44 pm INT LAB ORDERS March 07, 2025 4:26 pm 1 Y FU/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 March 142024 12:51pm Reason for [...] 2025 2:44pm 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] 2025 2:44pm 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ath coronary artery without angina pectoris March 07, 2025 2:44pm BMI 39.0-39.9,adult March 07, 2025 2:44 pm Fatty liver March 07, 2025 2:44 pm Hyperlipidemia March 07, 2025 2:44 pm Hypertension March 07, 2025 2:44 pm Hypothyroidism March 07, 2025 2:44 pm KATHARINA (obstructive sleep apnea) March 07, 2025 2:44pm 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ath coronary artery without angina pectoris March 14, [...] Yes November 15, 020 12:24pm Power of Pigs Feet Cleaner Yes November 15, 2019 12:24pm Advance Directive Response Recorded Date/ Time Advance Directives Yes April 21 11:06am Living Will Yes February 15, 2022 1 0:15am Power of Pigs Feet Cleaner Yes February 15, 2022 10:15am Advance Directive Response Recorded Date/ Time Advance Directives Yes April 21 10:06am Living Will Yes February 15, 2022 9 :15am Power of Pigs Feet Cleaner Yes February 15, 2022 9:15am Advance Directive [...] Provider, Referring Provider Active Jose M Milligan MODEL DRESSER, MODEL DRESSER-C Attending Provider Active Team Status: Inactive Member Role Status Dates Dr. Phong Quiroga MD Primary Care Provider, Referring Provider Active Carolyne King MODEL DRESSER, MODEL DRESSER-C Attending Provider Active Team Status: Inactive Member Role Status Dates Dr. Rosario Cha MD Primary Care Provider, Attendi ng Provider Active Team Status: Active Member Role Status Dates Dr. Rosario Cha MD Primary Care Provider Active Dr. Salvatore Dunlap MD Attending Provider Active Jose M Milligan MODEL DRESSER, MODEL DRESSER-C Referring Provider Active Team Status: Active Member Role Status Dates Dr. Rosario Cha MD Primary Care Provider Active Jose M Milligan MODEL DRESSER, MODEL DRESSER-C Attending Provider Active Team Status: Active Member Role Status Dates Dr. Rosario hCa MD Primary Care Provider Active George Webber Attending Provider Active Team Status: Inactive Member Role Status Dates Dr. Phong Quiroga MD Primary Care Provider Active Jose M Yolanda Milligan MODEL DRESSER, MODEL DRESSER-C Attending Provider Active Team Status: Inactive Member Role Status Dates Jose M Milligan MODEL DRESSER, MODEL DRESSER-C Attending Provider, Referring Pro vider Active Dr. Rosario Cha MD Primary Care Provider Active Team Status: Inactive Member Role Status Dates Dr. Phong Quiroga MD Primary Care Provider Active Jose M Yolanda Milligan MODEL DRESSER, MODEL DRESSER-C Attending Provider, Referring Pro vider Active Team Status: Inactive Member Role Status Dates Dr. Phong Quiroga MD Referring Provider Active Jose M Milligan MODEL DRESSER, MODEL DRESSER-C Attending Provider Active Dr. Rosario Cha MD Primary Care Provider Active Team Status: Active Member Role Status Dates Dr. Rosario Cha MD Primary Care Provider Active Jose M Milligan MODEL DRESSER, MODEL DRESSER-C Referring Provider, Other Provide r Active Dr. Wilma Almodovar MD Attending Provider Active Team Status: Inactive Member Role Status Dates Dr. Rosario Cha MD Primary Care Provider Active Jose M Yolanda Milligan MODEL DRESSER, MODEL DRESSER-C Attending Provider, Referring Pro vider Active Team Status: Inactive Member Role Status Dates Dr. Phong Quiroga MD Referring Provider Active Katja Cruz MODEL DRESSER, MODEL DRESSER-C Attending Provider Active Dr. Rosario Cha MD Primary Care Provider Active Team Status: Inactive Member Role Status Dates Dr. Rosario Cha MD Primary Care Provider Active Dr. Oscar Kimble DO Attending Provider, Referring Provider Active Jose M Milligan NP, MODEL DRESSER-C Other Provider Active Team Status: Inactive Member [...] March 14, 2025 Jose M Milligan NP MODEL DRESSER-C Attending Provider Active S tart: March 14, [...] Status: Inactive Member Role/Relationship Status Dates Caridad M Rufener , MODEL DRESSER-C Attending Provider Active Start: February 22, 2025 [...] March 14, 2025 Jose M Milligan NP MODEL DRESSER-C Attending Provider Active S tart: March 14, 2025 End: March 14, 2025 Team Status: Active Member Role/Relationship Status Dates Dr. Rosario Cha MD Primary Care Provider Active Start: April 12, 2025 Dr. Rosario Cha MD Attending Provider Active Start: April 12, 2025 Dr. Rosario Cha MD Referring Provider Active Start: April 12, 2025 Team Status: Inactive Member Role/Relationship Status Dates KEVIN ByersC Attending Provider Active Start: April 13, 2025 [...] March 14, 2025 Jose M Milligan NP, MODEL DRESSER-C Attending Provider Active S tart: March 14, [...] ized section and content) DATE CREATED AUTHOR 08/04/2025 [facility] FOR RECORDS PERTAINING TO PATIENTS WHO ARE [...] BE BASED ON THE PRIMARY CLINICAL RECORDS. [employer] provides no warranty or guarantee of the accuracy or completeness of information in this document.
[2025-09-09 08:33] LABS: Pro- Brain NATRIURETIC PEPTIDE 306 pg/mL (<=1800)
[2025-09-09 08:41] LABS: AST(SGOT) 19 U/L (<=31); Alanine Aminotransfer ALT/SGPT 24 U/L (<=34); Albumin, Serum 3.9 g/dL (3.4-4.8); Alkaline Phosphatase 95 U/L (35-104); Anion Gap 14 (5-15); BUN 15 mg/dL (4-19); BUN/Creat Ratio 17.1 RATIO (10-20); Bilirubin, Direct 0.25 mg/dL (0.00-0.30); Calcium,Total 9.0 mg/dL (7.6-11.0); Carbon Dioxide 21.6 mmol/L (21.0-32.0); Chloride 101 mmol/L (98-108); Cholesterol 90 mg/dL (<=200); Globulin 3.0 g/dL (2.2-4.2); Glucose 125 mg/dL (70-99); Low Density Lipoprotein Calc. 32 mg/dL; Potassium 3.6 mmol/L (3.3-5.1); Triglycerides 72 mg/dL; Very Low Density Lipoprotein 14 mg/dL (5-40); cholesterol:hdl ratio screen 2.12
--- NOTE | 2025-09-09 14:46 | STRESSREP ---
Stress Test Report Pharmacologic myocardial perfusion stress test. Date Test Performed: [09/09/2025] [75]-year-old [female] with a history of [chronic coronary syndrome, with intermittent arm pain]. Evaluation for progression of disease. Resting EKG demonstrates [normal sinus rhythm, nonspecific ST T wave changes, normal cardiac intervals] with a rate of [67] bpm. Resting blood pressure is [132/70] mmHg. 0.4 mg of regadenoson was infused per usual protocol followed by rapid intravenous saline flush injection. Continuous EKG monitoring was performed. The maximum heart rate was [93] bpm which was [64]% of max impacted heart rate the maximum workload was [1] metabolic equivalent. There was no electrocardiographic evidence of ischemia on stress portion. No clinical angina is noted. The final blood pressure was [140/72]mmHg. Myocardial perfusion protocol. [11.8] mCi of technetium 99m sestamibi was injected at rest. 0.4 mg of regadenoson was infused per usual protocol. At peak infusion [35.2] mCi of technetium 99m sestamibi was injected stress images were obtained stress and rest images were reconstructed and compared in the short axis vertical long and horizontal long axis. Gated images were also obtained. Perfusion SPECT analysis: Interpretation limited by hepatic and gastric extracardiac uptake, creating significant artifact. There were no reversible defects on this examination, and wall motion was concomitantly normal, with ejection fraction of greater than 70%. Furthermore, uptake on stress imaging was universally greater compared to rest. There is no evidence of previous infarction. Gated SPECT analysis: The gated ejection fraction is [75]%. Conclusion: [No evidence of ischemia within the limits of this] pharmacologic myocardial perfusion stress test. [Normal] ejection fraction.
== END | disposition home or self-care (01) ==
LOC: CVS 05:50
PROVIDERS: PCP Internal Medicine; Referring Provider Nurse Practitioner Family; Visit Provider Nurse Practitioner Family
DX: I25.10 Atherosclerotic heart disease of native coronary artery without angina pectoris (principal); I10 Essential (primary) hypertension; E03.9 Hypothyroidism, unspecified; E78.5 Hyperlipidemia, unspecified; K75.81 Nonalcoholic steatohepatitis (NASH); G47.33 Obstructive sleep apnea (adult) (pediatric); E66.09 Other obesity due to excess calories; Z68.34 Body mass index [BMI] 34.0-34.9, adult; R73.9 Hyperglycemia, unspecified; R06.09 Other forms of dyspnea; Z13.220 Encounter for screening for lipoid disorders
CPT/HCPCS: 36415; 78452; 80053; 80061; 82248; 83036; 83880; 84439; 84443; 93017; A9500; A4216; J2785